=== PATIENT | male | born 1950 | race Caucasian/White ===

== ENCOUNTER 2023-07-07 12:05 | Emergency (ER) | payer MEDICARE, SELFPAY ==
[2023-07-07 12:09] VITALS: BP 158/74
[2023-07-07 13:04] LABS: % Basophils 0.8 % (0-2); % Eosinophils 8.9 % (0-6); % Immature Granulocytes 0.3 % (0-0.5); % Lymphocytes 15.1 % (20.5-51.1); % Monocytes 9.6 % (1.7-9.3); % Neutrophils 65.3 % (42.2-75.2); Absolute Basophils 0.1 10^3/uL (0-0.2); Absolute Eosinophils 0.8 10^3/uL (0-0.7); Absolute Lymphocytes 1.4 10^3/uL (1.2-3.4); Absolute Monocytes 0.9 10^3/uL (0.1-0.6); Mean Corp Hgb Conc. 34.1 g/dL (33.0-37.0); Mean Corpuscular Volume 93.6 fL (80.0-94.0); Mean Platelet Volume 9.4 fL (7.4-10.4); Nucleated Red Blood Cells % 0 % (-); Platelet Count 239 10^3/uL (130-400); Red Blood Cell Count 4.38 10^6/uL (4.70-6.10); Red Cell Dist. Width 12.1 % (11.5-14.5); White Blood Cell Count 9.2 10^3/uL (4.8-10.8)
[2023-07-07 13:28] LABS: ALT (SGPT) 35 U/L (0-50); AST (SGOT) 35 U/L (17-59); Albumin 3.8 g/dl (3.5-5.0); Alkaline Phosphatase 75 U/L (38-126); Blood Urea Nitrogen 10 mg/dl (9-20); Calcium 9.1 mg/dl (8.4-10.2); Carbon Dioxide 28 mmol/L (22-30); Chloride 100 mmol/L (98-107); Glucose 118 mg/dl (70-99); Potassium 4.1 mmol/L (3.5-5.1); Sodium 134 mmol/L (135-145); Total Bilirubin 0.6 mg/dl (0.2-1.3); Total Protein 6.8 g/dl (6.3-8.2); eGFR > 60.00
--- NOTE | 2023-07-07 14:03 | ED.GENMED ---
History of Present Illness
General
Chief Complaint: Numbness
Source: patient
Exam Limitations: none
Time Seen by Provider: 07/07/23 14:02
Nursing documentation reviewed up to this point in time: agreed with
Travel History
Have you had any contact with someone who has COVID-19?: No
Do you have any symptoms of coronavirus? Fever > 100 degrees, chills, cough, shortness of breath, sore throat, loss of taste or smell, muscle aches, or headache?: No
History of Present Illness
History of Present Illness:
73-year-old male with history of COPD, NIDDM with autonomic diabetic neuropathy, BPH, PAF, HLD, HTN, ID, prostate cancer, thrombocytosis presents stating 'my feet,' 'they're numb and cold all the time.' 'I have sores on both my feet.' Pt states he
stopped his Metformin and Glimepiride 6 months ago because 'they weren't' doing anything.'
Has a note on RX paper from lien searcher he says he saw 'in May.' Note states 'bilateral non healing necrotic LE wounds x multiple months. Diabetic. Non palpable pulses, + neuropathy Odor and drainage fr left leg wound. Rec hospital admission. Needs
arterial studies, ID consult. Pt prefers [facility]
Pt denies fever/chills.
Past History
Past History
ED Past Medical History: Cancer (Prostate) and NIDDM
ED Past Surgical History: Orthopedic
Social History
Tobacco: Smoker
Alcohol: Occasional
Personal:
Living: with family
Review of Systems
Review of Systems
Allergies reviewed?: Yes
All Other Systems: ROS reviewed and negative except as documented in HPI and ROS
Constitutional: Denies fever or chills
Respiratory: Denies trouble breathing
Cardiac: Denies chest pain
ABD/GI: Denies abdominal pain, nausea, diarrhea or anorexia
: Denies dysuria, frequency, difficulty voiding or urgency
Musculoskeletal: Denies edema
Skin: Reports other (sore on right heel, left great toe, left lower leg)
Neurological: Reports numbness (and pain both feet)
Phy Exam
Physical Exam
Physical Exam:
GENERAL: No acute distress. A&Ox3.
CONSTITUTIONAL: Afebrile.
EYES: clear,, conjunctivae normal
Neck: Supple
ENMT: moist mucus membranes, Pharynx nl
RESPIRATORY: Regular respirations, nonlabored, lungs clear.
CARDIOVASCULAR: Regular rate and rhythm, no murmurs, no rubs. Left pedal pulse palpable, unable to palpated right pedal pulse, brisk capillary refill all toes except necrotic left great toe.
Bilateral DP and PT pulses easily audible with doppler
GI: Soft, nontender, normal BS
MUSCULOSKELETAL: Moves with ease. Well perfused except necrotic left great toe
SKIN: Warm, dry, pink. Dime sized open wound right heel, surrounding thick yellow eschar, surrounding skin normal. Necrotic areas left great toe, wound outer left lower leg with scabbed over wound, abut 4 x 4 cm, surrounding skin normal. Wounds are
malodorous.
PSYCH: Normal mood and affect. Well kept, interactive and appropriate
NEUROLOGIC: Awake, alert and oriented. No focal neurological deficits
Course
Orders/Labs/Results
Orders:
Orders
07/07/23 12:39
Complete Blood Count/With Diff Urgent
Comprehensive Metabolic Panel Urgent
Glycohemoglobin (HgbA1c) Urgent
07/07/23 14:22
Add On- LAB Urgent
Tests Added?: Hgb A1C
07/07/23 14:47
Wound Culture [Wound/Abscess/Other Culture] Urgent
MAIKOL Source: Heel
Specimen Description: Left
Date Specimen was Collected: 07/07/23
Time Specimen was Collected: 14:40
07/07/23 14:52
CR Toe(s) Min 2 Vw Left Urgent
Comment:
Reason For Exam: necrosis
07/07/23 14:53
Heel, Right 2 View [CR Heel/os Calcis - Right 2 Vw] Urgent
Comment:
Reason For Exam: non healing wound
Abnormal Lab Results
07/07/23
12:39
RBC 4.38 L 10^6/uL
(4.70-6.10)
MCH 32.0 H pg
(27.0-31.0)
Absolute Monos (auto) 0.9 H 10^3/uL
(0.1-0.6)
Absolute Eos (auto) 0.8 H 10^3/uL
(0-0.7)
Lymphocytes % 15.1 L %
(20.5-51.1)
Monocytes % 9.6 H %
(1.7-9.3)
Eosinophils % 8.9 H %
(0-6)
Sodium 134 L mmol/L
(135-145)
Glucose 118 H mg/dl
(70-99)
07/07/23 12:39
07/07/23 12:39
Vital Signs
Initial and Last Documented VS:
Initial Vital Signs
Temp Pulse Resp BP Pulse Ox
100.3 F 50 18 158/74 99
07/07/23 12:09 07/07/23 12:09 07/07/23 12:09 07/07/23 12:09 07/07/23 12:09
Last Documented Vital Signs
Temp Pulse Resp BP Pulse Ox
98.1 F 61 16 148/84 96
07/07/23 14:48 07/07/23 15:30 07/07/23 14:48 07/07/23 15:00 07/07/23 15:30
MDM/Problems Addressed
Differential Diagnosis Includes:
diabetic neuropathy
venous insufficiency
arterial insufficiency
non compliance with treatment
MDM/Problems Addressed:
73-year-old male with history of NIDDM with autonomic diabetic neuropathy, BPH, PAF, HLD, HTN, ID, prostate cancer, thrombocytosis presents stating 'my feet,' 'they're numb and cold all the time.' 'I have sores on both my feet.' Pt states he stopped
his Metformin and Glimepiride 6 months ago because 'they weren't' doing anything.'
Has a note on RX paper from lien searcher he says he saw 'in May.' Note states 'bilateral non healing necrotic LE wounds x multiple months. Diabetic. Non palpable pulses, + neuropathy Odor and drainage fr left leg wound. Rec hospital admission. Needs
arterial studies, ID consult. Pt prefers [facility].'
Pt denies fever/chills.
Temp initially 100.3 Now 97.7 for this examiner
2:28 PM
CBC with no clinically significant abnormality
CMP normal
No sign of acute arterial compromise as PT and DP pulses intact, brisk cap refill toes bilaterally
Wound culture right heel pending.
Temp 98.1
Plan, Admit: non healing wounds feet, vascular evaluation
Hospitalist notified of admission.
Xray L toe and right heel pending
Pt refusing xrays and admission, I and Hospitalist both tried to convince him to stay 'I have things I have to do' States he can come back tomorrow, encouraged to do so
AMA form signed and scanned into chart
Encouraged pt to get appt with Wound Care or return here for admission when he can
*Critical Care Note
Total Time (30-74mins, 75-104mins- exclusive of procedures): Not Applicable
ED Attending Note
-
Portions of this chart may have been created with voice recognition software.� Occasional wrong word or��sound alike� substitutions may have occurred due to the inherent limitations of voice recognition software.
Discharge Plan
Departure
Patient Disposition: Against Medical Advice
Date of Disposition: 07/07/23
Time of Disposition: 14:57
Condition: Fair
Discharge Problem:
Non-healing open wound of right heel, Necrosis of toe, Diabetes mellitus, Non compliance w medication regimen, Diabetic autonomic neuropathy
Instructions: Nerve damage caused by diabetes, Foot care for people with diabetes
Prescriptions:
No Action
No Current Medications
0
Referrals:
Kam Fletcher, [Family Provider] -
Activity Restrictions/Additional Instructions:
As we discussed, call the [facility] for appointment
You are refusing admission, please return at any time if you change your mind.
Interventions
Interventions:
*Risk Screen - Suicide Last Done: 07/07/23 12:09
*General Assessment Last Done: 07/07/23 12:09
*Neglect/Abuse Screening Last Done: 07/07/23 12:09
ED- Fall Risk Assessment Last Done: 07/07/23 14:48
*ED COVID-19 Vaccine History Last Done: 07/07/23 12:09
ED- Neurological Assessment Last Done: 07/07/23 14:48
Discharge Date and Time
Print Language: KINYARWANDA
[2023-07-07 14:46] VITALS: BP 152/100
[2023-07-07 14:48] VITALS: BP 152/100; BMI 28.3
[2023-07-07 15:00] VITALS: BP 148/84
[2023-07-08 09:34] LABS: Glycohemoglobin (HgbA1c) 6.3 % (4.0-5.6)
== END 2023-07-07 16:02 | disposition left against medical advice (07) ==
LOC: EMR 12:05
PROVIDERS: Emergency Medicine; EMERGENCY PHYSICIAN Emergency Medicine; FAMILY PHYSICIAN Family Medicine
DX: E11.43 Type 2 diabetes mellitus with diabetic autonomic (poly)neuropathy (principal); S91.301A Unspecified open wound, right foot, initial encounter; Z91.148 Patient's other noncompliance with medication regimen for other reason; E11.52 Type 2 diabetes mellitus with diabetic peripheral angiopathy with gangrene; I96 Gangrene, not elsewhere classified; X58.XXXA Exposure to other specified factors, initial encounter; Z53.29 Procedure and treatment not carried out because of patient's decision for other reasons; D75.839 Thrombocytosis, unspecified; I10 Essential (primary) hypertension; E78.5 Hyperlipidemia, unspecified; N40.0 Benign prostatic hyperplasia without lower urinary tract symptoms; J44.9 Chronic obstructive pulmonary disease, unspecified; I25.2 Old myocardial infarction; I48.0 Paroxysmal atrial fibrillation; F17.200 Nicotine dependence, unspecified, uncomplicated; Z85.46 Personal history of malignant neoplasm of prostate
CPT/HCPCS: 99283; 80053; 83036; 85025; 87070; 87205

== ENCOUNTER 2023-07-21 17:31 | Inpatient (IN) | payer MEDICARE, SELFPAY ==
[2023-07-21 10:42] VITALS: BP 160/83
[2023-07-21] MEDS: ZOSYN 50 IV ×2 (15:17→20:43)
[2023-07-21 15:20] VITALS: BMI 29.6
--- NOTE | 2023-07-21 15:22 | ED.GENMED ---
History of Present Illness
General
Chief Complaint: Skin Problem
Source: patient, records and family
Time Seen by Provider: 07/21/23 14:28
Travel History
Have you had any contact with someone who has COVID-19?: No
Do you have any symptoms of coronavirus? Fever > 100 degrees, chills, cough, shortness of breath, sore throat, loss of taste or smell, muscle aches, or headache?: No
History of Present Illness
History of Present Illness:
73-year-old male with past medical history of [id number] diabetes (not taking any medications at present time due to patient noncompliance), paroxysmal atrial fibrillation, COPD, previous RI, hypertension, hyperlipidemia presenting back
to the emergency department for evaluation after he reports he was here about 2 weeks ago and was recommended to be admitted for evaluation of bilateral feet wounds that have been ongoing for at least 2 months. Patient saw his soil surveyor in May
who provided the ER with a prescription recommending patient be admitted for evaluation of the wounds, arterial studies, infectious disease consultation and possible surgical intervention. Patient states that he was not prepared to be admitted 2
weeks ago and preferred to be discharged home and come back to the hospital when ready. Patient notes that he is only taking ibuprofen at present time despite his multiple chronic medical conditions but is unclear as to why he ultimately decided to
stop all of his medications. Patient states his main symptom seems to be a continuous numbness/coldness sensation to the bilateral legs/feet. No new concerns today.
Past History
Past History
ED Past Medical History: Arrthythmia, Cancer (Prostate), COPD, HTN, Hypercholesterolemia and NIDDM
ED Past Surgical History: Orthopedic
Social History
Tobacco: Smoker
Alcohol: Occasional
Drug: None
Personal:
Living: with family
Review of Systems
Review of Systems
All Other Systems: ROS reviewed and negative except as documented in HPI and ROS
Phy Exam
Physical Exam
Physical Exam:
GENERAL: Alert , in no apparent distress
EYE: conjunctiva clear
NECK: Supple, no significant adenopathy.
ENT: o/p clr, mmm.
CARDIAC: Irregularly irregular rate and rhythm
LUNGS: Clear breath sounds bilaterally, no acute respiratory distress, no wheezes/rales/rhonchi
NEUROLOGICAL: Alert and oriented
SKIN: Somewhat dusky appearance to the bilateral feet. There are bilateral heel wounds with right being slightly greater than left. Moderate size eschar overlying both with the right heel having a black eschar, yellow eschar on the left. The left
great toe also has an eschar with small sloughing of the skin. No weeping or drainage. Skin is otherwise dry and flaking
MUSCULOSKELETAL: poorly perfused and unable to palpate DP or PT pulses. I was able to find a weak DP pulse and an easily dopplerable PT pulse on the right. Left DP and PT pulses were low but harder to find with Doppler but were present.
PSYCH: Normal and appropriate interaction.
Course
Orders/Labs/Results
Orders:
Orders
07/21/23 10:46
Electrocardiogram (*1) Urgent
Reason for Study: Bradycardia / Tachycardia
EKG- Treatment ONCE
07/21/23 14:57
Piperacillin/Tazo 3.375 Gram [Zosyn] 3.375 gram in 50 ml IV NOW
Peripheral Arterial US [US Periph Art LOWER Ext w YESSICA] Urgent
Comment:
Reason For Exam: PAD, neuropathy, wounds
US Legs, Bilateral [US Periph Venous LOWER Ext Elmo] Urgent
Comment:
Reason For Exam: wounds, edema
07/21/23 Dinner
2000 calorie (17 carb) Diabetic
At Your Request: Limited Participation
07/21/23 15:09
Vancomycin [Vancocin] 2,000 mg 0.9% Sodium Chloride 500 ml [Nss] 500 ml IV NOW
07/21/23 15:17
Basic Metabolic Panel Urgent
CRP [C-Reactive Protein] Urgent
Complete Blood Count/With Diff Urgent
ESR [Erythrocyte Sed Rate] Urgent
PTT Urgent
Prothrombin Time Urgent
07/21/23 16:52
Admit/Transfer Patient As Directed
Co-Sign Provider:
Level of Care: Inpatient admission
Assign to:: Telemetry
Physician / Group: jose
Diagnosis: non healing infected foot wounds
Reason for Telemetry: Arrhythmia
Date to Stop Telemetry: 07/24/23
Time to Stop Telemetry: 11:00
Reason for Hospitalization: non healing infected foot wounds
Expected length of stay greater than two midnights?: Yes
ELOS- Estimated Length of Stay in days: 2
I certify the patient meets the requirements for IP care: Yes
Code Status As Directed
Resuscitation Status: Full Code
07/21/23 18:10
VANCOMYCIN Pharmacy to Dose [VANCOCIN Pharmacy to Dose] 1 each Pharmacy To Prepare [Call Pharmacy To Prepare] 0 ml IV PER PROTOCOL
07/21/23 18:10
Activity As Directed
Activity Level: As Tolerated
Vital Signs As Directed
Frequency: Per unit guidelines
DX Deep Vein Thrombosis Video Routine
07/21/23 20:00
Heparin 5,000 units SC Q12
Piperacillin/Tazo 3.375 Gram [Zosyn] 3.375 gram in 50 ml IV Q6H
07/22/23 Breakfast
NPO
Allow oral meds: Yes
Allow clear liquids: No
NPO with Ice Chips: No
Complete Blood Count/With Diff IN AM
Comprehensive Metabolic Panel IN AM
07/24/23 11:00
DC Protocol for Telemetry ONCE
Abnormal Lab Results
07/21/23
15:17
RBC 4.67 L 10^6/uL
(4.70-6.10)
MCH 32.1 H pg
(27.0-31.0)
Absolute Monos (auto) 0.9 H 10^3/uL
(0.1-0.6)
Absolute Eos (auto) 0.8 H 10^3/uL
(0-0.7)
Lymphocytes % 15.5 L %
(20.5-51.1)
Monocytes % 10.0 H %
(1.7-9.3)
Eosinophils % 8.9 H %
(0-6)
ESR 23 H mm/hour
(0-20)
Carbon Dioxide 31 H mmol/L
(22-30)
Glucose 106 H mg/dl
(70-99)
C-Reactive Protein 27.20 H mg/L
(0.0-10.00)
07/21/23 15:17
07/21/23 15:17
Vital Signs
Initial and Last Documented VS:
Initial Vital Signs
Temp Pulse Resp BP Pulse Ox
99.1 F 46 18 160/83 98
07/21/23 10:42 07/21/23 10:42 07/21/23 10:42 07/21/23 10:42 07/21/23 10:42
Last Documented Vital Signs
Temp Pulse Resp BP Pulse Ox
99.1 F 46 18 160/83 98
07/21/23 10:42 07/21/23 10:42 07/21/23 10:42 07/21/23 10:42 07/21/23 10:42
MDM/Problems Addressed
Differential Diagnosis Includes:
Peripheral vascular disease, peripheral arterial disease, diabetic neuropathy/diabetic wounds, osteomyelitis
MDM/Problems Addressed:
73-year-old male with chronic wounds to bilateral feet, chronic medication noncompliance. Patient clearly has multitude of components leading to his peripheral arterial disease, peripheral vascular disease as well as diabetes all likely
contributing to his present symptoms today. Symptoms are all chronic however worsening. Patient not on any medications for any of his chronic conditions. Likely needs more urgent vascular evaluation. Patient at some point may need surgical
intervention. Will order labs as well as discussed case with vascular to help with imaging modalities. Plan will be to admit
Chronic conditions affecting care: DM and Other (Peripheral vascular/peripheral arterial disease)
Acute Exacerbation and/or Progression of Chronic Illness: DM and Other (PVD/PAD)
*Radiology
Radiology exam reviewed: radiology read reviewed
*Pulse Oximetry
Patient hypoxic: no
*EKG
Interpreted by ED Provider?: Yes
Comparison EKG: no changes
Heart Rate: 56
Rate: normal
Rhythm: a-fib
[place]: normal axis
Ischemia: no ischemia
*Critical Care Note
Total Time (30-74mins, 75-104mins- exclusive of procedures): Not Applicable
Data Reviewed
Review of Other/Old Records Reveals: Labs, Records and Radiology Studies
Source: patient and records
Patient Management
Discussion with other providers: Hospitalist and Core Machine Tender
Escalation/DeEscalation of care consider admission/obs:
2:50 PM: Spoke with vascular surgery, Dr. Ballesteros, recommends peripheral vascular studies as well as YESSICA with toe pressures bilateral lower extremities
4:05 PM: Hospitalist team is aware and accepts patient for continued evaluation and treatment. They may consult infectious disease and podiatry.
ED Attending Note
-
Portions of this chart may have been created with voice recognition software.� Occasional wrong word or��sound alike� substitutions may have occurred due to the inherent limitations of voice recognition software.
Discharge Plan
Departure
Patient Disposition: Admit
Date of Disposition: 07/21/23
Time of Disposition: 16:05
Presentation/result/management discussed w/ accepting MD/DO: Hospitalist
Discharge Problem:
diabetic foot wound, PVD (peripheral vascular disease), PAD (peripheral artery disease), Non compliance w medication regimen
Interventions
Interventions:
*Risk Screen - Suicide Last Done: 07/21/23 10:45
*General Assessment Last Done: 07/21/23 10:45
*Neglect/Abuse Screening Last Done: 07/21/23 10:45
ED- Fall Risk Assessment Last Done: 07/21/23 17:37
*Nursing Disposition Last Done: 07/21/23 18:10
ED-Skin Assessment Last Done: 07/21/23 17:37
Discharge Date and Time
Discharge Date/Time: 07/21/23 18:10
[2023-07-21 15:36] LABS: % Eosinophils 8.9 % (0-6); % Immature Granulocytes 0.2 % (0-0.5); % Lymphocytes 15.5 % (20.5-51.1); % Neutrophils 64.4 % (42.2-75.2); Absolute Basophils 0.1 10^3/uL (0-0.2); Absolute Eosinophils 0.8 10^3/uL (0-0.7); Absolute Lymphocytes 1.4 10^3/uL (1.2-3.4); Absolute Monocytes 0.9 10^3/uL (0.1-0.6); Hematocrit 42.5 % (39.0-52.0); Mean Corp Hgb Conc. 35.3 g/dL (33.0-37.0); Mean Corpuscular Hgb 32.1 pg (27.0-31.0); Mean Platelet Volume 9.2 fL (7.4-10.4); Nucleated Red Blood Cells % 0 % (-); Platelet Count 239 10^3/uL (130-400); Red Blood Cell Count 4.67 10^6/uL (4.70-6.10); White Blood Cell Count 9.3 10^3/uL (4.8-10.8)
[2023-07-21 15:46] LABS: Blood Urea Nitrogen 9 mg/dl (9-20); Calcium 9.6 mg/dl (8.4-10.2); Carbon Dioxide 31 mmol/L (22-30); Chloride 98 mmol/L (98-107); Estimated Creatinine Clearance 92 ml/min; Glucose 106 mg/dl (70-99); Potassium 4.7 mmol/L (3.5-5.1); Sodium 136 mmol/L (135-145); eGFR > 60.00
[2023-07-21 16:09] LABS: APTT 32.5 Sec (23.4-35.0); INR 1.01; PT 13.1 Sec (11.4-14.6)
--- NOTE | 2023-07-21 16:09 | CON.VAS ---
Addendum entered and electronically signed by Finn Melendez MD 07/22/23 09:03:
Seen and examined with KELLY Paz. Agree with findings as noted below. 73-year-old male with multiple medical issues including hypertension, diabetes (he stopped his diabetic medications), A-fib, CAD with chronic bilateral lower extremity
lesions/wounds. Notes about 4 months that they have been there and are not completely healing. He is unclear how they originated. Notes neuropathy in his feet. History of PA/coronary stents. Denies any lower extremity revascularization
procedures. He does note remote tobacco use.
On exam he is awake and alert. Head is normocephalic and atraumatic. Eyes are anicteric. Neck is soft no jugular venous distention. Breathing is unlabored. Abdomen is soft, nondistended, nontender. Lower extremity with 2+ femoral, popliteal
pulses palpable bilaterally. 1+/2+ left DP pulse palpable. Nonpalpable on the right. Feet are both warm. No rubor. Left first toe dry gangrenous lesion distally. (Patient notes the entirety of the toe was dry gangrenous prior, now with
thickened skin and distal residual dry gangrene see pictures below). Left ankle laterally with ulceration relatively superficial, but dry edges (see picture below). Right foot with medial proximal heel dry gangrene and thickened skin changes (see
picture below).
Noninvasive studies reviewed. Right-sided YESSICA 0.77, TBI 0.54. Left-sided YESSICA 0.98, TBI 0.59. Multiphasic waveforms common femoral through popliteal with no significant stenosis. However monophasic continuous Doppler waveforms in the bilateral DP
and PT arteries noted. Suggestive of bilateral infrapopliteal artery disease.
Plan/ Ischemic/gangrenous appearing lesions bilateral lower extremity. They do appear to be overall healing and there may be some healed skin deep to them. However, given these findings would favor angiography. Discussed with him potential
scenarios of angiography including: #1 patent vessels with no significant occlusive disease, #2 stenoses/occlusions noted with successful endovascular therapy, #3 stenoses or occlusions noted with need for staged surgical bypass, #4 no
unreconstructable small vessel disease. Given that his YESSICA on the left is normal and he has palpable pulses on that side, nonpalpable on the right with YESSICA decreased at 0.77 would favor intervention first on the right side. (Left femoral
puncture). Discussed risk of procedure including but not limited to bleeding, arterial injury/worsened or acute limb ischemia, renal failure. Discussed that could image the left lower extremity as well, but if needed to intervene, would do staged
intervention on that side (or alternatively could give that side a little bit longer to see if would heal given normal YESSICA). Patient understands all wishes to proceed. Plan RIGHT lower extremity arteriogram, possible angioplasty/stent, possible
left lower extremity arteriogram.
Original Note:
Consultation
Consultation Request
Date/Time Consultation Performed: 07/21/2023 1600
Requesting Provider: Huan Mistry PA-C
Performing Provider: Isha Paz NP-C for Finn Melendez MD
Reason for Consultation: Bilateral foot wounds
Medical History
-
Chief Complaint: Bilateral foot wounds
History of Present Illness:
This is a 73-year-old male significant past medical history for paroxysmal atrial fibrillation, CAD, prostate cancer, hypertension, and diabetes who presents to [facility] ED today reporting continued bilateral lower extremity nonhealing chronic
wounds. Of note patient reported to our ER on 07/07/2023 with same chief complaint at the encouragement of an outpatient home paraprofessional, at that time he was recommended to be admitted with vascular surgical workup, antibiotics, and further testing for
nonhealing wounds. He refused and signed out AMA as he states he was not ready to be admitted to the hospital. He returns today in agreement to have bilateral wounds further worked up and for hospital admission. He endorses that bilateral feet
wounds appeared roughly 4 months ago, he is unsure how they transpired. He denies trauma. He endorses a roughly 5-year history of bilateral lower extremity diabetic neuropathy, and does endorse decreased sensation to bilateral feet. He denies
previous vascular surgical workup or vascular surgical interventions. Reports PA with subsequent placement of cardiac stent at [facility] in 2016. He also endorses past medical history of proximal atrial fibrillation diagnosed at outside
hospital but does not believe diagnosis is true, as subsequent EKGs were in sinus rhythm. He reports noncompliance with medications including diabetes medications ,aspirin, and any previously prescribed medications for hypertension/CAD. Patient
does have a family history of peripheral arterial disease and diabetes, he endorses he had a brother with poorly managed diabetes who subsequently required leg amputations and eventually from complications of multiple medical conditions.
He personally denies symptoms of claudication or rest pain, but does note that he is limited in his ambulation due to poor balance.
Past Medical History
Past Medical History: Arrhythmias (Paroxysmal atrial fibrillation), CAD, Cancer (Prostate), HTN and NIDDM (Noncompliant)
Past Surgical History: Other (Left hip replacement (11/2015), cardiac catheterization with PCI, endoscopy)
Social History
Tobacco: Former Smoker (Reports a roughly 10-year smoking history)
Drug: None
Allergies / Home Medications
Allergy/AdvReac Type Severity Reaction Status Date / Time
No Known Allergies Allergy Verified 07/21/23 10:42
�Medication �Instructions �Recorded �Confirmed �Type
ibuprofen 200 mg tablet 200 mg PO HSPRN PRN shoulder pain 07/21/23 07/21/23 History
Review of Systems
-
History Source: Patient
Constitutional: Reports No Symptoms
EENT: Reports No Symptoms
Respiratory: Reports No Symptoms
Cardiac: Reports No Symptoms
Vascular: Reports Numbness and Tingling
Abdomen/GI: Reports No Symptoms
: Reports No Symptoms
Musculoskeletal: Reports Edema
Skin: Reports Other (Dry and foul-smelling wounds with eschar present at right heel, left hallux, and left lateral calf, see pictures in HPI)
Neurological: Reports No Symptoms
Endocrine: Reports No Symptoms
Physical Exam
Vital Signs
Temp Pulse Resp BP Pulse Ox
99.1 F 46 18 160/83 98
07/21/23 10:42 07/21/23 10:42 07/21/23 10:42 07/21/23 10:42 07/21/23 10:42
Lab Results
07/21/23 15:17
07/21/23 15:17
Physical Exam
General: No Apparent Distress and Comfortable
HEENT: Normocephalic, Anicteric and Atraumatic
Respiratory: Non Labored Respirations
Cardiac: Irregular Rhythm; Negative JVD
GI: Soft, Non Tender and Non Distended
Musculoskeletal: Edema (Right lower extremity +1 edema, left lower extremity +2 edema)
Skin: Other (Dry and foul-smelling wounds with eschar present at right heel, left hallux, and left lateral calf, see pictures in HPI)
Neuro: Awake and Alert
Pulses: Bilateral Femoral: +2, Bilateral Dorsalis Pedis: +2 and Bilateral Posterior Tibial: Doppler
Assessment / Plan
-
Assessment: 73-year-old male admitted for workup of bilateral feet wounds and suspected peripheral arterial disease
Plan:
Arterial ultrasound with YESSICA/TBI results pending
Surgical plan pending results of noninvasive tests. However, will make patient n.p.o. at midnight in case ultrasounds indicate need for angiogram, which could be done tomorrow.
Would consult podiatry for further management of wounds
Agree with initiation of antibiotics for foul-smelling wounds
I performed this shared service with the attending. I evaluated the patient [id number] and have entered clinical documentation as shown in the encounter note. I performed the following component(s): history and physical exam. Note that medical
decision making is not final until attested by vascular attending.
[2023-07-21 16:14] LABS: Erythrocyte Sed Rate 23 mm/hour (0-20)
--- NOTE | 2023-07-21 16:55 | HPS.HSE ---
Addendum entered and electronically signed by Edy Finney MD 07/21/23 17:48:
Will start with xrays of left foot and right heel instead of MRI.
Original Note:
Family Physician
-
Family Physician: aKm Fletcher
Chief Complaint
-
foot wounds
History of Present Illness
73-year-old male past medical history of prostate cancer status post radiation, diabetes, coronary artery disease, paroxysmal atrial fibrillation, hypertension, COPD, hyperlipidemia presenting to the emergency room for bilateral feet wounds ongoing
for the past few months. He saw his powdered sugar pulverizer operator in May at which time provided prescription prescription to ER recommending patient be admitted for evaluation of the wound, arterial studies and possible surgical intervention. Patient did not want
to go to the hospital at that time.
Patient came here 2 weeks ago and was recommended to be admitted for bilateral foot wounds but left AMA.
Patient has numbness/coldness sensation of the bilateral legs and feet. He denies any fevers or chills
Patient is only taking ibuprofen at this time and states that he only takes metformin and glimepiride but stopped taking them because they were not working. He denies any history of atrial fibrillation states that he was never on anticoagulation.
He drinks alcohol few times a week.
Medical History
Past Medical History
Past Medical History: Reports Other (prostate cancer status post radiation, diabetes, coronary artery disease, paroxysmal atrial fibrillation, hypertension, COPD, hyperlipidemia)
Past Surgical History: Reports None and Other (Orthopedic)
Social History
Tobacco: Non-smoker
Alcohol: Occasional
Drug: None
Family History
Family History: Not pertinent
Allergies / Home Medications
Allergies reflects when Allergies were last updated in [facility].
Home Medications with original date entered in [facility]
Allergy/Medication List:
Allergies
Allergy/AdvReac Type Severity Reaction Status Date / Time
No Known Allergies Allergy Verified 07/21/23 10:42
Home Medications
ibuprofen 200 mg tablet 200 mg PO HSPRN PRN shoulder pain 07/21/23
Review of Systems
-
History Source: Patient
A 12 point ROS was completed and negative except as noted: Yes
Constitutional: Reports No Symptoms
EENT: Reports No Symptoms
Respiratory: Reports No Symptoms
Cardiac: Reports No Symptoms
Abdomen/GI: Reports No Symptoms
: Reports No Symptoms
Musculoskeletal: Reports No Symptoms
Skin: Reports See HPI
Neurological: Reports No Symptoms
Endocrine: Reports No Symptoms
Hematologic/Lymphatic: Reports No Symptoms
Psych: Reports No Symptoms
Physical Exam
Vital Signs
Vital Signs
Temp Pulse Resp BP Pulse Ox
99.1 F 46 18 160/83 98
07/21/23 10:42 07/21/23 10:42 07/21/23 10:42 07/21/23 10:42 07/21/23 10:42
Physical Exam
General: Well Developed, Well Nourished and No Apparent Distress
HEENT: NormoCephalic, Moist mucous membranes and Atraumatic
Respiratory: Clear
Cardiac: S1/S2 and Regular Rhythm; No Murmur or Rub
GI: Soft, Non Tender, Non Distended and Normal Bowel Sounds; No Organomegaly
Rectal: Deferred by Provider
Musculoskeletal: No Clubbing, No Cyanosis and No Edema
Skin: Other ( Multiple wounds including left big toe with some dry gangrene, right heel, left calf and left heel); No Rash
Neuro: Nonfocal/grossly intact
Laboratory Results
-
07/21/23 15:17
07/21/23 15:17
Laboratory Results
PT 13.1 Sec (11.4-14.6) 07/21/23 15:17
INR 1.01 07/21/23 15:17
APTT 32.5 Sec (23.4-35.0) 07/21/23 15:17
Data Reviewed
-
Lab Data: Labs Reviewed by me
Old Records: Reviewed
Impression/Plan
-
IMPRESSION:
PLAN:
# Nonhealing infected chronic wounds of left big toe, left calf, bilteral heels with gangrene, suspected PAD, possible osteomyelitis
-Venous ultrasound
-Arterial ultrasound/YESSICA
-Vancomycin/Zosyn
-Check MRI foot
-Podiatry consulted
-ID consulted
-Vascular surgery consulted
-N.p.o. past midnight for possible angiogram tomorrow
Type 2 diabetes
-patient not taking metformin and glimepiride
-Diabetic diet
-Insulin sliding scale
Diabetic neuropathy
Coronary artery disease status post stent in 2015
Paroxysmal atrial fibrillation
-unclear if patient has history
-EKG shows ectopic atrial rhythm, PACs with heart rate in 50s
Essential hypertension
COPD
Prostate cancer status post radiation
Hyperlipidemia
Full code
DVT prophylaxis-heparin
N.p.o. past midnight
[2023-07-21] MEDS: VANCOCIN 540 MG IV (17:05)
--- NOTE | 2023-07-21 19:06 | PHA.VAN.IN ---
Assessment
- Assessment
Renal Function: Appears similar to baseline
Concomitant Antimicrobials: ZOSYN
- Previous Dosing Experience
Previous Regimen: 1GM IV Q12H
Date of Regimen: 12/26/09
Provided Trough of: 7
Provided AUC of: UNKNOWN
Patient's SCR is: Decreased compared to previous dosing experience (12/26/09 SCR = 1.1)
Patient's weight is: Decreased compared to previous dosing experience (12/26/09 WT = 103.2 KG)
AUC Dosing Plan
- Dosing Variables
Dosing Weight (kg): 83.2
Dosing CrCl (ml/min): 92
Vd coefficient (L/kg): 0.7
- Empiric Dosing
Initial / Loading Dose: 2GM
Maintenance Regimen: 1250MG IV Q12H
Estimated AUC (mcg*h/mL): 564
Estimated Peak (mcg*h/mL): 34.6
Estimated Trough (mcg/ml): 14.8
Estimated Half Life (H): 8.6
Pharmacokinetics Vancomycin I
- -
Patient Age: 73
Patient Sex: Male
Vancomycin Day #: 1
Indication: Bone And Joint (BILAT FOOT WOUNDS/GANGRENE)
Requesting Provider: BRIANNA
Height / Weight:
Height 5 ft 6 in
Actual Weight 83.2 kg
Pertinent Past Medical History: DM
- Vital Signs / Lab Results
Temp Pulse Resp BP Pulse Ox
99.1 F 46 18 160/83 98
07/21/23 10:42 07/21/23 10:42 07/21/23 10:42 07/21/23 10:42 07/21/23 10:42
Lab Results - Hematology
07/21/23
15:17
WBC 9.3
Lab Results - Chemistry
07/21/23
15:17
BUN 9
Creatinine 0.7
Estimated Creat Clear 92
[2023-07-21 19:30] VITALS: BMI 29.1
[2023-07-21 19:55] VITALS: BP 119/73
[2023-07-21] MEDS: HEPARIN 5000 UNITS SC (20:43)
[2023-07-21 23:00] VITALS: BP 129/59
[2023-07-21 23:55] LABS: Glucose - Point of Care 121 mg/dl (70-99)
[2023-07-21] MEDS: NOVOLOG FLEXPEN-LOW RESISTANCE SC (23:57)
[2023-07-22] VITALS (15 sets, daily range): BP systolic 116–181; BP diastolic 48–97
--- NOTE | 2023-07-22 00:35 | PTCARENOTE ---
Patient already on unit and in room at change of shift. AAOX3. Denies pain or discomfort at time of admission. No signs of distress. patient left floor for Xray of bilateral feet in ER via wheelchair around 21:40 and arrived back to unit via
wheelchair around 22:00. Patient has no complaints. Oriented to unit. Call newton within reach.
[2023-07-22] MEDS: ZOSYN 50 IV ×3 (02:09→14:41)
[2023-07-22 05:31] LABS: Glucose - Point of Care 119 mg/dl (70-99)
[2023-07-22] MEDS: NOVOLOG FLEXPEN-LOW RESISTANCE SC ×2 (05:35→12:05)
[2023-07-22] MEDS: VANCOCIN 275 MG IV (05:49)
[2023-07-22 07:42] LABS: % Basophils 1.1 % (0-2); % Eosinophils 9.5 % (0-6); % Immature Granulocytes 1.6 % (0-0.5); % Lymphocytes 13.7 % (20.5-51.1); % Monocytes 10.9 % (1.7-9.3); % Neutrophils 63.2 % (42.2-75.2); Absolute Basophils 0.1 10^3/uL (0-0.2); Absolute Eosinophils 0.8 10^3/uL (0-0.7); Absolute Immature Granulocytes 0.1 10^3/uL (0-0.05); Absolute Lymphocytes 1.1 10^3/uL (1.2-3.4); Absolute Monocytes 0.9 10^3/uL (0.1-0.6); Absolute Neutrophils 5.3 10^3/uL (1.4-6.5); Hematocrit 36.3 % (39.0-52.0); Hemoglobin 12.4 g/dL (13.0-18.0); Mean Corp Hgb Conc. 34.2 g/dL (33.0-37.0); Mean Corpuscular Volume 93.8 fL (80.0-94.0); Mean Platelet Volume 9.6 fL (7.4-10.4); Nucleated Red Blood Cells % 0 % (-); Platelet Count 206 10^3/uL (130-400); Red Blood Cell Count 3.87 10^6/uL (4.70-6.10); Red Cell Dist. Width 12.9 % (11.5-14.5); White Blood Cell Count 8.4 10^3/uL (4.8-10.8)
--- NOTE | 2023-07-22 07:48 | W.PN.HOSP.TC ---
Today's Communication/Plan
-
see bold
Assessment / Plan
Assessment / Plan
HPI: 73-year-old male past medical history of prostate cancer status post radiation, diabetes, coronary artery disease, paroxysmal atrial fibrillation, hypertension, COPD, hyperlipidemia presenting to the emergency room for bilateral feet wounds
ongoing for the past few months. He saw his stretching press operator in May at which time provided prescription prescription to ER recommending patient be admitted for evaluation of the wound, arterial studies and possible surgical intervention. Patient did
not want to go to the hospital at that time. Patient came here 2 weeks ago and was recommended to be admitted for bilateral foot wounds but left AMA.
Patient has numbness/coldness sensation of the bilateral legs and feet. He denies any fevers or chills. Patient is only taking ibuprofen at this time and states that he only takes metformin and glimepiride but stopped taking them because they were
not working. He denies any history of atrial fibrillation states that he was never on anticoagulation.
# Nonhealing infected chronic wounds of left big toe, left calf, bilteral heels with gangrene, possible osteomyelitis
CRP 27.2, ESR 23
MRI requested
Appreciate podiatry input, status post bedside removal of calluses
Continue vancomycin and Zosyn for now, continue wound care
#Peripheral artery disease
Appreciate vascular surgery input, right lower extremity arteriogram showed severe plaque burden bilaterally, but no severe stenosis on the right iliac system
Vascular surgery recommends medical management with aspirin, statin, diabetes control
#Cigarette nicotine dependency
Continue to encourage cessation
Type 2 diabetes
-Hemoglobin A1c 6.3
-patient not taking metformin and glimepiride
-Diabetic diet
-Insulin sliding scale
Diabetic neuropathy
Coronary artery disease status post stent in 2016
Essential hypertension
COPD
Prostate cancer status post radiation
Hyperlipidemia
DVT prophylaxis�subcu Lovenox
Full code
Total time spent to see the patient on the floor, examine the patient, review data and lab results, discuss treatment plan with patient, nursing staff around 50 minutes.
Physical Exam
General: No acute distress
HEENT: Normocephalic, Atraumatic, EOMI, MMM
Respiratory: Clear to Auscultation bilaterally
Cardiac: Normal S1/S2, Regular Rate and Rhythm
GI: Soft, Nontender, Nondistended, Normal Bowel Sounds
Extremities: No Clubbing, Cyanosis, or Edema
Left great toe ulcer
Right heel ulcer
Neuro: Nonfocal/Grossly Intact
Anticipated Discharge: > 48 hours
Subjective/Interval History
-
Date of Service: July 22, 2023
Patient complains of muscle spasms. No fever, no vomiting.
Objective Data
-
Labs:
Laboratory Results
07/22/23
06:54
WBC Pending
Hgb Pending
Hct Pending
Plt Count Pending
Sodium Pending
Potassium Pending
Chloride Pending
Carbon Dioxide Pending
BUN Pending
Creatinine Pending
Glucose Pending
Calcium Pending
Total Bilirubin Pending
AST Pending
ALT Pending
Alkaline Phosphatase Pending
Vital Signs:
Vital Signs
Temp Pulse Resp BP Pulse Ox
98.0 F 62 18 146/77 97
07/22/23 07:30 07/22/23 07:30 07/22/23 07:30 07/22/23 07:30 07/22/23 07:30
I&O
07/21/23 07/22/23 07/23/23
06:59 06:59 06:59
Intake Total 340 / 340
Output Total 300 / 300
Balance 40 / 40
[2023-07-22 08:01] LABS: ALT (SGPT) 23 U/L (0-50); AST (SGOT) 28 U/L (17-59); Alkaline Phosphatase 64 U/L (38-126); Blood Urea Nitrogen 12 mg/dl (9-20); Calcium 8.6 mg/dl (8.4-10.2); Carbon Dioxide 28 mmol/L (22-30); Chloride 103 mmol/L (98-107); Estimated Creatinine Clearance 82 ml/min; Glucose 110 mg/dl (70-99); Potassium 3.9 mmol/L (3.5-5.1); Sodium 136 mmol/L (135-145); Total Bilirubin 0.8 mg/dl (0.2-1.3); Total Protein 5.8 g/dl (6.3-8.2); eGFR > 60.00
[2023-07-22 08:25] LABS: Glucose - Point of Care 118 mg/dl (70-99)
[2023-07-22] MEDS: HEPARIN 5000 UNITS SC (08:44)
--- NOTE | 2023-07-22 08:45 | PHA.VAN.FU ---
Vancomycin Assessment / Plan
- Assessment
Renal Function: Stable
WBC's are: WNL
In the past 24 hrs, patient has been: Afebrile
Concomitant Antimicrobials: piperacillin/tazobactam
- Dosing Plan
Adjust Regimen to: Vanc 1000mg Q12H starting at 1800
New Regimen Predicts: AUC (454 - 504), Peak (28.4 - 30.4), Trough (11.7 - 13.7)
- Monitoring Plan
No level(s) ordered at this time: consider levels in next few days
- Follow Up
Pharmacy will continue to follow.
Vancomycin Follow UP
- -
Patient Age: 73
Patient Sex: Male
Vancomycin Day #: 2
Indication: Bone And Joint
Requesting Provider: Dr. Finney
Pertinent Antimicrobial Allergies:
NKDA
Height / Weight:
Height 5 ft 6 in
Actual Weight 81.703 kg
Pertinent Past Medical History: DM 2
- Vital Signs / Lab Results
Temp Pulse Resp BP Pulse Ox
98.0 F 62 18 146/77 97
07/22/23 07:30 07/22/23 07:30 07/22/23 07:30 07/22/23 07:30 07/22/23 07:30
Lab Results - Hematology
07/21/23 07/22/23
15:17 06:54
WBC 9.3 8.4
Lab Results - Chemistry
07/21/23 07/22/23
15:17 06:54
BUN 9 12
Creatinine 0.7 0.7
Estimated Creat Clear 92 82
Albumin 3.0 L
--- NOTE | 2023-07-22 09:37 | CON.MD ---
Consultation - Medical
-
Mr. Vora is a 73-year-old male with a past medical history of prostate cancer status post radiation, diabetes, coronary artery disease, paroxysmal atrial fibrillation, hypertension, COPD & hyperlipidemia presenting to the emergency room for
bilateral feet wounds. he believes that they appeared approximately 4 months ago. He was seen by a edger technician once in [place] and the right heel wound was debrided and Betadine was applied. It was recommended at that time in May that he go to
the ER for wound evaluation and possible vascular intervention. Patient did not want to go to the hospital at that time. Patient has not been bandaging his wounds. Two weeks ago he was seen here at [place] in the ER and was recommended to be
admitted for bilateral foot wounds but he subsequently left AMA. Patient relates numbness and painful sensations in the bilateral legs and feet. He relates to stopping his Diabetic medications. He denies any fevers or chills currently
Past Medical History
prostate cancer status post radiation, diabetes, coronary artery disease, paroxysmal atrial fibrillation, hypertension, COPD, hyperlipidemia
Past Surgical History: Reports None
Social History
Tobacco: Non-smoker
Alcohol: Occasional
Drug: None
Family History
Family History: Not pertinent
Allergies
Allergy/AdvReac Type Severity Reaction Status Date / Time
No Known Allergies Allergy Verified 07/21/23 10:42
Home Medications
ibuprofen 200 mg tablet 200 mg PO HSPRN PRN shoulder pain 07/21/23
Review of Systems
-
History Source: Patient
A 12 point ROS was completed and negative except as noted: Yes
Constitutional: Reports No Symptoms
EENT: Reports No Symptoms
Respiratory: Reports No Symptoms
Cardiac: Reports No Symptoms
Abdomen/GI: Reports No Symptoms
: Reports No Symptoms
Musculoskeletal: Reports No Symptoms
Skin: Reports See HPI
Neurological: Reports No Symptoms
Endocrine: Reports No Symptoms
Hematologic/Lymphatic: Reports No Symptoms
Psych: Reports No Symptoms
PE: Palpable pulses left foot, right DP/PT pulses are non palpable, loss of pedal hair, atrophic changes, loss of protective sensation. The right heel has a wound with periwound hyperkeratosis on the plantarmedial heel. It measures 1 cm x 2 cm,
it has a pink granular base and there is no undermining, probing, tunneling or sinus tract formation. The left heel has a small dry area of eschar/deep soft tissue injury - dry and stable approximately 1 cm in diameter. No fluctuance. The left
great toe has a fibronecrotic wound on the distal tip of the toe with periwound hyperkeratosis, no probing, tunneling or sinus tract formation. The left lateral leg has a dry eschar approximately 4 cm in diameter - stable, no active drainage, no
fluctuance.
Assessment:
Type 2 Diabetes Mellitus with neuropathy
PAD/ischemic changes
Right heel wound - stage 2
Left distal hallux wound - stage 2
Left heel and lateral leg stable eschars unstageable.
Plan:
He is evaluated and treated at bedside with Gloria, the wound care nurse. X-rays & labs are reviewed. Hyperkeratosis is removed form the right periwound heel area and the left hallux, wounds are carefully inspected. I recommend santyl to the left
hallux and lateral leg wounds daily. I recommend Xeroform and bordered foam to the right heel wound. Offload heels at all times in bed - recommend foam heel pads as well. He may weight bear as tolerated in left foot surgical shoe and right foot
globoped heel relief shoe. Vascular studies complete - follow vascular plan for RLE angiogram with possible endovascular intervention, possible angio left side.
--- NOTE | 2023-07-22 11:49 | WOUNDNOTE ---
LEFT GREAT TOE
--- NOTE | 2023-07-22 11:49 | WOUNDNOTE ---
LEFT LATERAL LEG
--- NOTE | 2023-07-22 11:52 | WOUNDNOTE ---
[facility] RN note: Patient admitted with multiple LE wounds
See H&P for complete history.
PMH: Diabetes, ex-smoker, prostate cancer, CAD, A-fib, COPD
Wound Location and type/assessment: Assessment competed with Dr. Reza, who removed callus of right heel and left great toe during visit. Pictures taken s/p callus removal. Left heel with eschar vs DTI. Left lateral leg with full thickness
wound, vascular appearing.
Appetite: States good
Pressure redistribution devices in place: Heels off-loaded with pillows under calves.
Plan: Santyl to left toe and left lateral leg. Xeroform to right heel and protective foam to left heel. Keep heels off-loaded with pillows under calves. Awaiting plan from vascular. Patient currently NPO. YFN Goetz given update. Will continue to
follow as needed.
[2023-07-22 11:57] LABS: Glucose - Point of Care 113 mg/dl (70-99)
[2023-07-22] MEDS: SANTYL OINTMENT 1 APPLIC TOPICAL (12:04)
--- NOTE | 2023-07-22 12:50 | W.SUR.PREOP ---
Pre-Operative Surgical Note
-
I have examined this patient prior to the performance of the scheduled procedure.
The patient's condition is unchanged from the time of the current History and
Physical and the patient is able to undergo the scheduled procedure.
--- NOTE | 2023-07-22 13:53 | W.PN.UPDATE ---
Update Note
Progress Note Update
Arteriography performed. He has SEVERE plaque burden throughout the entirety of his arterial tree from the abdominal aorta all the way down. Extensive plaque with luminal irregularities throughout the vessels. However there is no severe stenosis
throughout the aorta/right iliac system/right common femoral/profunda/superficial femoral and popliteal arteries. Below the knee he has severe knuckle like tortuosity of the below-knee popliteal/TP trunk. Anterior tibial artery occludes shortly
after its origin. Peroneal artery is his dominant runoff vessel to the foot and is a reasonable artery. There is a mild to moderate stenosis in the proximal portion but appears to be less than 50% in different imaging. There is reconstituted flow
into diseased distal ankle/foot posterior tibial/plantar's and dorsalis pedis arteries. The posterior tibial artery throughout its course is severely diseased/diminutive and then really reconstituted at the distal aspect of the ankle from peroneal
collaterals. I did not feel worth attempting to angioplasty the posterior tibial arteries with the extent of disease throughout.
Left lower extremity runoff demonstrates similar runoff though somewhat limited imaging secondary to sheath injection versus selective catheterization.
Recommend medical management for now. Patient really needs to be more aggressively controlled in terms of risk factor modification. Statin therapy, antiplatelet therapy, diabetic control. In addition when I spoke to patient's though the
patient told me otherwise, she implied that the patient may still be smoking tobacco. Needs to pursue smoking cessation. The degree of plaque burden throughout his arteries raise legitimate concern for systemic atherosclerosis.
[2023-07-22 14:19] LABS: Glucose - Point of Care 144 mg/dl (70-99)
--- NOTE | 2023-07-22 14:27 | OR.RPT ---
Operative Report
Operative Report
PROCEDURE DATE: 07/22/2023
Preoperative diagnosis: Bilateral lower extremity chronic lesions/dry gangrene.
Postoperative diagnosis: Same
Procedure:
1. Duplex assisted left common femoral artery cannulation.
2. Right lower extremity arteriogram with third order vessel catheterization of right distal superficial femoral artery via left common femoral artery puncture.
3. Left lower extremity arteriogram through the left common femoral artery sheath.
4. Supervision and interpretation.
Surgeon: Al
Plunger Shovel Operator: None
Complications: None
Anesthesia: Local, sedation
Fluoroscopy:
7.7 min
83 mGy
26.59 Gy.cm2
Indications for procedure:
Bilateral lower extremity chronic lesions appearing somewhat gangrenous (chronic dry gangrene). Demonstrating some degree of healing underneath. However given all these findings there is concern for peripheral arterial disease. Therefore brought
for angiography. Risk/benefits/alternatives also discussed. Potential scenarios/outcomes discussed. Patient understood all wish to proceed.
Description of procedure:
Patient was identified, brought to the operating room. Placed on the table in the supine position. After the adequate administration of anesthesia, the patient was prepped and draped in the standard surgical fashion. A standard preoperative
timeout was undertaken and everybody was in agreement with the plan.
The left common femoral artery was accessed with a micropuncture kit under direct duplex ultrasound guidance. A 5 [place] sheath was then advanced over a 0.035 inch wire, and a pena's hook catheter was advanced into the abdominal aorta.
Aortogram and pelvic angiogram was obtained. (Note even on plain x-ray I could see extensive aorta/iliac artery calcifications. In addition the wire from the left femoral sheath gave great difficulty advancing into the aorta and I had exchanged
out for a Glidewire and a glide catheter to cannulate the aorta as it was getting held up on iliac bifurcation plaque). Findings as follows:
Infrarenal aorta: Severe eccentric calcification, but no focal stenosis identified.
Right common iliac artery: Severe eccentric calcification but no definitive stenosis.
Right external iliac artery: Severe eccentric calcification but no definitive stenosis.
Left common iliac artery: Severe eccentric calcification but no definitive stenosis, though at the iliac bifurcation there is somewhat of a bulky plaque.
Left external iliac artery: Severe eccentric calcification but no definitive stenosis.
Though no definitive stenosis was identified in these arteries, there is some limitation to two-dimensional arteriography and assessing degree of stenosis in the setting of bulky plaque.
Using a floppy angled hydrophilic wire, the right common femoral artery was cannulated and the catheter was advanced. Right lower extremity arteriogram was obtained. Findings as follows:
Common femoral artery: Patent with no significant stenosis but severe eccentric plaque and luminal irregularities.
Profunda femoris artery: Patent with no significant stenosis but severe eccentric plaque and luminal irregularities.
Superficial femoral artery: Severely calcified vessel throughout. Diffusely ectatic. No severe stenosis identified but extensive eccentric plaque.
Popliteal artery: Similar to superficial femoral artery and that there is severe calcified plaque throughout and somewhat ectatic. Again no severe stenosis confirmed or identified. Below the knee popliteal artery had knuckle like tortuosity.
Anterior tibial artery: Patent very proximally and then occluded. Reconstituted dorsalis pedis from peroneal collaterals.
Tibial peroneal trunk: Patent with no significant stenosis. But diffusely calcified eccentrically.
Peroneal artery: Calcified vessel but generally patent with no severe stenosis. In the proximal segment there is a mild to moderate stenosis which looked worse in 1 obliquity, but in the other obliquity looked to be less severe. Flow was brisk
through this segment. Good collateralization at the ankle into the foot to reconstituted distal posterior tibial/plantar arteries and dorsalis pedis artery.
Posterior tibial artery: Diffusely diminutive in size with significant plaque disease. Generally severely stenotic throughout its course. At the ankle reconstituted via peroneal collaterals the distal portion into the plantar arteries.
At this point I felt that the peroneal artery stenosis was relatively not significant and given the tortuosity of the vessels above as well as the severe plaque burden throughout the vessels, may run more risk potentially jeopardizing his single
runoff vessel. In addition since his wounds were making progress, I felt it was reasonable to avoid increasing his overall risk. I did not feel that attempting to open the entirety of the long segment diffusely stenotic/diseased posterior tibial
artery would be of benefit due to the extensive plaque burden/severe disease.
Therefore at this point I withdrew my wires and catheters. Perform left lower extremity arteriogram through the sheath. Imaging was somewhat limited as it was imaged through the sheath rather than selective catheterization of the more distal
vessels. In general very similar findings to the contralateral side and that the left common femoral/profunda/superficial femoral artery and popliteal artery were all extensively severely calcified and the vargas with luminal irregularities, but no
severe stenosis that I could definitively identified. Below the knee also appeared to be single-vessel peroneal artery runoff. I difficulty imaging more distally as the flow is just flow through the entire system and without selective
catheterization proved to be a little bit challenging. At this point I was satisfied. The sheath was withdrawn and manual pressure was applied to the puncture site. Hemostasis was fully achieved. The patient tolerated the procedure well.
The patient tolerated procedure well.
[2023-07-22] MEDS: LOW STRENGTH ASPIRIN 81 MG PO (14:44)
--- NOTE | 2023-07-22 15:02 | CM ---
Addendum entered by Abby Matt 07/22/23 16:37:
IMM completed.
Addendum entered by Abby Matt 07/22/23 16:35:
IA completed.
Patient lives with spouse in a 2 story home.
Independent prior to admission.
patient drives.
PMD: Dr Fletcher
Pharmacy: [facility]
Plan: home no needs.
Original Note:
Patient off the floor, agram.
[2023-07-22] MEDS: NSS 1000 IV (15:32)
--- NOTE | 2023-07-22 16:08 | CON.ID ---
Consultation
-
Date/Time Consultation Requested: July 21, 2023 6964
Date/Time Consultation Performed: July 22, 2023 1130
Requesting Provider: Dr. Josephine Chowdhury
Performing Provider: Dr. Isha Lopez
Reason for Consultation: Bilateral foot wounds
Chief Complaint / Past History
Chief Complaint
Worsening foot wounds
History of Present Illness
73-year-old male with history of diabetes mellitus, neuropathy, peripheral artery disease, noncompliant with medications who has chronic bilateral foot wounds for several months. His tool design draftsperson had recommended hospitalization but pt refused. He
presented to ED on 07/06 and left AMA. His wounds were progressing, he therefore came back to the ER on July 20. Arterial studies showed decreased TBI bilaterally. Patient denies fevers or chills. Denies pain.
Past History
Additional Past Medical History:
Diabetes mellitus
Neuropathy
Paroxysmal atrial fibrillation
COPD
Hypertension
Dyslipidemia
Coronary artery disease s/p PCT
Prostate cancer status post radiation
L THR
Allergy History:
No Known Allergies Allergy (Verified 07/21/23 10:42)
Medications Reviewed: Yes
Current Antibiotics:
Vancomycin
Zosyn
Social History
Tobacco: Former Smoker
Alcohol: None
Drug: None
Personal:
Family History
Family History: Not Pertinent
Review of Systems
Review of Systems
General: Negative Fever, Chills or Change in Appetite
Cardiovascular: Negative Chest Pain or Dyspnea
Respiratory: Negative Dyspnea or Cough
Gasteroenterology: Negative Nausea or Vomiting
Genital / Urological: Negative Dysuria or Flank Pain
Endocrine: Negative Weakness
All systems: All other systems were reviewed and were negative
Vital Signs
Temp Pulse Resp BP Pulse Ox
98.2 F 69 16 177/65 97
07/22/23 15:35 07/22/23 15:35 07/22/23 15:35 07/22/23 15:35 07/22/23 15:35
Physical Exam
Physical Exam
Constitutional: No Acute Distress and Comfortable
Eyes: Sclera Anicteric
Cardiovascular: Regular Rate and S1/S2
Pulmonary: Clear
Gastrointestinal: Soft, Non Tender and Non Distended
Extremities: Negative Edema
Wound: Other (Left lux eschar coming off with underlying granulation tissue. Left lateral ankle dry ,ischemic wound; left hallux tuft (after bedside debridement by podiatry) - tuft small wound with subcutaneous fat; left heel small wound; right
heel large dry necrotic wound )
Lab / Diagnostic Study Results
07/22/23 06:54
07/22/23 06:54
Abs Immat Gran (auto) 0.1 10^3/uL (0-0.05) H 07/22/23 06:54
Absolute Neuts (auto) 5.3 10^3/uL (1.4-6.5) 07/22/23 06:54
Absolute Lymphs (auto) 1.1 10^3/uL (1.2-3.4) L 07/22/23 06:54
Absolute Monos (auto) 0.9 10^3/uL (0.1-0.6) H 07/22/23 06:54
Absolute Basos (auto) 0.1 10^3/uL (0-0.2) 07/22/23 06:54
Immature Gran % 1.6 % (0-0.5) H 07/22/23 06:54
Neutrophils % 63.2 % (42.2-75.2) 07/22/23 06:54
Lymphocytes % 13.7 % (20.5-51.1) L 07/22/23 06:54
Monocytes % 10.9 % (1.7-9.3) H 07/22/23 06:54
Eosinophils % 9.5 % (0-6) H 07/22/23 06:54
Basophils % 1.1 % (0-2) 07/22/23 06:54
ESR 23 mm/hour (0-20) H 07/21/23 15:17
PT 13.1 Sec (11.4-14.6) 07/21/23 15:17
INR 1.01 07/21/23 15:17
C-Reactive Protein 27.20 mg/L (0.0-10.00) H 07/21/23 15:17
Assessment / Plan
# Chronic ischemic, dry gangrenous wounds BLE
# PAD
# DM, neuropathy, noncompliant
- Arteriogram showed severe plaque burden of vessels. No vascular intervention.
- Wounds looked ischemic, noninfected.
- DC Vanco/Zosyn.
- Continue local wound care.
[2023-07-22 17:01] LABS: Glucose - Point of Care 280 mg/dl (70-99)
[2023-07-22] MEDS: FLEXERIL 5 MG PO ×2 (17:06→21:05)
[2023-07-22] MEDS: LIPITOR 40 MG PO (17:07)
[2023-07-22] MEDS: NOVOLOG FLEXPEN-LOW RESISTANCE 3 UNITS SC (17:35)
[2023-07-22 21:26] LABS: Glucose - Point of Care 188 mg/dl (70-99)
[2023-07-23 03:07] VITALS: BP 153/69
[2023-07-23 07:00] VITALS: BP 158/71
[2023-07-23] MEDS: FLEXERIL 5 MG PO (07:51)
[2023-07-23] MEDS: LOW STRENGTH ASPIRIN 81 MG PO (07:51)
[2023-07-23] MEDS: SANTYL OINTMENT 1 APPLIC TOPICAL (07:52)
[2023-07-23 08:16] LABS: Glucose - Point of Care 122 mg/dl (70-99)
--- NOTE | 2023-07-23 08:25 | VATNOTE ---
on VAT rounds: noticed right hand iv leaking. patient refusing restart @ this time. 'I dont't need it' Explained to the patient about tele monitor and needs of an iv placement. Patient continues to decline the restart. Primary rn made aware.
[2023-07-23 08:32] LABS: % Basophils 0.4 % (0-2); % Eosinophils 1.1 % (0-6); % Immature Granulocytes 0.4 % (0-0.5); % Lymphocytes 15.5 % (20.5-51.1); % Monocytes 8.6 % (1.7-9.3); Absolute Eosinophils 0.1 10^3/uL (0-0.7); Absolute Lymphocytes 1.4 10^3/uL (1.2-3.4); Absolute Monocytes 0.8 10^3/uL (0.1-0.6); Absolute Neutrophils 6.6 10^3/uL (1.4-6.5); Hematocrit 36.3 % (39.0-52.0); Hemoglobin 12.4 g/dL (13.0-18.0); Mean Corp Hgb Conc. 34.2 g/dL (33.0-37.0); Mean Corpuscular Volume 93.6 fL (80.0-94.0); Mean Platelet Volume 9.8 fL (7.4-10.4); Nucleated Red Blood Cells % 0 % (-); Platelet Count 208 10^3/uL (130-400); Red Blood Cell Count 3.88 10^6/uL (4.70-6.10); Red Cell Dist. Width 12.8 % (11.5-14.5); White Blood Cell Count 8.9 10^3/uL (4.8-10.8)
--- NOTE | 2023-07-23 08:45 | W.PN.HOSP.TC ---
Addendum entered and electronically signed by Iván Chowdhury MD 07/24/23 16:22:
Yes, chronic foot wounds are related to/associated with/due to diabetes mellitus and PAD
Original Note:
Today's Communication/Plan
-
Discharge today
Assessment / Plan
Assessment / Plan
HPI: 73-year-old male past medical history of prostate cancer status post radiation, diabetes, coronary artery disease, paroxysmal atrial fibrillation, hypertension, COPD, hyperlipidemia presenting to the emergency room for bilateral feet wounds
ongoing for the past few months. He saw his customs inspector in May at which time provided prescription prescription to ER recommending patient be admitted for evaluation of the wound, arterial studies and possible surgical intervention. Patient did
not want to go to the hospital at that time. Patient came here 2 weeks ago and was recommended to be admitted for bilateral foot wounds but left AMA.
Patient has numbness/coldness sensation of the bilateral legs and feet. He denies any fevers or chills. Patient is only taking ibuprofen at this time and states that he only takes metformin and glimepiride but stopped taking them because they were
not working. He denies any history of atrial fibrillation states that he was never on anticoagulation.
# Nonhealing infected chronic wounds of left big toe, left calf, bilteral heels with gangrene, possible osteomyelitis
CRP 27.2, ESR 23
Appreciate podiatry input, status post bedside removal of calluses
May weight bear as tolerated in left foot surgical shoe and right foot globoped heel relief shoe
Appreciate ID input, no active infection, vancomycin and Zosyn dc
Stable for dc, f/u w/ podiatry in office
#Peripheral artery disease
Appreciate vascular surgery input, right lower extremity arteriogram showed severe plaque burden bilaterally, but no severe stenosis on the right iliac system
Vascular surgery recommends medical management with aspirin, statin, diabetes control
F/u w/ vascular surg in office
#Cigarette nicotine dependency
Continue to encourage cessation
Type 2 diabetes
-Hemoglobin A1c 6.3
-patient not taking metformin and glimepiride
-Diabetic diet
-Insulin sliding scale
Diabetic neuropathy
Coronary artery disease status post stent in 2015
Essential hypertension
COPD
Prostate cancer status post radiation
Hyperlipidemia
DVT prophylaxis�subcu Lovenox
Full code
Physical Exam
General: No acute distress
HEENT: Normocephalic, Atraumatic, EOMI, MMM
Respiratory: Clear to Auscultation bilaterally
Cardiac: Normal S1/S2, Regular Rate and Rhythm
GI: Soft, Nontender, Nondistended, Normal Bowel Sounds
Extremities: No Clubbing, Cyanosis, or Edema
Left great toe ulcer
Right heel ulcer
Neuro: Nonfocal/Grossly Intact
Anticipated Discharge: Today
Subjective/Interval History
-
Date of Service: July 23, 2023
Denies pain. Muscle spasms resolved.
Objective Data
-
Labs:
Laboratory Results
07/23/23
07:25
WBC 8.9
Hgb 12.4 L
Hct 36.3 L
Plt Count 208
Sodium Pending
Potassium Pending
Chloride Pending
Carbon Dioxide Pending
BUN Pending
Creatinine Pending
Glucose Pending
Calcium Pending
Vital Signs:
Vital Signs
Temp Pulse Resp BP Pulse Ox
97.3 F 53 18 158/71 97
07/23/23 07:00 07/23/23 07:00 07/23/23 07:00 07/23/23 07:00 07/23/23 07:00
I&O
07/22/23 07/23/23 07/24/23
06:59 06:59 06:59
Intake Total 340 / 340 1110 / 1110
Output Total 300 / 300 1200 / 1200
Balance 40 / 40 -90 / -90
--- NOTE | 2023-07-23 08:52 | W.PN.VS ---
Addendum entered and electronically signed by Iván Chowdhury MD 07/24/23 15:10:
Yes, chronic foot wounds are related to/associated with/due to diabetes mellitus and PAD
Original Note:
Today's Communication / Plan
-
See below.
Assessment/Plan
-
Assessment: 73-year-old male POD #1 Right lower extremity arteriogram via left common femoral artery puncture. Left lower extremity arteriogram through the left common femoral artery sheath.
Plan:
Recommend continue medical management for severe plaque burden throughout the entirety of bilateral lower extremities as evidenced on arteriogram yesterday. Patient should continue statin and aspirin therapy upon discharge with the addition of
optimized antihypertensive and diabetes medications.
Vascular surgery follow-up placed in discharge instructions
Please call with questions or concerns
Subjective Data
-
Date of Service: July 23, 2023
Patient seen and examined at bedside, offers no complaints. Denies left groin puncture pain or swelling.
Objective Data
-
Vital Signs
Temp Pulse Resp BP Pulse Ox
97.3 F 53 18 158/71 97
07/23/23 07:00 07/23/23 07:00 07/23/23 07:00 07/23/23 07:00 07/23/23 07:00
Intake and Output
07/22/23 07/23/23 07/24/23
06:59 06:59 06:59
Intake Total 340 / 340 1110 / 1110
Output Total 300 / 300 1200 / 1200
Balance 40 / 40 -90 / -90
Intake:
Oral fluids 240 / 240 960 / 960
IV fluids (Total) 100 / 100
NSS 100 / 100
IV piggybacks 100 / 100 50 / 50
Output:
Urine, Voided 300 / 300 1200 / 1200
Other:
Number of approximated MODERATE 3
amounts of urine
Lab Results
07/23/23 07:25
Calcium 8.6 mg/dl (8.4-10.2) 07/22/23 06:54
Total Bilirubin 0.8 mg/dl (0.2-1.3) 07/22/23 06:54
AST 28 U/L (17-59) 07/22/23 06:54
ALT 23 U/L (0-50) 07/22/23 06:54
Alkaline Phosphatase 64 U/L (38-126) 07/22/23 06:54
Total Protein 5.8 g/dl (6.3-8.2) L 07/22/23 06:54
Albumin 3.0 g/dl (3.5-5.0) L 07/22/23 06:54
Physical Exam
-
AAOx3, no apparent distress
No tachycardia
No dyspnea on room air
ABD rotund, nondistended, nontender
Left groin puncture site CDI, no evidence of hematoma, all surrounding firm and soft, no ecchymosis
Bilateral feet warm
[2023-07-23 09:21] LABS: Blood Urea Nitrogen 16 mg/dl (9-20); Calcium 9.2 mg/dl (8.4-10.2); Carbon Dioxide 26 mmol/L (22-30); Chloride 105 mmol/L (98-107); Estimated Creatinine Clearance 82 ml/min; Glucose 111 mg/dl (70-99); HDL Cholesterol 62 mg/dl; LDL Cholesterol, Calculated 83 mg/dl; Potassium 3.8 mmol/L (3.5-5.1); Sodium 136 mmol/L (135-145); Total Cholesterol 164 mg/dl (50-199); Triglyceride 95 mg/dl (10-149); Very Low Density Lipoprotein 19 mg/dl (0-30); eGFR > 60.00
--- NOTE | 2023-07-23 10:36 | PN.CDI ---
CDI
- -
CDI:
Physician Documentation Request
Admit Date: 07/21/23 17:31
Dear Doctor Do,
Clinical Indicators:
Patient admitted with non healing infected chronic wounds.
07/21 PN, 'Type 2 diabetes-Hemoglobin A1c 6.3-patient not taking metformin and glimepiride...Diabetic neuropathy'
07/21 Vascular update note, ' He has SEVERE plaque burden throughout the entirety of his arterial tree from the abdominal aorta all the way down.'
Please clarify the likely relationship between these conditions:
Yes, chronic foot wounds are related to/associated with/due to diabetes mellitus and PAD
No, chronic foot wounds are not related to/associated with/due to diabetes mellitus but it is due to PAD only
Unable to determine
Use of terms such as suspected, likely, concern for, or probable (associated with a specific diagnosis that is being evaluated, monitored, or treated as if it exists) are acceptable and can be coded in the inpatient setting, when documented at the
time of discharge.
Thank you,
DAMARIS Arzola RN
CDI Specialist
available via tiger text
Please use your independent medical judgment in providing your response.
[2023-07-23 11:00] VITALS: BP 115/58
[2023-07-23 11:51] LABS: Glucose - Point of Care 146 mg/dl (70-99)
[2023-07-23 15:00] VITALS: BP 140/67
[2023-07-23] MEDS: LIPITOR PO (15:29)
[2023-07-23] MEDS: FLEXERIL PO (15:29)
--- NOTE | 2023-07-23 15:29 | PTCARENOTE ---
04/21- Patient refuses all meds at this time, stating 'I am supposed to be discharged. Who's in charge of my discharge?' Explained the process of Discharge with patient, including being cleared by the consulted specialists and working out follow-up
and post-discharge logistics through Case Management. Patient verbalized understanding but states he is ready to go home and will not take any more medications at this time. Explained to patient the risks of not taking his medication, in
particular keeping up with his insulin doses. He again verbalized understanding but continues to refuse medications. Notified Attending Physician.
--- NOTE | 2023-07-23 16:21 | W.DCSUMMARY ---
Discharge Summary
Discharge Data
Date of Admission: 07/21/23
Date of Discharge: 07/23/23
-
Pending Results: No
Hospital Course
Discharge diagnoses:
Nonhealing chronic left big toe wound, right heel wound, infection ruled out by infectious disease
Severe peripheral artery disease
Cigarette nicotine dependency
Type 2 diabetes
Medication noncompliance
Diabetic neuropathy
Coronary artery disease status post stent placement in 2016
Benign essential hypertension
Chronic obstructive pulmonary disease
Hyperlipidemia
Prostate cancer status post radiation
Consults: Vascular surgery, ID
Procedures:
Right lower extremity arteriogram
07/22/23
1. Duplex assisted left common femoral artery cannulation.
2. Right lower extremity arteriogram with third order vessel catheterization of right distal superficial femoral artery via left common femoral artery puncture.
3. Left lower extremity arteriogram through the left common femoral artery sheath.
4. Supervision and interpretation.
Hospital course:
73-year-old male with a past medical history of prostate cancer status post radiation, diabetes, coronary artery disease, hypertension, COPD & hyperlipidemia presented to the emergency room for bilateral feet wounds. Patient has a chronic left
great toe ulcer, and right heel ulcer. There was concern for infection.
Patient was seen in conjunction with podiatry. His wounds were debrided at bedside. Podiatry recommends Santyl to the left hallux and lateral leg wounds daily, Xeroform to the right heel wound. He needs to offload his heels at all times in bed.
He can ambulate as tolerated in left foot surgical shoe and right foot globoped heel relief shoe.
There was concern for infection of his bilateral feet wounds. ESR and CRP are normal. He was treated with vancomycin and Zosyn. Patient was seen in conjunction with ID, ID states there is no infection. His antibiotics were discontinued.
Patient was seen in conjunction with vascular surgery. He underwent right lower extremity arteriogram on 07/22/2023, which showed severe plaque burden throughout the entire bilateral lower extremity. Vascular surgery recommends medical management
with aspirin 81 mg daily, atorvastatin 40 mg at bedtime. These prescriptions has been provided.
Patient has type 2 diabetes. Hemoglobin A1c is controlled at 6.1. He used to be on metformin and glimepiride but self discontinued.
Patient also has cigarette nicotine dependency. Cigarette cessation counseling has been provided.
Patient has been seen by PT, and was independent. He is medically stable for discharge. He needs to follow-up with his primary care doctor in 1 week, and podiatry as well as vascular surgery in the office in 2-3 weeks.
Disposition: Home self-care
Discharge planning: Required 40 minutes
Discharge Plan
-
Patient Disposition: Home (Routine Discharge)
Discharge Diagnosis/Procedures: Right heel ulcer, left great toe ulcer, peripheral artery disease, type 2 diabetes
Condition: Good
Diet: Diabetic, Carb Controlled
Activity: As tolerated
Additional Activity: You may weight bear as tolerated in left foot surgical shoe and right foot globoped heel relief shoe.
Driving Restrictions: As prior to admission
Activity Restrictions/Additional Instructions:
You may weight bear as tolerated in left foot surgical shoe and right foot globoped heel relief shoe.
If you are still smoking, please stop smoking. Please take your medications as prescribed.
Please eat a low carbohydrate diet, follow-up with your primary care doctor 1 week.
Wound Care Instructions Left Great Toe and Left Lateral Leg- Clean with normal saline. Apply valente thick layer of Santyl and cover with adaptic and dry dressing. Change daily and PRN for drainage or if soiled.
Right Heel- Clean with normal saline or soap and water. Apply Xeroform and silicone border foam. Change Q 48 hours and PRN if soiled or loose.
Left heel- Apply no-sting barrier and adhesive foam. Change Q 3 days and PRN.
Follow up at wound care center call for an appointment.
Stand Alone Forms: DC Instr - Vascular OR
Referrals:
Aviva Reza DPM [Active] - in two to three weeks
Karina Subramanian PA-C [Specified Professional Personl] - 08/17/23 10:15 am
Kam Fletcher DO [Family Provider] - in one week
Prescriptions:
New
atorvastatin 40 mg Tablet
40 mg PO QPM Qty: 30 0RF
aspirin [Children's Aspirin] 81 mg Tablet,Chewable
81 mg PO DAILY Qty: 30 0RF
Santyl 250 unit/gram Ointment
1 applic topical DAILY Qty: 30 0RF
cyclobenzaprine 10 mg tablet
10 mg PO HS Qty: 30 0RF
Continued
ibuprofen 200 mg Tablet
200 mg PO HSPRN PRN (Reason: shoulder pain)
Discharge Orders:
Discharge Patient (As Directed); Ordered 07/23/23
Ordered By: Iván Chowdhury
Discharge Date and Time
Discharge Date/Time: 07/23/23 17:24
Print Language: SLOVENIAN
--- NOTE | 2023-07-23 16:32 | CM ---
Addendum entered by Brianna Forrester 07/23/23 16:33:
Signed IMM form on the chart from 07/21/2023
Original Note:
Met with patient at bedside to discuss discharge plan
Plan: discharge to home; no services needed; son will provide ride home
[2023-07-23 16:37] LABS: Glucose - Point of Care 103 mg/dl (70-99)
== END 2023-07-23 17:24 | disposition home or self-care (01) | DRG 300 ==
LOC: 4 WEST ACU 17:31
PROVIDERS: Nurse Practitioner; Physician Assistant Medical; ADMITTING PHYSICIAN Hospitalist; ATTENDING PHYSICIAN Family Medicine; CONSULT PHYSICIAN Podiatrist; EMERGENCY PHYSICIAN Emergency Medicine; FAMILY PHYSICIAN Family Medicine; OTHER PHYSICIAN Internal Medicine Infectious Disease; OTHER PHYSICIAN Surgery Vascular Surgery
PROC: 04HK03Z Insertion of Infusion Device into Right Femoral Artery, Open Approach (ICD-10-PCS; 2023-07-22)
PROC: B41G1ZZ Fluoroscopy of Left Lower Extremity Arteries using Low Osmolar Contrast (ICD-10-PCS; 2023-07-22)
PROC: B41F1ZZ Fluoroscopy of Right Lower Extremity Arteries using Low Osmolar Contrast (ICD-10-PCS; 2023-07-22)
DX: E11.52 Type 2 diabetes mellitus with diabetic peripheral angiopathy with gangrene (principal); I96 Gangrene, not elsewhere classified; L97.421 Non-pressure chronic ulcer of left heel and midfoot limited to breakdown of skin; L97.411 Non-pressure chronic ulcer of right heel and midfoot limited to breakdown of skin; I73.9 Peripheral vascular disease, unspecified; F17.200 Nicotine dependence, unspecified, uncomplicated; E11.40 Type 2 diabetes mellitus with diabetic neuropathy, unspecified; E11.621 Type 2 diabetes mellitus with foot ulcer; Z95.5 Presence of coronary angioplasty implant and graft; I25.10 Atherosclerotic heart disease of native coronary artery without angina pectoris; I10 Essential (primary) hypertension; J44.9 Chronic obstructive pulmonary disease, unspecified; C61 Malignant neoplasm of prostate; E78.00 Pure hypercholesterolemia, unspecified; Z91.148 Patient's other noncompliance with medication regimen for other reason
CPT/HCPCS: 36247; 73620; 75625; 75716; 76937; 80048; 80053; 80061; 82962; 85025; 85610; 85652; 85730; 86140; 93005; 93922; 93925; 93970; 96365; 96367; 97161; 99285; C1769; C1894; Q9967

== ENCOUNTER → 2023-08-09 12:31 | Outpatient (REF) | payer MEDICARE, SELFPAY | LOC: WOUND 12:31 | PROVIDERS: ATTENDING PHYSICIAN Surgery; FAMILY PHYSICIAN Family Medicine | DX: I70.234 Atherosclerosis of native arteries of right leg with ulceration of heel and midfoot (principal); L97.412 Non-pressure chronic ulcer of right heel and midfoot with fat layer exposed; I70.244 Atherosclerosis of native arteries of left leg with ulceration of heel and midfoot; L97.422 Non-pressure chronic ulcer of left heel and midfoot with fat layer exposed; I70.245 Atherosclerosis of native arteries of left leg with ulceration of other part of foot; L97.522 Non-pressure chronic ulcer of other part of left foot with fat layer exposed; I70.242 Atherosclerosis of native arteries of left leg with ulceration of calf; L97.222 Non-pressure chronic ulcer of left calf with fat layer exposed; E11.69 Type 2 diabetes mellitus with other specified complication; E11.43 Type 2 diabetes mellitus with diabetic autonomic (poly)neuropathy; I48.0 Paroxysmal atrial fibrillation; I10 Essential (primary) hypertension | CPT/HCPCS: 11042; 99204 ==

== ENCOUNTER → 2023-08-16 09:49 | Outpatient (REF) | payer MEDICARE, SELFPAY | LOC: WOUND 09:49 | PROVIDERS: ATTENDING PHYSICIAN Surgery; FAMILY PHYSICIAN Family Medicine | DX: I70.234 Atherosclerosis of native arteries of right leg with ulceration of heel and midfoot (principal); L97.412 Non-pressure chronic ulcer of right heel and midfoot with fat layer exposed; I70.244 Atherosclerosis of native arteries of left leg with ulceration of heel and midfoot; L97.422 Non-pressure chronic ulcer of left heel and midfoot with fat layer exposed; I70.245 Atherosclerosis of native arteries of left leg with ulceration of other part of foot; L97.522 Non-pressure chronic ulcer of other part of left foot with fat layer exposed; I70.242 Atherosclerosis of native arteries of left leg with ulceration of calf; L97.222 Non-pressure chronic ulcer of left calf with fat layer exposed; E11.69 Type 2 diabetes mellitus with other specified complication; E11.43 Type 2 diabetes mellitus with diabetic autonomic (poly)neuropathy; I48.0 Paroxysmal atrial fibrillation; I10 Essential (primary) hypertension | CPT/HCPCS: 11042 ==

== ENCOUNTER → 2023-08-23 09:13 | Outpatient (REF) | payer MEDICARE, SELFPAY | LOC: WOUND 09:13 | PROVIDERS: ATTENDING PHYSICIAN Surgery; FAMILY PHYSICIAN Family Medicine | DX: I70.234 Atherosclerosis of native arteries of right leg with ulceration of heel and midfoot (principal); L97.412 Non-pressure chronic ulcer of right heel and midfoot with fat layer exposed; I70.245 Atherosclerosis of native arteries of left leg with ulceration of other part of foot; L97.522 Non-pressure chronic ulcer of other part of left foot with fat layer exposed; L97.222 Non-pressure chronic ulcer of left calf with fat layer exposed; L97.422 Non-pressure chronic ulcer of left heel and midfoot with fat layer exposed; I70.242 Atherosclerosis of native arteries of left leg with ulceration of calf; E11.69 Type 2 diabetes mellitus with other specified complication; E11.43 Type 2 diabetes mellitus with diabetic autonomic (poly)neuropathy; I48.0 Paroxysmal atrial fibrillation; I10 Essential (primary) hypertension | CPT/HCPCS: 99213 ==

== ENCOUNTER 2023-08-25 09:55 | Day surgery (SDC) | payer MEDICARE, SELFPAY ==
[2023-08-25] VITALS (24 sets, daily range): BP systolic 134–178; BP diastolic 60–95; BMI 31.3
[2023-08-25 10:24] LABS: Hematocrit 38.6 % (39.0-52.0); Hemoglobin 13.2 g/dL (13.0-18.0); Mean Corp Hgb Conc. 34.2 g/dL (33.0-37.0); Mean Corpuscular Hgb 31.8 pg (27.0-31.0); Platelet Count 401 10^3/uL (130-400); Red Blood Cell Count 4.15 10^6/uL (4.70-6.10); Red Cell Dist. Width 13.1 % (11.5-14.5); White Blood Cell Count 10.3 10^3/uL (4.8-10.8)
[2023-08-25 10:36] LABS: APTT 32.3 Sec (23.4-35.0); INR 1.06; PT 13.8 Sec (11.4-14.6)
[2023-08-25 10:39] LABS: Blood Urea Nitrogen 8 mg/dl (9-20); Calcium 9.5 mg/dl (8.4-10.2); Carbon Dioxide 29 mmol/L (22-30); Chloride 99 mmol/L (98-107); Estimated Creatinine Clearance 88 ml/min; Glucose 137 mg/dl (70-99); Potassium 4.3 mmol/L (3.5-5.1); Sodium 137 mmol/L (135-145); eGFR > 60.00
[2023-08-25] MEDS: NSS 500 IV (10:45)
--- NOTE | 2023-08-25 13:46 | W.SUR.POST ---
Surgical Immediate Post Op
Note
Pre Op Diagnosis: PAD
Post Op Diagnosis: PAD
Procedure Performed: ultrasound guidance right femoral artery puncture, aortogram, left arteriogram, left SFA angioplasty and stent
Primary Surgeon: Finn Melendez MD
Secondary Surgeons: N/A
Anesthesia: MAC
Estimated Blood Loss: Less than 2ml
Fluids: See anesthesia flowsheet
Drains/Shunts: N/A
Specimens/Cultures: N/A
Doppler/Duplex/Angio (Y/N): Y
Complications: None
Operative Findings: +2 left popliteal artery
[2023-08-25 14:07] LABS: Glucose - Point of Care 118 mg/dl (70-99)
--- NOTE | 2023-08-25 14:34 | OR.RPT ---
Operative Report
Operative Report
PROCEDURE DATE: 08/25/2023
Preoperative diagnosis: Chronic limb threatening ischemia left lower extremity, peripheral arterial disease.
Postoperative diagnosis: Same
Procedure:
1. Duplex assisted right common femoral artery cannulation.
2. Aortogram and pelvic angiogram.
3. Left lower extremity angiogram with third order vessel catheterization of left popliteal artery via right common femoral artery puncture.
4. Balloon angioplasty/stent placement left distal superficial femoral artery with 8 mm x 6 cm and 8 mm x 4 cm overlapping Zilver PTX drug-eluting self-expanding stents.
5. Right femoral angiogram.
6. Supervision and interpretation.
Surgeon: Al
Tree Cutter: None
Complications: None
Anesthesia: Local, sedation
Fluoroscopy:
16.2 min
84 mGy
22.0 to Gy.cm2
Indications for procedure:
Patient with known severe calcific disease/atherosclerosis throughout his bilateral lower extremity arteries. Noted small vessel disease. Brought for angiography secondary to nonhealing/slow healing lower extremity wounds. Prior right lower
extremity angiogram performed at which time diagnostic left lower extremity arteriogram was obtained. He appeared to have some SFA disease and therefore brought for potential revascularization. Risk/benefits/alternatives were also discussed.
Patient understood all wish to proceed.
Description of procedure:
Patient was identified, brought to the operating room. Placed on the table in the supine position. After the adequate administration of anesthesia, the patient was prepped and draped in the standard surgical fashion. A standard preoperative
timeout was undertaken and everybody was in agreement with the plan.
The right common femoral artery was accessed with a micropuncture kit under direct duplex ultrasound guidance. A 5 [place] sheath was then advanced over a 0.035 inch wire, and a pena's hook catheter was advanced into the abdominal aorta.
Aortogram and pelvic angiogram was obtained. Findings as follows:
Severely calcified but patent infrarenal aorta and bilateral common and external iliac arteries without severe stenoses. The right iliac system in general had severe tortuosity. Therefore even getting my wires into the aorta and the pena's the
catheter into the aorta proved challenging. The right external iliac artery was most severely tortuous. With great difficulty I was able to gain wire access into the distal superficial femoral artery, but was unable to pass any catheter initially.
I did try several different techniques and catheters. Finally was able to pass a 4 [place] glide catheter to the left femoral head over a Glidewire that had been advanced all the way down the distal SFA/popliteal artery. Once I did this I
exchanged for a Storq wire and an up and over 6 [place] sheath. Left lower extremity arteriogram was again performed and confirmed severe atherosclerotic plaque throughout the entirety of the left lower extremity arteries. It is truly difficult to
determine degrees of stenoses and some of these areas of heavy calcific plaque with some popcorn like plaques as well. They create some filling defects but it is hard to tell the degree of stenosis. The arteries were just diffusely irregular and
calcified. However, it became clear that there was a high-grade to distal SFA stenosis and beyond here there was some poststenotic dilatation. About 4 to 6 cm proximal to here there was also an irregularity in the SFA likely a somewhat ulcerated
plaque that resulted in a moderate stenosis in the intervening segment between those 2 areas was moderately stenotic as well. I felt it was therefore worthwhile to treat that potentially. As far as the runoff there was a tortuous below the knee
popliteal artery which led to a peroneal artery which had severe proximal tortuosity (initially I thought this was a focal occlusion with a collateralization, but it actually appeared to be the main peroneal artery just tortuous). The other 2
tibial arteries were occluded proximally. The peroneal artery was the main dominant runoff vessel to the ankle. It gave relatively weak or poor collateralization around the ankle but there was reconstitution of the dorsalis pedis on the foot which
appeared to be the main artery on the foot. At this point I felt that it may be worthwhile as noted to treat the distal SFA stenosis. Therefore, I gave the patient 5000 units of intravenous heparin. Under roadmap assisted guidance using a
flopping on hydrophilic wire and a CXI catheter I traverse the area of stenosis. I then advanced my wire and catheter into the popliteal artery. I exchanged for a [employer] wire. I then primarily elected to stent that segment using 2 overlapping 8 mm
stents. I used an 8 mm x 6 cm followed by an 8 mm x 4 cm stent. These were Zilver PTX drug-eluting self-expanding stents. These were post angioplastied with a 7 mm angioplasty balloon. Completion angiogram demonstrated an excellent result.
Significant improvement. Stable flow through the runoff. At this point is very satisfied. Due to the extensive plaque disease throughout the rest of the artery system it was hard to say whether anything else was hemodynamically significant, but
it did not appear so. In addition I did not feel that the tibials were revascularizable, but if required, we could try an attempt at a bypass to the dorsalis pedis artery on the foot. At this point my wires and catheters were withdrawn. The
sheath was withdrawn to the right external iliac artery. Right femoral angiogram demonstrated good puncture in the right common femoral artery. Therefore we exchanged for a 6 [place] sheath to be removed in the recovery room area. The patient was
given 30 mg of protamine to reverse the heparin. He tolerated the procedure well. Upon completion he had 2+ palpable left popliteal pulse. (The foot was not assessed secondary to bandages).
[2023-08-25] MEDS: PLAVIX 300 MG PO (14:36)
[2023-08-25] MEDS: ASPIRIN 325 MG PO (14:36)
[2023-08-25] MEDS: NSS 1000 IV (15:45)
[2023-08-25] MEDS: LIPITOR 10 MG PO (17:30)
== END 2023-08-25 20:00 | disposition home or self-care (01) ==
LOC: CATH 09:55
PROVIDERS: ATTENDING PHYSICIAN Surgery Vascular Surgery; FAMILY PHYSICIAN Family Medicine
DX: I70.244 Atherosclerosis of native arteries of left leg with ulceration of heel and midfoot (principal); L97.429 Non-pressure chronic ulcer of left heel and midfoot with unspecified severity; I70.245 Atherosclerosis of native arteries of left leg with ulceration of other part of foot; L97.529 Non-pressure chronic ulcer of other part of left foot with unspecified severity; I10 Essential (primary) hypertension; I48.91 Unspecified atrial fibrillation; E11.9 Type 2 diabetes mellitus without complications; Z79.82 Long term (current) use of aspirin
CPT/HCPCS: 37226; 75625; 75716; 80048; 82962; 85027; 85610; 85730; 86850; 86900; 86901; 93005; C1725; C1769; C1874; C1887; C1894; Q9967

== ENCOUNTER → 2023-08-30 09:42 | Outpatient (REF) | payer MEDICARE, SELFPAY | LOC: WOUND 09:42 | PROVIDERS: ATTENDING PHYSICIAN Surgery; FAMILY PHYSICIAN Family Medicine | DX: I70.234 Atherosclerosis of native arteries of right leg with ulceration of heel and midfoot (principal); L97.412 Non-pressure chronic ulcer of right heel and midfoot with fat layer exposed; I70.244 Atherosclerosis of native arteries of left leg with ulceration of heel and midfoot; L97.422 Non-pressure chronic ulcer of left heel and midfoot with fat layer exposed; I70.245 Atherosclerosis of native arteries of left leg with ulceration of other part of foot; L97.522 Non-pressure chronic ulcer of other part of left foot with fat layer exposed; I70.242 Atherosclerosis of native arteries of left leg with ulceration of calf; L97.222 Non-pressure chronic ulcer of left calf with fat layer exposed; E11.69 Type 2 diabetes mellitus with other specified complication; E11.43 Type 2 diabetes mellitus with diabetic autonomic (poly)neuropathy; I48.0 Paroxysmal atrial fibrillation; I10 Essential (primary) hypertension | CPT/HCPCS: 11042 ==

== ENCOUNTER → 2023-09-07 09:36 | Outpatient (REF) | payer MEDICARE, SELFPAY | LOC: WOUND 09:36 | PROVIDERS: ATTENDING PHYSICIAN Surgery; FAMILY PHYSICIAN Family Medicine | DX: I70.234 Atherosclerosis of native arteries of right leg with ulceration of heel and midfoot (principal); L97.412 Non-pressure chronic ulcer of right heel and midfoot with fat layer exposed; I70.244 Atherosclerosis of native arteries of left leg with ulceration of heel and midfoot; L97.422 Non-pressure chronic ulcer of left heel and midfoot with fat layer exposed; I70.245 Atherosclerosis of native arteries of left leg with ulceration of other part of foot; L97.522 Non-pressure chronic ulcer of other part of left foot with fat layer exposed; I70.242 Atherosclerosis of native arteries of left leg with ulceration of calf; L97.222 Non-pressure chronic ulcer of left calf with fat layer exposed; E11.69 Type 2 diabetes mellitus with other specified complication; E11.43 Type 2 diabetes mellitus with diabetic autonomic (poly)neuropathy; I48.0 Paroxysmal atrial fibrillation; I10 Essential (primary) hypertension | CPT/HCPCS: 11042 ==

== ENCOUNTER → 2023-09-14 08:48 | Outpatient (REF) | payer MEDICARE, SELFPAY | LOC: WOUND 08:48 | PROVIDERS: ATTENDING PHYSICIAN Surgery; FAMILY PHYSICIAN Family Medicine | DX: I70.234 Atherosclerosis of native arteries of right leg with ulceration of heel and midfoot (principal); L97.412 Non-pressure chronic ulcer of right heel and midfoot with fat layer exposed; I96 Gangrene, not elsewhere classified; I70.244 Atherosclerosis of native arteries of left leg with ulceration of heel and midfoot; L97.422 Non-pressure chronic ulcer of left heel and midfoot with fat layer exposed; I70.245 Atherosclerosis of native arteries of left leg with ulceration of other part of foot; L97.522 Non-pressure chronic ulcer of other part of left foot with fat layer exposed; I70.242 Atherosclerosis of native arteries of left leg with ulceration of calf; L97.222 Non-pressure chronic ulcer of left calf with fat layer exposed; E11.43 Type 2 diabetes mellitus with diabetic autonomic (poly)neuropathy; I48.0 Paroxysmal atrial fibrillation; I10 Essential (primary) hypertension; E11.69 Type 2 diabetes mellitus with other specified complication | CPT/HCPCS: 99212 ==

== ENCOUNTER 2023-09-14 13:00 | Inpatient (IN) | payer MEDICARE, SELFPAY ==
[2023-09-14] VITALS (8 sets, daily range): BP systolic 105–186; BP diastolic 61–97; BMI 29.7; BMI 28.9
--- NOTE | 2023-09-14 10:10 | ED.GENMED ---
History of Present Illness
General
Chief Complaint: Musculo-Skeletal Complaint
Source: patient
Exam Limitations: none
Time Seen by Provider: 09/14/23 09:23
History of Present Illness
History of Present Illness:
73-year-old male presents complaining of worsening discoloration and black color to the left fourth toe. He was seen by Dr. Miller at the wound care center and sent here for admission for toe amputation. He is a patient with history of
peripheral vascular disease. He has been dealing with an ongoing wound to the left heel. He is known to the vascular team as well
Past History
Past History
ED Past Medical History: Arrthythmia, Cancer (Prostate), COPD, HTN, Hypercholesterolemia and NIDDM
ED Past Surgical History: Orthopedic
Social History
Tobacco: Smoker
Alcohol: Occasional
Drug: None
Personal:
Living: with family
Phy Exam
Physical Exam
Physical Exam:
General: Well-appearing male no acute respiratory distress
HEENT: Normocephalic atraumatic heart: Regular rate and rhythm no murmurs
Lungs: Clear no wheeze or rales
Abdomen soft nontender nondistended
Extremities: Left fourth toe gangrenous with surrounding cellulitis. He has not chronic wound to the left heel
Vascular: Dopplerable pulses to the bilateral dorsalis pedis and posterior tibialis areas.
Course
Orders/Labs/Results
Orders:
Orders
09/14/23 09:52
Basic Metabolic Panel Urgent
Complete Blood Count/With Diff Urgent
09/14/23 12:39
Admit/Transfer Patient As Directed
Co-Sign Provider:
Level of Care: Inpatient admission
Assign to:: Medical/Surgical
Physician / Group: patricia montgomery
Diagnosis: gangrene L4th toe,wound L great toe w/gangrene, L leg/heel wound, dm2 pad
Reason for Hospitalization: gangrene L4th toe,wound L great toe w/gangrene, L leg/heel wound, dm2 pad
Expected length of stay greater than two midnights?: Yes
ELOS- Estimated Length of Stay in days: 4
I certify the patient meets the requirements for IP care: Yes
Code Status As Directed
Resuscitation Status: Full Code
09/14/23 12:41
PRN Pain Medication Management As Directed
May give lesser potent ordered pain med per pt: Yes
preference::
Protocol:: Medication orders for pain may be administered in a
manner that supports deferring to patient preference
when the pt is:
- Requesting an ordered lesser potent pain medication.
Least to most potent pain medications are defined
as: acetaminophen < NSAID < tramadol < opioids
(morphine, oxycodone, hydromorphone).
- Requesting a lesser dose of the same medication IF
ORDERED.
- Requesting a less intrusive route of administration
if both routes are prescribed by the provider (PO <
IV).
09/14/23 12:56
Consult Vascular Surgery [Vascular Surgery Consult] Routine
Consulting Provider: Gutierrez Holman III
Was physician already notified: Yes
Reason for consult: necrosis left 4th toe, heel ulcer/ left lateral leg ulcer
09/14/23 12:57
WOUND/OSTOMY CONSULT Routine
Reason for Consult: left 4th toe gangrene , heel and left leg ulcer
09/14/23 Dinner
1800 calorie (15 carb) Diabetic
At Your Request: Limited Participation
09/14/23 15:22
Acetaminophen [Tylenol] 650 mg PO Q4HPRN PRN
Docusate W/Senna [Senokot-S] 1 tablet PO BIDPRN PRN
09/14/23 15:22
Activity As Directed
Activity Level: As Tolerated
Vital Signs As Directed
Frequency: Per unit guidelines
Ot Eval And Treat Routine
Pt Eval And Treat Routine
Activity Level: As Tolerated
DX Deep Vein Thrombosis Video Routine
09/14/23 18:00
Atorvastatin [Lipitor] 10 mg PO QPM
09/15/23 07:32
Complete Blood Count/With Diff IN AM
Comprehensive Metabolic Panel IN AM
09/15/23 08:00
Aspirin Chewable [Low Strength Aspirin] 81 mg PO DAILY
Clopidogrel Bisulfate [Plavix] 75 mg PO DAILY
09/15/23 18:00
Enoxaparin Sodium [Lovenox] 40 mg SC QPM
09/16/23 06:00
Complete Blood Count/With Diff IN AM
Comprehensive Metabolic Panel IN AM
09/17/23 06:00
Complete Blood Count/With Diff IN AM
Comprehensive Metabolic Panel IN AM
Abnormal Lab Results
09/14/23
09:52
RBC 4.29 L 10^6/uL
(4.70-6.10)
Hct 38.7 L %
(39.0-52.0)
MCH 31.5 H pg
(27.0-31.0)
Absolute Neuts (auto) 7.4 H 10^3/uL
(1.4-6.5)
Absolute Monos (auto) 0.9 H 10^3/uL
(0.1-0.6)
Absolute Eos (auto) 0.8 H 10^3/uL
(0-0.7)
Lymphocytes % 12.3 L %
(20.5-51.1)
Eosinophils % 7.6 H %
(0-6)
Sodium 134 L mmol/L
(135-145)
Glucose 152 H mg/dl
(70-99)
09/14/23 09:52
09/14/23 09:52
Vital Signs
Initial and Last Documented VS:
Initial Vital Signs
Temp Pulse Resp BP Pulse Ox
98.9 F 71 18 105/69 100
09/14/23 09:18 09/14/23 09:18 09/14/23 09:18 09/14/23 09:18 09/14/23 09:18
Last Documented Vital Signs
Temp Pulse Resp BP Pulse Ox
98.1 F 65 18 140/61 96
09/14/23 23:45 09/14/23 23:45 09/14/23 23:45 09/14/23 23:45 09/15/23 00:48
MDM/Problems Addressed
Differential Diagnosis Includes:
Left fourth toe gangrene with surrounding cellulitis. Basic labs pending. Patient currently stable. Will require admission for evaluation from podiatry and vascular surgery.
*Critical Care Note
Total Time (30-74mins, 75-104mins- exclusive of procedures): Not Applicable
Update Note
Update Note:
Labs reviewed. White count is 10.6. Patient with stable vital signs. No fever. Will admit to hospitalist service
ED Attending Note
-
Portions of this chart may have been created with voice recognition software.� Occasional wrong word or��sound alike� substitutions may have occurred due to the inherent limitations of voice recognition software.
Discharge Plan
Departure
Patient Disposition: Admit
Date of Disposition: 09/14/23
Time of Disposition: 11:59
Admit to: Med/Surg
Presentation/result/management discussed w/ accepting MD/DO: Hospitalist
Discharge Problem:
Gangrenous toe
Interventions
Interventions:
*Risk Screen - Suicide Last Done: 09/14/23 09:33
*General Assessment Last Done: 09/14/23 09:33
*Neglect/Abuse Screening Last Done: 09/14/23 09:33
ED- Fall Risk Assessment Last Done: 09/14/23 09:33
*ED COVID-19 Vaccine History Last Done: 09/14/23 09:33
*Nursing Disposition Last Done: 09/14/23 15:17
ED-Musculoskeletal Assessment Last Done: 09/14/23 09:33
Discharge Date and Time
Discharge Date/Time: 09/14/23 15:17
[2023-09-14 10:27] LABS: % Basophils 0.8 % (0-2); % Eosinophils 7.6 % (0-6); % Immature Granulocytes 0.4 % (0-0.5); % Lymphocytes 12.3 % (20.5-51.1); % Monocytes 8.8 % (1.7-9.3); % Neutrophils 70.1 % (42.2-75.2); Absolute Basophils 0.1 10^3/uL (0-0.2); Absolute Eosinophils 0.8 10^3/uL (0-0.7); Absolute Lymphocytes 1.3 10^3/uL (1.2-3.4); Absolute Monocytes 0.9 10^3/uL (0.1-0.6); Absolute Neutrophils 7.4 10^3/uL (1.4-6.5); Hematocrit 38.7 % (39.0-52.0); Hemoglobin 13.5 g/dL (13.0-18.0); Mean Corp Hgb Conc. 34.9 g/dL (33.0-37.0); Mean Corpuscular Hgb 31.5 pg (27.0-31.0); Mean Corpuscular Volume 90.2 fL (80.0-94.0); Nucleated Red Blood Cells % 0 % (-); Platelet Count 328 10^3/uL (130-400); Red Blood Cell Count 4.29 10^6/uL (4.70-6.10); Red Cell Dist. Width 13.2 % (11.5-14.5); White Blood Cell Count 10.6 10^3/uL (4.8-10.8)
[2023-09-14 10:35] LABS: Blood Urea Nitrogen 11 mg/dl (9-20); Calcium 9.4 mg/dl (8.4-10.2); Carbon Dioxide 27 mmol/L (22-30); Chloride 101 mmol/L (98-107); Estimated Creatinine Clearance 92 ml/min; Glucose 152 mg/dl (70-99); Sodium 134 mmol/L (135-145); eGFR > 60.00
--- NOTE | 2023-09-14 12:17 | HPS.HSE ---
Family Physician
-
Family Physician: Kam Fletcher
Chief Complaint
-
Worsening left fourth toe discoloration black in color
History of Present Illness
73-year-old male from home stating he has worsening discoloration to his left fourth toe that is black in color he is unaware of his surrounding erythema to the distal foot. He also has a chronic left great toe open ulceration with areas of black
necrosis. He is status post left distal superficial femoral artery drug-eluting stent placement on 08/25/[address] Melendez. He has been going to Dr. Miller from wound care treating his left lateral leg stage II ulceration and unclear stage double
left heel ulceration that is black in color for approximately the past 2 months. Patient denies headache, fever, sore throat, chills, chest pain, palpitations, shortness of breath, cough, abdominal pain, nausea, vomiting, diarrhea, urinary
symptoms. The patient is past medical history of DM2, PAD, PVD, ex-smoker, CAD postcardiac stent [facility], diverticulosis, colonic polyps, alcohol use.
Medical History
Past Medical History
Past Medical History: Reports Other
Additional Past Medical History:
DM 2
PAD
PVD
CAD postcardiac stent [facility] unclear year
Ex-smoker 40-year half pack a day stopped 20 years ago
Prostate cancer status post prostate radiation
Chronic left lower extremity wound left heel wound
Past Surgical History: Reports Other
Additional Past Surgical History:
Left hip replacement
Balloon angioplasty/stent left distal superficial femoral artery drug-eluting stent 08/25/2023
Social History
Tobacco: Former Smoker (40-year 1/2 pack/day quit 20 years ago)
Alcohol: Occasional (Drinks 3-4 beers 3 to 4 days a week)
Personal:
Living: With Family ( and daughter)
Employment: Retired
Family History
Family History: Not pertinent
Allergies / Home Medications
Allergies reflects when Allergies were last updated in [facility].
Home Medications with original date entered in [facility]
Allergy/Medication List:
Allergies
Allergy/AdvReac Type Severity Reaction Status Date / Time
No Known Allergies Allergy Verified 09/14/23 09:18
Home Medications
aspirin 81 mg chewable tablet 81 mg PO DAILY #90 tabs 08/25/23
atorvastatin 10 mg tablet 10 mg PO QPM #90 tabs 08/25/23
clopidogrel 75 mg tablet 75 mg PO DAILY #90 tabs 08/25/23
ibuprofen 200 mg tablet (Advil) 200 mg PO Q6HPRN PRN mild pain 09/14/23
Review of Systems
-
History Source: Patient
A 12 point ROS was completed and negative except as noted: Yes
Constitutional: Denies Fever or Chills
EENT: Denies Sore Throat or Runny Nose
Respiratory: Denies Cough or Trouble Breathing
Cardiac: Denies Chest Pain, Diaphoresis, Palpitations or Syncope
Abdomen/GI: Denies Abdominal Pain, Nausea, Vomiting, Diarrhea, Constipated, Bloody Stools or Black Stools
: Denies Dysuria, Frequency, Flank Pain, Incontinence, Difficulty Voiding or Urgency
Musculoskeletal: Reports Other (Black gangrenous left fourth toe with surrounding erythema, left great toe open area with yellow sloughing and area of black necrosis, chronic left lateral stage II ulceration, unstageable left heel ulceration with
gangrenous appearing area); Denies Joint Pain or Edema
Skin: Denies Itching or Rash
Neurological: Denies Dizzy, Headache or Weakness
Endocrine: Reports No Symptoms
Hematologic/Lymphatic: Reports No Symptoms
Psych: Reports Calm
Physical Exam
Vital Signs
Vital Signs
Temp Pulse Resp BP Pulse Ox
98.9 F 61 23 125/74 100
09/14/23 09:18 09/14/23 12:00 09/14/23 12:00 09/14/23 12:00 09/14/23 09:18
Physical Exam
General: Pain; No Fever or Chills
HEENT: NormoCephalic, Anicteric, Moist mucous membranes, PERRLA, Imperial Conjunctivae and No Ptosis
Respiratory: Clear; No Wheezes, Rales or Rhonchi
Cardiac: S1/S2, Regular Rhythm and Murmur (Systolic 2/6); No Rub, Gallop or Peripheral Edema
Breast: Deferred by me
GI: Soft, Non Tender, Non Distended, Normal Bowel Sounds and No Hepatosplenomegaly
Rectal: Deferred by Provider
Genito-urinary: Deferred by me
Musculoskeletal: No Clubbing, No Cyanosis, No Edema and Other (Black gangrenous left fourth toe with surrounding erythema, left great toe open area with yellow sloughing and area of black necrosis, chronic left lateral stage II ulceration,
unstageable left heel ulceration with gangrenous appearing area)
Skin: Warm and Dry
Neuro: AO x 3, No Motor Deficits, Nonfocal/grossly intact, Cranial Nerves Intact and Other (THREE AFFILIATED); No Slurred Speech or Facial Droop
Psych: Calm
Laboratory Results
-
09/14/23 09:52
09/14/23 09:52
Laboratory Results
Total Bilirubin Cancelled 09/14/23 09:52
AST Cancelled 09/14/23 09:52
ALT Cancelled 09/14/23 09:52
Alkaline Phosphatase Cancelled 09/14/23 09:52
Impression/Plan
-
Impression/plan:
Admit to [facility]
#Gangrene left fourth toe/open area left foot great toe with area of necrosis and diabetic male
#S/P stent left distal superficial femoral artery drug-eluting on 08/25/[address] Melendez
-PAD/PVD
-Patient follows with Dr. Miller
-Consult podiatry-patient followed with [facility] but not customer liaison
- consult Dr lyman- made aware will check xray foot for now
-Continue aspirin, statin, Plavix
artergiogram 08/25/23
1. Duplex assisted right common femoral artery cannulation.
2. Aortogram and pelvic angiogram.
3. Left lower extremity angiogram with third order vessel catheterization of left popliteal artery via right common femoral artery puncture.
4. Balloon angioplasty/stent placement left distal superficial femoral artery with 8 mm x 6 cm and 8 mm x 4 cm overlapping Zilver PTX drug-eluting self-expanding stents.
5. Right femoral angiogram.
#Chronic ongoing left lateral leg stage II decub/unstageable black necrotic left heel ulceration
-Patient has been following with Dr. Miller for approximately 2 months
#DM 2/diabetic neuropathy
Accu-Cheks with SSI, HgbA1c 6.5% July
BS 152
#Alcohol use
Patient drinks approximately 3-4 beers 3 to 4 days a week
MSAs screen with protocol
IV thiamine, IV folate
#CAD/cardiac stent [facility] 2015
-Continue aspirin, Plavix, statin
#Prostate cancer status post prostate radiation June 05, 2016
#Ex-smoker
1/2 pack/day times approximately 40 years quit 20 years ago
Other PMH:
Diverticulosis, colonic polyps
DVT prophylaxis
sq lovenox
Full code
--- NOTE | 2023-09-14 13:45 | CON.VAS ---
Consultation
Consultation Request
Performing Provider: WENDI Garcia
Reason for Consultation: Nonhealing wounds/gangrene
Medical History
-
Chief Complaint: Nonhealing wounds
History of Present Illness:
73-year-old male significant past medical history for paroxysmal atrial fibrillation, CAD, prostate cancer, hypertension, and diabetes who presents to [place] ED today reporting continued left lower extremity nonhealing chronic wounds. Pt known
to the vascular service for his wounds/PAD. Pt was most recently seen by us on 08/25/23 for left SFA overlapping stents. He endorses that bilateral feet wounds appeared roughly 5 months ago, he is unsure how they transpired. He denies trauma. He
endorses a roughly 5-year history of bilateral lower extremity diabetic neuropathy, and does endorse decreased sensation to bilateral feet. Reports [facility] with [facility] cardiac stent at [facility] in 2015. Pt has a history of
noncompliance with medications including diabetes medications ,aspirin, and any previously prescribed medications for hypertension/CAD. Patient does have a family history of peripheral arterial disease and diabetes, he endorses he had a brother
with poorly managed diabetes who subsequently required leg amputations and eventually from complications of multiple medical conditions. He personally denies symptoms of claudication or rest pain, but does note that he is limited in his
ambulation due to poor balance. [facility] shift lead Dr Boss sent him in to the ER today for toe amputation. Vascular consult for evaluation. Pt seen at bedside in the ER this afternoon.
Images below (left foot).
Vascular procedures:
08/25/23: Balloon angioplasty/stent placement left distal superficial femoral artery with 8 mm x 6 cm and 8 mm x 4 cm overlapping Zilver PTX drug-eluting self-expanding stents.
Past Medical History
Past Medical History: Arrhythmias (afib), CAD, Cancer, COPD, HTN, NIDDM and [facility]
Past Surgical History: Other (Left hip replacement (11/2015), cardiac catheterization with PCI, endoscopy)
Social History
Tobacco: Former Smoker
Drug: None
Family History
Family History: Other (amputations/pad?)
Allergies / Home Medications
Allergy/AdvReac Type Severity Reaction Status Date / Time
No Known Allergies Allergy Verified 09/14/23 09:18
�Medication �Instructions �Recorded �Confirmed �Type
aspirin 81 mg chewable tablet 81 mg PO DAILY #90 tabs 08/25/23 09/14/23 Rx
atorvastatin 10 mg tablet 10 mg PO QPM #90 tabs 08/25/23 09/14/23 Rx
clopidogrel 75 mg tablet 75 mg PO DAILY #90 tabs 08/25/23 09/14/23 Rx
ibuprofen 200 mg tablet (Advil) 200 mg PO Q6HPRN PRN mild pain 09/14/23 09/14/23 History
Review of Systems
-
History Source: Patient
All other systems: Negative unless noted
Constitutional: Reports No Symptoms
EENT: Reports No Symptoms
Respiratory: Reports No Symptoms
Cardiac: Reports No Symptoms
Vascular: Reports Numbness
Abdomen/GI: Reports No Symptoms
: Reports No Symptoms
Musculoskeletal: Reports Edema
Skin: Reports Other (black left 4th toe, black area on great toe, black area on heel)
Neurological: Reports No Symptoms
Endocrine: Reports No Symptoms
Physical Exam
Vital Signs
Temp Pulse Resp BP Pulse Ox
98.9 F 61 23 125/74 100
09/14/23 09:18 09/14/23 12:00 09/14/23 12:00 09/14/23 12:00 09/14/23 09:18
Lab Results
09/14/23 09:52
09/14/23 09:52
Physical Exam
General: No Apparent Distress
HEENT: Normocephalic and Atraumatic
Respiratory: Non Labored Respirations
Cardiac: Negative JVD
GI: Soft and Non Tender
Musculoskeletal: No Clubbing, No Cyanosis and Edema (moderate left foot)
Skin: Warm and Other (see images above, malodorous, scant drainage from heel )
Neuro: Awake, Alert and Oriented
Psych: Calm
Pulses: Bilateral Femoral: +2, Bilateral Popliteal: +2, Bilateral Dorsalis Pedis: Doppler and Bilateral Posterior Tibial: Doppler
Assessment / Plan
-
73 yo male with chronic nonhealing wounds to his left lower extremity, now with dry gangrene
Sent in by veterinary hospital shift lead for toe amputation
s/p left SFA stents on 08/25/23
Plan:
-LE arterial US/YESSICA/TBI, will follow up after US
-Local wound care
-Podiatry
--- NOTE | 2023-09-14 14:05 | W.PN.UPDATE ---
Update Note
Progress Note Update
I saw and examined the patient.
The STEM DRYER MAINTAINER or PA's note was reviewed and I agree with the note.
Comment: This note is in addition to STEM DRYER MAINTAINER's H and P
73-year-old male with past medical history of diabetes mellitus, PAD, PVD, CAD, smoking, prostate cancer, chronic left lower extremity heel wound, recent angioplasty with stent placement of left distal SFA came to the hospital from wound care center
with worsening left fourth toe, big toe and heel necrotic wound. Consult podiatry and vascular surgery. Hold off on antibiotics per podiatry. Check x-ray. History of non compliance
General: Pain; No Fever or Chills
HEENT: NormoCephalic, Anicteric, Moist mucous membranes
Respiratory: Clear; No Wheezes
Cardiac: S1/S2, Regular Rhythm and Murmur (Systolic 2/6); No Rub, Gallop or Peripheral Edema
GI: Soft, Non Tender, Non Distended, Normal Bowel Sounds
Musculoskeletal: No Clubbing, No Cyanosis, No Edema and Other (Black gangrenous left fourth toe with surrounding erythema, left great toe open area with yellow sloughing and area of black necrosis, chronic left lateral stage II ulceration,
unstageable left heel ulceration with gangrenous appearing area)
Neuro: AO x 3, No Motor Deficits, Nonfocal/grossly intact
Psych: Calm
I spent a total of 77 minutes with the patient or on the floor. More than 50% of this time involved counseling and coordination of care.
[2023-09-14 17:07] LABS: Glucose - Point of Care 138 mg/dl (70-99)
[2023-09-14] MEDS: LIPITOR 10 MG PO (17:46)
[2023-09-14 17:48] LABS: GGTP 67 U/L (15-73); Magnesium 1.9 mg/dl (1.6-2.3); Phosphorus 3.5 mg/dl (2.5-4.5)
[2023-09-14 17:49] LABS: APTT 32.1 Sec (23.4-35.0); Alcohol None Detected; INR 1.06; PT 13.7 Sec (11.4-14.6)
[2023-09-14 17:54] LABS: B-Hydroxybutyrate 0.43 mmol/L (0.02-0.27)
[2023-09-14] MEDS: THIAMINE INJECTION 200 MG IV (20:47)
[2023-09-14] MEDS: TYLENOL 650 MG PO (20:59)
[2023-09-14 21:41] LABS: Glucose - Point of Care 143 mg/dl (70-99)
--- NOTE | 2023-09-14 21:59 | W.CS.POD ---
Consult Summary - Podiatry
-
73-year-old male, with history of Type 2 Diabetes Mellitus, PVD, CAD admitted to for care of advancing gangrenous changes to the left fourth toe. He was seen and sent by Dr. Miller at the wound care center to consider amputation of the toe
after noticing increased redness and swelling in the foot. The patient was also being treated at the [facility] for a necrotic wound of the left great toe, lateral left lower leg wound as well as a heel decubitus lesion. The patient is well known to the
vascular team, having a left distal SFA stent placed by Dr. Melendez on 08/25/23 during a separate admission. The patient denies fevers, chills or sweats at this time.
Assessment/Plan:
Dry gangrene of the left fourth toe, with early necrosis involving the adjacent third toe medially.
Chronic necrotic wound of the left great toe.
Dry necrotic decubitus heel ulceration, left.
Left lateral lower leg ulceration.
Diabetes Mellitus
PVD
CAD
Ex-Smoker
Vascular note appreciated. LE arterial US/YESSICA/TBI ordered.
Await full vascular assessment to aid in determining level of amputation.
Continue local wound care.
Consider IV antibiotics.
[2023-09-15 05:31] LABS: Urine Albumin Trace (Neg - Trace); Urine Bilirubin Negative (Negative); Urine Character Slightly Cloudy (Clear); Urine Color Yellow; Urine Glucose Negative (Negative); Urine Ketone Trace (Negative); Urine Leukocyte 2+ (Negative); Urine Nitrite Negative (Negative); Urine Occult Blood 1+ (Negative); Urine Specific Gravity 1.015 (<1.030); Urine Urobilinogen 1+ (Neg - 1+); Urine pH 6.5 (5.0-9.0)
[2023-09-15 05:40] LABS: Urine Red Blood Cell 0-2 /HPF (0-2); Urine Squamous Cell 0-2 /LPF (Few)
[2023-09-15 05:41] LABS: Urine Bacteria Few (Negative); Urine White Cell 60-70 /HPF (0-5)
[2023-09-15 05:50] LABS: Amphetamines Negative (Negative); Barbiturates Negative (Negative); Benzodiazepines Negative (Negative); Buprenorphine Negative (Negative); Cocaine Negative (Negative); Marijuana Negative (Negative); Methadone Negative (Negative); Methamphetamines Negative (Negative); Opiates Negative (Negative); Phencyclidine Negative (Negative); Tricyclic Antidepressants Negative (Negative)
[2023-09-15 07:00] VITALS: BP 138/66
[2023-09-15 07:52] LABS: % Basophils 0.9 % (0-2); % Eosinophils 10.9 % (0-6); % Immature Granulocytes 0.3 % (0-0.5); % Lymphocytes 12.5 % (20.5-51.1); % Monocytes 9.6 % (1.7-9.3); % Neutrophils 65.8 % (42.2-75.2); Absolute Basophils 0.1 10^3/uL (0-0.2); Absolute Eosinophils 1.1 10^3/uL (0-0.7); Absolute Lymphocytes 1.3 10^3/uL (1.2-3.4); Absolute Neutrophils 6.8 10^3/uL (1.4-6.5); Hematocrit 34.6 % (39.0-52.0); Hemoglobin 12.1 g/dL (13.0-18.0); Mean Corpuscular Hgb 31.9 pg (27.0-31.0); Mean Corpuscular Volume 91.3 fL (80.0-94.0); Mean Platelet Volume 8.9 fL (7.4-10.4); Nucleated Red Blood Cells % 0 % (-); Platelet Count 308 10^3/uL (130-400); Red Blood Cell Count 3.79 10^6/uL (4.70-6.10); Red Cell Dist. Width 13.2 % (11.5-14.5); White Blood Cell Count 10.3 10^3/uL (4.8-10.8)
[2023-09-15 08:22] LABS: ALT (SGPT) 14 U/L (0-50); AST (SGOT) 21 U/L (17-59); Albumin 3.3 g/dl (3.5-5.0); Alkaline Phosphatase 67 U/L (38-126); Blood Urea Nitrogen 13 mg/dl (9-20); Calcium 9.1 mg/dl (8.4-10.2); Carbon Dioxide 28 mmol/L (22-30); Chloride 103 mmol/L (98-107); Estimated Creatinine Clearance 82 ml/min; Glucose 125 mg/dl (70-99); Potassium 4.2 mmol/L (3.5-5.1); Sodium 134 mmol/L (135-145); Total Bilirubin 0.7 mg/dl (0.2-1.3); Total Protein 6.1 g/dl (6.3-8.2); eGFR > 60.00
[2023-09-15 08:23] VITALS: BP 138/66
[2023-09-15 08:31] LABS: Glucose - Point of Care 136 mg/dl (70-99)
--- NOTE | 2023-09-15 08:43 | WOUNDNOTE ---
L GREAT TOE (SIDE PLANTAR)
--- NOTE | 2023-09-15 08:43 | WOUNDNOTE ---
L PLANTAR FOOT/TOES
--- NOTE | 2023-09-15 08:45 | WOUNDNOTE ---
L TOES/FOOT (DORSAL)
--- NOTE | 2023-09-15 08:46 | WOUNDNOTE ---
[facility] RN note: Patient admitted with L 4th toe, L Hallux gangrene. Patient is followed by [facility], Dr. Melendez and Dr. Reza. Engineering Tech Dr. Marie and vascular consulted.
See H&P for complete history.
PMH: DM, PAD, CAD, wounds L toes, heel, L calf, L distal SFA stent by Dr. Melendez 08/25/23, ex smoker, cardiac stent.
Wound Location and type/assessment: Patient admitted with: diabetic/PAD related dry gangrene L 4th toe, L Hallux. Dermal pink ulcer r/t diabetes/PAD L dorsal 3rd toe. Small dry black diabetic/pad ulcer. R heel dry callus with small brown scab d/t
diabetes/pad. L lateral calf venous ulcer deep dermal along with PAD, pink with dry brown scab.
Appetite: good.
Pressure redistribution devices in place: [employer] Accumax. Air chair cushions. Patient can turn self in bed. He is ambulatory. He likes with walker in his room.
Plan: Protective dressing applied L great and affected toes. Silicone border foam changed on LLE. Instructed patient pressure injury prevention measures including heel elevation. Heels off bed with pillow and air chair cushion. Vascular and
podiatry following.
Will confirm orders with hospitalist or technical marketing engineer.
Care plan to be updated and will follow as needed.
Note to case management requested for discharge: suggested VN to patient.
Patient to follow up at wound care center upon discharge.
[2023-09-15] MEDS: NOVOLOG FLEXPEN-LOW RESISTANCE SC ×2 (09:20→17:02)
[2023-09-15] MEDS: LOW STRENGTH ASPIRIN 81 MG PO (09:26)
[2023-09-15] MEDS: PLAVIX 75 MG PO (09:26)
[2023-09-15] MEDS: FOLVITE 1 MG PO (09:26)
[2023-09-15] MEDS: THIAMINE INJECTION 200 MG IV ×2 (09:36→21:21)
[2023-09-15 10:59] VITALS: BP 122/67; PULSE 82; O2SAT 96
[2023-09-15 11:04] VITALS: BP 122/67; PULSE 83; O2SAT 97
[2023-09-15 11:44] LABS: Glucose - Point of Care 205 mg/dl (70-99)
--- NOTE | 2023-09-15 12:47 | CM ---
IA Completed at bedside.
CM consult completed for substance abuse. Patient declined resources [facility].
DX: gangrene L 4th toe, wound L great toe with gangrene.
PMH: DM, PAD, CAD, smoker, , chronic LLE heel wound, angioplasty, stent
Patient lives in a 2 story home with his & daughter.
0 steps into the home and 12 steps to bed/bath.
PLOF: Independent; driving
DME: walker but states he does not use
PT/OT evals completed. Recommendations TBD
PCP: Kam Fletcher
[facility]
PLAN: Discharge when stable. Monitor for services needed.
--- NOTE | 2023-09-15 12:49 | W.PN.UPDATE ---
Update Note
Progress Note Update
Seen and evaluated with KELLY Garcia. See her full consultation note. I agree with the findings. Well-known to me status post staged bilateral lower extremity arteriograms with most recent left lower extremity arteriogram and SFA
angioplasty/stenting. He has extensive bulky diffuse atherosclerosis throughout all his lower extremity vessels. Limits overall intervention that can be performed. Severe, severe calcific burden. Wounds/wound pictures reviewed. On exam he
actually has a palpable popliteal pulse and I am able to palpate a DP pulse on the foot (left foot, likely reconstituted from a peroneal based on his angiogram). Based on this and his YESSICA assessment which I reviewed, would proceed with toe
amputations of the necrotic toes as well as heel debridement from a podiatric standpoint. If continued nonhealing could attempt potentially a below the knee popliteal to DP bypass. However this would be right with difficulty given the severe
calcific nature of these vessels and is no guarantee that this would be feasible. Discussed this all with the patient. He understands.
--- NOTE | 2023-09-15 12:58 | W.PN.HOSP.TC ---
Today's Communication/Plan
-
Monitor vital signs
See plan
Podiatry and vascular following
amputation per podiatry
Assessment / Plan
Assessment / Plan
General: Pain; No Fever or Chills
HEENT: NormoCephalic, Anicteric, Moist mucous membranes
Respiratory: Clear; No Wheezes
Cardiac: S1/S2, Regular Rhythm and Murmur (Systolic 2/6); No Rub, Gallop or Peripheral Edema
GI: Soft, Non Tender, Non Distended, Normal Bowel Sounds
Musculoskeletal: No Clubbing, No Cyanosis, No Edema and Other (Black gangrenous left fourth toe with surrounding erythema, left great toe open area with yellow sloughing and area of black necrosis, chronic left lateral stage II ulceration,
unstageable left heel ulceration with gangrenous appearing area)
Neuro: AO x 3, No Motor Deficits, Nonfocal/grossly intact
Psych: Calm
Gangrene left fourth toe/open area left foot great toe with area of necrosis and diabetic male
#S/P stent left distal superficial femoral artery drug-eluting on 08/25/[address] Melendez
-PAD/PVD
-Patient follows with Dr. Miller
Podiatry following
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
Arterial Doppler noted, vascular surgery okay with patient getting amputation of necrotic toes and heel debridement
-Continue aspirin, statin, Plavix
artergiogram 08/25/23
1. Duplex assisted right common femoral artery cannulation.
2. Aortogram and pelvic angiogram.
3. Left lower extremity angiogram with third order vessel catheterization of left popliteal artery via right common femoral artery puncture.
4. Balloon angioplasty/stent placement left distal superficial femoral artery with 8 mm x 6 cm and 8 mm x 4 cm overlapping Zilver PTX drug-eluting self-expanding stents.
5. Right femoral angiogram.
#Chronic ongoing left lateral leg stage II decub/unstageable black necrotic left heel ulceration
-Patient has been following with Dr. Miller for approximately 2 months
#DM 2/diabetic neuropathy
Accu-Cheks with SSI, HgbA1c 6.5% July
Pyuria
Denies any urinary symptoms
Monitor
#Alcohol use
Patient drinks approximately 3-4 beers 3 to 4 days a week
MSAs screen with protocol
IV thiamine, IV folate
#CAD/cardiac stent [facility] 2015
-Continue aspirin, Plavix, statin
#Prostate cancer status post prostate radiation June 05, 2016
#Ex-smoker
1/2 pack/day times approximately 40 years quit 20 years ago
Other PMH:
Diverticulosis, colonic polyps
DVT prophylaxis
sq lovenox
Full code
Anticipated Discharge: > 48 hours
Subjective/Interval History
-
Date of Service: September 15, 2023
denies pain
Objective Data
-
Labs:
Laboratory Results
09/15/23
07:32
WBC 10.3
Hgb 12.1 L
Hct 34.6 L
Plt Count 308
Sodium 134 L
Potassium 4.2
Chloride 103
Carbon Dioxide 28
BUN 13
Creatinine 0.7
Glucose 125 H
Calcium 9.1
Total Bilirubin 0.7
AST 21
ALT 14
Alkaline Phosphatase 67
Vital Signs:
Vital Signs
Temp Pulse Resp BP Pulse Ox
98.4 F 65 18 138/66 96
09/15/23 07:00 09/15/23 07:00 09/15/23 07:00 09/15/23 07:00 09/15/23 07:00
I&O
09/14/23 09/15/23 09/16/23
06:59 06:59 06:59
Intake Total 60 / 60
Output Total 300 / 300
Balance -240 / -240
[2023-09-15] MEDS: NOVOLOG FLEXPEN-LOW RESISTANCE 2 UNITS SC (13:33)
[2023-09-15 13:42] VITALS: BMI 28.9
[2023-09-15 15:55] VITALS: BP 151/71
[2023-09-15 16:38] LABS: Glucose - Point of Care 112 mg/dl (70-99)
--- NOTE | 2023-09-15 17:54 | W.PN.POD ---
Today's Communication
Today's Communication
Anticipate patient to OR tomorrow evening after office hours.
Assessment / Plan
-
Dry gangrene of the left fourth toe, with early gangrene involving the adjacent third toe laterally.
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
Dry necrotic decubitus heel ulceration, left.
Left lateral lower leg ulceration.
Plan:
Vascular note appreciated.
Will plan for debridement of non-viable skin, soft tissue and bone of the left foot, including amputation of the necrotic first and fourth toes, and possibly the third toe as well. The heel decubitus will also be debrided.
The patient understands the benefits, risks and possible complications associated with the surgery, including the need for additional surgery/amputation. All patient questions regarding the procedures were answered to his full satisfaction.
Anticipate patient to OR tomorrow evening after office hours.
Subjective
Chief Complaint
Gangrene of the left fourth toe and great toe.
Subjective
Patient resting comfortably in bed. No discomfort at this time. Denies fever, chills or sweats.
Objective
Temp Pulse Resp BP Pulse Ox
98.1 F 74 20 151/71 96
09/15/23 15:55 09/15/23 15:55 09/15/23 15:55 09/15/23 15:55 09/15/23 15:55
09/15/23 07:32
09/15/23 07:32
Vital Signs and Lab results were reviewed.
AFebrile, VSS.
No leukocytosis.
Right foot: Non-palpable pedal pulses. CFT delayed. Decreased skin temp, turgor, absent digital hair growth.
No open lesions or soft tissue distress. Posteroplantar heel keratosis, stable.
No overt deformity noted.
LEFT foot:
Palpable DP pulse. Non-palpable PT pulse.
CFT to the toes significantly delayed. No digital hair growth.
The left fourth toe-dried gangrene extending fully proximally. Small area of proximal lateral third toe with dry gangrenous changes.
Malodor extending from these toes.
The left hallux with dry, chronic, necrotic wound dorsomedially and non-viable keratotic/trophic changes involving 75% of the toe.
Postero-plantar left heel with 2.5cm round decubitus eschar, dry, non-viable.
Hyperemia/rubor about the base of the second through fourth toes dorsally, left foot.
No overt cellulitis, active discharge nor abscess appreciated.
XRAYS, left foot 09/14/23:
There is great toe soft tissue defect consistent with wound which as increased in size as compared with the prior examination. All somewhat limited by the flexed configuration, distal phalanx of the great toe shows findings suggesting acro
osteolysis. Within the limitations, no other abnormal osteolytic process is clearly identified radiographically.
08/25/23: Balloon angioplasty/stent placement left distal superficial femoral artery.
09/14/23 Arterial U/S:
Left lower extremity: YESSICA 0.92 consistent with mild arterial insufficiency/low normal limits. Slightly decreased from prior study 0.98. TBI severely reduced 0.29. Heavily calcified vessels. Continuous Doppler waveforms of the dorsalis pedis and
posterior tibial arteries are monophasic, suggestive of possible additional infrapopliteal artery disease.
[2023-09-15] MEDS: LOVENOX 40 MG SC (18:03)
[2023-09-15] MEDS: LIPITOR 10 MG PO (18:03)
[2023-09-15] MEDS: TYLENOL 650 MG PO (21:25)
[2023-09-15 21:48] LABS: Glucose - Point of Care 210 mg/dl (70-99)
[2023-09-15 23:45] VITALS: BP 135/76
[2023-09-16] VITALS (12 sets, daily range): BP systolic 127–176; BP diastolic 63–80
[2023-09-16 06:32] LABS: Glucose - Point of Care 136 mg/dl (70-99)
[2023-09-16 07:41] LABS: % Basophils 0.8 % (0-2); % Eosinophils 11.6 % (0-6); % Immature Granulocytes 0.2 % (0-0.5); % Lymphocytes 11.5 % (20.5-51.1); % Monocytes 10.3 % (1.7-9.3); % Neutrophils 65.6 % (42.2-75.2); Absolute Basophils 0.1 10^3/uL (0-0.2); Absolute Monocytes 0.9 10^3/uL (0.1-0.6); Absolute Neutrophils 5.7 10^3/uL (1.4-6.5); Hematocrit 34.3 % (39.0-52.0); Hemoglobin 12.1 g/dL (13.0-18.0); Mean Corp Hgb Conc. 35.3 g/dL (33.0-37.0); Mean Corpuscular Hgb 32.4 pg (27.0-31.0); Mean Platelet Volume 8.9 fL (7.4-10.4); Nucleated Red Blood Cells % 0 % (-); Platelet Count 274 10^3/uL (130-400); Red Blood Cell Count 3.73 10^6/uL (4.70-6.10); Red Cell Dist. Width 12.9 % (11.5-14.5); White Blood Cell Count 8.7 10^3/uL (4.8-10.8)
[2023-09-16 08:16] LABS: ALT (SGPT) 12 U/L (0-50); AST (SGOT) 19 U/L (17-59); Albumin 3.2 g/dl (3.5-5.0); Alkaline Phosphatase 63 U/L (38-126); Blood Urea Nitrogen 14 mg/dl (9-20); Calcium 9.2 mg/dl (8.4-10.2); Carbon Dioxide 26 mmol/L (22-30); Chloride 102 mmol/L (98-107); Estimated Creatinine Clearance 82 ml/min; Glucose 128 mg/dl (70-99); Potassium 3.6 mmol/L (3.5-5.1); Sodium 134 mmol/L (135-145); Total Bilirubin 0.6 mg/dl (0.2-1.3); eGFR > 60.00
[2023-09-16] MEDS: NOVOLOG FLEXPEN-LOW RESISTANCE SC ×2 (09:03→21:49)
[2023-09-16] MEDS: PLAVIX 75 MG PO (09:03)
[2023-09-16] MEDS: FOLVITE 1 MG PO (09:03)
[2023-09-16] MEDS: LOW STRENGTH ASPIRIN 81 MG PO (09:03)
[2023-09-16] MEDS: THIAMINE INJECTION 200 MG IV ×2 (09:09→20:55)
--- NOTE | 2023-09-16 12:01 | W.PN.HOSP.TC ---
Today's Communication/Plan
-
Monitor vital signs see plan
Plan for OR today by podiatry
PT/OT post OR per podaiatry
Assessment / Plan
Assessment / Plan
General: Pain; No Fever or Chills
HEENT: NormoCephalic, Anicteric, Moist mucous membranes
Respiratory: Clear; No Wheezes
Cardiac: S1/S2, Regular Rhythm and Murmur (Systolic 2/6); No Rub, Gallop or Peripheral Edema
GI: Soft, Non Tender, Non Distended, Normal Bowel Sounds
Musculoskeletal: No Clubbing, No Cyanosis, No Edema and Other (Black gangrenous left fourth toe with surrounding erythema, left great toe open area with yellow sloughing and area of black necrosis, chronic left lateral stage II ulceration,
unstageable left heel ulceration with gangrenous appearing area)
Neuro: AO x 3, No Motor Deficits, Nonfocal/grossly intact
Psych: Calm
Gangrene left fourth toe/open area left foot great toe with area of necrosis and diabetic male
#S/P stent left distal superficial femoral artery drug-eluting on 08/25/[address] Melendez
-PAD/PVD
-Patient follows with Dr. Miller
Podiatry following
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
Arterial Doppler noted, vascular surgery okay with patient getting amputation of necrotic toes and heel debridement. plan for OR today by podiatry
-Continue aspirin, statin, Plavix
artergiogram 08/25/23
1. Duplex assisted right common femoral artery cannulation.
2. Aortogram and pelvic angiogram.
3. Left lower extremity angiogram with third order vessel catheterization of left popliteal artery via right common femoral artery puncture.
4. Balloon angioplasty/stent placement left distal superficial femoral artery with 8 mm x 6 cm and 8 mm x 4 cm overlapping Zilver PTX drug-eluting self-expanding stents.
5. Right femoral angiogram.
Hyponatremia
monitor
#Chronic ongoing left lateral leg stage II decub/unstageable black necrotic left heel ulceration
-Patient has been following with Dr. Miller for approximately 2 months
#DM 2/diabetic neuropathy
Accu-Cheks with SSI, HgbA1c 6.5% July
Pyuria
Denies any urinary symptoms
Monitor
#Alcohol use
Patient drinks approximately 3-4 beers 3 to 4 days a week
MSAs screen with protocol
IV thiamine, IV folate
#CAD/cardiac stent [facility] 2015
-Continue aspirin, Plavix, statin
#Prostate cancer status post prostate radiation June 05, 2016
#Ex-smoker
1/2 pack/day times approximately 40 years quit 20 years ago
Other PMH:
Diverticulosis, colonic polyps
DVT prophylaxis
sq lovenox
Full code
Anticipated Discharge: 24 - 48 hours
Subjective/Interval History
-
Date of Service: September 16, 2023
denies pain
Objective Data
-
Labs:
Laboratory Results
09/16/23
07:31
WBC 8.7
Hgb 12.1 L
Hct 34.3 L
Plt Count 274
Sodium 134 L
Potassium 3.6
Chloride 102
Carbon Dioxide 26
BUN 14
Creatinine 0.7
Glucose 128 H
Calcium 9.2
Total Bilirubin 0.6
AST 19
ALT 12
Alkaline Phosphatase 63
Vital Signs:
Vital Signs
Temp Pulse Resp BP Pulse Ox
98.1 F 67 16 160/80 98
09/16/23 07:00 09/16/23 07:00 09/16/23 07:00 09/16/23 07:00 09/16/23 09:07
I&O
09/15/23 09/16/23 09/17/23
06:59 06:59 06:59
Intake Total 60 / 60 360 / 360
Output Total 300 / 300 1050 / 1050
Balance -240 / -240 -690 / -690
[2023-09-16 12:20] LABS: Glucose - Point of Care 184 mg/dl (70-99)
[2023-09-16] MEDS: NOVOLOG FLEXPEN-LOW RESISTANCE 1 UNITS SC (12:40)
--- NOTE | 2023-09-16 13:43 | CM ---
Patient to go to OR this evening after podiatry office hours.
Await PT/OT recommendations post-op.
Will need authorization if SNF.
PLAN: Discharge when stable. OR today.
[2023-09-16 19:07] LABS: Glucose - Point of Care 113 mg/dl (70-99)
[2023-09-16] MEDS: DILAUDID 0.25 MG IV ×2 (19:29→19:51)
--- NOTE | 2023-09-16 20:26 | W.PN.UPDATE ---
Update Note
Progress Note Update
We explained to the patient the planned surgical procedures of amputation of the left fourth toe, partial amputation of the left great toe, as well as debridement of the left third toe necrotic wound and heel decubitus ulcer. Informed surgical
consent from the patient for the excision/removal of necrotic/non-viable tissue of the left foot and heel was obtained at bedside. The patient understands the benefits, risks, and possible complications of the proposed procedures, as well as the
potential need for additional surgery.
Procedures (under LMA):
Amputation of the left fourth toe
Partial amputation of the left great toe.
Debridement of left third toe wound.
Debridement of left heel decubitus ulcer.
Light blood oozing from surgical sites throughout surgery. Prognosis good.
Return to floor.
Resume diet
XRAYs left foot.
NWB on left foot.
[2023-09-16] MEDS: TYLENOL 650 MG PO (21:04)
[2023-09-16] MEDS: LIPITOR 10 MG PO (21:04)
[2023-09-16 21:42] LABS: Glucose - Point of Care 128 mg/dl (70-99)
[2023-09-16] MEDS: LOVENOX SC (21:49)
[2023-09-16] MEDS: DILAUDID 0.5 MG IV (23:34)
[2023-09-17] VITALS (7 sets, daily range): BP systolic 114–146; BP diastolic 57–76; PULSE 73; O2SAT 96
[2023-09-17] MEDS: DILAUDID 0.5 MG IV ×2 (03:05→18:13)
[2023-09-17 08:07] LABS: Glucose - Point of Care 118 mg/dl (70-99)
[2023-09-17] MEDS: NOVOLOG FLEXPEN-LOW RESISTANCE SC ×2 (08:08→12:20)
[2023-09-17] MEDS: THIAMINE INJECTION 200 MG IV (08:09)
[2023-09-17] MEDS: PLAVIX 75 MG PO (08:09)
[2023-09-17] MEDS: FOLVITE 1 MG PO (08:09)
[2023-09-17] MEDS: LOW STRENGTH ASPIRIN 81 MG PO (08:09)
[2023-09-17 08:10] LABS: % Basophils 0.7 % (0-2); % Eosinophils 12.4 % (0-6); % Immature Granulocytes 0.4 % (0-0.5); % Lymphocytes 8.7 % (20.5-51.1); % Monocytes 10.1 % (1.7-9.3); % Neutrophils 67.7 % (42.2-75.2); Absolute Basophils 0.1 10^3/uL (0-0.2); Absolute Eosinophils 1.3 10^3/uL (0-0.7); Absolute Lymphocytes 0.9 10^3/uL (1.2-3.4); Absolute Monocytes 1.1 10^3/uL (0.1-0.6); Hematocrit 35.4 % (39.0-52.0); Hemoglobin 12.1 g/dL (13.0-18.0); Mean Corp Hgb Conc. 34.2 g/dL (33.0-37.0); Mean Corpuscular Hgb 31.5 pg (27.0-31.0); Mean Corpuscular Volume 92.2 fL (80.0-94.0); Mean Platelet Volume 8.9 fL (7.4-10.4); Nucleated Red Blood Cells % 0 % (-); Platelet Count 287 10^3/uL (130-400); Red Blood Cell Count 3.84 10^6/uL (4.70-6.10); White Blood Cell Count 10.4 10^3/uL (4.8-10.8)
[2023-09-17 08:55] LABS: ALT (SGPT) 11 U/L (0-50); AST (SGOT) 20 U/L (17-59); Albumin 3.3 g/dl (3.5-5.0); Alkaline Phosphatase 64 U/L (38-126); Blood Urea Nitrogen 14 mg/dl (9-20); Calcium 9.1 mg/dl (8.4-10.2); Carbon Dioxide 29 mmol/L (22-30); Chloride 102 mmol/L (98-107); Estimated Creatinine Clearance 72 ml/min; Glucose 118 mg/dl (70-99); Potassium 4.4 mmol/L (3.5-5.1); Sodium 136 mmol/L (135-145); Total Bilirubin 0.6 mg/dl (0.2-1.3); Total Protein 6.1 g/dl (6.3-8.2); eGFR > 60.00
[2023-09-17 11:50] LABS: Glucose - Point of Care 143 mg/dl (70-99)
[2023-09-17] MEDS: DILAUDID 0.25 MG IV (11:56)
--- NOTE | 2023-09-17 12:53 | W.PN.HOSP.TC ---
Today's Communication/Plan
-
Monitor vital signs see plan
PT/OT
DC planning
Podiatry following
Assessment / Plan
Assessment / Plan
General: Pain; No Fever or Chills
HEENT: NormoCephalic, Anicteric, Moist mucous membranes
Respiratory: Clear; No Wheezes
Cardiac: S1/S2, Regular Rhythm and Murmur (Systolic 2/6); No Rub, Gallop or Peripheral Edema
GI: Soft, Non Tender, Non Distended, Normal Bowel Sounds
Musculoskeletal: No Clubbing, No Cyanosis, No Edema and Other (Black gangrenous left fourth toe with surrounding erythema, left great toe open area with yellow sloughing and area of black necrosis, chronic left lateral stage II ulceration,
unstageable left heel ulceration with gangrenous appearing area)
Neuro: AO x 3, No Motor Deficits, Nonfocal/grossly intact
Psych: Calm
Gangrene left fourth toe/open area left foot great toe with area of necrosis and diabetic male
#S/P stent left distal superficial femoral artery drug-eluting on 08/25/[address] Melendez
-PAD/PVD
-Patient follows with Dr. Miller
Podiatry following
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
Arterial Doppler noted, vascular surgery okay with patient getting amputation of necrotic toes and heel debridement. Status post Amputation of the left fourth toe, Partial amputation of the left great toe., Debridement of left third toe wound,
Debridement of left heel decubitus ulcer.
-Continue aspirin, statin, Plavix
Per podiatry patient is nonweightbearing on left lower extremity, no manipulation
artergiogram 08/25/23
1. Duplex assisted right common femoral artery cannulation.
2. Aortogram and pelvic angiogram.
3. Left lower extremity angiogram with third order vessel catheterization of left popliteal artery via right common femoral artery puncture.
4. Balloon angioplasty/stent placement left distal superficial femoral artery with 8 mm x 6 cm and 8 mm x 4 cm overlapping Zilver PTX drug-eluting self-expanding stents.
5. Right femoral angiogram.
Hyponatremia
monitor
#Chronic ongoing left lateral leg stage II decub/unstageable black necrotic left heel ulceration
-Patient has been following with Dr. Miller for approximately 2 months
#DM 2/diabetic neuropathy
Accu-Cheks with SSI, HgbA1c 6.5% July
Pyuria
Denies any urinary symptoms
Monitor
#Alcohol use
Patient drinks approximately 3-4 beers 3 to 4 days a week
MSAs screen with protocol
IV thiamine, IV folate
#CAD/cardiac stent [facility] 2015
-Continue aspirin, Plavix, statin
#Prostate cancer status post prostate radiation June 05, 2016
#Ex-smoker
1/2 pack/day times approximately 40 years quit 20 years ago
Other PMH:
Diverticulosis, colonic polyps
DVT prophylaxis
sq lovenox
Full code
Anticipated Discharge: Within 24 hours
Subjective/Interval History
-
Date of Service: September 17, 2023
denies nausea
Objective Data
-
Labs:
Laboratory Results
09/17/23
07:46
WBC 10.4
Hgb 12.1 L
Hct 35.4 L
Plt Count 287
Sodium 136
Potassium 4.4
Chloride 102
Carbon Dioxide 29
BUN 14
Creatinine 0.8
Glucose 118 H
Calcium 9.1
Total Bilirubin 0.6
AST 20
ALT 11
Alkaline Phosphatase 64
Vital Signs:
Vital Signs
Temp Pulse Resp BP Pulse Ox
98.2 F 66 16 128/69 97
09/17/23 11:15 09/17/23 11:15 09/17/23 11:15 09/17/23 11:15 09/17/23 11:15
I&O
09/16/23 09/17/23 09/18/23
06:59 06:59 06:59
Intake Total 360 / 360 270 / 270
Output Total 1050 / 1050 1400 / 1400
Balance -690 / -690 -1130 / -1130
--- NOTE | 2023-09-17 14:52 | CM ---
Patient seen at bedside.
Post-op amputation L 4th toe, partial L great toe, Debridement L 3rd toe & heel.
PT recommended [facility] when discharged.
Patient declined to go to skilled rehab.
I discussed home health with him & he said he was agreeable to this.
TT to dr. Julio Jolley.
Plan: Discharge when stable. Declined [facility].
Was agreeable to home health.
[2023-09-17 16:32] LABS: Glucose - Point of Care 158 mg/dl (70-99)
[2023-09-17] MEDS: LOVENOX 40 MG SC (18:13)
[2023-09-17] MEDS: NOVOLOG FLEXPEN-LOW RESISTANCE 1 UNITS SC (18:13)
[2023-09-17] MEDS: LIPITOR 10 MG PO (18:13)
--- NOTE | 2023-09-17 18:24 | W.PN.POD ---
Today's Communication
Today's Communication
All surgical sites of the left foot are viable and stable.
Assessment / Plan
-
S/P one day:
Amputation of the left fourth toe
Partial amputation of the left great toe.
Debridement of left third toe wound.
Debridement of left heel decubitus ulcer.
Dry gangrene of the left fourth toe, with early gangrene involving the adjacent third toe laterally.
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
Dry necrotic decubitus heel ulceration, left.
Left lateral lower leg ulceration.
Plan:
All surgical sites are quite viable and stable.
Redressing of the left foot at bedside.
Ordered and received a waffle boot to keep the heel off of the bed surface.
Patient to remain NWB, left foot.
Updated Vascular on patient's condition.
Will follow.
Subjective
Chief Complaint
S/P one day surgical management of first and fourth toe gangrene, necrotic wounds of the third toe and posteroplantar heel, left foot.
Subjective
Patient is seen resting comfortably in bed, describing only intermittent and fleeting pain in the posterior heel, left.
Denies fever, chills or sweats.
Objective
Temp Pulse Resp BP Pulse Ox
99 F 54 18 123/67 93
09/17/23 15:00 09/17/23 15:00 09/17/23 15:00 09/17/23 15:00 09/17/23 15:00
09/17/23 07:46
09/17/23 07:46
Vital Signs and Lab results were reviewed.
Dressings to left foot are intact, with some breakthrough bleeding distal medially.
The amputation sites of the great toe and fourth toe are viable, with dried blood along the incision lines, sutures intact and wound edges well apposed. The medial left third toe wound is granular based, as is the posteroplantar heel wound.
Capillary refill to digits slightly delayed however foot is tepid to touch.
No malodor, cyanosis, cellulitis, active discharge or local signs of infection noted.
[2023-09-17] MEDS: VITAMIN B1 100 MG PO (20:01)
[2023-09-17 21:31] LABS: Glucose - Point of Care 136 mg/dl (70-99)
[2023-09-17] MEDS: TYLENOL 650 MG PO (22:53)
[2023-09-18 07:00] VITALS: BP 133/55
[2023-09-18 08:04] LABS: Glucose - Point of Care 132 mg/dl (70-99)
[2023-09-18] MEDS: NOVOLOG FLEXPEN-LOW RESISTANCE SC ×2 (08:13→17:23)
[2023-09-18] MEDS: PLAVIX 75 MG PO (08:15)
[2023-09-18] MEDS: FOLVITE 1 MG PO (08:15)
[2023-09-18] MEDS: VITAMIN B1 100 MG PO ×2 (08:16→19:12)
[2023-09-18] MEDS: LOW STRENGTH ASPIRIN 81 MG PO (08:16)
--- NOTE | 2023-09-18 10:29 | W.PN.HOSP.TC ---
Addendum entered and electronically signed by Julio Jolley MD 09/18/23 11:56:
Discussed with podiatry. will need more dressing changes. also need heel off boot prior to dc.
Original Note:
Today's Communication/Plan
-
Monitor vitals
See plan
Patient does not want SNF, DC home today if okay with podiatry
Patient will follow-up with wound care outpatient
Assessment / Plan
Assessment / Plan
General: Pain; No Fever or Chills
HEENT: NormoCephalic, Anicteric, Moist mucous membranes
Respiratory: Clear; No Wheezes
Cardiac: S1/S2, Regular Rhythm and Murmur (Systolic 2/6); No Rub, Gallop or Peripheral Edema
GI: Soft, Non Tender, Non Distended, Normal Bowel Sounds
Musculoskeletal: No Clubbing, No Cyanosis, No Edema and left foot wrap
Neuro: AO x 3, No Motor Deficits, Nonfocal/grossly intact
Psych: Calm
Gangrene left fourth toe/open area left foot great toe with area of necrosis and diabetic male
#S/P stent left distal superficial femoral artery drug-eluting on 08/25/[address] Melendez
-PAD/PVD
-Patient follows with Dr. Miller
Podiatry following
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
Arterial Doppler noted, vascular surgery okay with patient getting amputation of necrotic toes and heel debridement. Status post Amputation of the left fourth toe, Partial amputation of the left great toe., Debridement of left third toe wound,
Debridement of left heel decubitus ulcer.
-Continue aspirin, statin, Plavix
Per podiatry patient is nonweightbearing on left lower extremity, no manipulation
PT/OT rec SNF; however patient wants to go home
artergiogram 08/25/23
1. Duplex assisted right common femoral artery cannulation.
2. Aortogram and pelvic angiogram.
3. Left lower extremity angiogram with third order vessel catheterization of left popliteal artery via right common femoral artery puncture.
4. Balloon angioplasty/stent placement left distal superficial femoral artery with 8 mm x 6 cm and 8 mm x 4 cm overlapping Zilver PTX drug-eluting self-expanding stents.
5. Right femoral angiogram.
Hyponatremia
monitor
#Chronic ongoing left lateral leg stage II decub/unstageable black necrotic left heel ulceration
-Patient has been following with Dr. Miller for approximately 2 months
#DM 2/diabetic neuropathy
Accu-Cheks with SSI, HgbA1c 6.5% July
Pyuria
Denies any urinary symptoms
Monitor
#Alcohol use
Patient drinks approximately 3-4 beers 3 to 4 days a week
MSAs screen with protocol
IV thiamine, IV folate
#CAD/cardiac stent [facility] 2015
-Continue aspirin, Plavix, statin
#Prostate cancer status post prostate radiation June 05, 2016
#Ex-smoker
1/2 pack/day times approximately 40 years quit 20 years ago
Other PMH:
Diverticulosis, colonic polyps
DVT prophylaxis
sq lovenox
Full code
Anticipated Discharge: Today
Subjective/Interval History
-
Date of Service: September 18, 2023
denies nausea
Objective Data
-
Vital Signs:
Vital Signs
Temp Pulse Resp BP Pulse Ox
98.2 F 53 18 133/55 98
09/18/23 07:00 09/18/23 07:00 09/18/23 07:00 09/18/23 07:00 09/18/23 07:00
I&O
09/17/23 09/18/23 09/19/23
06:59 06:59 06:59
Intake Total 270 / 270 480 / 480
Output Total 1400 / 1400 1725 / 1725
Balance -1130 / -1130 -1245 / -7135
[2023-09-18 11:22] LABS: Glucose - Point of Care 214 mg/dl (70-99)
[2023-09-18] MEDS: NOVOLOG FLEXPEN-LOW RESISTANCE 2 UNITS SC (11:33)
[2023-09-18 13:53] VITALS: BP 154/78; PULSE 50; O2SAT 95
[2023-09-18 13:55] VITALS: BP 154/78; PULSE 52; O2SAT 95
[2023-09-18 15:00] VITALS: BP 140/72
[2023-09-18 16:23] LABS: Glucose - Point of Care 149 mg/dl (70-99)
[2023-09-18] MEDS: LOVENOX 40 MG SC (17:48)
[2023-09-18] MEDS: LIPITOR 10 MG PO (17:48)
[2023-09-18] MEDS: TYLENOL 650 MG PO (19:12)
--- NOTE | 2023-09-18 19:35 | W.PN.POD ---
Today's Communication
Today's Communication
Anticipate discharge planning
NWB with the use of a wheelchair.
Assessment / Plan
-
S/P two days:
Amputation of the left fourth toe
Partial amputation of the left great toe.
Debridement of left third toe wound.
Debridement of left heel decubitus ulcer.
Dry gangrene of the left fourth toe, with early gangrene involving the adjacent third toe laterally.
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
Dry necrotic decubitus heel ulceration, left.
Left lateral lower leg ulceration.
Plan:
All surgical sites remian viable and stable.
Redressing of the left foot at bedside.
Patient using a waffle boot to keep the heel off of the bed surface.
PATIENT TO REMAIN NWB, left foot.
Anticipate discharge planning. Dressing to be changed in my office.
I was informed by PT that the patient refused their suggestion of transferring to a rehab facility, and also refused a wheel chair or walker.
I spoke at length with the patient at bedside, and he is now agreeable to the use of wheelchair moving forward.
Subjective
Chief Complaint
S/P two days surgical management of first and fourth toe gangrene, necrotic wounds of the third toe and posteroplantar heel, left foot.
Objective
Temp Pulse Resp BP Pulse Ox
98.0 F 70 18 140/72 95
09/18/23 15:00 09/18/23 15:00 09/18/23 15:00 09/18/23 15:00 09/18/23 15:00
09/17/23 07:46
09/17/23 07:46
Vital Signs and Lab results were reviewed.
No leukocytosis.
Dressings to left foot are intact, with some breakthrough bleeding distal medially.
The amputation sites of the great toe and fourth toe remain viable, with evidence of blood oozing along the incision lines, sutures intact and wound edges well apposed. Ecchymosis at the base of the toes noted. The proximal medial left third toe
wound is granular and dry, and the posteroplantar heel wound seems to be epithelializing.
Capillary refill to digits slightly delayed however foot is tepid to touch.
No malodor, cyanosis, cellulitis, active discharge or local signs of infection noted.
[2023-09-18 21:13] LABS: Glucose - Point of Care 146 mg/dl (70-99)
[2023-09-18 23:10] VITALS: BP 117/62
[2023-09-19 07:37] LABS: Glucose - Point of Care 137 mg/dl (70-99)
[2023-09-19 07:53] VITALS: BP 147/53
[2023-09-19] MEDS: LOW STRENGTH ASPIRIN 81 MG PO (08:39)
[2023-09-19] MEDS: PLAVIX 75 MG PO (08:39)
[2023-09-19] MEDS: VITAMIN B1 100 MG PO ×2 (08:39→20:07)
[2023-09-19] MEDS: FOLVITE 1 MG PO (08:39)
[2023-09-19] MEDS: NOVOLOG FLEXPEN-LOW RESISTANCE SC (08:39)
[2023-09-19 09:18] LABS: Blood Urea Nitrogen 13 mg/dl (9-20); Calcium 9.1 mg/dl (8.4-10.2); Carbon Dioxide 24 mmol/L (22-30); Chloride 105 mmol/L (98-107); Estimated Creatinine Clearance 96 ml/min; Glucose 122 mg/dl (70-99); Potassium 3.7 mmol/L (3.5-5.1); Sodium 136 mmol/L (135-145); eGFR > 60.00
[2023-09-19 11:09] LABS: % Basophils 0.9 % (0-2); % Eosinophils 17.4 % (0-6); % Immature Granulocytes 0.3 % (0-0.5); % Lymphocytes 12.4 % (20.5-51.1); % Monocytes 9.8 % (1.7-9.3); % Neutrophils 59.2 % (42.2-75.2); Absolute Basophils 0.1 10^3/uL (0-0.2); Absolute Eosinophils 1.4 10^3/uL (0-0.7); Absolute Monocytes 0.8 10^3/uL (0.1-0.6); Absolute Neutrophils 4.8 10^3/uL (1.4-6.5); Hematocrit 33.9 % (39.0-52.0); Hemoglobin 11.9 g/dL (13.0-18.0); Mean Corp Hgb Conc. 35.1 g/dL (33.0-37.0); Mean Corpuscular Hgb 32.3 pg (27.0-31.0); Mean Corpuscular Volume 92.1 fL (80.0-94.0); Mean Platelet Volume 9.4 fL (7.4-10.4); Nucleated Red Blood Cells % 0 % (-); Platelet Count 294 10^3/uL (130-400); Red Blood Cell Count 3.68 10^6/uL (4.70-6.10); Red Cell Dist. Width 12.6 % (11.5-14.5)
[2023-09-19 11:33] LABS: Glucose - Point of Care 181 mg/dl (70-99)
--- NOTE | 2023-09-19 11:57 | W.PN.HOSP.TC ---
Addendum entered and electronically signed by Julio Jolley MD 09/19/23 15:09:
Patient is Status post Amputation of the left fourth toe, Partial amputation of the left great toe., Debridement of left third toe wound, Debridement of left heel decubitus ulcer. His NWB status requires a lightweight w/c. His mobility issues
impairs ADLs that cannot be resolved with use of wheeled walker. There is adequate access in the home and patient is willing and able to self propel w/c.
Original Note:
Today's Communication/Plan
-
Monitor vital signs and see plan
Will go home on wheelchair
Possible discharge today, spouse updated over the phone
Pain control
Will follow with podiatry outpatient
Assessment / Plan
Assessment / Plan
General: Pain; No Fever or Chills
HEENT: NormoCephalic, Anicteric, Moist mucous membranes
Respiratory: Clear; No Wheezes
Cardiac: S1/S2, Regular Rhythm and Murmur (Systolic 2/6); No Rub, Gallop or Peripheral Edema
GI: Soft, Non Tender, Non Distended, Normal Bowel Sounds
Musculoskeletal: No Clubbing, No Cyanosis, No Edema and left foot wrap
Neuro: AO x 3, No Motor Deficits, Nonfocal/grossly intact
Psych: Calm
Gangrene left fourth toe/open area left foot great toe with area of necrosis and diabetic male
#S/P stent left distal superficial femoral artery drug-eluting on 08/25/[address] Melendez
-PAD/PVD
-Patient follows with Dr. Miller
Podiatry following
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
Arterial Doppler noted, vascular surgery okay with patient getting amputation of necrotic toes and heel debridement. Status post Amputation of the left fourth toe, Partial amputation of the left great toe., Debridement of left third toe wound,
Debridement of left heel decubitus ulcer.
-Continue aspirin, statin, Plavix
Per podiatry patient is nonweightbearing on left lower extremity, no manipulation
PT/OT rec SNF; however patient wants to go home. Patient is now agreeable on using wheelchair. salt manager aware about discharge planning. Hopeful discharge today. Discussed with spouse over the phone
artergiogram 08/25/23
1. Duplex assisted right common femoral artery cannulation.
2. Aortogram and pelvic angiogram.
3. Left lower extremity angiogram with third order vessel catheterization of left popliteal artery via right common femoral artery puncture.
4. Balloon angioplasty/stent placement left distal superficial femoral artery with 8 mm x 6 cm and 8 mm x 4 cm overlapping Zilver PTX drug-eluting self-expanding stents.
5. Right femoral angiogram.
Hyponatremia
monitor
#Chronic ongoing left lateral leg stage II decub/unstageable black necrotic left heel ulceration
-Patient has been following with Dr. Miller for approximately 2 months
#DM 2/diabetic neuropathy
Accu-Cheks with SSI, HgbA1c 6.5% July
Pyuria
Denies any urinary symptoms
Monitor
#Alcohol use
Patient drinks approximately 3-4 beers 3 to 4 days a week
MSAs screen with protocol
IV thiamine, IV folate
#CAD/cardiac stent [facility] 2015
-Continue aspirin, Plavix, statin
#Prostate cancer status post prostate radiation June 05, 2016
#Ex-smoker
1/2 pack/day times approximately 40 years quit 20 years ago
Other PMH:
Diverticulosis, colonic polyps
DVT prophylaxis
sq lovenox
Full code
Anticipated Discharge: Today
Subjective/Interval History
-
Date of Service: September 19, 2023
denies nausea
Objective Data
-
Labs:
Laboratory Results
09/19/23
07:42
WBC 8.0
Hgb 11.9 L
Hct 33.9 L
Plt Count 294
Sodium 136
Potassium 3.7
Chloride 105
Carbon Dioxide 24
BUN 13
Creatinine 0.6 L
Glucose 122 H
Calcium 9.1
Vital Signs:
Vital Signs
Temp Pulse Resp BP Pulse Ox
98.1 F 69 18 147/53 98
09/19/23 07:53 09/19/23 07:53 09/19/23 07:53 09/19/23 07:53 09/19/23 07:53
I&O
09/18/23 09/19/23 09/20/23
06:59 06:59 06:59
Intake Total 480 / 480 240 / 240
Output Total 1725 / 1725 900 / 900
Balance -1245 / -1245 -660 / -660
[2023-09-19] MEDS: NOVOLOG FLEXPEN-LOW RESISTANCE 1 UNITS SC ×2 (12:12→17:19)
[2023-09-19] MEDS: SENOKOT-S 1 TABLET PO (12:41)
[2023-09-19 15:21] VITALS: BP 114/74
--- NOTE | 2023-09-19 15:30 | CM ---
Patient with Hx DM who is s/p Amputation of the left fourth toe, Partial amputation of the left great toe, Debridement of left third toe wound, Debridement of left heel decubitus ulcer. NWB left foot. Chaz gonzalez.
Spoke with Malissa @ [facility], Ortega @ [facility] & Lv @ [facility] [employer]; none of these 3 companies have ability to deliver w/c on Wednesday. Lv at [facility] says that is due to need for insurance check during the weekday.
Met with patient who agrees to d/c home tomorrow with lightweight w/c and VN - he chooses [facility]. He would like w/c delivered to hospital room and hopes that will occur in am for d/c tomorrow. His or daughter will provide transport home
tomorrow.
Spoke with [facility]; request for lightweight w/c faxed, with communication patient hoping for delivery to hospital room tomorrow morning prior to d/c.
Message to PEPE Ruano; referral placed for d/c tomorrow.
Plan follow up with [facility] tomorrow re; w/c delivery.
Plan home tomorrow with lightweight w/c, with [facility], with family by car.
[2023-09-19 16:15] LABS: Glucose - Point of Care 182 mg/dl (70-99)
[2023-09-19] MEDS: MIRALAX 17 GRAMS PO (16:34)
--- NOTE | 2023-09-19 16:37 | PTCARENOTE ---
Pt with c/o of no BM in 1 week and given p.o. senekot without result. Dr. Jolley notified, Miralax ordered and given. Pt does not feel'constipated or uncomfortable' but feels he is 'overdue to have BM. Abd is round with active bowel tones x 4.
tolerating meals and passing flatus. No nausea or vomiting.
[2023-09-19] MEDS: LIPITOR 10 MG PO (17:16)
[2023-09-19] MEDS: LOVENOX 40 MG SC (17:18)
--- NOTE | 2023-09-19 18:32 | PTCARENOTE ---
No BM this evening, Pt drank Miralax but refuses Dulcolax Suppository at this time. Pt has been compliant and wearing the Air boot today. Quan wrap remains CDI, CMS +
[2023-09-19 21:15] LABS: Glucose - Point of Care 206 mg/dl (70-99)
[2023-09-19 23:23] VITALS: BP 130/63
[2023-09-20 07:35] VITALS: BP 149/68
[2023-09-20 07:39] LABS: Glucose - Point of Care 141 mg/dl (70-99)
[2023-09-20] MEDS: NOVOLOG FLEXPEN-LOW RESISTANCE SC ×2 (08:01→11:57)
[2023-09-20] MEDS: VITAMIN B1 100 MG PO (08:02)
[2023-09-20] MEDS: PLAVIX 75 MG PO (08:02)
[2023-09-20] MEDS: LOW STRENGTH ASPIRIN 81 MG PO (08:02)
[2023-09-20] MEDS: MIRALAX 17 GRAMS PO (08:03)
[2023-09-20] MEDS: FOLVITE 1 MG PO (08:03)
--- NOTE | 2023-09-20 10:02 | W.PN.UPDATE ---
Update Note
Progress Note Update
S/P 4 days:
Amputation of the left fourth toe
Partial amputation of the left great toe.
Debridement of left third toe wound.
Debridement of left heel decubitus ulcer.
Clinically, surgical sites remain stable and viable. No local signs of infection present..
Anticipate discharge today.
Dressing changed at bedside. Next change in my office Wed of this week.
NWB, left with use of wheelchair.
Will follow in office.
--- NOTE | 2023-09-20 10:20 | VNURNOTE ---
Home Health Liaison met with patient at bedside to discuss [facility] nurse/therapy, visits, schedule and homebound status. Patient is agreeable and understands that visits at home will be 1-3 x per week to assess and teach medical management, assess and
provide wound care. Patient lives with spouse and daughter and stated daughter would be open to learning wound care. [facility] brochure provided with contact information. Patient is aware that [facility] will contact them for start of care within a few days
after discharge from . [facility] referral accepted in [facility]. Informed patient that wheelchair to be delivered bedside later this afternoon (per [facility]).
[2023-09-20 11:31] LABS: Glucose - Point of Care 139 mg/dl (70-99)
--- NOTE | 2023-09-20 11:57 | W.PN.HOSP.TC ---
Today's Communication/Plan
-
OK for DC today after wheelchair delivered
Assessment / Plan
Assessment / Plan
General: Pain; No Fever or Chills
HEENT: NormoCephalic, Anicteric, Moist mucous membranes
Respiratory: Clear; No Wheezes
Cardiac: S1/S2, Regular Rhythm and Murmur (Systolic 2/6); No Rub, Gallop or Peripheral Edema
GI: Soft, Non Tender, Non Distended, Normal Bowel Sounds
Musculoskeletal: No Clubbing, No Cyanosis, No Edema and left foot wrap
Neuro: AO x 3, No Motor Deficits, Nonfocal/grossly intact
Psych: Calm
Dry Gangrene left fourth toe
chronic nonhealing wounds to his left lower extremity, now with dry gangrene
PAD s/p stent left distal superficial femoral artery drug-eluting on 08/25/[address] Melendez
-Patient follows with Dr. Miller
-appreciate podiatry; 09/15 OR with
Amputation of the left fourth toe
Partial amputation of the left great toe.
Debridement of left third toe wound.
Debridement of left heel decubitus ulcer.
-Continue aspirin, statin, Plavix
Per podiatry patient is nonweightbearing on left lower extremity, no manipulation
PT/OT rec SNF; however patient wants to go home. Patient is now agreeable on using wheelchair. assistant program manager aware about discharge planning. Hopeful discharge today. Discussed with spouse over the phone
Hyponatremia
monitor
#Chronic ongoing left lateral leg stage II decub/unstageable black necrotic left heel ulceration
-Patient has been following with Dr. Miller for approximately 2 months
#DM 2/diabetic neuropathy
Accu-Cheks with SSI, HgbA1c 6.5% July
Pyuria
Denies any urinary symptoms
Monitor
#Alcohol use
Patient drinks approximately 3-4 beers 3 to 4 days a week
MSAs screen with protocol
IV thiamine, IV folate
#CAD/cardiac stent [facility] 2015
-Continue aspirin, Plavix, statin
#Prostate cancer status post prostate radiation June 05, 2016
#Ex-smoker
1/2 pack/day times approximately 40 years quit 20 years ago
Other PMH:
Diverticulosis, colonic polyps
DVT prophylaxis
sq lovenox
Full code
Anticipated Discharge: Today
Subjective/Interval History
-
Date of Service: September 20, 2023
pain controlled
wants to leave the hospital today
no chest pain or shortness of breath
Objective Data
-
Vital Signs:
Vital Signs
Temp Pulse Resp BP Pulse Ox
97.6 F 61 17 149/68 97
09/20/23 07:35 09/20/23 07:35 09/20/23 07:35 09/20/23 07:35 09/20/23 08:00
I&O
09/19/23 09/20/23 09/21/23
06:59 06:59 06:59
Intake Total 240 / 240 360 / 360
Output Total 900 / 900 1375 / 1375
Balance -660 / -660 -1015 / -1015
Review of Systems
-
History Source: Patient
All other systems: Reviewed and negative
Data Reviewed
-
Diagnostic Radiology: Report Reviewed by me
Labs: Labs Reviewed by me
--- NOTE | 2023-09-20 12:04 | W.DS.TRANS ---
DC Summary - Maintenance Director
-
Discharge Instructions:
Discharge Diagnosis/Procedures Gangrene left fourth toe/open area left foot
great toe with area of necrosis
Status post Amputation of the left fourth toe,
Partial amputation of the left great toe.,
Debridement of left third toe wound
Ambulatory dysfunction
Diet Diabetic, Carb Controlled
Activity Other activity
Additional Activity Nonweightbearing on left foot with the use of a
wheelchair
Driving Restrictions Not until seen by your Dr
Bathing Restrictions None
Other Services VN,PT,OT
Instructions:
Stand-Alone Forms:
Changes to Home Medications: Yes
Discharge Medications:
DC Medications w/original date entered in [facility]
aspirin 81 mg chewable tablet 81 mg PO DAILY Blood Clot Prevention/Tx 09/14/23
atorvastatin 10 mg tablet 10 mg PO QPM High Cholesterol 09/14/23
clopidogrel 75 mg tablet 75 mg PO DAILY Blood Clot Prevention/Tx 09/14/23
acetaminophen 325 mg tablet 650 mg (2 x 325 mg) PO Q4HPRN PRN mild pain/MONTEZ/temp> 100.4F #0 tabs 09/18/23
folic acid 1 mg tablet 1 mg PO DAILY #30 tabs 09/18/23
sennosides 8.6 mg-docusate sodium 50 mg tablet (Stool Softener-Laxative) 1 tab PO BIDPRN PRN constipation #30 tabs 09/18/23
thiamine HCl (vitamin B1) 100 mg tablet 100 mg PO BID #60 tabs 09/18/23
Home Medication Changes
addition of thiamine, folate, colace/senna, tylenol PRN
Pending Results: No
[2023-09-20 12:16] VITALS: BP 139/63
--- NOTE | 2023-09-20 13:42 | W.DCSUMMARY ---
Discharge Summary
Discharge Data
Date of Admission: 09/14/23
Date of Discharge: 09/20/23
-
Pending Results: No
Hospital Course
Discharging Physician : Dr. Mera Guerra
Disposition : Home with HH
Primary care physician : Dr. Kam Fletcher
Principal Discharge diagnosis : Gangrene left fourth toe/open area left foot great toe with area of necrosis; Status post Amputation of the left fourth toe, Partial amputation of the left great toe, Debridement of left third toe wound; Ambulatory
dysfunction
Hospital Course :
Mr. Justin Vora is a 73 yo man with hx DM2, chronic LLE wounds, PAD status post left distal superficial femoral artery drug-eluting stent placement on 08/25/23, CAD s/p PCI, ex-smoker presents to the ER with worsening discoloration of left fourth toe.
He was admitted to medicine with Vascular surgery and Podiatry consulting for dry gangrene of non-healing wounds. YESSICA's obtained and decision made to proceed with amputation. Patient is status post Amputation of the left fourth toe, Partial
amputation of the left great toe, Debridement of left third toe wound, and Debridement of left heel decubitus ulcer by Dr. Baer on 09/16/23. His SOLAR INSTALLATION MANAGER asa, statin and plavix were continued. Recommended for NWB with use of wheelchair. He refused SNF
and he was discharged once able to arrange outpatient wheelchair. He has close follow up with Podiatry this week.
Time spent on discharge was 32 minutes.
Important imaging findings :
YESSICA 09/14/23
IMPRESSION:
1. Right lower extremity YESSICA 0.92 consistent with mild arterial insufficiency/low normal limits, improved from prior study 0.77. TBI moderately reduced 0.46. Heavily calcified vessels. Multiphasic waveforms in common femoral through popliteal artery
with no velocity elevation to suggest any significant stenosis. There is severe calcification in the distal right superficial femoral artery with shadowing, can't rule out stenosis. Continuous Doppler waveforms in the dorsalis pedis and posterior
tibial arteries are monophasic. This may be suggestive of additional infrapopliteal artery disease.
2. Left lower extremity: YESSICA 0.92 consistent with mild arterial insufficiency/low normal limits. Slightly decreased from prior study 0.98. TBI severely reduced 0.29. Heavily calcified vessels. Multiphasic waveforms in the common femoral and profunda
femoris. Transition to monophasic waveforms throughout the superficial femoral and popliteal arteries. No velocity elevation is identified to suggest any discrete hemodynamically significant stenosis. Patent left distal superficial femoral artery
stent with no velocity elevation to suggest any significant stenosis. Continuous Doppler waveforms of the dorsalis pedis and posterior tibial arteries are monophasic, suggestive of possible additional infrapopliteal artery disease.
Procedure findings :
Discharge Plan
-
Patient Disposition: Home with Home Care
Discharge Diagnosis/Procedures: Gangrene left fourth toe/open area left foot great toe with area of necrosis
Status post Amputation of the left fourth toe, Partial amputation of the left great toe., Debridement of left third toe wound
Ambulatory dysfunction
Condition: Fair
Diet: Diabetic, Carb Controlled
Activity: Other activity
Additional Activity: Nonweightbearing on left foot with the use of a wheelchair
Driving Restrictions: Not until seen by your Dr
Bathing Restrictions: None
Other Services: VN, PT and OT
Activity Restrictions/Additional Instructions:
Wound Care Instructions
L great toe, L 4th toe and L heel gangrene-as per php mysql developer's instructions.
L lateral calf wound-clean with saline, silicone border foam, change daily and prn drainage (add adaptic/alginate prn large amount of drainage).
Elevate heels off bed with pillow and/or air chair cushion/s
Pressure redistributing chair cushion (i.e. Air chair cushion).
NWB with the use of a wheelchair.
Follow up with php mysql developer.
Follow up with vascular surgeon.
Follow up at wound care center call for an appointment.
Follow-up with podiatry on Wednesday in office; F/U in office on Wednesday [phone] for appt.
Next dressing change is in Podiatry office.
Referrals:
Jamar Baer DPM [Specified Professional Personl] - in less than 1 week ( F/U w me in office on Wednesday for appt.)
Kam Fletcher, DO [Family Provider] - in less than 1 week
Macie Zavala CRNP [Specified Professional Personl] - 10/01/23 8:45 am (Vascular surgery follow-up)
Prescriptions:
New
sennosides-docusate sodium [Stool Softener-Laxative] 8.6-50 mg Tablet
1 tab PO BIDPRN PRN (Reason: constipation) Qty: 30 0RF
folic acid 1 mg Tablet
1 mg PO DAILY Qty: 30 0RF
acetaminophen 325 mg Tablet
650 mg PO Q4HPRN PRN (Reason: mild pain/MONTEZ/temp> 100.4F) Qty: 0 0RF
thiamine HCl (vitamin B1) 100 mg Tablet
100 mg PO BID Qty: 60 0RF
Continued
atorvastatin 10 mg tablet
10 mg PO QPM
clopidogrel 75 mg tablet
75 mg PO DAILY
aspirin 81 mg tablet,chewable
81 mg PO DAILY
Discontinued
ibuprofen [Advil] 200 mg Tablet
200 mg PO Q6HPRN PRN (Reason: mild pain)
Discharge Orders:
Discharge Patient (As Directed); Ordered 09/20/23
Ordered By: Mera Guerra
Discharge Date and Time
Print Language: MALAWIAN
--- NOTE | 2023-09-20 15:35 | CM ---
Patient discharged today to home with [facility].
Wheelchair delivered to patient's room.
Patient son to transport back to home.
PLAN: Discharged to home with [facility].
Son transported home.
== END 2023-09-20 14:27 | disposition home health service (06) | DRG 256 ==
LOC: 4 WEST ACU 13:00
PROVIDERS: Clinical Nurse Specialist Family Health; ADMITTING PHYSICIAN Internal Medicine; ATTENDING PHYSICIAN Student in an Organized Health Care Education/Training Program; CONSULT PHYSICIAN Podiatrist Foot & Ankle Surgery; EMERGENCY PHYSICIAN Emergency Medicine; FAMILY PHYSICIAN Family Medicine; OTHER PHYSICIAN Nurse Practitioner Acute Care
PROC: 0JBR0ZZ Excision of Left Foot Subcutaneous Tissue and Fascia, Open Approach (ICD-10-PCS; 2023-09-16)
PROC: 0Y6W0Z1 Detachment at Left 4th Toe, High, Open Approach (ICD-10-PCS; 2023-09-16)
PROC: 0Y6Q0Z3 Detachment at Left 1st Toe, Low, Open Approach (ICD-10-PCS; 2023-09-16)
DX: E11.52 Type 2 diabetes mellitus with diabetic peripheral angiopathy with gangrene (principal); E87.1 Hypo-osmolality and hyponatremia; I96 Gangrene, not elsewhere classified; E11.40 Type 2 diabetes mellitus with diabetic neuropathy, unspecified; I25.10 Atherosclerotic heart disease of native coronary artery without angina pectoris; F10.90 Alcohol use, unspecified, uncomplicated; J44.9 Chronic obstructive pulmonary disease, unspecified; I10 Essential (primary) hypertension; L89.892 Pressure ulcer of other site, stage 2; L89.620 Pressure ulcer of left heel, unstageable; E78.00 Pure hypercholesterolemia, unspecified; Z79.02 Long term (current) use of antithrombotics/antiplatelets; Z79.82 Long term (current) use of aspirin; Z79.899 Other long term (current) drug therapy; Z85.46 Personal history of malignant neoplasm of prostate; Z87.891 Personal history of nicotine dependence; Z91.198 Patient's noncompliance with other medical treatment and regimen for other reason; Z95.5 Presence of coronary angioplasty implant and graft; Z95.820 Peripheral vascular angioplasty status with implants and grafts; I48.0 Paroxysmal atrial fibrillation; Z91.148 Patient's other noncompliance with medication regimen for other reason; Z79.84 Long term (current) use of oral hypoglycemic drugs; Z83.3 Family history of diabetes mellitus
CPT/HCPCS: 73620; 73630; 80048; 80053; 80306; 81003; 81015; 82010; 82077; 82962; 82977; 83735; 84100; 85025; 85610; 85730; 93005; 93922; 93925; 97163; 97166; 97530; 99285

== ENCOUNTER 2023-09-27 21:09 | Inpatient (IN) | payer MEDICARE, SELFPAY ==
[2023-09-27 16:31] VITALS: BP 147/70
--- NOTE | 2023-09-27 16:34 | ED.PDOC.TRB ---
ED Provider Triage
-
Patient seen by provider in Triage?: Seen in Triage
73 year old male with PVD, DM. Sent in by podiatry for worsening left foot infection. Had toes 1 and 4 amputated recently. Podiatry wants patient admitted. Temp 100.5 at triage. Blood culture, labs, xray ordered. Tylenol ordered for fever.
[2023-09-27] MEDS: TYLENOL 650 MG PO (16:42)
[2023-09-27 16:53] LABS: % Basophils 0.5 % (0-2); % Immature Granulocytes 0.8 % (0-0.5); % Monocytes 7.2 % (1.7-9.3); % Neutrophils 83.5 % (42.2-75.2); Absolute Basophils 0.1 10^3/uL (0-0.2); Absolute Eosinophils 0.4 10^3/uL (0-0.7); Absolute Immature Granulocytes 0.2 10^3/uL (0-0.05); Absolute Lymphocytes 1.2 10^3/uL (1.2-3.4); Absolute Monocytes 1.4 10^3/uL (0.1-0.6); Hemoglobin 11.7 g/dL (13.0-18.0); Mean Corp Hgb Conc. 35.5 g/dL (33.0-37.0); Mean Corpuscular Hgb 31.3 pg (27.0-31.0); Mean Corpuscular Volume 88.2 fL (80.0-94.0); Mean Platelet Volume 9.1 fL (7.4-10.4); Nucleated Red Blood Cells % 0 % (-); Platelet Count 444 10^3/uL (130-400); Red Blood Cell Count 3.74 10^6/uL (4.70-6.10); Red Cell Dist. Width 12.5 % (11.5-14.5); White Blood Cell Count 19.2 10^3/uL (4.8-10.8)
[2023-09-27 17:11] LABS: ALT (SGPT) 28 U/L (0-50); AST (SGOT) 34 U/L (17-59); Albumin 2.3 g/dl (3.5-5.0); Alkaline Phosphatase 97 U/L (38-126); Blood Urea Nitrogen 12 mg/dl (9-20); Carbon Dioxide 29 mmol/L (22-30); Chloride 97 mmol/L (98-107); Glucose 164 mg/dl (70-99); Potassium 3.6 mmol/L (3.5-5.1); Sodium 132 mmol/L (135-145); Total Bilirubin 0.6 mg/dl (0.2-1.3); Total Protein 6.6 g/dl (6.3-8.2); eGFR > 60.00
--- NOTE | 2023-09-27 18:14 | ED.GENMED ---
History of Present Illness
General
Chief Complaint: Skin Problem
Source: patient
Exam Limitations: none
Time Seen by Provider: 09/27/23 18:09
Nursing documentation reviewed up to this point in time: agreed with
History of Present Illness
History of Present Illness:
Patient is a 73-year-old male with past medical history of diabetes chronic left lower extremity wounds peripheral arterial disease status post left distal superficial femoral artery drug-eluting stent August/2023, CAD,/PCI former smoker status post
amputation of left great and fourth toe sent back from box turner, DR Jamar Baer for infected wound. Pt had left great toe and 4th toe amputated here by Dr Baer on 09/15. HE had follow-up visit with him on Wednesday 3 days ago and again today but
today was instructed to come to the ER for admission for infected wounds. Patient was not aware of this infection because he reports he is not able to really see his toes. This wound was last dressed Wednesday by the box turner and again today. He
did have a fever here on arrival and did complain of chills he has not. He has no other complaints.
Past History
Past History
ED Past Medical History: Arrthythmia, Cancer (Prostate), COPD, HTN, Hypercholesterolemia and NIDDM
ED Past Surgical History: Orthopedic
Social History
Tobacco: Smoker
Alcohol: Occasional
Drug: None
Personal:
Living: with family
Review of Systems
Review of Systems
Allergies reviewed?: Yes
Other source history: family
All Other Systems: ROS reviewed and negative except as documented in HPI and ROS
Constitutional: Reports fever and chills
EENT: Reports no symptoms
Musculoskeletal: Reports other (Drainage, infected wound to left foot surgical amputated site)
Skin: Reports other (see above )
Neurological: Reports no symptoms
Psychiatric: Reports no symptoms
Phy Exam
General Physical Exam
General Presentation: no apparent distress
General age: appears stated age
General Skin: warm and dry
General Habitus: normal
General Mental: alert
General Hydration: appears well hydrated
Cardiovascular Exam
Cardiovascular Exam: regular rate/rhythm, no murmur and normal peripheral pulses
Pulmonary Exam
Pulmonary Exam: no respiratory distress
Neurological Exam
Neurological Exam: alert
Musculoskeletal Exam
Musculoskeletal Exam: other (Left lower extremity with open draining purulent wound at site of left great toe amputation sutures intact inflammation redness to site of fourth toe amputation patient also has a heel wound with redness foot/lower leg
is swollen , + pulses by doppler )
Skin Exam
Skin Exam: normal color and warm/dry
Psychiatric Exam
Psychiatric Exam: normal mood/affect
Course
Orders/Labs/Results
Orders:
Orders
09/27/23 16:33
IV Insert/Care/Rem.- Treatment PRN
Acetaminophen [Tylenol] 650 mg PO NOW STA
CR Foot - Left Min 3 Views Urgent
Comment:
Reason For Exam: foot infection
09/27/23 16:41
Acetaminophen [Tylenol] 650 mg .ROUTE .STK-MED ONE
09/27/23 16:44
Complete Blood Count/With Diff Urgent
Comprehensive Metabolic Panel Urgent
Blood Culture Urgent
MAIKOL Source: Blood/Venous
Specimen Description:
09/27/23 18:41
Piperacillin/Tazo 4.5 Gram [Zosyn] 4.5 gram in 100 ml IV NOW
09/27/23 18:55
Lactic Acid Urgent
Wound Culture [Wound/Abscess/Other Culture] Urgent
MAIKOL Source: Foot
Specimen Description: Left
Date Specimen was Collected: 09/27/23
Time Specimen was Collected: 18:34
09/27/23 19:14
Vancomycin [Vancocin] 2,000 mg 0.9% Sodium Chloride 500 ml [Nss] 500 ml IV NOW
09/27/23 20:00
VANCOMYCIN Pharmacy to Dose [VANCOCIN Pharmacy to Dose] 1 each Pharmacy To Prepare [Call Pharmacy To Prepare] 0 ml IV PER PROTOCOL
Abnormal Lab Results
09/27/23 09/27/23
16:44 18:55
WBC 19.2 H 10^3/uL
(4.8-10.8)
RBC 3.74 L 10^6/uL
(4.70-6.10)
Hgb 11.7 L g/dL
(13.0-18.0)
Hct 33.0 L %
(39.0-52.0)
MCH 31.3 H pg
(27.0-31.0)
Plt Count 444 H 10^3/uL
(130-400)
Abs Immat Gran (auto) 0.2 H 10^3/uL
(0-0.05)
Absolute Neuts (auto) 16.0 H 10^3/uL
(1.4-6.5)
Absolute Monos (auto) 1.4 H 10^3/uL
(0.1-0.6)
Immature Gran % 0.8 H %
(0-0.5)
Neutrophils % 83.5 H %
(42.2-75.2)
Lymphocytes % 6.0 L %
(20.5-51.1)
Sodium 132 L mmol/L
(135-145)
Chloride 97 L mmol/L
(98-107)
Glucose 164 H mg/dl
(70-99)
Lactic Acid 2.2 H mmol/L
(0.7-2.0)
Albumin 2.3 L g/dl
(3.5-5.0)
09/27/23 16:44
09/27/23 16:44
Vital Signs
Initial and Last Documented VS:
Initial Vital Signs
Temp Pulse Resp BP Pulse Ox
100.5 F H 80 18 147/70 100
09/27/23 16:31 09/27/23 16:31 09/27/23 16:31 09/27/23 16:31 09/27/23 16:31
Last Documented Vital Signs
Temp Pulse Resp BP Pulse Ox
98.7 F 74 18 128/59 96
09/27/23 18:58 09/27/23 18:58 09/27/23 16:31 09/27/23 18:58 09/27/23 18:58
MDM/Problems Addressed
Differential Diagnosis Includes:
Not limited wound infection osteomyelitis
MDM/Problems Addressed:
Patient is a 73-year-old male with significant medical history including arterial disease and peripheral vascular disease status post amputation of left great toe and fourth toe done here September 15 by podiatry sent for evaluation infected wound. He
presents a low-grade temperature elevated white count. He does have strong pulses there is purulent open wound to his amputated sites. His lactic acid is 2.2 he is stable. His vital signs are stable. Wound culture done.
IV antibx ordered.
Pt adm to hospitalist service
Chronic conditions affecting care:
Recent amputation of toes as documented with history of peripheral vascular prefracture disease hypertension A-fib WI
*Radiology
Radiology exam reviewed: preliminary read by ED provider (no evidence of osteomyelitis )
*Pulse Oximetry
Patient hypoxic: no
*Critical Care Note
Total Time (30-74mins, 75-104mins- exclusive of procedures): Not Applicable
ED Attending Note
-
Portions of this chart may have been created with voice recognition software.� Occasional wrong word or��sound alike� substitutions may have occurred due to the inherent limitations of voice recognition software.
Discharge Plan
Departure
Patient Disposition: Admit
Date of Disposition: 09/27/23
Time of Disposition: 19:41
Admit to: Med/Surg
Admit to doctor: zayra
Presentation/result/management discussed w/ accepting MD/DO: Hospitalist
Patient with high blood pressure during this ER visit?: Yes
Condition: Fair
Covid-19: Not Applicable
Discharge Problem:
Infected wound, Fever
Prescriptions:
No Action
atorvastatin 10 mg tablet
10 mg PO QPM
clopidogrel 75 mg tablet
75 mg PO DAILY
aspirin 81 mg tablet,chewable
81 mg PO DAILY
amoxicillin-pot clavulanate 875-125 mg tablet
1 tab PO BID
Referrals:
UNKNOWN - PT DOES,NOT KNOW [Family Provider] -
Interventions
Interventions:
*Risk Screen - Suicide Last Done: 09/27/23 16:31
*General Assessment Last Done: 09/27/23 16:31
*Neglect/Abuse Screening Last Done: 09/27/23 16:31
Discharge Date and Time
Print Language: GRENADIAN
[2023-09-27 18:58] VITALS: BP 128/59
[2023-09-27 19:00] VITALS: BMI 28.6
[2023-09-27 19:18] LABS: Lactic Acid 2.2 mmol/L (0.7-2.0)
[2023-09-27] MEDS: ZOSYN 100 IV (19:25)
[2023-09-27] MEDS: VANCOCIN 540 MG IV (19:59)
--- NOTE | 2023-09-27 20:31 | HPS.HSE ---
Family Physician
-
Family Physician: Kam Fletcher
Chief Complaint
-
foot infection
History of Present Illness
73-year-old male past medical history of dry gangrene of left fourth toe, nonhealing wounds of left lower extremity, PAD status post stent of left distal superficial femoral artery with drug-eluting stent on 08/24, chronic left lateral leg stage II
decubitus/unstageable black necrotic left heel ulceration, type 2 diabetes, diabetic neuropathy, alcohol use, coronary artery disease status post LAD in 2016, prostate cancer status post prostate radiation in 2017, ex-smoker, diverticulosis,
presenting with upon request by his stand grinder Dr. Baer for infected wound.
He had left great toe and fourth toe amputated on 09/15 and follow-up visit with him 3 days ago at which time redness of the surgical site was noted. He was started on Augmentin and followed up with Dr. Baer today who noted no improvement and was
told to come to the emergency room for infected wounds. He did have a fever but denies chills. He denies any chest pain or shortness of breath.
He drinks alcohol occasionally. Denies smoking.
Medical History
Past Medical History
Past Medical History: Reports Other (dry gangrene of left fourth toe, nonhealing wounds of left lower extremity, PAD status post stent of left distal superficial femoral artery with drug-eluting stent on 08/24, chronic left lateral leg stage II
decubitus/unstageable black necrotic left heel ulceration, type 2 diabetes, diabetic neuropat)
Past Surgical History: Reports Orthopedic
Social History
Tobacco: Non-smoker
Alcohol: Occasional
Drug: None
Family History
Family History: Not pertinent
Allergies / Home Medications
Allergies reflects when Allergies were last updated in [facility].
Home Medications with original date entered in [facility]
Allergy/Medication List:
Allergies
Allergy/AdvReac Type Severity Reaction Status Date / Time
No Known Allergies Allergy Verified 09/27/23 16:31
Home Medications
aspirin 81 mg chewable tablet 81 mg PO DAILY Blood Clot Prevention/Tx 09/14/23
atorvastatin 10 mg tablet 10 mg PO QPM High Cholesterol 09/14/23
clopidogrel 75 mg tablet 75 mg PO DAILY Blood Clot Prevention/Tx 09/14/23
amoxicillin 875 mg-potassium clavulanate 125 mg tablet 1 tab PO BID 09/27/23
Review of Systems
-
History Source: Patient
A 12 point ROS was completed and negative except as noted: Yes
Constitutional: Reports No Symptoms
EENT: Reports No Symptoms
Respiratory: Reports No Symptoms
Cardiac: Reports No Symptoms
Abdomen/GI: Reports No Symptoms
: Reports No Symptoms
Musculoskeletal: Reports No Symptoms
Skin: Reports See HPI
Neurological: Reports No Symptoms
Endocrine: Reports No Symptoms
Hematologic/Lymphatic: Reports No Symptoms
Psych: Reports No Symptoms
Physical Exam
Vital Signs
Vital Signs
Temp Pulse Resp BP Pulse Ox
98.7 F 74 18 128/59 96
09/27/23 18:58 09/27/23 18:58 09/27/23 16:31 09/27/23 18:58 09/27/23 18:58
Physical Exam
General: Well Developed, Well Nourished and No Apparent Distress
HEENT: NormoCephalic, Moist mucous membranes and Atraumatic
Respiratory: Clear
Cardiac: S1/S2 and Regular Rhythm; No Murmur or Rub
GI: Soft, Non Tender, Non Distended and Normal Bowel Sounds; No Organomegaly
Rectal: Deferred by Provider
Musculoskeletal: No Clubbing, No Cyanosis and No Edema
Skin: Other (left amputation site erythema ); No Rash
Neuro: Nonfocal/grossly intact
Laboratory Results
-
09/27/23 16:44
09/27/23 16:44
Laboratory Results
Lactic Acid 2.2 mmol/L (0.7-2.0) H 09/27/23 18:55
Total Bilirubin 0.6 mg/dl (0.2-1.3) 09/27/23 16:44
AST 34 U/L (17-59) 09/27/23 16:44
ALT 28 U/L (0-50) 09/27/23 16:44
Alkaline Phosphatase 97 U/L (38-126) 09/27/23 16:44
Data Reviewed
-
Lab Data: Labs Reviewed by me
Old Records: Reviewed
Impression/Plan
-
IMPRESSION:
PLAN:
# Diabetic foot infection
# Dry gangrene status post partial amputation of left great toe, amputation left fourth toe,
-X-ray of foot pending
-IV fluids
-Vancomycin/Zosyn
-Podiatry consulted
PAD status post end of left distal superficial femoral artery with drug-eluting stent on 08/24
-Continue aspirin, Plavix, statin
-Vascular surgery consult
Chronic left lateral leg stage II decubitus ulcer unstageable black necrotic left heel ulceration
Coronary artery disease status post LAD stent in 2015
-Continue aspirin
Type 2 diabetes
-Insulin sliding scale
Diabetic neuropathy
Prostate cancer status post prostate radiation in 2017
Ex-smoker
Diverticulosis
Full code
DVT prophylaxis�SCDs
Regular diet
--- NOTE | 2023-09-27 21:12 | PTCARENOTE ---
Pt arrived onto floor @2111. Pt AAOx3 and a char puller to the bed. Pt with no complaints of pain or SOB at this time. Pt oriented to room and call newton; will continue to monitor.
[2023-09-27 21:31] VITALS: BMI 27.8
[2023-09-27 21:42] VITALS: BMI 27.8
--- NOTE | 2023-09-27 21:44 | PHA.VAN.IN ---
Assessment
- Assessment
Renal Function: Appears similar to baseline
Concomitant Antimicrobials: ZOSYN
- Previous Dosing Experience
Previous Regimen: 1250MG IV Q12H
Date of Regimen: 07/22/23
Provided Trough of: 14.8 PREDICTED
Provided AUC of: 564 PREDICTED
Patient's SCR is: Similar to previous dosing experience (07/22/23 SCR = 0.7)
Patient's weight is: Decreased compared to previous dosing experience (07/22/23 WT = 83.2 KG)
AUC Dosing Plan
- Dosing Variables
Dosing Weight (kg): 78.1
Dosing CrCl (ml/min): 72
Vd coefficient (L/kg): 0.7
- Empiric Dosing
Initial / Loading Dose: 2GM
Maintenance Regimen: 1GM IV Q12H
Estimated AUC (mcg*h/mL): 588
Estimated Peak (mcg*h/mL): 34.1
Estimated Trough (mcg/ml): 16.8
Estimated Half Life (H): 10.8
Pharmacokinetics Vancomycin I
- -
Patient Age: 73
Patient Sex: Male
Vancomycin Day #: 1
Indication: Diabetic Foot
Requesting Provider: BRIANNA
Height / Weight:
Height 5 ft 6 in
Actual Weight 78.103 kg
Pertinent Past Medical History: S/P [L] GREAT TOE & 4TH TOE AMPUTATION; DRY GANGRENE
- Vital Signs / Lab Results
Temp Pulse Resp BP Pulse Ox
98.7 F 74 18 128/59 96
09/27/23 18:58 09/27/23 18:58 09/27/23 16:31 09/27/23 18:58 09/27/23 18:58
Lab Results - Hematology
09/27/23
16:44
WBC 19.2 H
Lab Results - Chemistry
09/27/23
16:44
BUN 12
Creatinine 0.8
Albumin 2.3 L
09/27/23
18:55
Lactic Acid 2.2 H
Microbiology Results
09/27/23 18:55 Gram Stain - Preliminary
Foot - Left
[2023-09-27 22:00] VITALS: BP 131/67
[2023-09-27 22:04] LABS: Glucose - Point of Care 186 mg/dl (70-99)
[2023-09-28] MEDS: NSS 1000 IV ×2 (00:50→12:42)
[2023-09-28] MEDS: ZOSYN 50 IV ×4 (00:59→20:52)
[2023-09-28] MEDS: TYLENOL 650 MG PO (03:30)
[2023-09-28] MEDS: VANCOCIN 200 IV ×2 (05:00→17:15)
[2023-09-28 07:02] LABS: ALT (SGPT) 20 U/L (0-50); AST (SGOT) 24 U/L (17-59); Albumin 2.6 g/dl (3.5-5.0); Alkaline Phosphatase 78 U/L (38-126); Blood Urea Nitrogen 11 mg/dl (9-20); Calcium 8.2 mg/dl (8.4-10.2); Carbon Dioxide 26 mmol/L (22-30); Chloride 100 mmol/L (98-107); Estimated Creatinine Clearance 82 ml/min; Glucose 170 mg/dl (70-99); Potassium 3.1 mmol/L (3.5-5.1); Sodium 130 mmol/L (135-145); Total Bilirubin 0.4 mg/dl (0.2-1.3); Total Protein 5.3 g/dl (6.3-8.2); eGFR > 60.00
[2023-09-28] MEDS: PLAVIX 75 MG PO (07:33)
[2023-09-28] MEDS: LOW STRENGTH ASPIRIN 81 MG PO (07:33)
[2023-09-28 07:42] VITALS: BP 115/67
--- NOTE | 2023-09-28 08:28 | PHA.VAN.FU ---
Vancomycin Assessment / Plan
- Assessment
Renal Function: Stable
Concomitant Antimicrobials: piperacillin/tazobactam
- Dosing Plan
Continue: Vanc 1000mg Q12H
- Monitoring Plan
No level(s) ordered at this time: consider levels in next few days
- Follow Up
Pharmacy will continue to follow.
Vancomycin Follow UP
- -
Patient Age: 73
Patient Sex: Male
Vancomycin Day #: 2
Indication: Diabetic Foot
Requesting Provider: Dr. Finney
Pertinent Antimicrobial Allergies:
NKDA
Height / Weight:
Height 5 ft 6 in
Actual Weight 78.103 kg
Pertinent Past Medical History: DM, PAD
- Vital Signs / Lab Results
Temp Pulse Resp BP Pulse Ox
98 F 63 20 115/67 94
09/28/23 07:42 09/28/23 07:42 09/28/23 07:42 09/28/23 07:42 09/28/23 07:42
Lab Results - Hematology
09/27/23
16:44
WBC 19.2 H
Lab Results - Chemistry
09/27/23 09/28/23
16:44 05:54
BUN 12 11
Creatinine 0.8 0.7
Estimated Creat Clear 82
Albumin 2.3 L 2.6 L
09/27/23
18:55
Lactic Acid 2.2 H
Microbiology Results
09/27/23 18:55 Gram Stain - Preliminary
Foot - Left
--- NOTE | 2023-09-28 08:32 | VNURNOTE ---
chart reviewed. Patient is current with [facility] nrs. Will continue to follow hospital course and discharge plans.
[2023-09-28 08:37] LABS: Glucose - Point of Care 153 mg/dl (70-99)
--- NOTE | 2023-09-28 08:52 | CON.VAS ---
Addendum entered and electronically signed by Finn Melendez MD 09/29/23 07:37:
Discussed findings/plan/risks/benefits/alternatives with patient's over the phone as well. She understands all and agrees to proceed.
Addendum entered and electronically signed by Finn Melendez MD 09/28/23 10:19:
Seen and examined with KELLY Paz. Agree with findings as noted below. Well-known to me status post recent staged bilateral lower extremity arteriograms. Extensive diffuse atherosclerotic plaque. Limited revascularization options. Continued
nonhealing left first toe amputation site. Dry gangrene noted. Slight foul odor. The foot is pink and warm. See my note from recent prior admission suggesting adequacy of perfusion. However, despite this he is not healing. Discussed with
patient, the only option would be potentially to attempt below the knee popliteal artery to DP bypass. I do not know that this will be completely feasible given his severe atherosclerosis (vessels may not be clamp will). Will obtain CTA with
runoff today to evaluate popliteal below the knee to see if it is a reasonable inflow target. In addition we will obtain ultrasound vein mapping. If these are reasonable, then can try to proceed with bypass over the next couple days. However, I
discussed with him that even in that setting there is a possibility of exploring the arteries and not being suitable for bypass. He understands.
Original Note:
Consultation
Consultation Request
Date/Time Consultation Performed: 09/28/2023 0830
Requesting Provider: Hospitalist
Performing Provider: Isha Paz, KELLY-C for Finn Melendez MD
Reason for Consultation: Nonhealing left foot wound
Medical History
-
Chief Complaint: Nonhealing left foot wound
History of Present Illness:
This is a 73-year-old male with a significant past medical history for paroxysmal atrial fibrillation, CAD, prostate cancer, hypertension, and diabetes who presents to [place] ED yesterday (09/27/23) for continued progression of left foot chronic
wound/surgical bed from prior amputations. Patient is known to the vascular service for his wounds/PAD. Pt was most recently seen by us on 08/25/23 for left SFA overlapping stents. His bilateral feet wounds appeared roughly 6 months ago, he is unsure
how they transpired. He denies trauma. He endorses a roughly 5-year history of bilateral lower extremity diabetic neuropathy, and does endorse decreased sensation to bilateral feet. Reports [facility] with subsequent placement of cardiac stent at [facility] in 2016. Pt has a history of noncompliance with medications including diabetes medications ,aspirin, and any previously prescribed medications for hypertension/CAD. Patient does have a family history of peripheral arterial disease and
diabetes, he endorses he had a brother with poorly managed diabetes who subsequently required leg amputations and eventually from complications of multiple medical conditions. Patient underwent left hallux and fourth digit amputation on
09/16/[address] Baer, at follow-up appointment erythema was noted at the surgical bed and he was started on p.o. Augmentin. Dr. Baer then reevaluated him yesterday in the outpatient setting and noted no improvement despite initiation of
antibiotics prompting him to recommend ED evaluation. Patient endorses having a fever in the outpatient setting.
Vascular procedures:
07/22/23: Right lower extremity arteriogram with third order vessel catheterization of right distal superficial femoral artery via left common femoral artery puncture. Left lower extremity arteriogram through the left common femoral artery sheath.
08/25/23: Balloon angioplasty/stent placement left distal superficial femoral artery with 8 mm x 6 cm and 8 mm x 4 cm overlapping Zilver PTX drug-eluting self-expanding stents.
Past Medical History
Past Medical History: Arrhythmias (Paroxysmal atrial fibrillation), CAD, Cancer (Prostate), HTN and NIDDM
Past Surgical History: Other (Left hip replacement (11/2015), cardiac catheterization with PCI, endoscopy)
Social History
Tobacco: Former Smoker (Reports a roughly 10-year smoking history)
Alcohol: Occasional
Drug: None
Allergies / Home Medications
Allergy/AdvReac Type Severity Reaction Status Date / Time
No Known Allergies Allergy Verified 09/27/23 16:31
�Medication �Instructions �Recorded �Confirmed �Type
aspirin 81 mg chewable tablet 81 mg PO DAILY Blood Clot 09/14/23 09/27/23 History
Prevention/Tx
atorvastatin 10 mg tablet 10 mg PO QPM High Cholesterol 09/14/23 09/27/23 History
clopidogrel 75 mg tablet 75 mg PO DAILY Blood Clot 09/14/23 09/27/23 History
Prevention/Tx
amoxicillin 875 mg-potassium 1 tab PO BID Infection 09/27/23 09/27/23 History
clavulanate 125 mg tablet
Review of Systems
-
History Source: Patient
Constitutional: Reports No Symptoms
EENT: Reports No Symptoms
Respiratory: Reports No Symptoms
Cardiac: Reports No Symptoms
Abdomen/GI: Reports No Symptoms
: Reports No Symptoms
Musculoskeletal: Reports Edema
Skin: Reports Other (Nonhealing left foot hallux and fourth digit surgical wound bed with eschar and erythema)
Neurological: Reports No Symptoms
Endocrine: Reports No Symptoms
Physical Exam
Vital Signs
Temp Pulse Resp BP Pulse Ox
98 F 63 20 115/67 94
09/28/23 07:42 09/28/23 07:42 09/28/23 07:42 09/28/23 07:42 09/28/23 07:42
Lab Results
09/28/23 05:54
Physical Exam
General: No Apparent Distress and Comfortable
HEENT: Normocephalic, Anicteric and Atraumatic
Respiratory: Non Labored Respirations
Cardiac: Negative JVD
GI: Soft and Non Distended
Musculoskeletal: Edema (Trace edema bilateral lower extremity)
Skin: Warm
Neuro: Awake, Alert and Oriented
Pulses: Bilateral Femoral: +2
Assessment / Plan
-
Assessment: 73-year-old male with peripheral arterial disease and nonhealing bilateral foot wounds, particularly most concerning at this time left foot hallux and fourth digit amputation sites
Plan:
Will obtain CTA of aorta with bilateral lower extremity runoff to determine if targets for bypass are feasible
Bilateral lower extremity vein mapping
Can consider left lower extremity arterial bypass for limb salvage, vascular surgical plan pending above listed testing results
Cardiology consult placed for preoperative clearance as patient has a history of noncompliance and CAD
I performed this shared service with the attending. I evaluated the patient [id number] and have entered clinical documentation as shown in the encounter note. I performed the following component(s): history and physical exam. Note that medical
decision making is not final until attested by vascular attending.
[2023-09-28] MEDS: NOVOLOG FLEXPEN-LOW RESISTANCE 1 UNITS SC (09:12)
[2023-09-28] MEDS: KCL 40 MEQ PO (09:12)
[2023-09-28 09:30] LABS: Glycohemoglobin (HgbA1c) 6.6 % (4.0-5.6)
--- NOTE | 2023-09-28 09:59 | CON.CAR ---
Addendum entered and electronically signed by Carlton Montana MD 09/28/23 12:01:
I saw and examined the patient.
The MANAGER LEGAL's note was reviewed and I agree with the note.
Comment: 73-year-old male (known to Dr. Ivy), with coronary artery disease, paroxysmal atrial fibrillation (episode during critical illness in 2009), prostate cancer, type 2 diabetes mellitus, PAD/PVD, hypertension, dyslipidemia, and former
smoker who presented to the emergency department with nonhealing foot wound. He is at an elevated risk given his history and limited mobility. However, he has no new signs or symptoms of ischemia, heart failure, or arrhythmia. Given his need for
surgery may proceed at elevated risk with no further testing or medication.
-Elevated risk for surgery but may proceed; no new symptoms of ischemia, heart failure, or arrhythmia
Original Note:
Consultation
Consultation Request
Date/Time Consultation Requested: 09/28/2023 08:30
Date/Time Consultation Performed: 09/28/2023 09:30
Requesting Provider: WENDI Collins
Performing Provider: WENDI Rogers for Dr. Montana
Reason for Consultation: Preop risk assessment
Medical History
-
Chief Complaint: Nonhealing foot wound
History of Present Illness:
Justin Vora is a 73-year-old male (known to Dr. Ivy), with coronary artery disease, paroxysmal atrial fibrillation (episode during critical illness in 2009), prostate cancer, type 2 diabetes mellitus, PAD/PVD, hypertension, dyslipidemia, and
former smoker who presented to the emergency department with nonhealing foot wound. It is dry gangrene and foul smelling on exam. He is being evaluated for arterial bypass by vascular surgery. Cardiology has been consulted for risk assessment.
Mr. Vora has no anginal complaints.
Past Medical History
Past Medical History: Arrhythmias (Paroxysmal atrial fibrillation), CAD, Cancer (Prostate), HTN, Hypercholesterolemia, NIDDM and Other (PAD/PVD)
Past Surgical History: Orthopedic
Social History
Tobacco: Smoker
Alcohol: Daily (2 beers per day)
Drug: None
Personal:
Living: With Family ( and daughter)
Employment: Retired
Family History
Family History: Reviewed & Not Pertinent
Allergies / Home Medications
Allergy/AdvReac Type Severity Reaction Status Date / Time
No Known Allergies Allergy Verified 09/27/23 16:31
�Medication �Instructions �Recorded �Confirmed �Type
aspirin 81 mg chewable tablet 81 mg PO DAILY Blood Clot 09/14/23 09/27/23 History
Prevention/Tx
atorvastatin 10 mg tablet 10 mg PO QPM High Cholesterol 09/14/23 09/27/23 History
clopidogrel 75 mg tablet 75 mg PO DAILY Blood Clot 09/14/23 09/27/23 History
Prevention/Tx
amoxicillin 875 mg-potassium 1 tab PO BID Infection 09/27/23 09/27/23 History
clavulanate 125 mg tablet
Review of Systems
-
History Source: Patient
All other systems: Negative unless noted
Constitutional: Fatigue
EENT: No Symptoms
Respiratory: No Symptoms
Cardiac: No Symptoms
Abdomen/GI: No Symptoms
: No Symptoms
Musculoskeletal: No Symptoms
Skin: Other (Nonhealing wound)
Neurological: No Symptoms
Endocrine: No Symptoms
Hematologic/Lymphatic: No Symptoms
Physical Exam
Vital Signs
Temp Pulse Resp BP Pulse Ox
98 F 63 20 115/67 94
09/28/23 07:42 09/28/23 07:42 09/28/23 07:42 09/28/23 07:42 09/28/23 07:42
Lab Results
09/28/23 05:54
Impression / Plan
-
Preoperative risk assessment - left lower extremity arterial bypass
-Denies angina
-EKG stable, echocardiogram from February
-No further preoperative testing required for risk assessment
Coronary artery disease
-Stable without chest pain
-PANFILO to RCA in 2017 at [facility] with residual disease (30% PRCA, 30% pPDA)
-On DAPT
Paroxysmal atrial fibrillation
-This was seen in 2009 when he had a long admission with legionnaires disease
-No documented atrial fibrillation since then
Diabetic foot infection, dry gangrene status post partial amputation of left great toe, amputation of left fourth toe, on vancomycin/Zosyn
Mild aortic stenosis, peak/mean gradients , ANGEL 1.6 cm to (02/2023)
Hypertension, not on medical therapy at home, follow BP
Dyslipidemia, LDL above goal on atorvastatin 10
Type 2 diabetes mellitus, HgbA1c 6.6%, in the past it was up to 13%
PAD, PVD - PANFILO 08/25/2023
Chronic ambulatory dysfunction
Former smoker, continue cessation recommended
Data Reviewed
-
EKG: Report Reviewed by me (Sinus rhythm, first-degree AV block, PACs, rate 72)
Medical Tests (Nuc Med, Echo etc): Report Reviewed by me (Prior echocardiogram and cardiac catheterization as above)
Labs: Labs Reviewed by me
Old Records: Reviewed
[2023-09-28 10:26] LABS: % Basophils 0.7 % (0-2); % Eosinophils 5.2 % (0-6); % Immature Granulocytes 0.8 % (0-0.5); % Monocytes 7.2 % (1.7-9.3); % Neutrophils 79.1 % (42.2-75.2); Absolute Basophils 0.1 10^3/uL (0-0.2); Absolute Eosinophils 0.8 10^3/uL (0-0.7); Absolute Immature Granulocytes 0.1 10^3/uL (0-0.05); Absolute Monocytes 1.1 10^3/uL (0.1-0.6); Absolute Neutrophils 11.7 10^3/uL (1.4-6.5); Hematocrit 30.1 % (39.0-52.0); Hemoglobin 10.5 g/dL (13.0-18.0); Mean Corp Hgb Conc. 34.9 g/dL (33.0-37.0); Mean Corpuscular Hgb 31.7 pg (27.0-31.0); Mean Corpuscular Volume 90.9 fL (80.0-94.0); Mean Platelet Volume 9.6 fL (7.4-10.4); Nucleated Red Blood Cells % 0 % (-); Platelet Count 392 10^3/uL (130-400); Red Blood Cell Count 3.31 10^6/uL (4.70-6.10); Red Cell Dist. Width 12.6 % (11.5-14.5); White Blood Cell Count 14.8 10^3/uL (4.8-10.8)
--- NOTE | 2023-09-28 11:00 | WOUNDNOTE ---
L FOOT AMP SITES
--- NOTE | 2023-09-28 11:01 | WOUNDNOTE ---
L 4TH AMP SITE
--- NOTE | 2023-09-28 11:03 | WOUNDNOTE ---
L PLATAR VIEW OF GREAT TOE AMP SITE
--- NOTE | 2023-09-28 11:07 | WOUNDNOTE ---
JOLENE RN note: Patient admitted with L 4th toe, L Hallux AMP site foot infection.
See H&P for complete history.
PMH: DM, PAD, CAD, wounds L toes, heel, L calf, L distal SFA stent by Dr. Melendez 08/25/23, ex smoker, cardiac stent.
Wound Location and type/assessment: Patient admitted with: diabetic/PAD related gangrene L 4th toe, L Hallux s/p amputation by Dr. Baer on 09/16/23, foul odor. L heel with diabetic/Pad/ stage 3 PI. L lateral leg with healed venous ulcer, silicone
foam in use. R heel and sacrum intact. Knees with scabs from abrasions. Vascular note reviewed.
Appetite: good.
Pressure redistribution devices in place: VersaProfig Accumax. Air chair cushion on pillow under L leg to offload heel.
Plan: Protective dressing applied R heel, Dry gauze dressing applied to top of L foot. L heel adaptic, silicone foam and leo. Signal Supervisor Dr. Baer and vascular consulted. CTA of Aorta planned to determine if candidate for bypass.
Will confirm orders with hospitalist and follow along peripherally, assist as needed.
Care plan to be updated, nurse Jose Luis aware of the above.
Note to case management requested for discharge: TBD
Patient to follow up with vascular and podiatry.
[2023-09-28 11:25] LABS: Lactic Acid 1.8 mmol/L (0.7-2.0)
[2023-09-28 11:48] VITALS: BP 119/54
--- NOTE | 2023-09-28 11:49 | W.PN.HOSP.TC ---
Today's Communication/Plan
-
cont abx
await decision by vascular/podiatry
Assessment / Plan
Assessment / Plan
pt is a 73 year old male
Diabetic foot infection complicated by PAD--Dry gangrene status post partial amputation of left great toe, amputation left fourth toe--no osteo on foot x-ray--cont vanco/zosyn--await podiatry
PAD status post end of left distal superficial femoral artery with drug-eluting stent on 08/24--apprec vascular--CT angio as per vascular--cont asa/plavix/statin
Chronic left lateral leg stage II decubitus ulcer unstageable black necrotic left heel ulceration--apprec wound care input
Coronary artery disease status post LAD stent in 2015-Continue aspirin
Type 2 diabetes with neuropathy--Insulin sliding scale
Prostate cancer status post prostate radiation in 2016
Ex-smoker
Diverticulosis
Full code
DVT prophylaxis�SCDs
Anticipated Discharge: > 48 hours
Subjective/Interval History
-
Date of Service: September 28, 2023
pt said his foot is infected and came because Dr. Carrera sent him
Objective Data
-
Labs:
Laboratory Results
09/28/23
05:54
WBC 14.8 H
Hgb 10.5 L
Hct 30.1 L
Plt Count 392
Sodium 130 L
Potassium 3.1 L
Chloride 100
Carbon Dioxide 26
BUN 11
Creatinine 0.7
Glucose 170 H
Calcium 8.2 L
Total Bilirubin 0.4
AST 24
ALT 20
Alkaline Phosphatase 78
Vital Signs:
max temp for 24 hours
09/27/23
16:31
Temp 100.5 F H
Vital Signs
Temp Pulse Resp BP Pulse Ox
98 F 63 20 119/54 94
09/28/23 07:42 09/28/23 07:42 09/28/23 07:42 09/28/23 11:48 09/28/23 07:42
Review of Systems
-
All other systems: Reviewed and negative
Physical Exam
-
General: Well Developed, Well Nourished and No Apparent Distress
HEENT: Normocephalic and Atraumatic
Respiratory: Clear to Auscultation; Negative Wheezes or Rhonchi
Cardiac: Regular Rhythm and S1/S2; Negative Murmur
GI: Soft, Nontender, Nondistended and Normal Bowel Sounds
Musculoskeletal: No Clubbing, No Cyanosis, No Edema and Other (left foot wrapped)
Neuro: Awake
Psych: Confused
[2023-09-28 11:52] VITALS: BP 119/54; BP 128/71; BP 133/69; PULSE 57; PULSE 62; PULSE 63
--- NOTE | 2023-09-28 11:58 | CM ---
Patient seen at bedside with physician. Patient son also present. Patient stated initially that he lives alone but then stated that he lives with his daughter in a 2 story home. Patient has a walker, cane and wheelchair but due to heel/foot pain
states that he primarily uses the wheelchair in the home on the first floor. Patient stated that his PCP is Dr. Akbar Sharma is the PCP and [facility] is current with patient. Patient states that he has had no problems with bills. Patient uses the [facility] in
[place]. CM will call to patient daughter to review previous living arrangements. CM will continue to follow for discharge planning needs.
Plan; home with VN vs SNF pending functional assessments/medical treatment plan
[2023-09-28 12:01] LABS: Glucose - Point of Care 220 mg/dl (70-99)
[2023-09-28] MEDS: NOVOLOG FLEXPEN-LOW RESISTANCE 2 UNITS SC ×2 (12:43→17:15)
[2023-09-28 15:00] VITALS: BP 112/62
[2023-09-28 16:40] LABS: Glucose - Point of Care 222 mg/dl (70-99)
[2023-09-28] MEDS: LIPITOR 20 MG PO (17:15)
--- NOTE | 2023-09-28 18:44 | W.CS.POD ---
Consult Summary - Podiatry
-
This patient is a 73-year-old male, Type 2 Diabetic with neuropathy, PVD, CAD and ex-smoker, known to me following the patient's last admission for the treatment of dry gangrene via partial amputation of the LEFT first and fourth on 09/16/23. The
patient's foot appeared relatively viable and stable upon discharge on 09/20/23, however, on his first POV in the office on 09/24/23 the patient's foot had deteriorated, with dehiscence and cellulitis to the midfoot level, foul odor and necrosis of the
hallux amputation site. RX for PO Augmentin and Cipro given, and at his follow up in 3 days the cellulitis slightly improved but the necrosis had advanced, and the patient was sent to the ER for admission. It is questionable the patient was
compliant with taking his antibiotics or instructions to remain NWB on the LEFT foot while at home.
Today, the patient denies fever, chills or sweats.
Afebrile, VSS.
Leukocytosis (14.8), Mild right shift.
Wound culture-prelim: Many gram negative rods.
Blood cultures: Negative 24 hours.
09/27/23 XRAY, LEFT foot:
Patient is status post amputation of the left great toe at the level of the distal aspect of the proximal phalanx, as well as the left fourth toe at the level of the proximal phalanx with no evidence for interval bony destruction.
No radiographic findings to suggest osteomyelitis.
08/25/23: Balloon angioplasty/ stent placement of the left distal superficial femoral artery.
Assessment:
Gangrene, non-healing amputation site of the left great toe, and non-healing of the fourth toe amputation site with infection/cellulitis of LLE.
S/P 12 days aforementioned amputations, as well as excisional debridement of left third toe and decubitus heel wounds.
-Type 2 Diabetes Mellitus
-PVD/PAD
-CAD
-Ex-Smoker
Plan:
Left foot is somewhat pink and management coordinator the setting of severely calcified arteries and small vessel disease. LLE Perfusion inadequate for healing.
Vascular note/care plan appreciated. CTA ordered. Possible bypass to optimize perfusion of the LLE in the next few days.
Continue IV antibiotics.
Wound care consult on board.
If further distal amputation is warranted, please reconsult podiatry as necessary..
[2023-09-28 22:06] LABS: Glucose - Point of Care 167 mg/dl (70-99)
[2023-09-28] MEDS: MELATONIN 3 MG PO (23:30)
[2023-09-28 23:40] VITALS: BP 116/51
--- NOTE | 2023-09-28 23:41 | PTCARENOTE ---
Pt reports difficulty sleeping. [employer]ING [employer] Mario Gardner notified, order placed for 1x melatonin 3mg.
[2023-09-29] VITALS (23 sets, daily range): BP systolic 98–126; BP diastolic 53–90; BMI 27.8
[2023-09-29] MEDS: ZOSYN 50 IV ×3 (02:23→19:19)
[2023-09-29 05:48] LABS: Glucose - Point of Care 156 mg/dl (70-99)
[2023-09-29] MEDS: NOVOLOG FLEXPEN-LOW RESISTANCE 1 UNITS SC ×3 (05:52→17:37)
[2023-09-29] MEDS: VANCOCIN 200 IV ×2 (05:52→17:36)
[2023-09-29] MEDS: LOW STRENGTH ASPIRIN 81 MG PO (08:07)
[2023-09-29] MEDS: PLAVIX 75 MG PO (08:07)
[2023-09-29] MEDS: NSS 1000 IV ×2 (08:10→16:59)
[2023-09-29 09:53] LABS: Hematocrit 29.5 % (39.0-52.0); Hemoglobin 10.3 g/dL (13.0-18.0); Mean Corp Hgb Conc. 34.9 g/dL (33.0-37.0); Mean Corpuscular Hgb 31.5 pg (27.0-31.0); Mean Corpuscular Volume 90.2 fL (80.0-94.0); Mean Platelet Volume 9.5 fL (7.4-10.4); Platelet Count 413 10^3/uL (130-400); Red Blood Cell Count 3.27 10^6/uL (4.70-6.10); Red Cell Dist. Width 12.5 % (11.5-14.5); White Blood Cell Count 14.9 10^3/uL (4.8-10.8)
[2023-09-29 09:57] LABS: INR 1.18
[2023-09-29 09:58] LABS: APTT 38.2 Sec (23.4-35.0)
[2023-09-29] MEDS: PERIDEX 0.12% ORAL RINSE 15 ML PO (09:59)
[2023-09-29] MEDS: BACTROBAN 2% OINTMENT 1 APPLIC NASAL (10:00)
--- NOTE | 2023-09-29 10:20 | CM ---
Patient for procedure today, seen by Physician and CM at bedside. CM will continue to follow for discharge planning needs, pending functional assessments and medical treatment plan.
Plan; home with VN vs SNF
--- NOTE | 2023-09-29 10:26 | W.PN.HOSP.TC ---
Today's Communication/Plan
-
LLE bypass today
started flomax
Assessment / Plan
Assessment / Plan
pt is a 73 year old male
Diabetic foot infection complicated by PAD--Dry gangrene status post partial amputation of left great toe, amputation left fourth toe--no osteo on foot x-ray--cont vanco/zosyn--apprec podiatry, no surgical intervention at this time
PAD status post end of left distal superficial femoral artery with drug-eluting stent on 08/24--apprec vascular--CT angio as per vascular, getting LLE arterial bypass today 09/28, likely to ICU post op--cont asa/plavix/statin
Chronic left lateral leg stage II decubitus ulcer unstageable black necrotic left heel ulceration--apprec wound care input
Coronary artery disease status post LAD stent in 2015-Continue aspirin
Type 2 diabetes with neuropathy--Insulin sliding scale
Prostate cancer status post prostate radiation in 2016
urinary retention--start flomax, bladder scan protocol
Ex-smoker
Diverticulosis
Full code
DVT prophylaxis�SCDs
Anticipated Discharge: > 48 hours
Subjective/Interval History
-
Date of Service: September 29, 2023
pt waiting for surgery and having urinary retention, asking for flomax
Objective Data
-
Labs:
Laboratory Results
09/29/23
08:45
WBC 14.9 H
Hgb 10.3 L
Hct 29.5 L
Plt Count 413 H
PT 15.0 H
INR 1.18
APTT 38.2 H
Sodium Pending
Potassium Pending
Chloride Pending
Carbon Dioxide Pending
BUN Pending
Creatinine Pending
Glucose Pending
Calcium Pending
Vital Signs:
max temp for 24 hours
09/29/23
07:51
Temp 98.4 F
Vital Signs
Temp Pulse Resp BP Pulse Ox
98.4 F 59 18 126/60 96
09/29/23 07:51 09/29/23 07:51 09/29/23 07:51 09/29/23 07:51 09/29/23 08:20
I&O
09/28/23 09/29/23 09/30/23
06:59 06:59 06:59
Intake Total 480 / 480 1530 / 1530
Output Total 1350 / 1350 600 / 600
Balance -870 / -870 930 / 930
Review of Systems
-
All other systems: Reviewed and negative
Genitourinary: Reports Difficulty Voiding
Physical Exam
-
General: Well Developed, Well Nourished and No Apparent Distress
HEENT: Normocephalic and Atraumatic
Respiratory: Clear to Auscultation; Negative Wheezes or Rhonchi
Cardiac: Regular Rhythm and S1/S2; Negative Murmur
GI: Soft, Nontender, Nondistended and Normal Bowel Sounds
Musculoskeletal: No Clubbing, No Cyanosis, No Edema and Other (left foot wrapped)
Psych: Calm
[2023-09-29 10:50] LABS: Glucose - Point of Care 156 mg/dl (70-99)
[2023-09-29 10:55] LABS: Blood Urea Nitrogen 10 mg/dl (9-20); Calcium 8.2 mg/dl (8.4-10.2); Carbon Dioxide 23 mmol/L (22-30); Chloride 103 mmol/L (98-107); Estimated Creatinine Clearance 82 ml/min; Glucose 152 mg/dl (70-99); Magnesium 1.9 mg/dl (1.6-2.3); Potassium 3.4 mmol/L (3.5-5.1); Sodium 133 mmol/L (135-145); eGFR > 60.00
[2023-09-29] MEDS: FLOMAX PO (11:41)
--- NOTE | 2023-09-29 13:09 | PHA.VAN.FU ---
Vancomycin Assessment / Plan
- Assessment
Renal Function: Stable
WBC's are: Stable
Concomitant Antimicrobials: piperacillin/tazobactam
- Dosing Plan
Continue: Vanc 1000mg Q12H
- Monitoring Plan
No level(s) ordered at this time: for vascular OR today - will hold off today but consider tomorrow
- Follow Up
Pharmacy will continue to follow.
Vancomycin Follow UP
- -
Patient Age: 73
Patient Sex: Male
Vancomycin Day #: 3
Indication: Diabetic Foot
Requesting Provider: Dr. Finney
Pertinent Antimicrobial Allergies:
NKDA
Height / Weight:
Height 5 ft 6 in
Actual Weight 78.103 kg
Pertinent Past Medical History: DM, PAD
- Vital Signs / Lab Results
Temp Pulse Resp BP Pulse Ox
98.4 F 59 18 126/60 96
09/29/23 07:51 09/29/23 07:51 09/29/23 07:51 09/29/23 07:51 09/29/23 08:20
Lab Results - Hematology
09/27/23 09/28/23 09/29/23
16:44 05:54 08:45
WBC 19.2 H 14.8 H 14.9 H
Lab Results - Chemistry
09/27/23 09/28/23 09/29/23
16:44 05:54 08:45
BUN 12 11 10
Creatinine 0.8 0.7 0.7
Estimated Creat Clear 82 82
Albumin 2.3 L 2.6 L
09/27/23 09/28/23
18:55 11:00
Lactic Acid 2.2 H 1.8
Microbiology Results
09/27/23 18:55 Wound Culture - Preliminary
Foot - Left Gram negative bacilli
Staphylococcus species
Gram Stain - Preliminary
09/27/23 16:44 Blood Culture - Preliminary
Blood/Venous No Growth in 24 hours- Final report to follow
[2023-09-29] MEDS: ZOSYN IV (14:00)
--- NOTE | 2023-09-29 14:18 | PN.CDI ---
CDI
- -
CDI:
Physician Documentation Request
Admit Date: 09/27/23 21:09
Dear Doctor Gladys,
09/27 WOCN note states ' L heel with diabetic /pad/stage 3 PI. L lateral leg with healed venous ulcer'
hospitalist progress notes states 'chronic left lateral leg stage II decubitus ulcer unstageable black necrotic left heel ulceration--apprec wound care input'
Please clarify based on the above clinical findings and your assessment, please provide the following in your progress note:
1. Location of the ulcer/wound, including laterality.
2. Type (etiology) of ulcer/wound:
- Diabetic ulcer
- Arterial (ischemic) ulcer
- Traumatic wound
- Venous stasis ulcer
- Pressure (decubitus) ulcer
- Non-healing surgical wound
- Other
Use of terms such as suspected, likely, concern for, or probable (associated with a specific diagnosis that is being evaluated, monitored, or treated as if it exists) are acceptable and can be coded in the inpatient setting, when documented at the
time of discharge.
Thank you,
Haleigh Emanuel RN, BSN
CDI Specialist
tiger text
Please use your independent medical judgment in providing your response.
*Source: National Pressure Ulcer Advisory Panel (NPUAP)
--- NOTE | 2023-09-29 14:23 | PN.CDI ---
CDI
- -
CDI:
Physician Documentation Request
Admit Date: 09/27/23 21:09
Dear Doctor Gladys,
Patient is admitted with Diabetic foot infection complicated by PAD--Dry gangrene status post partial amputation of left great toe...
Patient received 40 meq PO potassium on 09/27
Potassium resulted as follows:
Laboratory Tests
09/27/23 09/28/23 09/29/23
16:44 05:54 08:45
Potassium 3.6 3.1 L 3.4 L
Could you please provide a diagnosis that supports the above lab abnormalities and additional evaluation, monitoring and/or treatment rendered:
Hypokalemia
Abnormal lab value clinically insignificant
Other
Use of terms such as suspected, likely, concern for, or probable (associated with a specific diagnosis that is being evaluated, monitored, or treated as if it exists) are acceptable and can be coded in the inpatient setting, when documented at the
time of discharge.
Thank you,
Haleigh Emanuel RN, BSN
CDI Specialist
tiger text
Please use your independent medical judgment in providing your response.
--- NOTE | 2023-09-29 14:27 | PN.CDI ---
CDI
- -
CDI:
Physician Documentation Request
Admit Date: 09/27/23 21:09
Dear Doctor Gladys,
Patient is admitted with Diabetic foot infection complicated by PAD--Dry gangrene status post partial amputation of left great toe...
Sodium resulted as follows:
Laboratory Tests
09/27/23 09/28/23 09/29/23
16:44 05:54 08:45
Sodium 132 L 130 L 133 L
Could you please provide a diagnosis that supports the above lab abnormalities and additional evaluation monitoring:
Hyponatremia
Abnormal lab value clinically insignificant
Other
Use of terms such as suspected, likely, concern for, or probable (associated with a specific diagnosis that is being evaluated, monitored, or treated as if it exists) are acceptable and can be coded in the inpatient setting, when documented at the
time of discharge.
Thank you,
Haleigh Emanuel RN, BSN
CDI Specialist
tiger text
Please use your independent medical judgment in providing your response.
[2023-09-29 15:57] LABS: Glucose - Point of Care 150 mg/dl (70-99)
[2023-09-29 16:10] LABS: Glucose - Point of Care 176 mg/dl (70-99)
--- NOTE | 2023-09-29 16:12 | OR.RPT ---
Operative Report
Operative Report
PROCEDURE DATE: 09/29/2023
Preoperative diagnosis:
1. Chronic limb threatening ischemia left lower extremity.
2. Severe diffuse atherosclerosis bilateral lower extremity peripheral arteries.
Postoperative diagnosis: Same
Procedure: Left below the knee popliteal artery to dorsalis pedis artery bypass with ipsilateral nonreversed greater saphenous vein conduit.
Surgeon: Al
Maxillofacial Prosthodontist: KELLY Paz, required for all aspects of procedure including assistance with traction/countertraction, following a suture line, assistance with closure.
Complications: None
Anesthesia: General
Indications for procedure:
Severe atherosclerosis throughout left lower extremity peripheral arteries. I had placed SFA stent and area of severe stenosis. Distally he had diffuse disease with a single-vessel peroneal runoff. Noninvasive studies suggested reasonable
perfusion. However he was not healing his toe amputation site. Therefore discussed the only other option would be to try to get inline flow onto his foot directly by bypassing to the patent dorsalis pedis (based on his prior angiographic imaging
that I performed). I did obtain CT angiogram to assess his popliteal artery for circumferential plaque to see if it was a reasonable inflow vessel. It did appear to be reasonable. Risk/benefits/alternatives of left lower extremity bypass were
discussed with the patient as well as his . They understood all wish to proceed.
Description of procedure:
Patient was identified brought to the operating room placed on the table in supine position. After the adequate administration of anesthesia he was prepped and draped in the standard surgical fashion. A standard preoperative timeout was undertaken
and everybody was in agreement the plan. A longitudinal incision was made in the medial proximal left calf about 1 fingerbreadth inferior to the tibia that was carried through the skin subcutaneous tissue. I then carried this down through the
crural fascia. The gastrocnemius muscle was reflected posteriorly. And the loose areolar tissue deeper and anterior, the popliteal vein and artery were identified. Of note the popliteal artery coursed very laterally. It was also very tortuous.
This aspect had been seen on CT scan. It therefore proved somewhat challenging to dissect, but I was able to dissect enough of a segment proximally distally and passed Vesseloops around it proximally and distally. Once I completed this, I turned
my attention to the foot. A longitudinal incision was made in the dorsal aspect of the proximal to mid foot in the region between the first and second metatarsals, but proximal to that level. This was carried through skin subcutaneous tissue. I
dissected between the extensor hallux is brevis and longus tendons and identified the dorsalis pedis artery. There were no crossing peroneal nerve branches in this vicinity. I carefully circumferentially dissected approximately distally. I passed
a vessel loop around it with no tension. I confirmed good Doppler signal. The vessel was soft. Therefore I felt that I now had a reasonable inflow and outflow target.
At this point I made an incision in the proximal medial thigh and expose the greater saphenous vein. I continued this incision proximally and distally in order to expose a suitable segment of vein. There is branching of the vein in the mid thigh
more distally, and I followed the larger of the branches. I had ultrasound map to this myself in the operating room prior as well. In the mid to distal thigh the vein (the larger branch) did get a little bit smaller. It was not a perfect vein but
it was reasonable. Any branches were then ligated between silk ties and clips and divided, and as such I was able to mobilize a suitable length of vein out of its bed. Once I had mobilized sufficient length of vein, I ligated the vein proximally
with a silk suture ligature and a heavy clip. I then transected it (of note I had not expose all the way to the saphenofemoral junction and therefore I did not have to do a closure directly on the junction). I now ligated the vein distally with a
silk tie and a clip. I then transected it distally. I now distended the vein under heparinized saline. It distended very well.
I made a small counterincision in the medial distal calf near the ankle and used an aortic clamp to create a subcutaneous tunnel between the dorsalis pedis artery exposure site and this counter incision and passed an umbilical tape through this. I
also then passed a Elvin tunneler from the counterincision to the proximal artery exposure site in the proximal calf. This was a subcutaneous tunnel that I created. Now I gave the patient 5000 units of intravenous heparin. Once this had
circulated, I clamped the popliteal artery proximally and tightened my double looped vessel loop distally on the artery. I made an arteriotomy with 11 blade and extended using a Betts scissor. I then spatulated the vein maintaining a nonreversed
fashion and sewed an end-to-side anastomosis using a running 6-0 Prolene suture (between the popliteal artery and the greater saphenous vein). I completed and tied down my suture line and then released flow in the [place] arteries. There was
excellent pulsatile flow into the vein graft. I now used a VOZ valvulotome to completely valvulotomize the vein. Now there is excellent pulsatile flow throughout the entire vein graft. I marked the anterior surface under distention to avoid any
kinking or twisting and then passed it through my precreated subcutaneous tunnel through the Elvin tunneler, and then from that counterincision to the distal incision through the additional subcutaneous tunnel I made. I confirm no kinking or
twisting.
Now I reexposed the dorsalis pedis by placing a self-retaining retractor. I now double looped and tightened my Vesseloops proximally and distally on the dorsalis pedis artery. I made an arteriotomy with a [place] blade and extended using a micro
Betts scissor. I then trimmed and spatulated the distal aspect of the vein and sewed an end-to-side anastomosis using a running 7-0 Prolene suture. Prior to completing and tying down my suture line I backbled the [place] artery and flushed out the
vein graft. I irrigated/instilled heparinized saline. I then completed and tied down my suture line. Next I released flow in the [place] system and release my bulldog clamp on the graft. There is excellent pulsatile flow into the dorsalis pedis
artery. I there was also confirmed excellent Doppler signal that was significantly graft augmented in the dorsalis pedis artery distal to the anastomosis. In order to relieve any vasospasm from the Vesseloops, I instilled topical papaverine to the
field.
I now meticulously achieved hemostasis throughout surgical field. All sites were irrigated. The distal anastomotic/dorsalis pedis exposure site and the counterincision site were both closed now with vertical mattress 3-0 nylon interrupted suture.
The proximal artery exposure (popliteal artery)/proximal anastomosis exposure site was now closed in layers using 2-0 Vicryl followed by 3-0 Vicryl and then skin clips. The saphenectomy site was closed with running 3-0 Vicryl followed by skin
clips. Dressings were applied. The patient tolerated the procedure well. As noted he had a palpable dorsalis pedis pulse distal to the anastomosis on the distal foot upon completion.
[2023-09-29 16:27] LABS: Hematocrit 29.6 % (39.0-52.0); Hemoglobin 10.3 g/dL (13.0-18.0); Mean Corp Hgb Conc. 34.8 g/dL (33.0-37.0); Mean Corpuscular Hgb 30.7 pg (27.0-31.0); Mean Corpuscular Volume 88.4 fL (80.0-94.0); Platelet Count 396 10^3/uL (130-400); Red Blood Cell Count 3.35 10^6/uL (4.70-6.10); Red Cell Dist. Width 12.7 % (11.5-14.5); White Blood Cell Count 22.7 10^3/uL (4.8-10.8)
[2023-09-29 16:38] LABS: INR 1.26; PT 15.8 Sec (11.4-14.6)
[2023-09-29 16:39] LABS: APTT 33.5 Sec (23.4-35.0)
--- NOTE | 2023-09-29 16:47 | W.PN.CD ---
Today's Communication / Plan
-
Pt seen earlier today, close to 0830 hrs
OK to proceed to vascular surgery
Impression / Plan
-
Diabetic foot infection complicated
PAD
Preoperative risk assessment, elevated but not prohibitive risk
Coronary artery disease
-Stable without chest pain
-PANFILO to RCA in 2017 at [facility] with residual disease (30% PRCA, 30% pPDA)
-On DAPT
Paroxysmal atrial fibrillation,seen in 2009 when he had a long admission with legionnaires disease, no documented atrial fibrillation since then
Mild aortic stenosis
Diabetic foot infection, dry gangrene status post partial amputation of left great toe, amputation of left fourth toe, on vancomycin/Zosyn
Hypertension, not on medical therapy at home, follow BP
Dyslipidemia, LDL above goal on atorvastatin 10
Type 2 diabetes mellitus, HgbA1c 6.6%, in the past it was up to 13%
PAD, PVD - PANFILO 08/25/2023
Chronic ambulatory dysfunction
Former smoker, continue cessation recommended
Subjective:
No CP or dyspnea.
-
-
Echo 02/24/2023: Nml LV/RV syst fxn, LVEF >75%, mild (mean 15, ANGEL 1.6), mild AR
Physical Exam
Vital Signs/Labs
Vital Signs
Temp Pulse Resp BP Pulse Ox
98.7 F 68 19 107/63 100
09/29/23 16:09 09/29/23 16:30 09/29/23 16:30 09/29/23 16:30 09/29/23 16:30
09/28/23 09/29/23 09/30/23
06:59 06:59 06:59
Actual Weight 78.103 kg
09/29/23 16:19
PT 15.8 Sec (11.4-14.6) H 09/29/23 16:19
INR 1.26 09/29/23 16:19
APTT 33.5 Sec (23.4-35.0) 09/29/23 16:19
Magnesium 1.9 mg/dl (1.6-2.3) 09/29/23 08:45
Physical Exam
Constitutional: No acute distress
EENT: Anicteric
Cardiovascular: Rhythm & rate is regular and Pedal edema is absent
Respiratory: Respiratory effort normal and Lungs clear to auscul.
GI: Soft and Distention absent
Neuro/Psych: Alert
Data Reviewed
-
Date of Service: September 29, 2023
[2023-09-29] MEDS: NSS IV ×2 (16:58→17:33)
[2023-09-29 17:22] LABS: Blood Urea Nitrogen 10 mg/dl (9-20); Calcium 8.3 mg/dl (8.4-10.2); Carbon Dioxide 22 mmol/L (22-30); Chloride 105 mmol/L (98-107); Estimated Creatinine Clearance 82 ml/min; Glucose 171 mg/dl (70-99); Potassium 4.1 mmol/L (3.5-5.1); Sodium 134 mmol/L (135-145); eGFR > 60.00
[2023-09-29] MEDS: LIPITOR PO (17:38)
--- NOTE | 2023-09-29 18:22 | PTCARENOTE ---
Received patient from PACU. IVF, simple mask, arterial line. Continue follow up neurovascular checks. Doppler flow confirmed; dp, pt and radials by palp. IVF at 80ml/hr. Vancomycin as ordered and running. Weaned off simple mask to nasal canula will
wean and start incentive spirometer. Patient drowsy but waking up asking some simple questions and yes no appt at this time. Holman draining clear yellow urine. Patient wrapped in warm blankets will follow present temperature 96.1 stacey fletcher called
for if needed. Will follow up post op labs and leather grader consult.
--- NOTE | 2023-09-29 20:00 | PTCARENOTE ---
Resumed care of pt this evening. Received pt drowsy but arousable to verbal and tactile cues. Pt is A&Ox3, can move all 4 extremities, and can make needs known. Pt is SB on tele monitor, has +2 pitting edema B/L lower extremities, and pulses are
present w/ doppler. A-line in place, zeroed, and is transducing. Pt on 6L of O satting at 100% pulse ox. On auscultation pt lungs sound diminished and has an inspiratory wheeze TO. Pt's abdomen is round, obese, and has hypoactive BS. Pt has juarez in
place draining shawn colored urine. Pt's surgical site has some mild serosang oozing.
[2023-09-29] MEDS: NOVOLOG FLEXPEN-LOW RESISTANCE 3 UNITS SC (23:40)
[2023-09-29 23:50] LABS: Glucose - Point of Care 275 mg/dl (70-99)
[2023-09-30] VITALS (24 sets, daily range): BP systolic 98–129; BP diastolic 48–99; BMI 28.9
--- NOTE | 2023-09-30 00:10 | PTCARENOTE ---
Pt continues to have some serosang oozing at left lower leg surgical site. Dressing reinforced by this RN. Pt denies pain at this time.
[2023-09-30] MEDS: ZOSYN 50 IV ×4 (02:38→19:40)
[2023-09-30] MEDS: VANCOCIN 200 IV (05:11)
[2023-09-30] MEDS: NSS 1000 IV (05:11)
--- NOTE | 2023-09-30 05:30 | PTCARENOTE ---
Pt continues to have some drainage from left lower leg incision as well as left upper leg incision site. Both surgical dressings further reinforced by this RN.
[2023-09-30 05:39] LABS: Hematocrit 24.3 % (39.0-52.0); Hemoglobin 8.4 g/dL (13.0-18.0); Mean Corp Hgb Conc. 34.6 g/dL (33.0-37.0); Mean Corpuscular Hgb 31.6 pg (27.0-31.0); Mean Corpuscular Volume 91.4 fL (80.0-94.0); Mean Platelet Volume 9.2 fL (7.4-10.4); Platelet Count 354 10^3/uL (130-400); Red Blood Cell Count 2.66 10^6/uL (4.70-6.10); Red Cell Dist. Width 12.7 % (11.5-14.5); White Blood Cell Count 14.3 10^3/uL (4.8-10.8)
[2023-09-30 05:50] LABS: INR 1.29; PT 16.1 Sec (11.4-14.6)
[2023-09-30 05:51] LABS: APTT 33.1 Sec (23.4-35.0)
[2023-09-30 06:10] LABS: Blood Urea Nitrogen 12 mg/dl (9-20); Calcium 7.7 mg/dl (8.4-10.2); Carbon Dioxide 24 mmol/L (22-30); Chloride 108 mmol/L (98-107); Estimated Creatinine Clearance 82 ml/min; Glucose 219 mg/dl (70-99); Magnesium 1.9 mg/dl (1.6-2.3); Potassium 3.7 mmol/L (3.5-5.1); Sodium 134 mmol/L (135-145); eGFR > 60.00
[2023-09-30] MEDS: NOVOLOG FLEXPEN-LOW RESISTANCE 2 UNITS SC ×2 (06:33→17:57)
--- NOTE | 2023-09-30 07:22 | CON.INTV ---
Consultation
Consultation Request
Date/Time Consultation Requested: 09/30/23
Date/Time Consultation Performed: 09/30/23
Performing Provider: Ariana
Reason for Consultation: ICU
Medical History
-
History of Present Illness:
Patient is a 73-year-old male with past medical history of dry gangrene of left fourth toe, nonhealing wounds of left lower extremity, PAD status post stent of left distal superficial femoral artery with drug-eluting stent on 08/24, chronic left
lateral leg stage II decubitus/unstageable black necrotic left heel ulceration, type 2 diabetes, diabetic neuropathy, alcohol use, coronary artery disease status post LAD in 2016, prostate cancer s/p radiation in 2017, sent to ER by his
engineering specialist (Dr. Baer) for infected wound. He had left great toe and fourth toe amputated on 09/15 and follow-up visit with him 3 days ago at which time redness of the surgical site was noted. He was started on Augmentin without improvement.
Evaluated by vascular with concern for critical limb ischemia underwent bypass of left lower extremity 09/29/23. Postoperatively transferred to ICU for further management.
.
Past Medical History
Past Medical History: Other (see list below)
Social History
Tobacco: Non-smoker
Alcohol: None
Drug: None
Family History
Family History: Reviewed & Not Pertinent
Allergies / Home Medications
Allergies
Allergy/AdvReac Type Severity Reaction Status Date / Time
No Known Allergies Allergy Verified 09/27/23 16:31
Home Medications
�Medication �Instructions �Recorded �Confirmed �Last Taken �Type
aspirin 81 mg chewable tablet 81 mg PO DAILY Blood Clot 09/14/23 09/27/23 09/27/23 History
Prevention/Tx
atorvastatin 10 mg tablet 10 mg PO QPM High Cholesterol 09/14/23 09/27/23 09/26/23 History
clopidogrel 75 mg tablet 75 mg PO DAILY Blood Clot 09/14/23 09/27/23 09/25/23 History
Prevention/Tx
amoxicillin 875 mg-potassium 1 tab PO BID Infection 09/27/23 09/27/23 09/25/23 History
clavulanate 125 mg tablet
Review of Systems
-
History Source: Patient
All other systems: Negative unless noted
Vitals / Labs / Diagnostic Testing
Vital Signs
Temp Pulse Resp BP Pulse Ox
97.9 F 55 16 129/61 98
09/30/23 07:01 09/30/23 06:30 09/30/23 06:30 09/30/23 06:00 09/30/23 06:30
Lab Data
09/30/23 05:27
09/30/23 05:27
Laboratory Results
09/29/23 09/29/23 09/30/23
08:45 16:19 05:27
PT 15.0 H 15.8 H 16.1 H
INR 1.18 1.26 1.29
APTT 38.2 H 33.5 33.1
Microbiology
09/27/23 18:55 Foot - Left Wound Culture - Preliminary
Gram negative bacilli
Staphylococcus species
09/27/23 18:55 Foot - Left Gram Stain - Preliminary
09/27/23 16:44 Blood/Venous Blood Culture - Preliminary
No Growth in 48 hours- Final report to follow
Diagnostic Testing:
Physical Exam
-
HEENT: Normocephalic, Anicteric and Moist Mucous Membranes
Cardiovascular: S1/S2 and Regular Rhythm
Respiratory: Clear and Non-Labored Respirations
GI: Soft, Non Distended and Non Tender
Neurology: Awake, Alert, Oriented, AO x 3 and No Motor Deficits
Skin: Warm, Dry and Other (LLE bandage with bleeding )
General: Comfortable and Other (NAD)
Assessment
-
Patient is a 73-year-old male with past medical history of dry gangrene of left fourth toe, nonhealing wounds of left lower extremity, PAD status post stent of left distal superficial femoral artery with drug-eluting stent on 08/24, chronic left
lateral leg stage II decubitus/unstageable black necrotic left heel ulceration, type 2 diabetes, sent to ER by his engineering specialist (Dr. Baer) for infected wound. Evaluated by vascular with concern for critical limb ischemia underwent bypass of left
lower extremity 09/29/23. Postoperatively transferred to ICU for further management.
Chronic limb threatening ischemia left lower extremity s/p Left below the knee popliteal artery to dorsalis pedis artery bypass with ipsilateral nonreversed greater saphenous vein conduit 09/29/23
Post op anemia, mild
Hyponatremia, mild
Hypokalemia
Hyperglycemia
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
Coronary artery disease
PANFILO to RCA in 2017 at [facility] with residual disease (30% PRCA, 30% pPDA)
On DAPT
Paroxysmal atrial fibrillation
History of legionnaires disease
Mild aortic stenosis
Diabetic foot infection, dry gangrene status post partial amputation of left great toe, amputation of left fourth toe
Hypertension
Dyslipidemia
Type 2 diabetes mellitus, HgbA1c 6.6%
PAD, PVD s/p PANFILO 08/25/2023
Chronic ambulatory dysfunction
Former smoker
History of prostate cancer
Plan
No current signs of metabolic encephalopathy or MS changes/following commands
Pain control, postop
Pain/sedation: PRN
RASS goals: 0
Hemodynamically stable, not requiring pressors.
Cardiac history reviewed--HTN, CAD, PAD
Prior ECHO reviewed indicating hyperdynamic function, mild
Resume home meds as able
Monitor on telemetry
Oxygen needs: stable on RA
Prior history of lung disease: former smoker, no PFTs for review
Denies complaints, can add nebs if needed
Supplemental O2 as indicated to maintain sats > 89%
CXR/CT reviewed in past indicating no acute findings
Diet advancement per team
Aspiration precautions, HOB > 30 degrees
Speech therapy eval can be considered if at elevated risk
GI prophylaxis if indicated for mechanical ventilation >48 hours, prior history of GERD, stress ulcer formation in the critically ill
Creat at baseline, no history of renal disease
Void trials
Follow urine output, critical I/Os
Replete electrolytes as needed
Gangrene of LLE, failed OP abx treatment
Started on empiric antibiotics
Cultures sent/pending
Wound culture showing polymicrobial infection
Blood culture neg
Follow fever trend, WBC count
Lactate elevated on admission, trended <2 now
CBC stable, no signs of bleeding or coagulopathy.
DVT prophylaxis as assessed based on risk, including mechanical SCDs
Can transfuse if indicated for Hb <7, plt < 10
INR WNL
H/o diabetes, not on treatment at home
SS for coverage
HbA1c 6.6, 13 in past
Follow compliant diet
Diagnostic Data
Chest X-Ray: 11/27/20- IMPRESSION: No displaced rib fracture or pneumothorax. Very small left pleural effusion and adjacent atelectasis.
CXR 12/31/09- 1. Minimal interval change in a right lower lobe pneumonia.
2. Small right pleural effusion.
3. Interval removal of an endotracheal tube.
CT Scan: AP 09/28/23- Diffuse atherosclerotic disease of the aortobiiliac system with multifocal stenoses throughout, some of which measure greater than 75% as detailed in report. Right lower extremity arterial system: Diffuse atherosclerotic disease
of the right lower extremity arterial vasculature with multifocal stenoses and suspected short segment dissection involving the proximal SFA resulting in approximately 50% luminal narrowing at this level. There is at least a 1 vessel runoff of the
right lower extremity via the peroneal artery, with the tibial artery is occluded at its mid segment with distal reconstitution at the level of the ankle via collaterals. There is intermittent occlusion of the posterior tibial artery with
questionable patency to the foot.
Left lower extremity arterial system: Diffuse atherosclerotic disease with multifocal stenosis. Left SFA stent is patent without demonstrable in-stent stenosis. The stent excludes a 1.4 cm aneurysm which appears thrombosed. There is a one vessel
runoff to the foot via the peroneal artery, with the posterior tibial artery occluded in the mid anterior tibial artery occluded with reconstitution involving the mid to distal segment via collaterals.
LUNGS BASES: Atherosclerotic disease of the coronary arteries and visualized thoracic aorta. Dependent atelectasis with likely some element of mild bibasilar scarring. No effusion.
Echo 02/24/2023: Nml LV/RV syst fxn, LVEF >75%, mild (mean 15, ANGEL 1.6), mild AR
PFT's:
Reports and relevant images were personally reviewed.
-----
Critical Care time 51 mins -- The patient is admitted for acute critical illness for the treatment of vital organ failure and/or prevention of further life-threatening conditions. Total care includes time spent in review of history, physical exam,
medications, hemodynamic/ventilator parameters, laboratory data, imaging and discussion with house staff, pharmacy, respiratory therapy, melt house drag operator, and nursing.
[2023-09-30 07:39] LABS: Glucose - Point of Care 268 mg/dl (70-99)
--- NOTE | 2023-09-30 07:41 | W.PN.VS ---
Addendum entered and electronically signed by Finn Melendez MD 09/30/23 10:10:
Seen and examined earlier this a.m. with KELLY Paz. Agree with findings as noted below. Left lower extremity incisions all clean. Mild drainage/blood staining on counterincision (graft tunnel) site. No evidence of significant active bleeding.
Excellent graft function on exam with palpable distal pulse and palpable graft pulse. Dressings all changed by us. Thigh and calf soft. No evidence of hematomas. Plan/as discussed and noted below. Of note subsequent to seeing the patient, I
spoke to pipe caulker Dr. Montana who noted new onset of atrial fibrillation. He would favor initiation of anticoagulation for this reason. We discussed timing. I discussed that I would favor holding off given slight oozing still from dressings
and concern for bleeding and wound complications as a result. He agrees risk should be acceptable to hold off until tomorrow. Will consider either starting low-dose heparin tonight or tomorrow morning and then transition to oral anticoagulation
the following day.
Original Note:
Today's Communication / Plan
-
Patient seen and evaluated at bedside with Dr. Finn Melendez, below plan reviewed with attending.
Assessment/Plan
-
Assessment: 73 year old male POD#1 Left below the knee popliteal artery to dorsalis pedis artery bypass with ipsilateral nonreversed greater saphenous vein conduit.
Plan:
Discontinue arterial line
Discontinue IV fluids
Discontinue Holman catheter
Can get out of bed to chair today but cannot bear weight on left foot
Continue intensive care management today
Continue neurovascular checks
Will repeat H&H this afternoon
Subjective Data
-
Date of Service: September 30, 2023
Patient seen and examined at bedside, offers no complaints. Denies nausea, vomiting, fever, and chills. Reports adequate post operative pain management. Reports eagerness for progressing to 'next steps' of ambulation.
Objective Data
-
Vital Signs
Temp Pulse Resp BP Pulse Ox
97.9 F 55 16 129/61 98
09/30/23 07:01 09/30/23 06:30 09/30/23 06:30 09/30/23 06:00 09/30/23 06:30
Intake and Output
09/29/23 09/30/23 10/01/23
06:59 06:59 06:59
Intake Total 480 / 480 3220 / 3220
Output Total 1350 / 1350 2100 / 2100
Balance -870 / -870 1120 / 1120
Intake:
Oral fluids 480 / 480 480 / 480
IV fluids (Total) 204 / 2039
NSS 1240 / 1240
IV piggybacks 700 / 700
Output:
Urine, Holman 955 / 955
Urine, Voided 1350 / 1350 545 / 545
Straight cath output 600 / 600
Lab Results
09/30/23 05:27
09/30/23 05:27
Calcium 7.7 mg/dl (8.4-10.2) L 09/30/23 05:27
Magnesium 1.9 mg/dl (1.6-2.3) 09/30/23 05:27
Total Bilirubin 0.4 mg/dl (0.2-1.3) 09/28/23 05:54
AST 24 U/L (17-59) 09/28/23 05:54
ALT 20 U/L (0-50) 09/28/23 05:54
Alkaline Phosphatase 78 U/L (38-126) 09/28/23 05:54
Total Protein 5.3 g/dl (6.3-8.2) L 09/28/23 05:54
Albumin 2.6 g/dl (3.5-5.0) L 09/28/23 05:54
Physical Exam
-
AAOx3, no apparent distress
No tachycardia
No dyspnea on room air
ABD rotund, nondistended, nontender
Left surgical dressing all changed, negrito and sutures well approximated, foot warm, DP and bypass graft pulse palpable, dressings re applied
Bilateral feet warm
[2023-09-30] MEDS: FLOMAX 0.4 MG PO (07:51)
[2023-09-30] MEDS: LOW STRENGTH ASPIRIN 81 MG PO (07:51)
[2023-09-30] MEDS: PLAVIX 75 MG PO (07:51)
[2023-09-30] MEDS: TYLENOL 650 MG PO ×3 (07:57→22:31)
--- NOTE | 2023-09-30 08:37 | W.PN.HOSP.TC ---
Today's Communication/Plan
-
activity per vascular
serial H&H
follow labs
Assessment / Plan
Assessment / Plan
pt is a 73 year old male
Diabetic foot infection complicated by PAD--Dry gangrene status post partial amputation of left great toe, amputation left fourth toe--no osteo on foot x-ray--cont vanco/zosyn--apprec podiatry, no surgical intervention at this time
PAD status post end of left distal superficial femoral artery with drug-eluting stent on 08/24--apprec vascular--CT angio as per vascular, s/p LLE arterial bypass 09/28--cont asa/plavix/statin
wound (POA)--L heel with diabetic /pad/stage 3 pressure injury--L lateral leg with healed venous ulcer--apprec wound care--no plans for surgery per podiatry
hypokalemia--replete as needed
hyponatremia--noted--some chronicity to it
Coronary artery disease status post LAD stent in 2015-Continue aspirin
Type 2 diabetes with neuropathy--Insulin sliding scale
Prostate cancer status post prostate radiation in 2016
urinary retention--start flomax, bladder scan protocol
Ex-smoker
Diverticulosis
Full code
DVT prophylaxis�SCDs
Anticipated Discharge: > 48 hours
Subjective/Interval History
-
Date of Service: September 30, 2023
s/p vascular surgery, now in ICU post op--no c/o
Objective Data
-
Labs:
Laboratory Results
09/30/23 09/30/23
05:27 14:53
WBC 14.3 H
Hgb 8.4 L Pending
Hct 24.3 L Pending
Plt Count 354
PT 16.1 H
INR 1.29
APTT 33.1
Sodium 134 L
Potassium 3.7
Chloride 108 H
Carbon Dioxide 24
BUN 12
Creatinine 0.7
Glucose 219 H
Calcium 7.7 L
Vital Signs:
max temp for 24 hours
09/30/23
07:01
Temp 97.9 F
Vital Signs
Temp Pulse Resp BP Pulse Ox
97.9 F 57 17 109/50 94
09/30/23 07:01 09/30/23 08:00 09/30/23 08:00 09/30/23 07:00 09/30/23 07:45
I&O
09/29/23 09/30/23 10/01/23
06:59 06:59 06:59
Intake Total 480 / 480 3220 / 3270 50 / 50
Output Total 1350 / 1350 2100 / 2130 60 / 60
Balance -870 / -870 1120 / 1140 -10 / -10
Review of Systems
-
All other systems: Reviewed and negative
Physical Exam
-
General: Well Developed, Well Nourished and No Apparent Distress
HEENT: Normocephalic and Atraumatic
Respiratory: Clear to Auscultation; Negative Wheezes or Rhonchi
Cardiac: Regular Rhythm and S1/S2; Negative Murmur
GI: Soft, Nontender, Nondistended and Normal Bowel Sounds
Musculoskeletal: No Clubbing, No Cyanosis and Other (left leg with bandages)
Neuro: Awake
--- NOTE | 2023-09-30 08:46 | W.PN.CD ---
Today's Communication / Plan
-
Monitor tele
Aspirin Eliquis tomorrow
Slow ventricular response monitor --> avoid AV jonathan agent
Impression / Plan
-
Paroxysmal atrial fibrillation now recurrent
- ECG AF with slow ventricular response
- discussed with vascular surgery Eliquis aspirin to start tomorrow
Diabetic foot infection complicated
PAD
Preoperative risk assessment, elevated but not prohibitive risk
Coronary artery disease
-Stable without chest pain
-PANFILO to RCA in 2017 at [facility] with residual disease (30% PRCA, 30% pPDA)
-On DAPT, however will switch to Eliquis aspirin tomorrow
Mild aortic stenosis
Diabetic foot infection, dry gangrene status post partial amputation of left great toe, amputation of left fourth toe, on vancomycin/Zosyn
Hypertension, not on medical therapy at home, follow BP
Dyslipidemia, LDL above goal on atorvastatin 10
Type 2 diabetes mellitus, HgbA1c 6.6%, in the past it was up to 13%
PAD, PVD - PANFILO 08/25/2023
Chronic ambulatory dysfunction
Former smoker, continue cessation recommended
Subjective:
Feeling OK no new CV symptoms
-
-
Echo 02/24/2023: Nml LV/RV syst fxn, LVEF >75%, mild (mean 15, ANGEL 1.6), mild AR
Physical Exam
Vital Signs/Labs
Vital Signs
Temp Pulse Resp BP Pulse Ox
97.9 F 57 17 109/50 94
09/30/23 07:01 09/30/23 08:00 09/30/23 08:00 09/30/23 07:00 09/30/23 07:45
09/29/23 09/30/23 10/01/23
06:59 06:59 06:59
Actual Weight 179 lb 3.773 oz
09/30/23 05:27
PT 16.1 Sec (11.4-14.6) H 09/30/23 05:27
INR 1.29 09/30/23 05:27
APTT 33.1 Sec (23.4-35.0) 09/30/23 05:27
Magnesium 1.9 mg/dl (1.6-2.3) 09/30/23 05:27
Physical Exam
Constitutional: No acute distress and Comfortable
Cardiovascular: Rhythm/rate is irregular
Respiratory: Respiratory effort normal and Lungs clear to auscul.
GI: Soft
Neuro/Psych: AO x 3
Data Reviewed
-
Date of Service: September 30, 2023
EKG: Tracing Personally Visualized and interpreted (af)
Echo: Report Reviewed by me
Labs: Labs Reviewed by me
--- NOTE | 2023-09-30 09:05 | PTCARENOTE ---
Assumed care of patient at 0700. Patient alert and oriented. Vitals stable. Dr. Melendez at bedside to assess bleeding from LLE. Dressings replaced. +Doppler pulse. IVFs capped. Holman out. Mcihelle to be removed. Diet advanced. 100% breakfast consumed. Pain
controlled with PO Tylenol. Full assessment and care as charted on worklist.
--- NOTE | 2023-09-30 09:34 | CM ---
Patient seen at bedside with physician. Patient insists that he will return home when medically appropriate and declined discussion of SNF options. Patient plan is to go home with VN, using his wheelchair or walker depending upon ability to put
weight on lower extremity. CM will continue to follow for discharge planning needs.
Plan; home with VN vs SNF pending functional needs.
--- NOTE | 2023-09-30 10:31 | PTCARENOTE ---
Arterial line removed.
--- NOTE | 2023-09-30 11:57 | PTCARENOTE ---
Patient assisted out of bed into chair. Non-weightbearing to LLE. Vitals stable. No complaints. No other changes in assessment.
[2023-09-30] MEDS: NOVOLOG FLEXPEN-LOW RESISTANCE 3 UNITS SC (12:40)
[2023-09-30 12:52] LABS: Glucose - Point of Care 258 mg/dl (70-99)
--- NOTE | 2023-09-30 13:56 | PTCARENOTE ---
Patient has not voided since removal of juarez catheter. States he has a slight urge to go. Urinal provided and encouraged to try to void. If unable, will bladder scan.
[2023-09-30 15:07] LABS: Hematocrit 26.2 % (39.0-52.0); Hemoglobin 9.2 g/dL (13.0-18.0)
--- NOTE | 2023-09-30 16:40 | PTCARENOTE ---
Patient assisted back to bed. LLE dressing changed by Isha Paz. Vitals stable. Tylenol administered for minor pain after dressing change. No other changes in assessment.
[2023-09-30] MEDS: LIPITOR 20 MG PO (17:57)
[2023-09-30 18:09] LABS: Glucose - Point of Care 220 mg/dl (70-99)
--- NOTE | 2023-09-30 20:00 | PTCARENOTE ---
Received pt resting in bed, AAOx3. Flat affect, forgetful at times. CARVER but gen. weak. Afib with PVCs on tele, HR 60s. + murmur. Afebrile. B/L DP and PT pulses by doppler- handoff with jessie RN. L pedal edema + 2, R LE trace edema. LLE dressings
c/d/i, ANASTASIIA wrap to L thigh, no evidence of oozing at this time. On RA. Lungs CTA but diminished. Round abd. + bowel sounds. 2000cal diab diet. Voiding in urinal. L FA PIV patent and capped. Call newton in reach
[2023-09-30] MEDS: MELATONIN 5 MG PO (22:21)
[2023-09-30 22:34] LABS: Glucose - Point of Care 223 mg/dl (70-99)
[2023-09-30] MEDS: NOVOLOG FLEXPEN 3 UNITS SC (22:37)
--- NOTE | 2023-09-30 23:59 | PTCARENOTE ---
HS blood glucose = 223. PRODUCTION SUPERINTENDENT [employer] notified. 3 units insulin ordered and administered. Recheck about 2 hrs later - 191- PRODUCTION SUPERINTENDENT [employer] notified, no new orders. Neurovascular assessment unchanged. Pain controlled with Tylenol. Bathed with CHG, assisted w mouth care.
Pt. resting, refused to be turned onto side at this time.
[2023-10-01] VITALS (16 sets, daily range): BP systolic 98–136; BP diastolic 49–99; PULSE 60; O2SAT 95; BMI 29.3
[2023-10-01 00:06] LABS: Glucose - Point of Care 191 mg/dl (70-99)
[2023-10-01] MEDS: ZOSYN 50 IV ×4 (02:45→20:37)
[2023-10-01] MEDS: ROXICODONE 5 MG PO ×3 (03:12→22:28)
[2023-10-01 03:28] LABS: Hematocrit 24.2 % (39.0-52.0); Hemoglobin 8.4 g/dL (13.0-18.0); Mean Corp Hgb Conc. 34.7 g/dL (33.0-37.0); Mean Corpuscular Hgb 31.6 pg (27.0-31.0); Mean Platelet Volume 9.4 fL (7.4-10.4); Platelet Count 378 10^3/uL (130-400); Red Blood Cell Count 2.66 10^6/uL (4.70-6.10); Red Cell Dist. Width 12.6 % (11.5-14.5); White Blood Cell Count 12.1 10^3/uL (4.8-10.8)
--- NOTE | 2023-10-01 03:29 | PTCARENOTE ---
L FA #20 leaking- removed. New #20 L AC placed. AM labs obtained. L upper leg oozing serosang out the bottom of the dressing- reinforced with ABD pad. Pt with increased pain after manipulating leg to reinforce dressing- oxycodone given. Pt. resting.
[2023-10-01 03:52] LABS: Blood Urea Nitrogen 12 mg/dl (9-20); Carbon Dioxide 28 mmol/L (22-30); Chloride 105 mmol/L (98-107); Estimated Creatinine Clearance 72 ml/min; Glucose 123 mg/dl (70-99); Potassium 3.5 mmol/L (3.5-5.1); Sodium 136 mmol/L (135-145); eGFR > 60.00
[2023-10-01] MEDS: KCL 270 MEQ IV (04:13)
--- NOTE | 2023-10-01 07:23 | W.PN.INTV ---
Addendum entered and electronically signed by Stacie Lane DO 10/01/23 13:47:
Acute on chronic anemia, postop losses
Chronic anemia likely from chronic disease/DAVID
Original Note:
Today's Communication / Plan
Recommendations
Doing well postop, no issues
Can likely de-escalate abx pending cultures
Further postop care per team
PT/OT, OOB
Tolerating diet
Transfer to floors, we will sign off upon transfer
Assessment
-
Patient is a 73-year-old male with past medical history of dry gangrene of left fourth toe, nonhealing wounds of left lower extremity, PAD status post stent of left distal superficial femoral artery with drug-eluting stent on 08/24, chronic left
lateral leg stage II decubitus/unstageable black necrotic left heel ulceration, type 2 diabetes, sent to ER by his premix concrete batcher (Dr. Baer) for infected wound. Evaluated by vascular with concern for critical limb ischemia underwent bypass of left
lower extremity 09/29/23. Postoperatively transferred to ICU for further management.
Chronic limb threatening ischemia left lower extremity s/p Left below the knee popliteal artery to dorsalis pedis artery bypass with ipsilateral nonreversed greater saphenous vein conduit 09/29/23
Post op anemia, mild
Hyponatremia, mild
Hypokalemia
Hyperglycemia
Conditions present MANAGER VISUAL
Coronary artery disease
PANFILO to RCA in 2016 at [facility] with residual disease (30% PRCA, 30% pPDA)
On DAPT
Paroxysmal atrial fibrillation
History of legionnaires disease
Mild aortic stenosis
Diabetic foot infection, dry gangrene status post partial amputation of left great toe, amputation of left fourth toe
Hypertension
Dyslipidemia
Type 2 diabetes mellitus, HgbA1c 6.6%
PAD, PVD s/p PANFILO 08/25/2023
Chronic ambulatory dysfunction
Former smoker
History of prostate cancer
Plan
No current signs of metabolic encephalopathy or MS changes/following commands
Pain control, postop
Pain/sedation: PRN
RASS goals: 0
Hemodynamically stable, not requiring pressors.
Cardiac history reviewed--HTN, CAD, PAD
Prior ECHO reviewed indicating hyperdynamic function, mild
Resume home meds as able
Monitor on telemetry
Oxygen needs: stable on RA
Prior history of lung disease: former smoker, no PFTs for review
Denies complaints, can add nebs if needed
Supplemental O2 as indicated to maintain sats > 89%
CXR/CT reviewed in past indicating no acute findings
Diet advancement per team
Aspiration precautions, HOB > 30 degrees
Speech therapy eval can be considered if at elevated risk
GI prophylaxis if indicated for mechanical ventilation >48 hours, prior history of GERD, stress ulcer formation in the critically ill
Creat at baseline, no history of renal disease
Void trials
Follow urine output, critical I/Os
Replete electrolytes as needed
Gangrene of LLE, failed OP abx treatment
Started on empiric antibiotics
Cultures sent/pending
Wound culture showing polymicrobial infection
Blood culture neg
Can likely stop or de-escalate pending results/course
Follow fever trend, WBC count
Lactate elevated on admission, trended <2 now
Vasc following for further surgical management
CBC stable, no signs of bleeding or coagulopathy.
DVT prophylaxis as assessed based on risk, including mechanical SCDs
Can transfuse if indicated for Hb <7, plt < 10
INR WNL
H/o diabetes, not on treatment at home
SS for coverage
HbA1c 6.6, 13 in past
Follow compliant diet
Diagnostic Data
Chest X-Ray: 11/27/20- IMPRESSION: No displaced rib fracture or pneumothorax. Very small left pleural effusion and adjacent atelectasis.
CXR 12/31/09- 1. Minimal interval change in a right lower lobe pneumonia.
2. Small right pleural effusion.
3. Interval removal of an endotracheal tube.
CT Scan: AP 09/28/23- Diffuse atherosclerotic disease of the aortobiiliac system with multifocal stenoses throughout, some of which measure greater than 75% as detailed in report. Right lower extremity arterial system: Diffuse atherosclerotic disease
of the right lower extremity arterial vasculature with multifocal stenoses and suspected short segment dissection involving the proximal SFA resulting in approximately 50% luminal narrowing at this level. There is at least a 1 vessel runoff of the
right lower extremity via the peroneal artery, with the tibial artery is occluded at its mid segment with distal reconstitution at the level of the ankle via collaterals. There is intermittent occlusion of the posterior tibial artery with
questionable patency to the foot.
Left lower extremity arterial system: Diffuse atherosclerotic disease with multifocal stenosis. Left SFA stent is patent without demonstrable in-stent stenosis. The stent excludes a 1.4 cm aneurysm which appears thrombosed. There is a one vessel
runoff to the foot via the peroneal artery, with the posterior tibial artery occluded in the mid anterior tibial artery occluded with reconstitution involving the mid to distal segment via collaterals.
LUNGS BASES: Atherosclerotic disease of the coronary arteries and visualized thoracic aorta. Dependent atelectasis with likely some element of mild bibasilar scarring. No effusion.
Echo 02/24/2023: Nml LV/RV syst fxn, LVEF >75%, mild (mean 15, ANGEL 1.6), mild AR
PFT's:
Reports and relevant images were personally reviewed.
-----
Critical Care time 31 mins -- The patient is admitted for acute critical illness for the treatment of vital organ failure and/or prevention of further life-threatening conditions. Total care includes time spent in review of history, physical exam,
medications, hemodynamic/ventilator parameters, laboratory data, imaging and discussion with house staff, pharmacy, respiratory therapy, distributor sales manager, and nursing.
Subjective Dataa
Subjective Data
Date of Service:
Date of Service: October 01, 2023
Chief Complaint: Transportation Sales Consultant Follow Up
Subjective:
no acute events ON
no new complaints
Objective Data
Data Reviewed
Vital Signs / I&O / Oxygen:
Vital Signs
Temp Pulse Resp BP Pulse Ox
97.4 F 73 19 109/72 93
10/01/23 03:18 10/01/23 06:00 10/01/23 06:00 10/01/23 06:00 10/01/23 06:00
Intake and Output
09/30/23 10/01/23 10/02/23
06:59 06:59 06:59
Intake Total 3220 / 3270 1060 / 1060
Output Total 2100 / 2130 535 / 535
Balance 1120 / 1140 525 / 525
SaO2 93
Nasal Cannula flow liters per 6
minute
Physical Exam
General: Comfortable and Other (NAD)
HEENT: Normocephalic, Anicteric and Moist Mucous Membranes
Cardiovascular: S1-S2 and Regular Rhythm
Respiratory: Clear and Non-Labored Respirations
GI: Soft, Non Distended and Non Tender
Neurology: Awake, Alert, Oriented, AO x 3 and No Motor Deficits
Skin: Warm, Dry and Good Color
Labs/Micro/Reports
Lab Data
10/01/23 02:50
10/01/23 02:50
Microbiology
09/27/23 16:44 Blood/Venous Blood Culture - Preliminary
No Growth in 72 hours- Final report to follow
09/27/23 18:55 Foot - Left Wound Culture - Final
Klebsiella oxytoca
Providencia rettgeri
S aureus-Methicillin Sensitive
09/27/23 18:55 Foot - Left Gram Stain - Final
--- NOTE | 2023-10-01 07:49 | W.PN.VS ---
Addendum entered and electronically signed by WENDI Ron 10/01/23 09:28:
Spoke to sheeter machine operator Dr. Jamar Baer who advised that patient can bear weight on left lower extremity but only in surgical shoe. [facility] surgical shoe order placed.
Addendum entered and electronically signed by Finn Melendez MD 10/01/23 08:07:
Seen and examined this morning with KELLY Paz. Agree with findings as noted below. Patient without specific complaints. Left lower extremity dressings removed, and incisions all clean dry and intact currently. Excellent graft function with 2+
palpable graft pulse and palpable distal DP pulse. Foot is warm. Plan/as discussed and noted below. As noted below okay for transfer to telemetry from vascular perspective. Okay to initiate anticoagulation at this point, but would start with
heparin drip rather than transitioning directly to oral anticoagulation given slightly lower hemoglobin today and need for continued monitoring for any bleeding postoperatively. If stable after 24 hours of heparin drip (avoid boluses), then okay
for oral anticoagulation tomorrow. Will defer to podiatry in regards to need for additional foot debridement at this point, and in regards to weightbearing status on foot (likely heel weightbearing okay).
Original Note:
Today's Communication / Plan
-
Patient seen and evaluated at bedside with Dr. Finn Melendez, below plan reviewed with attending
Assessment/Plan
-
Assessment: 73 year old male POD#2 Left below the knee popliteal artery to dorsalis pedis artery bypass with ipsilateral nonreversed greater saphenous vein conduit.
Plan:
PT/OT eval and treat
From a vascular surgery perspective can be downgraded to telemetry/medical surgical floor
Continue neurovascular checks
Can initiate heparin infusion without bolus per cardiology recommendations for noted paroxysmal atrial fibrillation, if no evidence of increased bleeding following heparin infusion for 24 hours can then transition to oral anticoagulation
Subjective Data
-
Date of Service: October 01, 2023
Patient seen and examined at bedside, reports adequate postoperative pain management. Denies nausea, vomiting, fever, chills. Reports tolerating p.o. diet. Reports tolerating getting OOB to chair yesterday.
Objective Data
-
Vital Signs
Temp Pulse Resp BP Pulse Ox
97.4 F 73 19 109/72 93
10/01/23 03:18 10/01/23 06:00 10/01/23 06:00 10/01/23 06:00 10/01/23 06:00
Intake and Output
09/30/23 10/01/23 10/02/23
06:59 06:59 06:59
Intake Total 3220 / 3270 1060 / 1060
Output Total 2100 / 2130 535 / 535
Balance 1120 / 1140 525 / 525
Intake:
Oral fluids 480 / 480 960 / 960
IV fluids (Total) 2040 / 2040
NSS 1240 / 1240
IV piggybacks 700 / 750 100 / 100
Output:
Urine, Holman 955 / 955
Urine, Voided 545 / 575 535 / 535
Straight cath output 600 / 600
Other:
How many times incontinent 1
MODERATE amount urine
Lab Results
10/01/23 02:50
10/01/23 02:50
Calcium 8.0 mg/dl (8.4-10.2) L 10/01/23 02:50
Magnesium 2.0 mg/dl (1.6-2.3) 10/01/23 02:50
Total Bilirubin 0.4 mg/dl (0.2-1.3) 09/28/23 05:54
AST 24 U/L (17-59) 09/28/23 05:54
ALT 20 U/L (0-50) 09/28/23 05:54
Alkaline Phosphatase 78 U/L (38-126) 09/28/23 05:54
Total Protein 5.3 g/dl (6.3-8.2) L 09/28/23 05:54
Albumin 2.6 g/dl (3.5-5.0) L 09/28/23 05:54
Physical Exam
-
AAOx3, no apparent distress
No tachycardia
No dyspnea on room air
ABD rotund, nondistended, nontender
Left surgical thigh and upper calf dressing removed, negrito well-approximated. Foot and ankle dressing CDI. Can leave negrito open to air.left foot warm, DP and bypass graft pulse palpable
Bilateral feet warm
--- NOTE | 2023-10-01 08:54 | CM ---
Addendum entered by Farida Bruno 10/01/23 09:28:
Following discussion with PA for Vascular patient [facility] CM will send referrals via all scripts.
Original Note:
Patient seen at bedside with physician in ICU. Patient complained of pain in leg and indicated that he did not feel that he was able to walk on it at this time. Patient continues to want to go home with VN. CM will continue to follow for discharge
planning needs.
Plan; home with VN vs SNF pending functional needs. watch for SNF needs would need auth.
[2023-10-01] MEDS: PLAVIX 75 MG PO (08:57)
[2023-10-01] MEDS: LOW STRENGTH ASPIRIN 81 MG PO (08:57)
[2023-10-01] MEDS: FLOMAX 0.4 MG PO (08:57)
[2023-10-01 09:22] LABS: Glucose - Point of Care 155 mg/dl (70-99)
--- NOTE | 2023-10-01 09:23 | W.PN.HOSP.TC ---
Today's Communication/Plan
-
transfer to tele
PT/OT--ambulate with surgical shoe
bowel regimen
Assessment / Plan
Assessment / Plan
pt is a 73 year old male
Diabetic foot infection complicated by PAD--Dry gangrene status post partial amputation of left great toe, amputation left fourth toe--no osteo on foot x-ray--cont zosyn--apprec podiatry, no surgical intervention at this time
PAD status post end of left distal superficial femoral artery with drug-eluting stent on 08/24--apprec vascular--CT angio as per vascular, s/p LLE arterial bypass 09/28--cont asa/plavix/statin
wound (POA)--L heel with diabetic /pad/stage 3 pressure injury--L lateral leg with healed venous ulcer--apprec wound care--no plans for surgery per podiatry
hypokalemia--replete as needed
hyponatremia--noted--some chronicity to it
Coronary artery disease status post LAD stent in 2015-Continue aspirin
Type 2 diabetes with neuropathy--Insulin sliding scale
Prostate cancer status post prostate radiation in 2016
urinary retention--start flomax, bladder scan protocol
constipation--add bowel regimen
disposition--SNF likely
Full code
DVT prophylaxis�SCDs
Anticipated Discharge: > 48 hours
Subjective/Interval History
-
Date of Service: October 01, 2023
pt c/o leg pain and bleeding from negrito/surgical site
Objective Data
-
Labs:
Laboratory Results
10/01/23
02:50
WBC 12.1 H
Hgb 8.4 L
Hct 24.2 L
Plt Count 378
Sodium 136
Potassium 3.5
Chloride 105
Carbon Dioxide 28
BUN 12
Creatinine 0.8
Glucose 123 H
Calcium 8.0 L
Vital Signs:
max temp for 24 hours
09/30/23
23:59
Temp 97.7 F
Vital Signs
Temp Pulse Resp BP Pulse Ox
97.6 F 73 19 109/72 93
10/01/23 08:55 10/01/23 06:00 10/01/23 06:00 10/01/23 06:00 10/01/23 06:00
I&O
09/30/23 10/01/23 10/02/23
06:59 06:59 06:59
Intake Total 3220 / 3270 1060 / 1060
Output Total 2100 / 2130 535 / 535
Balance 1120 / 1140 525 / 525
Review of Systems
-
All other systems: Reviewed and negative
Musculoskeletal: Reports Other (leg pain)
Physical Exam
-
General: Well Developed, Well Nourished and No Apparent Distress
HEENT: Normocephalic and Atraumatic
Respiratory: Clear to Auscultation; Negative Wheezes or Rhonchi
Cardiac: Regular Rhythm and S1/S2; Negative Murmur
GI: Soft, Nontender, Nondistended and Normal Bowel Sounds
Musculoskeletal: No Clubbing, No Cyanosis and Other (left leg oozing in between negrito--bandages off--left foot wrapped)
Neuro: Awake and Alert
Psych: Calm
[2023-10-01] MEDS: NOVOLOG FLEXPEN-MODERATE RESISTANCE 1 UNITS SC ×2 (09:29→17:29)
--- NOTE | 2023-10-01 10:18 | PTCARENOTE ---
Received pt in bed. Left leg w/ dressing removed from Dr Melendez. L knee observed to be oozing. CLAUDIO Paz notified and here to redress would, see documentation, ANASTASIIA wrap applied and leg elevated. + doppler pulses. VSS. Full assessment as
documented. Plans to transfer to Tele.
--- NOTE | 2023-10-01 11:17 | PN.CDI ---
CDI
- -
CDI:
Physician Documentation Request
Admit Date: 09/27/23 21:09
Dear Doctor Gladys,
Patient admitted with diabetic foot infection complicated by PAD.
On admission Lactic acid 2.2 WBC 19.2, temp 100.5 , heart rate 60s-80s, respiratory rate 16-20,
Please clarify which of the following most accurately describes the status of the patient's infection:
Sepsis
- Systemic manifestations of infection, with 2 or more SIRS criteria which include:
- Fever >100.4 degrees F or hypothermia < 96.8 degrees F
- Leukocytosis - WBC > 12,000 or leukopenia - WBC < 4,000 or > 10% bands
- Tachycardia > 90 beats per minute
- Tachypnea - RR > 20 breaths per minute or PaCO2 , 32mmHg
Source: Merck Manual 2013
Severe Sepsis
Localized Infection Only, Without Systemic Illness
Other
Use of terms such as suspected, likely, concern for, or probable (associated with a specific diagnosis that is being evaluated, monitored, or treated as if it exists) are acceptable and can be coded in the inpatient setting, when documented at the
time of discharge.
Thank you,
Haleigh Emanuel RN, BSN
CDI Specialist
tiger text
Please use your independent medical judgment in providing your response.
--- NOTE | 2023-10-01 11:23 | W.PN.CD ---
Today's Communication / Plan
-
-
Cardiology will sign off
Please ask patient to see us in the office in 2-3 months
Impression / Plan
-
Abnormal EKG/tele
- The concern for AFib is noted. BUT THERE IS and has been NO AFIB (YET). Low amplitude P waves with PACs gave that impression
- No treatment is needed for AFib (yet)
Mild bradycardia
- Almost certainly from blocked PACs
Diabetic foot infection complicated
PAD
- No cardiac complications detected from surgery performed on 09/29/2023 => ' Left below the knee popliteal artery to dorsalis pedis artery bypass with ipsilateral nonreversed greater saphenous vein conduit.'
Coronary artery disease
-Stable without chest pain
-PANFILO to RCA in 2017 at [facility] with residual disease (30% PRCA, 30% pPDA)
-On DAPT, however will switch to Eliquis aspirin tomorrow
Mild aortic stenosis
Diabetic foot infection, dry gangrene status post partial amputation of left great toe, amputation of left fourth toe, on vancomycin/Zosyn
Hypertension, not on medical therapy at home, follow BP
Dyslipidemia, LDL above goal on atorvastatin 10
Type 2 diabetes mellitus, HgbA1c 6.6%, in the past it was up to 13%
PAD, PVD - PANFILO 08/25/2023
Chronic ambulatory dysfunction
Former smoker, continue cessation recommended
Subjective:
Feeling OK no new CV symptoms
-
-
Echo 02/24/2023: Nml LV/RV syst fxn, LVEF >75%, mild (mean 15, ANGEL 1.6), mild AR
Physical Exam
Vital Signs/Labs
Vital Signs
Temp Pulse Resp BP Pulse Ox
97.6 F 73 19 109/72 96
10/01/23 08:55 10/01/23 06:00 10/01/23 06:00 10/01/23 06:00 10/01/23 09:56
09/30/23 10/01/23 10/02/23
06:59 06:59 06:59
Actual Weight 81.3 kg 82.2 kg
10/01/23 02:50
10/01/23 02:50
PT 16.1 Sec (11.4-14.6) H 09/30/23 05:27
INR 1.29 09/30/23 05:27
APTT 33.1 Sec (23.4-35.0) 09/30/23 05:27
Magnesium 2.0 mg/dl (1.6-2.3) 10/01/23 02:50
Physical Exam
Constitutional: No acute distress
EENT: Anicteric
Cardiovascular: Rhythm & rate is regular
Respiratory: Respiratory effort normal and Lungs clear to auscul.
GI: Soft and Distention absent
Neuro/Psych: Alert
Data Reviewed
-
Date of Service: October 01, 2023
--- NOTE | 2023-10-01 12:13 | PN.CDI ---
CDI
- -
CDI:
Physician Documentation Request
Admit Date: 09/27/23 21:09
Dear Doctor Ariana
09/29 progress note states 'post op anemia...'
Could you please clarify which of the following is the most likely type of anemia you are evaluating/monitoring ?
Acute blood loss anemia
Acute blood loss anemia with baseline chronic anemia (Specify type)
Other
Use of terms such as suspected, likely, concern for, or probable (associated with a specific diagnosis that is being evaluated, monitored, or treated as if it exists) are acceptable and can be coded in the inpatient setting, when documented at the
time of discharge.
Thank you,
Haleigh Emanuel RN, BSN
CDI Specialist
tiger text
Please use your independent medical judgment in providing your response.
[2023-10-01 12:42] LABS: Glucose - Point of Care 269 mg/dl (70-99)
--- NOTE | 2023-10-01 13:17 | PTCARENOTE ---
Patient transferred to [address] [place] [address] from ICU.Patient is s/p vascular surgery on 09/29/2023.He rates his pain at a 3-4 out of 10.All dressings intact and wound care reviewed with the ICU nurse.The patient is in his bed with the call newton in reach.
[2023-10-01] MEDS: NOVOLOG FLEXPEN-MODERATE RESISTANCE 5 UNITS SC (13:32)
--- NOTE | 2023-10-01 13:39 | WOUNDNOTE ---
L GREAT TOE AMP SITE
--- NOTE | 2023-10-01 13:41 | WOUNDNOTE ---
L 4TH TOE AMP SITE
--- NOTE | 2023-10-01 13:41 | WOUNDNOTE ---
L LATERAL LOWER LEG
--- NOTE | 2023-10-01 13:43 | WOUNDNOTE ---
JOLENE RN NOTE: Followed up today regarding patient's surgical wounds and heel wound on L foot. Patient is s/p popliteal artery to dorsalis pedis artery bypass on L leg done . Reviewed vascular note, has surgical shoe at bedside. Increased
drainage from Great toe amp site along top with odor, heel appears shrimp cleaner, dry dressing re applied. Recommend clean/soak with 1/4 strength Dakin's then paint eschar with Betadine and dry dressing daily and prn odor or drainage. TT pictures to
Buffy and made aware of the above, awaiting response. Will also notify CLOTH HAULER Isha Paz who saw patient today to confirm. Patient able to turn to side, peeled back sacral silicone foam, sacrum is intact, R heel intact. Air cushion on pillow under
calves to offload heel. Is on an air overlay that needs to be inflated. Nurse Amanda made aware to inflate after patient done with lunch. Will update wound care orders if appropriate and follow as needed.
[2023-10-01] MEDS: FLUSH (NSS) 2 FLUSH IV (14:40)
--- NOTE | 2023-10-01 14:52 | WOUNDNOTE ---
JOLENE RN NOTE: Updated ASSISTANT PROFESSOR OF NURSING Isha jacobson on change in wound care, asked to confirm with Podiatry. Dr. Baer approved of change in wound care, will update orders, nurse Amanda made aware.
[2023-10-01 17:12] LABS: Glucose - Point of Care 184 mg/dl (70-99)
[2023-10-01] MEDS: LIPITOR 20 MG PO (17:29)
[2023-10-01] MEDS: HEPARIN 5000 UNITS SC (20:39)
[2023-10-01 21:28] LABS: Glucose - Point of Care 162 mg/dl (70-99)
[2023-10-01] MEDS: MELATONIN 5 MG PO (21:30)
[2023-10-02] MEDS: ZOSYN 50 IV ×4 (01:03→20:08)
[2023-10-02 06:00] VITALS: BMI 29.5
[2023-10-02 07:10] VITALS: BP 131/60
[2023-10-02 07:16] LABS: Glucose - Point of Care 153 mg/dl (70-99)
[2023-10-02 08:55] LABS: Hematocrit 24.5 % (39.0-52.0); Hemoglobin 8.7 g/dL (13.0-18.0); Mean Corp Hgb Conc. 35.5 g/dL (33.0-37.0); Mean Corpuscular Hgb 31.3 pg (27.0-31.0); Mean Corpuscular Volume 88.1 fL (80.0-94.0); Mean Platelet Volume 9.6 fL (7.4-10.4); Platelet Count 377 10^3/uL (130-400); Red Blood Cell Count 2.78 10^6/uL (4.70-6.10); Red Cell Dist. Width 12.5 % (11.5-14.5); White Blood Cell Count 12.6 10^3/uL (4.8-10.8)
[2023-10-02 09:37] LABS: Blood Urea Nitrogen 10 mg/dl (9-20); Calcium 8.2 mg/dl (8.4-10.2); Carbon Dioxide 25 mmol/L (22-30); Chloride 102 mmol/L (98-107); Estimated Creatinine Clearance 72 ml/min; Glucose 139 mg/dl (70-99); Magnesium 1.8 mg/dl (1.6-2.3); Potassium 3.9 mmol/L (3.5-5.1); Sodium 133 mmol/L (135-145); eGFR > 60.00
[2023-10-02] MEDS: NOVOLOG FLEXPEN-MODERATE RESISTANCE 2 UNITS SC (09:37)
[2023-10-02] MEDS: LOW STRENGTH ASPIRIN 81 MG PO (09:39)
[2023-10-02] MEDS: PLAVIX 75 MG PO (09:39)
[2023-10-02] MEDS: DAKIN'S SOLUTION 0.125% 1/4 STRENGTH 1 ML TOPICAL (09:40)
[2023-10-02] MEDS: HEPARIN 5000 UNITS SC ×2 (09:40→20:08)
[2023-10-02] MEDS: FLOMAX 0.4 MG PO (09:40)
[2023-10-02 11:45] VITALS: BP 121/65
--- NOTE | 2023-10-02 12:07 | W.PN.HOSP.TC ---
Addendum entered and electronically signed by Ai Graham MD 10/02/23 12:13:
sepsis likely POA due to DFI
Original Note:
Today's Communication/Plan
-
PT/OT
D/c planning
Assessment / Plan
Assessment / Plan
pt is a 73 year old male
Diabetic foot infection complicated by PAD--Dry gangrene status post partial amputation of left great toe, amputation left fourth toe--no osteo on foot x-ray--cont zosyn--apprec podiatry, no surgical intervention at this time
PAD status post end of left distal superficial femoral artery with drug-eluting stent on 08/24--apprec vascular--CT angio as per vascular, s/p LLE arterial bypass 09/28, still oozing, await vascular input--cont asa/plavix/statin
wound (POA)--L heel with diabetic /pad/stage 3 pressure injury--L lateral leg with healed venous ulcer--apprec wound care--no plans for surgery per podiatry
hypokalemia--replete as needed
hyponatremia--noted--some chronicity to it
Coronary artery disease status post LAD stent in 2015-Continue aspirin
Type 2 diabetes with neuropathy--Insulin sliding scale
Prostate cancer status post prostate radiation in 2016
urinary retention--start flomax, bladder scan protocol
constipation--add bowel regimen
disposition--SNF likely if pt agrees
Full code
DVT prophylaxis�SCDs
Anticipated Discharge: > 48 hours
Subjective/Interval History
-
Date of Service: October 02, 2023
pt now rethinking SNF
nursing reports incision site (bottom part) still oozing/bleeding
Objective Data
-
Labs:
Laboratory Results
10/02/23
08:29
WBC 12.6 H
Hgb 8.7 L
Hct 24.5 L
Plt Count 377
Sodium 133 L
Potassium 3.9
Chloride 102
Carbon Dioxide 25
BUN 10
Creatinine 0.8
Glucose 139 H
Calcium 8.2 L
Vital Signs:
max temp for 24 hours
10/01/23
15:00
Temp 98.6 F
Vital Signs
Temp Pulse Resp BP Pulse Ox
98.3 F 50 18 131/60 95
10/02/23 07:10 10/02/23 07:10 10/02/23 07:10 10/02/23 07:10 10/02/23 07:10
I&O
10/01/23 10/02/23 10/03/23
06:59 06:59 06:59
Intake Total 1060 / 1060 440 / 440
Output Total 535 / 535 825 / 825
Balance 525 / 525 -385 / -385
Review of Systems
-
All other systems: Reviewed and negative
Physical Exam
-
General: Well Developed, Well Nourished and No Apparent Distress
HEENT: Normocephalic and Atraumatic
Respiratory: Clear to Auscultation; Negative Wheezes or Rhonchi
Cardiac: Regular Rhythm and S1/S2; Negative Murmur
GI: Soft, Nontender, Nondistended and Normal Bowel Sounds
Musculoskeletal: No Clubbing, No Cyanosis and Other (left leg edematous with negrito in place, bandage in place)
Neuro: Awake and Alert
[2023-10-02 12:24] LABS: Glucose - Point of Care 166 mg/dl (70-99)
[2023-10-02] MEDS: NOVOLOG FLEXPEN-MODERATE RESISTANCE 1 UNITS SC (12:48)
--- NOTE | 2023-10-02 12:49 | CON.ID ---
Consultation
-
Date/Time Consultation Requested: 10/02/23 7:44
Date/Time Consultation Performed: 10/02/23 12;50
Requesting Provider: Dr Graham
Performing Provider: Dr Phillip
Reason for Consultation: diabetic foot infection
Chief Complaint / Past History
Chief Complaint
diabetic foot infection
History of Present Illness
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 Baer for infected wound on 09/26 5 days ago. Of note He had left great toe and fourth toe amputated on 09/15 and follow-up visit 09/23, at that time redness of the surgical site,
dehiscence and cellulitis to midfoot, odor and necrosis of the amputation site was noted, he started Augmentin and ciprofloxacin, on follow up 09/28 there was no improvement and he was referred to the ER. + fever but denies chills. There were
concerns that patient may have been noncomplaint with post op instructions.
Since arrival here he was initially febrile t o100.5, now euthermic, bp has been stable, wbc on arrivla 19.2 now 12.6, hgb initially 11.7 now 8.7, plt 377, when last checked 09/27 there was L shift, cr 0.8, a1c 07/07/23 6.3 and 09/27 6.6 previously as
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
Fount to have chronic limb threatneing ischemia and taken for Left below the knee popliteal artery to dorsalis pedis artery bypass with saphenous vein conduit. He was seen by podiatry on 09/27 who commented to reconsult if further amputation was
needed. 09/26 wound culture from the ER moderate k oxytoca, moderate providencia, few mssa, many diptheroids. Patient was initially on vancomycin and zosyn, now zosyn monotherapy. A single blood culture was sent on arrival and remains no growth at
4 days. ID is consulted for antibiotic management.
Past History
Additional Past Medical History:
dry gangrene of left fourth toe, nonhealing wounds of left lower extremity, PAD status post stent of left distal superficial femoral artery with drug-eluting stent on 08/24, chronic left lateral leg stage II decubitus/unstageable black necrotic left
heel ulceration, type 2 diabetes, diabetic neuropathy
Additional Past Surgical History:
as per hpi
Allergy History:
No Known Allergies Allergy (Verified 09/27/23 16:31)
Medications Reviewed: Yes
Social History
Tobacco: Non-Smoker
Alcohol: Occasional
Drug: None
Family History
Family History: Not Pertinent
Review of Systems
Review of Systems
General: Fever
All systems: All other systems were reviewed and were negative
Vital Signs
Temp Pulse Resp BP Pulse Ox
97.7 F 65 16 121/65 97
10/02/23 11:45 10/02/23 11:45 10/02/23 11:45 10/02/23 11:45 10/02/23 11:45
Physical Exam
Physical Exam
Constitutional: No Acute Distress
Cardiovascular: Regular Rate and S1/S2; Negative Murmur or Rub
Pulmonary: Clear and Symmetric; Negative Wheezes, Rales or Rhonchi
Gastrointestinal: Soft, Non Tender, Non Distended and Normal Bowel Sounds
Skin: Warm and Dry; Negative Rash or Jaundice
Wound: Other (eschars of the great toe site with purulent/opaque drainage, midfoot with erythema and swelling, 4th digit amputation site clean; heel amputation site with granulation tissue no erythema/warmth or swelling)
Lab / Diagnostic Study Results
10/02/23 08:29
10/02/23 08:29
Abs Immat Gran (auto) 0.1 10^3/uL (0-0.05) H 09/28/23 05:54
Absolute Neuts (auto) 11.7 10^3/uL (1.4-6.5) H 09/28/23 05:54
Absolute Lymphs (auto) 1.0 10^3/uL (1.2-3.4) L 09/28/23 05:54
Absolute Monos (auto) 1.1 10^3/uL (0.1-0.6) H 09/28/23 05:54
Absolute Basos (auto) 0.1 10^3/uL (0-0.2) 09/28/23 05:54
Immature Gran % 0.8 % (0-0.5) H 09/28/23 05:54
Neutrophils % 79.1 % (42.2-75.2) H 09/28/23 05:54
Lymphocytes % 7.0 % (20.5-51.1) L 09/28/23 05:54
Monocytes % 7.2 % (1.7-9.3) 09/28/23 05:54
Eosinophils % 5.2 % (0-6) 09/28/23 05:54
Basophils % 0.7 % (0-2) 09/28/23 05:54
PT 16.1 Sec (11.4-14.6) H 09/30/23 05:27
INR 1.29 09/30/23 05:27
Lactic Acid 1.8 mmol/L (0.7-2.0) 09/28/23 11:00
Microbiology Results
Micro:
09/27/23 16:44 Blood Culture - Preliminary
Blood/Venous No Growth in 4 days- Final report to follow
09/27/23 18:55 Wound Culture - Final
Foot - Left Klebsiella oxytoca
Providencia rettgeri
S aureus-Methicillin Sensitive
Gram Stain - Final
Wound/abscess/other Cult Final 09/30/23
Moderate Klebsiella oxytoca
Moderate Providencia rettgeri
Few S aureus-Methicillin Sensitive
Many Diptheroids
Organism 1 Klebsiella oxytoca
Organism 2 Providencia rettgeri
Organism 3 S aureus-Methicillin Sensitive
K.OXYTOCA P.RETTGERI MSSA
M.I.C. RX M.I.C. RX M.I.C. RX
--------- --- --------- --- --------- ---
Amoxicillin/Potas. Clavulanate <=8/4 S >16/8 R <=4/2 S
Ampicillin >16 R >16 R <=2 R
Ampicillin/Sulbactam 16/8 I <=4/2 S
Aztreonam <=4 S >16 R
Cefazolin >16 R >16 R
Cefepime <=2 S <=2 S
Ceftazidime <=1 S
Ceftriaxone <=1 S <=1 S
Clindamycin <=0.5 S
Ertapenem <=0.5 S <=0.5 S
Ciprofloxacin 0.5 I <=0.25 S
Gentamicin <=2 S <=2 S <=4 S
Erythromycin <=0.5 S
Levofloxacin <=1 S
Oxacillin <=0.25 S
Meropenem <=1 S <=1 S
Piperacillin/Tazobactam <=8 S <=8 S
Tetracycline <=4 S >8 R <=4 S
Tobramycin <=2 S <=2 S
Trimethoprim/Sulfamethoxazole <=2/38 S <=2/38 S <=0.5/9.5 S
Vancomycin 1 S
Assessment / Plan
Diabetic Foot Infection
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
Limb threatening ischemia s/p Left below the knee popliteal artery to dorsalis pedis artery bypass
DM2 - controlled
- single blood culture set sent on arrival, no growth to date, would not advise further blood cultures at this time
- wound culture: K oxytoca, P rettgeri, MSSA
- Xray 09/26 no evidence of osteomyelitis at that time
- asked for Dr Baer to reevaluate the foot given finding of purulent drainage from the medial eschar of the great toe amputation site
- currently on zosyn and would continue this based on culture results
- follow clinically
Care Review
Plan reviewed with: Physician (Dr Graham and Dr Baer - purulent drainage)
[2023-10-02 15:05] VITALS: BP 121/63
[2023-10-02 16:54] LABS: Glucose - Point of Care 208 mg/dl (70-99)
[2023-10-02] MEDS: LIPITOR 20 MG PO (17:32)
[2023-10-02] MEDS: NOVOLOG FLEXPEN-MODERATE RESISTANCE 3 UNITS SC (17:32)
[2023-10-02 19:19] VITALS: BP 142/63
[2023-10-02] MEDS: ROXICODONE 5 MG PO (20:23)
[2023-10-02 21:42] LABS: Glucose - Point of Care 150 mg/dl (70-99)
[2023-10-02] MEDS: MELATONIN 5 MG PO (22:02)
[2023-10-02] MEDS: SENOKOT 8.6 MG PO (22:02)
[2023-10-02 23:14] VITALS: BP 124/59
[2023-10-03] MEDS: ZOSYN 50 IV ×4 (02:30→20:39)
[2023-10-03 03:03] VITALS: BP 114/59
[2023-10-03 06:00] VITALS: BMI 29.1
[2023-10-03 07:01] LABS: Glucose - Point of Care 140 mg/dl (70-99)
[2023-10-03 07:05] VITALS: BP 127/58
[2023-10-03] MEDS: NOVOLOG FLEXPEN-MODERATE RESISTANCE SC ×2 (09:24→17:13)
[2023-10-03] MEDS: FLOMAX 0.4 MG PO (09:25)
[2023-10-03] MEDS: PLAVIX 75 MG PO (09:25)
[2023-10-03] MEDS: SENOKOT 8.6 MG PO (09:25)
[2023-10-03] MEDS: LOW STRENGTH ASPIRIN 81 MG PO (09:26)
[2023-10-03] MEDS: DAKIN'S SOLUTION 0.125% 1/4 STRENGTH 1 ML TOPICAL (09:27)
[2023-10-03] MEDS: HEPARIN 5000 UNITS SC ×2 (09:27→20:39)
[2023-10-03 09:35] LABS: Hematocrit 22.6 % (39.0-52.0); Hemoglobin 7.8 g/dL (13.0-18.0); Mean Corp Hgb Conc. 34.5 g/dL (33.0-37.0); Mean Corpuscular Hgb 31.3 pg (27.0-31.0); Mean Corpuscular Volume 90.8 fL (80.0-94.0); Mean Platelet Volume 9.6 fL (7.4-10.4); Platelet Count 392 10^3/uL (130-400); Red Blood Cell Count 2.49 10^6/uL (4.70-6.10); Red Cell Dist. Width 12.7 % (11.5-14.5); White Blood Cell Count 13.8 10^3/uL (4.8-10.8)
[2023-10-03 10:08] LABS: Blood Urea Nitrogen 9 mg/dl (9-20); Carbon Dioxide 25 mmol/L (22-30); Chloride 103 mmol/L (98-107); Estimated Creatinine Clearance 72 ml/min; Glucose 117 mg/dl (70-99); Potassium 3.7 mmol/L (3.5-5.1); Sodium 133 mmol/L (135-145); eGFR > 60.00
--- NOTE | 2023-10-03 10:16 | CM ---
social services manager reviewed with patient discharge planning options and discussed skilled placement, patient states he would prefer to return to home with home care services, patient is agreeable to [facility], physicial therapy are recommending skilled
placement. social services manager reviewed skilled options including [facility], [facility] and [facility], and patient again states he prefers home.
Plan; To follow up with patient for discharge planning needs.
--- NOTE | 2023-10-03 11:26 | W.PN.HOSP.TC ---
Addendum entered and electronically signed by Ai Graham MD 10/03/23 11:32:
acute blood loss anemia (likely from oozing surgical site) plus chronic disease--HGB 7.8--follow for transfusion needs
Original Note:
Today's Communication/Plan
-
await decision for more debridement
Assessment / Plan
Assessment / Plan
pt is a 73 year old male
Diabetic foot infection complicated by PAD--Dry gangrene status post partial amputation of left great toe, amputation left fourth toe, as per ID, still with purulence under eschar--no osteo on foot x-ray--cont zosyn--apprec podiatry, no surgical
intervention at this time per Dr. Carrera (signed off)
PAD status post end of left distal superficial femoral artery with drug-eluting stent on 08/24--apprec vascular--CT angio as per vascular, s/p LLE arterial bypass 09/28, still oozing, apprec vascular input--cont asa/plavix/statin
wound (POA)--L heel with diabetic /pad/stage 3 pressure injury--L lateral leg with healed venous ulcer--apprec wound care--no plans for surgery per podiatry
hypokalemia--replete as needed
hyponatremia--noted--some chronicity to it
Coronary artery disease status post LAD stent in 2015-Continue aspirin
Type 2 diabetes with neuropathy--Insulin sliding scale
Prostate cancer status post prostate radiation in 2016
urinary retention--start flomax, bladder scan protocol
constipation--add bowel regimen
disposition--SNF likely if pt agrees, now not
Full code
DVT prophylaxis�SCDs
Anticipated Discharge: > 48 hours
Subjective/Interval History
-
Date of Service: October 03, 2023
pt has refused to go to SNF now
Objective Data
-
Labs:
Laboratory Results
10/03/23
07:51
WBC 13.8 H
Hgb 7.8 L
Hct 22.6 L
Plt Count 392
Sodium 133 L
Potassium 3.7
Chloride 103
Carbon Dioxide 25
BUN 9
Creatinine 0.8
Glucose 117 H
Calcium 8.0 L
Vital Signs:
max temp for 24 hours
10/03/23
03:03
Temp 99.4 F
Vital Signs
Temp Pulse Resp BP Pulse Ox
98.2 F 55 14 127/58 96
10/03/23 07:05 10/03/23 07:05 10/03/23 07:05 10/03/23 07:05 10/03/23 07:05
I&O
10/02/23 10/03/23 10/04/23
06:59 06:59 06:59
Intake Total 440 / 440 850 / 850
Output Total 825 / 825 1625 / 1625
Balance -385 / -385 -775 / -775
Review of Systems
-
All other systems: Reviewed and negative
Physical Exam
-
General: Well Developed, Well Nourished and No Apparent Distress
HEENT: Normocephalic and Atraumatic
Respiratory: Clear to Auscultation; Negative Wheezes or Rhonchi
Cardiac: Regular Rhythm and S1/S2; Negative Murmur
GI: Soft, Nontender, Nondistended and Normal Bowel Sounds
Musculoskeletal: Other (left leg post op with bandages in place--left foot wrapped)
[2023-10-03 11:35] VITALS: BP 113/52
[2023-10-03 11:36] LABS: Glucose - Point of Care 226 mg/dl (70-99)
--- NOTE | 2023-10-03 13:36 | W.PN.ID1 ---
Date of Service
Date of Service: October 03, 2023
Today's Communication
- finding of purulent drainage from the medial eschar of the great toe amputation site, patient will have surgical reassessment with Dr Melendez tomorrow
- currently on zosyn and would continue this based on culture results
Assessment / Plan
Diabetic Foot Infection
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
Limb threatening ischemia s/p Left below the knee popliteal artery to dorsalis pedis artery bypass
DM2 - controlled
- single blood culture set sent on arrival, no growth to date, would not advise further blood cultures at this time
- wound culture: K oxytoca, P rettgeri, MSSA
- Xray 09/26 no evidence of osteomyelitis at that time
- finding of purulent drainage from the medial eschar of the great toe amputation site, patient will have surgical reassessment with Dr Melendez tomorrow
- currently on zosyn and would continue this based on culture results
- follow clinically
Chief Complaint
-: Other (diabetic foot infection)
Subjective / Review of Systems
afebrile
no events overnight
discussed with Dr Baer and Dr Melendez - Dr Melendez requests patient be NPO at midnight for possible further debridement
Vital Signs / Physical Exam
Vital Signs
Vital Signs
Temp Pulse Resp BP Pulse Ox
98.3 F 59 16 113/52 93
10/03/23 11:35 10/03/23 11:35 10/03/23 11:35 10/03/23 11:35 10/03/23 11:35
Physical Exam
Constitutional: No Acute Distress
Cardiovascular: Regular Rate and S1/S2; Negative Murmur or Rub
Pulmonary: Clear and Symmetric; Negative Wheezes or Rales
Gastrointestinal: Soft, Non Tender, Non Distended and Normal Bowel Sounds
Skin: Warm and Dry; Negative Rash or Jaundice
Wound: Other (dressing takedown deferred today)
Neurological: Awake
Objective Data
Lab Data
Lab Results
10/03/23 07:51
10/03/23 07:51
PT 16.1 Sec (11.4-14.6) H 09/30/23 05:27
INR 1.29 09/30/23 05:27
APTT 33.1 Sec (23.4-35.0) 09/30/23 05:27
Estimated Creat Clear 72 ml/min 10/03/23 07:51
Lactic Acid 1.8 mmol/L (0.7-2.0) 09/28/23 11:00
Total Bilirubin 0.4 mg/dl (0.2-1.3) 09/28/23 05:54
AST 24 U/L (17-59) 09/28/23 05:54
ALT 20 U/L (0-50) 09/28/23 05:54
Alkaline Phosphatase 78 U/L (38-126) 09/28/23 05:54
Most recent labs reviewed.
Micro Results:
09/27/23 16:44 Blood Culture - Final
Blood/Venous No Growth - Final Report
09/27/23 18:55 Wound Culture - Final
Foot - Left Klebsiella oxytoca
Providencia rettgeri
S aureus-Methicillin Sensitive
Gram Stain - Final
Care Review
Plan reviewed with: Physician (Dr Baer and Dr Melendez - further debridement)
[2023-10-03] MEDS: NOVOLOG FLEXPEN-MODERATE RESISTANCE 3 UNITS SC (14:08)
--- NOTE | 2023-10-03 15:12 | PTCARENOTE ---
pt having drainage from middle left incision, drains from distal portion. Dressing,renée wrap, sheet etc all soiled with blood this. TT with Dr. Graham and was seen in person. Hg 7.8 (8.4).
[2023-10-03 15:35] VITALS: BP 103/65
[2023-10-03 17:05] LABS: Glucose - Point of Care 102 mg/dl (70-99)
[2023-10-03] MEDS: LIPITOR 20 MG PO (17:14)
[2023-10-03 19:25] VITALS: BP 110/56
[2023-10-03] MEDS: SENOKOT PO (20:39)
[2023-10-03] MEDS: ROXICODONE 5 MG PO (20:48)
[2023-10-03 21:48] LABS: Glucose - Point of Care 187 mg/dl (70-99)
[2023-10-03] MEDS: MELATONIN 5 MG PO (21:52)
[2023-10-03 23:28] VITALS: BP 122/53
[2023-10-04] VITALS (19 sets, daily range): BP systolic 88–147; BP diastolic 50–100; BMI 28.6
[2023-10-04] MEDS: ZOSYN 50 IV ×4 (02:48→21:16)
[2023-10-04 07:12] LABS: Glucose - Point of Care 146 mg/dl (70-99)
--- NOTE | 2023-10-04 07:24 | W.PN.VS ---
Today's Communication / Plan
-
See plan below for today 10/04/2023.
Assessment/Plan
-
Assessment: 73 year old male POD#5 Left below the knee popliteal artery to dorsalis pedis artery bypass with ipsilateral nonreversed greater saphenous vein conduit.
Plan:
Needs left foot debridement with likely more proximal debridement of metatarsals. Discussed with patient. Per ID doctor yesterday phone conversation, podiatry not available. Therefore we will plan debridement today in OR. Discussed with patient
and he agrees to proceed.
-
Total Time Spent with Patient (in minutes): 15
Subjective Data
-
Date of Service: October 04, 2023
Seen and evaluated. No events noted. Patient without specific complaints. I was asked to reevaluate regarding left foot yesterday by infectious disease Dr. Phillip (noting podiatry was unavailable).
Objective Data
-
Vital Signs
Temp Pulse Resp BP Pulse Ox
99.7 F 65 16 132/57 95
10/04/23 03:11 10/04/23 03:11 10/04/23 03:11 10/04/23 03:11 10/04/23 03:11
Intake and Output
10/03/23 10/04/23 10/05/23
06:59 06:59 06:59
Intake Total 850 / 850 1750 / 1750
Output Total 1625 / 1625 1050 / 1050
Balance -775 / -775 700 / 700
Intake:
Oral fluids 600 / 600 1500 / 1500
IV fluids (Total) 50 / 50 50 / 50
IV piggybacks 200 / 200 200 / 200
Output:
Urine, Voided 1625 / 1625 1050 / 1050
Other:
How many times incontinent 1
MODERATE amount urine
How many times incontinent 1 1
SATURATED amount urine
Calcium 8.0 mg/dl (8.4-10.2) L 10/03/23 07:51
Magnesium 1.8 mg/dl (1.6-2.3) 10/02/23 08:29
Total Bilirubin 0.4 mg/dl (0.2-1.3) 09/28/23 05:54
AST 24 U/L (17-59) 09/28/23 05:54
ALT 20 U/L (0-50) 09/28/23 05:54
Alkaline Phosphatase 78 U/L (38-126) 09/28/23 05:54
Total Protein 5.3 g/dl (6.3-8.2) L 09/28/23 05:54
Albumin 2.6 g/dl (3.5-5.0) L 09/28/23 05:54
Physical Exam
-
Afebrile (Tmax, T current 99.7).
Awake and alert.
Left lower extremity incisions are clean and intact. Left distal thigh saphenectomy site with bloody drainage on dressing. Dressing change. When I expressed or pushed down there is no active drainage I note. No fluctuance. No fullness.
Left foot warm with excellent graft pulse 2+.
Left foot distally prior first to toe amputation site with necrotic tissue and some exposed bone.
[2023-10-04] MEDS: HEPARIN 5000 UNITS SC ×2 (08:09→21:16)
[2023-10-04] MEDS: LOW STRENGTH ASPIRIN 81 MG PO (08:09)
[2023-10-04] MEDS: SENOKOT 8.6 MG PO ×2 (08:09→21:16)
[2023-10-04] MEDS: PLAVIX 75 MG PO (08:09)
[2023-10-04] MEDS: FLOMAX 0.4 MG PO (08:09)
[2023-10-04] MEDS: DAKIN'S SOLUTION 0.125% 1/4 STRENGTH 473 ML TOPICAL (09:33)
[2023-10-04 10:55] LABS: Hematocrit 19.6 % (39.0-52.0); Hemoglobin 6.9 g/dL (13.0-18.0); Mean Corp Hgb Conc. 35.2 g/dL (33.0-37.0); Mean Corpuscular Hgb 31.2 pg (27.0-31.0); Mean Corpuscular Volume 88.7 fL (80.0-94.0); Mean Platelet Volume 9.4 fL (7.4-10.4); Platelet Count 447 10^3/uL (130-400); Red Blood Cell Count 2.21 10^6/uL (4.70-6.10); Red Cell Dist. Width 12.8 % (11.5-14.5); White Blood Cell Count 14.8 10^3/uL (4.8-10.8)
[2023-10-04 11:03] LABS: Blood Urea Nitrogen 9 mg/dl (9-20); Calcium 8.3 mg/dl (8.4-10.2); Carbon Dioxide 26 mmol/L (22-30); Chloride 100 mmol/L (98-107); Estimated Creatinine Clearance 72 ml/min; Glucose 120 mg/dl (70-99); Magnesium 1.9 mg/dl (1.6-2.3); Potassium 3.8 mmol/L (3.5-5.1); Sodium 133 mmol/L (135-145); eGFR > 60.00
--- NOTE | 2023-10-04 11:10 | W.PN.POD ---
Today's Communication
Today's Communication
Further debridement necessary of infected, necrotic great toe amputation site, left foot.
Assessment / Plan
-
Assessment:
S/P 18 days partial hallux amp, fourth toe amp, debridement of third toe and decubitus heel wounds, left foot.
S/P 5 days below knee popliteal to dorsalis pedis bypass, LLE as per Dr. Melendez.
-Type 2 Diabetes Mellitus
-PVD/PAD
-CAD
-Ex-Smoker
Plan:
Further debridement necessary of infected, necrotic great toe amputation site, left foot - possible first ray amputation if soft tissue coverage allows.
Vascular note appreciated. Plan to OR today.
Will discuss with vascular directly.
(Excisional debridement of the left fourth toe amputation site, partial skin thickness, with removal of dry, devitalized tissue to healthy, bleeding base.)
Will follow.
Subjective
Chief Complaint
S/P 18 days partial hallux amp, fourth toe amp, debridement of third toe and decubitus heel wounds, left foot.
S/P 5 days below knee popliteal to dorsalis pedis bypass, LLE as per Dr. Melendez.
Subjective
Patient resting comfortable in bed.
Denies fever, chills or sweats.
Objective
Temp Pulse Resp BP Pulse Ox
97.7 F 66 15 106/61 97
10/04/23 07:13 10/04/23 07:13 10/04/23 07:13 10/04/23 07:13 10/04/23 08:00
10/04/23 09:23
10/04/23 09:23
Vital Signs and Lab results were reviewed.
Afebrile, VSS.
Leukocytosis
Wound culture: Klebsiella onytoca, Providencia rettgeri, MSSA
Blood cultures: Negative-final.
09/27/23 XRAY, LEFT foot:
Patient is status post amputation of the left great toe at the level of the distal aspect of the proximal phalanx, as well as the left fourth toe at the level of the proximal phalanx with no evidence for interval bony destruction.
No radiographic findings to suggest osteomyelitis.
08/25/23: Balloon angioplasty/ stent placement of the left distal superficial femoral artery.
09/29/23: S/P 5 days below knee popliteal to dorsalis pedis bypass, LLE as per Dr. Melendez.
Exam:
Left foot is warm, DP pulse is palpable.
The left fourth toe amputation site is healing. Minor superficial wound at base, lightly bleeding upon light debridement and no local signs of infection.
The postero-plantar heel wound is viable and clean, granular base, now approximately 2.5cm diameter.round. No necrosis present.
The left great toe amp site without interval change since last seen. Moderate edema/erythema of the medial forefoot, contracture of the stump, dehiscence with necrosis medially and distally, malodorous, purulent discharge expressed, and exposure of
the proximal phalanx noted.
--- NOTE | 2023-10-04 11:24 | CM ---
Patient for OR today, seen at bedside with physician. Patient with sheet over head for privacy. Patient for further transfusions per physician. Patient with no questions at this time. CM will continue to follow for discharge planning needs.
Plan; SNF vs home with VN
--- NOTE | 2023-10-04 11:27 | W.PN.HOSP.TC ---
Today's Communication/Plan
-
transfuse 2 units pRBC
OR today
Assessment / Plan
Assessment / Plan
pt is a 73 year old male
Diabetic foot infection complicated by PAD--Dry gangrene status post partial amputation of left great toe, amputation left fourth toe, as per ID, still with purulence under eschar, for debridement with vascular--no osteo on foot x-ray--cont
zosyn--apprec podiatry, no surgical intervention at this time per Dr. Carrera (signed off)
PAD status post end of left distal superficial femoral artery with drug-eluting stent on 08/24--apprec vascular--CT angio as per vascular, s/p LLE arterial bypass 09/28, still oozing, apprec vascular input--cont asa/plavix/statin
acute blood loss anemia (likely from oozing surgical site) plus chronic disease--HGB 6.9-will transfuse 2 units pRBC
wound (POA)--L heel with diabetic /pad/stage 3 pressure injury--L lateral leg with healed venous ulcer--apprec wound care--no plans for surgery per podiatry
hypokalemia--replete as needed
hyponatremia--noted--some chronicity to it
Coronary artery disease status post LAD stent in 2015-Continue aspirin
Type 2 diabetes with neuropathy--Insulin sliding scale
Prostate cancer status post prostate radiation in 2016
urinary retention--start flomax, bladder scan protocol
constipation--add bowel regimen
disposition--SNF likely if pt agrees, now not
Full code
DVT prophylaxis�SCDs
Anticipated Discharge: > 48 hours
Subjective/Interval History
-
Date of Service: October 04, 2023
pt waiting for surgery
Objective Data
-
Labs:
Laboratory Results
10/04/23
09:23
WBC 14.8 H
Hgb 6.9 L*
Hct 19.6 L*
Plt Count 447 H
Sodium 133 L
Potassium 3.8
Chloride 100
Carbon Dioxide 26
BUN 9
Creatinine 0.8
Glucose 120 H
Calcium 8.3 L
Vital Signs:
max temp for 24 hours
10/04/23
03:11
Temp 99.7 F
Vital Signs
Temp Pulse Resp BP Pulse Ox
97.7 F 66 15 106/61 97
10/04/23 07:13 10/04/23 07:13 10/04/23 07:13 10/04/23 07:13 10/04/23 08:00
I&O
10/03/23 10/04/23 10/05/23
06:59 06:59 06:59
Intake Total 850 / 850 1750 / 1750
Output Total 1625 / 1625 1050 / 1050
Balance -775 / -775 700 / 700
Review of Systems
-
All other systems: Reviewed and negative
Physical Exam
-
General: Well Developed, Well Nourished and No Apparent Distress
HEENT: Normocephalic and Atraumatic
Respiratory: Clear to Auscultation; Negative Wheezes
Cardiac: Regular Rhythm, S1/S2 and Murmur
GI: Soft, Nontender, Nondistended and Normal Bowel Sounds
Musculoskeletal: Other (left leg swollen--negrito in place--left foot wrapped)
Neuro: Awake
Psych: Calm
--- NOTE | 2023-10-04 11:44 | W.PN.ID1 ---
Date of Service
Date of Service: October 04, 2023
Today's Communication
- appreciate podiatry and vascular surgery assistance
- currently on zosyn and would continue this based on culture results, will follow up OR note
Assessment / Plan
Surgical Site Infection, Diabetic Foot Infection
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
Limb threatening ischemia s/p Left below the knee popliteal artery to dorsalis pedis artery bypass
DM2 - controlled
- single blood culture set sent on arrival, no growth to date, would not advise further blood cultures at this time
- wound culture: K oxytoca, P rettgeri, MSSA
- Xray 09/26 no evidence of osteomyelitis at that time
- appreciate podiatry and vascular surgery assistance
- currently on zosyn and would continue this based on culture results, will follow up OR note
- follow clinically
Chief Complaint
-: Other (diabetic foot infection)
Subjective / Review of Systems
afebrile
RN has also noted drainage from the distal incision sites
getting 2 units PRBCs and for the OR
Vital Signs / Physical Exam
Vital Signs
Vital Signs
Temp Pulse Resp BP Pulse Ox
97.7 F 66 15 106/61 97
10/04/23 07:13 10/04/23 07:13 10/04/23 07:13 10/04/23 07:13 10/04/23 08:00
Physical Exam
Constitutional: No Acute Distress
Cardiovascular: Regular Rate and S1/S2; Negative Murmur or Rub
Pulmonary: Clear and Symmetric; Negative Wheezes or Rales
Gastrointestinal: Soft, Non Tender, Non Distended and Normal Bowel Sounds
Extremities: Other (dressing take down deferred)
Skin: Warm and Dry; Negative Rash or Jaundice
Objective Data
Lab Data
Lab Results
10/04/23 09:23
10/04/23 09:23
PT 16.1 Sec (11.4-14.6) H 09/30/23 05:27
INR 1.29 09/30/23 05:27
APTT 33.1 Sec (23.4-35.0) 09/30/23 05:27
Estimated Creat Clear 72 ml/min 10/04/23 09:23
Lactic Acid 1.8 mmol/L (0.7-2.0) 09/28/23 11:00
Total Bilirubin 0.4 mg/dl (0.2-1.3) 09/28/23 05:54
AST 24 U/L (17-59) 09/28/23 05:54
ALT 20 U/L (0-50) 09/28/23 05:54
Alkaline Phosphatase 78 U/L (38-126) 09/28/23 05:54
Most recent labs reviewed.
Micro Results:
09/27/23 16:44 Blood Culture - Final
Blood/Venous No Growth - Final Report
09/27/23 18:55 Wound Culture - Final
Foot - Left Klebsiella oxytoca
Providencia rettgeri
S aureus-Methicillin Sensitive
Gram Stain - Final
--- NOTE | 2023-10-04 12:04 | W.PN.UPDATE ---
Update Note
Progress Note Update
Discussed via phone with galley cook Dr. Baer. He saw the patient this morning. He agrees with need for debridement. He will take care of this in the operating room either today or tomorrow pending availability. Discussed with hospitalist to
confirm plan. In the meanwhile agree with transfusion.
[2023-10-04 12:16] LABS: Glucose - Point of Care 136 mg/dl (70-99)
[2023-10-04] MEDS: LIPITOR 20 MG PO (17:47)
--- NOTE | 2023-10-04 18:33 | W.PN.UPDATE ---
Update Note
Progress Note Update
Discussed this patient via phone with Vascular surgery (Dr. Melendez) and we are in agreement regarding surgical plan- Debridement of infected and nonviable skin, soft tissue and bone, left foot. Probable partial first ray amputation, left. The surgical
plan was discussed with the patient via phone as well and all questions were answered to his full satisfaction.
[2023-10-04 19:57] LABS: Glucose - Point of Care 117 mg/dl (70-99)
--- NOTE | 2023-10-04 20:01 | W.PN.UPDATE ---
Update Note
Progress Note Update
Patient consent for the surgical procedures to address necrotic/infected wounds of the left foot obtained at bedside. The patient understands the benefits, risks, and possible complications associated with the proposed left foot procedure including
the potential need for additional surgery.
Procedure: Partial first ray amputation, left foot under LMA
EBL: 30cc
Post-op condition: Stable, Vascular status intact to the LLE.
Orders:
XRAYS left foot.
Weightbearing status: NWB Left foot.
Resume diet.
--- NOTE | 2023-10-04 20:35 | SUR.PHASEI ---
received patient at 195 in pacu with saturated bulky dressing of right foot - dripping continuous flow of blood from dressing toe area. Dr Baer in pacu - advised, came to bedside and dressing taken down partially and 4 abd's with 2 rolls of
kerlex and renée wrap redressed, tightly over foot area and loose over ankle. elevated on 2 pillows, patient's initial bp 147/100, then 88/65. monitor shows sinus rhythm with first degree block and frequent pac's pvc's. Dr Dickens called and
advised of vitals and bleeding, and rhythm. no new orders. Dr Baer rechecked dressing x2. vitals remain with lower stable bp, dressing bulky and dry. denies pain. xrays completed.
[2023-10-04] MEDS: ROXICODONE 5 MG PO (21:16)
[2023-10-04 21:21] LABS: Glucose - Point of Care 133 mg/dl (70-99)
--- NOTE | 2023-10-04 21:40 | PTCARENOTE ---
Received patient from PACU. Stable vitals. Dressing on LLE CDI. 08/24 pain. Ordered Oxycodone administered as per order. POC reviewed with the patient. will continue to monitor.
[2023-10-04] MEDS: MELATONIN 5 MG PO (21:58)
[2023-10-05] VITALS (8 sets, daily range): BP systolic 98–123; BP diastolic 45–61; BMI 28.5
[2023-10-05] MEDS: ZOSYN 50 IV ×2 (02:52→08:25)
[2023-10-05] MEDS: ROXICODONE 5 MG PO ×2 (02:54→17:26)
[2023-10-05 07:10] LABS: Glucose - Point of Care 197 mg/dl (70-99)
[2023-10-05] MEDS: NOVOLOG FLEXPEN-MODERATE RESISTANCE 1 UNITS SC ×2 (08:23→17:31)
[2023-10-05] MEDS: DAKIN'S SOLUTION 0.125% 1/4 STRENGTH 473 ML TOPICAL (08:23)
[2023-10-05] MEDS: LOW STRENGTH ASPIRIN 81 MG PO (08:24)
[2023-10-05] MEDS: HEPARIN 5000 UNITS SC ×2 (08:24→20:56)
[2023-10-05] MEDS: SENOKOT 8.6 MG PO ×2 (08:24→20:56)
[2023-10-05] MEDS: FLOMAX 0.4 MG PO (08:24)
[2023-10-05] MEDS: PLAVIX 75 MG PO (08:24)
[2023-10-05] MEDS: DILAUDID 0.5 MG IV (08:27)
[2023-10-05] MEDS: FLUSH (NSS) 3 FLUSH IV (08:28)
--- NOTE | 2023-10-05 10:03 | W.PN.ID1 ---
Date of Service
Date of Service: October 05, 2023
Today's Communication
- s/p first ray debridement 10/03 with podiatry
- switch to cefdinir + metronidazole x7 more days
- follow up with podiatry
Assessment / Plan
Surgical Site Infection, Diabetic Foot Infection
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
Limb threatening ischemia s/p Left below the knee popliteal artery to dorsalis pedis artery bypass
DM2 - controlled
- single blood culture set sent on arrival, no growth to date
- wound culture: K oxytoca, P rettgeri, MSSA
- Xray 09/26 no evidence of osteomyelitis at that time
- s/p first ray debridement 10/03 with podiatry
- switch to cefdinir + metronidazole x7 more days
- follow up with podiatry
Chief Complaint
-: Other (diabetic foot infection)
Subjective / Review of Systems
afebrile
s/p partial L first ray amputation
Vital Signs / Physical Exam
Vital Signs
Vital Signs
Temp Pulse Resp BP Pulse Ox
98.5 F 63 15 99/49 96
10/05/23 07:09 10/05/23 07:09 10/05/23 07:09 10/05/23 07:09 10/05/23 07:09
Physical Exam
Constitutional: No Acute Distress
Cardiovascular: Regular Rate and S1/S2; Negative Murmur or Rub
Pulmonary: Clear and Symmetric; Negative Wheezes or Rales
Gastrointestinal: Soft, Non Tender, Non Distended and Normal Bowel Sounds
Skin: Warm and Dry; Negative Rash or Jaundice
Wound: Other (dressing take down per podiatry)
Objective Data
Lab Data
PT 16.1 Sec (11.4-14.6) H 09/30/23 05:27
INR 1.29 09/30/23 05:27
APTT 33.1 Sec (23.4-35.0) 09/30/23 05:27
Estimated Creat Clear 72 ml/min 10/04/23 09:23
Lactic Acid 1.8 mmol/L (0.7-2.0) 09/28/23 11:00
Total Bilirubin 0.4 mg/dl (0.2-1.3) 09/28/23 05:54
AST 24 U/L (17-59) 09/28/23 05:54
ALT 20 U/L (0-50) 09/28/23 05:54
Alkaline Phosphatase 78 U/L (38-126) 09/28/23 05:54
Most recent labs reviewed.
Micro Results:
09/27/23 16:44 Blood Culture - Final
Blood/Venous No Growth - Final Report
09/27/23 18:55 Wound Culture - Final
Foot - Left Klebsiella oxytoca
Providencia rettgeri
S aureus-Methicillin Sensitive
Gram Stain - Final
Care Review
Plan reviewed with: Other (clinical pharmacy)
--- NOTE | 2023-10-05 10:04 | W.PN.HOSP.TC ---
Today's Communication/Plan
-
f/u hbg level
await pod evaluate today
abx per ID
Assessment / Plan
Assessment / Plan
pt is a 73 year old male
Diabetic foot infection complicated by PAD
-Dry gangrene status post partial amputation of left great toe, amputation left fourth toe,
-no osteo on foot x-ray
-cont zosyn
-Patient underwent left foot first toe partial ray amputation on 10/03
-Some bleeding at the site reported by RN, currently on antiplatelet therapy. Podiatry planning to see patient later in today.
-Patient required due to blood transfusion, may require further blood transfusion if hemoglobin close to 7 or less
PAD status post end of left distal superficial femoral artery with drug-eluting stent on 08/24
--apprec vascular
-CT angio as per vascular,
-s/p LLE arterial bypass 09/28, still oozing, apprec vascular input
-cont asa/plavix/statin
acute blood loss anemia (likely from oozing surgical site) plus chronic disease
-Transfuse as necessary to maintain hemoglobin above 7
wound (POA)--L heel with diabetic /pad/stage 3 pressure injury
-L lateral leg with healed venous ulcer--apprec wound care--no plans for surgery per podiatry
hypokalemia--replete as needed
hyponatremia--noted--some chronicity to it
Coronary artery disease status post LAD stent in 2015-Continue aspirin
Type 2 diabetes with neuropathy--Insulin sliding scale
Prostate cancer status post prostate radiation in 2017
urinary retention--start flomax, bladder scan protocol
constipation--add bowel regimen
Full code
DVT prophylaxis�SCDs
Anticipated Discharge: 24 - 48 hours
Subjective/Interval History
-
Date of Service: October 05, 2023
Some left foot pain
No bleeding issues overnight
Objective Data
-
Labs:
Laboratory Results
10/05/23
06:00
WBC Pending
Hgb Pending
Hct Pending
Plt Count Pending
Sodium Pending
Potassium Pending
Chloride Pending
Carbon Dioxide Pending
BUN Pending
Creatinine Pending
Glucose Pending
Calcium Pending
Vital Signs:
Vital Signs
Temp Pulse Resp BP Pulse Ox
98.5 F 63 15 99/49 96
10/05/23 07:09 10/05/23 07:09 10/05/23 07:09 10/05/23 07:09 10/05/23 07:09
I&O
10/04/23 10/05/23 10/06/23
06:59 06:59 06:59
Intake Total 1750 / 1750 1625 / 1625
Output Total 1050 / 1050 325 / 325
Balance 700 / 700 1300 / 1300
Review of Systems
-
Respiratory: Reports No Symptoms
Cardiac: Reports No Symptoms
Abdomen/GI: Reports No Symptoms
Physical Exam
-
General: No Apparent Distress
Respiratory: Clear to Auscultation; Negative Wheezes
Cardiac: Regular Rhythm, S1/S2 and Murmur
GI: Soft, Nontender and Nondistended
Musculoskeletal: Other (left leg dressing in place )
Neuro: Awake, Alert and Oriented
Psych: Calm
[2023-10-05] MEDS: OMNICEF 300 MG PO ×2 (11:26→20:55)
[2023-10-05] MEDS: FLAGYL 500 MG PO ×2 (11:26→20:56)
[2023-10-05 11:30] LABS: Hematocrit 21.5 % (39.0-52.0); Hemoglobin 7.6 g/dL (13.0-18.0); Mean Corp Hgb Conc. 35.3 g/dL (33.0-37.0); Mean Corpuscular Hgb 30.6 pg (27.0-31.0); Mean Corpuscular Volume 86.7 fL (80.0-94.0); Mean Platelet Volume 9.6 fL (7.4-10.4); Platelet Count 342 10^3/uL (130-400); Red Blood Cell Count 2.48 10^6/uL (4.70-6.10); Red Cell Dist. Width 13.7 % (11.5-14.5); White Blood Cell Count 19.4 10^3/uL (4.8-10.8)
[2023-10-05 11:49] LABS: Blood Urea Nitrogen 14 mg/dl (9-20); Calcium 7.8 mg/dl (8.4-10.2); Carbon Dioxide 29 mmol/L (22-30); Chloride 101 mmol/L (98-107); Estimated Creatinine Clearance 72 ml/min; Glucose 176 mg/dl (70-99); Potassium 3.5 mmol/L (3.5-5.1); Sodium 131 mmol/L (135-145); eGFR > 60.00
[2023-10-05 12:21] LABS: Glucose - Point of Care 212 mg/dl (70-99)
[2023-10-05] MEDS: NOVOLOG FLEXPEN-MODERATE RESISTANCE 3 UNITS SC (12:50)
--- NOTE | 2023-10-05 13:03 | PTCARENOTE ---
Patient out of bed to chair with therapy.Non weight bearing status to left lower leg maintained.Left foot began to bleed again once the patient was out of bned.The dressing was reinforced and the foot elevated and the bleeding subsided.Will continue
to monitor.Dr. lyman podiatry will be here after office hours.Dr. Woods also notified.
[2023-10-05] MEDS: LIPITOR 20 MG PO (17:23)
[2023-10-05 17:30] LABS: Glucose - Point of Care 176 mg/dl (70-99)
--- NOTE | 2023-10-05 17:33 | CM ---
Further podiatry debridement 10/03. Therapy continues to recommend SNF. Referrals previously forwarded.
--- NOTE | 2023-10-05 18:45 | W.PN.UPDATE ---
Update Note
Progress Note Update
POD 1 Partial first ray amputation, left foot.
Afebrile, VSS
Hgb: 7.6
Dressing was changed in recovery room last night and reinforced by nurse earlier today due to bleeding.
Moderate to severe serosanguineous drainage into dressing noted today.
The left foot surgical site/medial forefoot-midfoot incision line is viable. Proximal 85% with wound edges well apposed, sutures intact. Distal 15% left open, with full soft tissue defect, granulating base.
No active discharge or bleeding at this time. No malodor, purulence, cellulitis or local signs of infection. The left foot bypass incision dorsally left undisturbed.
10/04/23 post operative Xrays Left foot demonstrate proximal partial first ray amputation. No radiographic evidence of osteomyelitis.
ID not appreciated. Switch to cefdinir + metronidazole x7 more days.
Packing pulled from the wound. Redressing at bedside with care to avoid compression of the bypass site over the foot dorsally and ankle medially. Will evaluate tomorrow.
-Against medical advisement, the patient walked full weightbearing on his surgical foot following his last hospital discharge, likely contributing to the deterioration of his condition requiring readmission. This was corroborated by his today
and his son in the office.
Discussed with the patient, with his present, that he will need to be transferred to a rehab facility for recovery. He is clearly displeased with this but agreeable.
[2023-10-05] MEDS: TYLENOL 650 MG PO (20:55)
[2023-10-05] MEDS: MELATONIN 5 MG PO (20:57)
[2023-10-05 21:20] LABS: Glucose - Point of Care 208 mg/dl (70-99)
[2023-10-06] VITALS (8 sets, daily range): BP systolic 91–122; BP diastolic 42–82; BMI 28.2
--- NOTE | 2023-10-06 03:00 | DOWNTIME ---
There was a [employer] Client Folding Machine [employer]eder Downtime on 10/06/2023 from 0100 to 10/06/2023 at 0252. Downtime documentation of patient's care, including medication administrations, has been reconciled in the electronic record per guidelines. Refer to the
patient's paper chart under the miscellaneous tab to see printed paper medication records and downtime forms.
[2023-10-06] MEDS: ROXICODONE 5 MG PO ×2 (05:09→19:36)
[2023-10-06 07:28] LABS: Glucose - Point of Care 152 mg/dl (70-99)
[2023-10-06] MEDS: HEPARIN 5000 UNITS SC ×2 (08:24→19:36)
[2023-10-06] MEDS: LOW STRENGTH ASPIRIN 81 MG PO (08:25)
[2023-10-06] MEDS: FLOMAX 0.4 MG PO (08:25)
[2023-10-06] MEDS: OMNICEF 300 MG PO ×2 (08:25→19:36)
[2023-10-06] MEDS: FLAGYL 500 MG PO ×2 (08:25→19:35)
[2023-10-06] MEDS: SENOKOT 8.6 MG PO ×2 (08:25→19:36)
[2023-10-06] MEDS: PLAVIX 75 MG PO (08:25)
[2023-10-06] MEDS: NOVOLOG FLEXPEN-MODERATE RESISTANCE 1 UNITS SC (08:29)
[2023-10-06 08:52] LABS: Blood Urea Nitrogen 13 mg/dl (9-20); Calcium 7.9 mg/dl (8.4-10.2); Carbon Dioxide 27 mmol/L (22-30); Chloride 102 mmol/L (98-107); Estimated Creatinine Clearance 64 ml/min; Glucose 123 mg/dl (70-99); Potassium 3.5 mmol/L (3.5-5.1); Sodium 132 mmol/L (135-145); eGFR > 60.00
[2023-10-06 08:57] LABS: Hematocrit 17.5 % (39.0-52.0); Hemoglobin 6.2 g/dL (13.0-18.0); Mean Corp Hgb Conc. 35.4 g/dL (33.0-37.0); Mean Corpuscular Hgb 31.6 pg (27.0-31.0); Mean Corpuscular Volume 89.3 fL (80.0-94.0); Mean Platelet Volume 9.5 fL (7.4-10.4); Platelet Count 331 10^3/uL (130-400); Red Blood Cell Count 1.96 10^6/uL (4.70-6.10); Red Cell Dist. Width 13.3 % (11.5-14.5); White Blood Cell Count 13.8 10^3/uL (4.8-10.8)
--- NOTE | 2023-10-06 09:10 | W.PN.HOSP.TC ---
Today's Communication/Plan
-
1 u prbc
discharge planning - rehab vs home - see note
Assessment / Plan
Assessment / Plan
pt is a 73 year old male
Diabetic foot infection complicated by PAD
-Dry gangrene status post partial amputation of left great toe, amputation left fourth toe,
-no osteo on foot x-ray
-Patient underwent left foot first toe partial ray amputation on 10/03
-Some bleeding at the site reported by RN, currently on antiplatelet therapy. Podiatry did reinforcement of dressing yesterday with improvement in bleeding
-Cleared by podiatry/vasc/ID for discharge.
-Zosyn to be switched to omnicef/flagyl for 7 days
PAD status post end of left distal superficial femoral artery with drug-eluting stent on 08/24
--apprec vascular
-CT angio as per vascular,
-s/p LLE arterial bypass 09/28, still oozing, apprec vascular input
-cont asa/plavix/statin
acute blood loss anemia (likely from oozing surgical site) plus chronic disease
-Transfuse as necessary to maintain hemoglobin above 7
-Hbg 6.2 today, ordering 1 U prbc, f/u CBC after transfusion
wound (POA)--L heel with diabetic /pad/stage 3 pressure injury
-L lateral leg with healed venous ulcer--appreciated wound care--no plans for surgery per podiatry
hypokalemia--replete as needed
hyponatremia--noted--some chronicity to it
Coronary artery disease status post LAD stent in 2016-Continue aspirin
Type 2 diabetes with neuropathy--Insulin sliding scale
Prostate cancer status post prostate radiation in 2017
urinary retention--start flomax, bladder scan protocol
constipation--add bowel regimen
Full code
DVT prophylaxis�SCDs
10/04 Discussed with patient for need of rehab placement as patient walking on the left foot and hindering healing. Patient adamant about leaving to home.
I have discussed with patient spouse as well and encourage her to talk to patient regarding this
Anticipated Discharge: Within 24 hours
Subjective/Interval History
-
Date of Service: October 06, 2023
patient had some bleeding from left foot yesterday
denies of having any excessive pain
no other issues reported
Objective Data
-
Labs:
Laboratory Results
10/06/23
08:20
WBC 13.8 H
Hgb 6.2 L*
Hct 17.5 L*
Plt Count 331
Sodium 132 L
Potassium 3.5
Chloride 102
Carbon Dioxide 27
BUN 13
Creatinine 0.9
Glucose 123 H
Calcium 7.9 L
Vital Signs:
Vital Signs
Temp Pulse Resp BP Pulse Ox
98.1 F 55 12 102/48 95
10/06/23 07:00 10/06/23 07:00 10/06/23 07:00 10/06/23 07:00 10/06/23 07:00
I&O
10/05/23 10/06/23 10/07/23
06:59 06:59 06:59
Intake Total 1625 / 1625 1790 / 1790
Output Total 325 / 325 625 / 625
Balance 1300 / 1300 1165 / 1165
Review of Systems
-
Respiratory: Reports No Symptoms
Cardiac: Reports No Symptoms
Abdomen/GI: Reports No Symptoms
Physical Exam
-
General: No Apparent Distress
Respiratory: Clear to Auscultation; Negative Wheezes
Cardiac: Regular Rhythm, S1/S2 and Murmur
GI: Soft, Nontender and Nondistended
Musculoskeletal: Other (left leg dressing in place )
Neuro: Awake, Alert and Oriented
Psych: Calm
--- NOTE | 2023-10-06 10:21 | W.PN.VS ---
Addendum entered and electronically signed by Finn Melendez MD 10/06/23 11:11:
Seen and examined with KELLY Paz. Agree with findings as noted below. No events. Appreciate podiatry follow-up/debridement. On exam incisions clean dry and intact. Good graft function with palpable graft pulse. Plan/okay for discharge when
otherwise stable. Note, PLEASE AVOID COMPRESSION ON MEDIAL LEFT CALF AND DORSAL LEFT ANKLE/FOOT as the bypass graft traverses tunneled subcutaneously through the space.
Original Note:
Today's Communication / Plan
-
Patient seen and examined at bedside with Dr. Finn Melendez, below plan reviewed with attending
Assessment/Plan
-
Assessment: 73 year old male POD#7 Left below the knee popliteal artery to dorsalis pedis artery bypass with ipsilateral nonreversed greater saphenous vein conduit.
Plan:
Case management following for home disposition
Amputation site care per podiatry
Continue DAPT of aspirin 81 mg p.o. daily and Plavix 75 mg p.o. daily
Follow-up placed in discharge instructions
We will sign off please call with questions or concerns
Subjective Data
-
Date of Service: October 06, 2023
Patient seen and examined at bedside, offers no complaints. Does endorse his displacement for recommendation of rehab/SNF dispo planning, reeducated in the importance of wound care/daily nursing observation, prompt dressing changes, and need for PT
that rehab/SNF with provide versus none of the services available to his home.
Objective Data
-
Vital Signs
Temp Pulse Resp BP Pulse Ox
98.2 F 68 18 105/44 98
10/06/23 10:14 10/06/23 10:14 10/06/23 10:14 10/06/23 10:14 10/06/23 10:14
Intake and Output
10/05/23 10/06/23 10/07/23
06:59 06:59 06:59
Intake Total 1625 / 1625 1790 / 1790 0 / 0
Output Total 325 / 325 625 / 625
Balance 1300 / 1300 1165 / 1165 0 / 0
Intake:
Oral fluids 1175 / 1175 1740 / 1740
IV fluids (Total) 100 / 100
normosol 100 / 100
IV piggybacks 100 / 100 50 / 50
Blood Product Amount Infused ( 250 / 250 0 / 0
mL)
Packed Rbc Leukoreduced Unit 250 / 250
[id number]
Packed Rbc Leukoreduced Unit 0 / 0
[id number]
Packed Rbc Leukoreduced Unit 0 / 0
[id number]
Output:
Urine, Voided 325 / 325 625 / 625
Lab Results
10/06/23 08:20
Calcium 7.9 mg/dl (8.4-10.2) L 10/06/23 08:20
Magnesium 2.0 mg/dl (1.6-2.3) 10/05/23 11:01
Total Bilirubin 0.4 mg/dl (0.2-1.3) 09/28/23 05:54
AST 24 U/L (17-59) 09/28/23 05:54
ALT 20 U/L (0-50) 09/28/23 05:54
Alkaline Phosphatase 78 U/L (38-126) 09/28/23 05:54
Total Protein 5.3 g/dl (6.3-8.2) L 09/28/23 05:54
Albumin 2.6 g/dl (3.5-5.0) L 09/28/23 05:54
Physical Exam
-
AAOx3, no apparent distress
No tachycardia
No dyspnea on room air
ABD rotund, nondistended, nontender
Left surgical thigh and upper calf dressing CDI, negrito well-approximated. Foot and ankle dressing CDI. Can leave negrito open to air, left foot warm, bypass graft pulse palpable
Bilateral feet warm
[2023-10-06 11:03] LABS: Glucose - Point of Care 147 mg/dl (70-99)
[2023-10-06] MEDS: NOVOLOG FLEXPEN-MODERATE RESISTANCE SC ×2 (12:26→18:10)
--- NOTE | 2023-10-06 12:44 | W.PN.POD ---
Today's Communication
Today's Communication
Anticipate discharge to Rehab/SNF when medically stable.
Assessment / Plan
-
Assessment:
S/P 2 days partial first ray amputation, left foot.
S/P 20 days partial hallux amp, fourth toe amp, debridement of third toe and decubitus heel wounds, left foot.
S/P 7 days below knee popliteal to dorsalis pedis bypass, LLE as per Dr. Melendez.
-Type 2 Diabetes Mellitus with neuropathy
-PVD/PAD
-CAD status post LAD stent in 2016
-Prostate CA status post prostate radiation in 2017
-Ex-Smoker
Plan:
Redressing of amputation site and heel wound, left at bedside.
Anticipate discharge when hemodynamically stable.
Patient amenable to Rehab/SNF. Understands the benefits of the nursing oversight, wound care and PT on site.
-Dressing instructions for Rehab/SNF:
Adaptic, dry gauze, kerlix to the LEFT first ray amputation site and posterior heel wound, once, every other day. Care taken to avoid compression to the dorsal foot and medial ankle bypass graft locations.
-Patient is to remain NWB left foot, with use of a wheelchair for ambulation.
-Patient should follow up in my office ONE WEEK after discharge.
-[place]-heel off boot/shoe can be delivered directly to the rehab/SNF
Subjective
Chief Complaint
POD2 Partial first ray amputation, left foot.
Subjective
Patient seen at bedside resting comfortably.
No pain in the foot or leg, left. No fevers, chills or sweats. No SOB, chest pain.
Objective
Temp Pulse Resp BP Pulse Ox
98.3 F 69 18 105/52 96
10/06/23 10:31 10/06/23 10:31 10/06/23 10:31 10/06/23 10:31 10/06/23 10:48
10/06/23 08:20
Vital Signs and Lab results were reviewed.
Afebrile VSS
10/06/23 Hgb 6.2-receiving one unit of blood currently.
Minimal serosanguinous discharge into dressing noted today.
The left foot surgical site/medial forefoot-midfoot incision line is quite viable, pink and warm. Proximal 85% with wound edges well apposed, sutures intact. Distal 15% left open, iraida, with full soft tissue depth granulating in.
No active discharge or bleeding at this time. No malodor, purulence, cellulitis or local signs of infection. The left foot bypass incision dorsally left undisturbed.
10/04/23 post operative Xrays Left foot demonstrate proximal partial first ray amputation. No radiographic evidence of osteomyelitis.
ID note appreciated. Omnicef, Metronidazole x7 more days.
[2023-10-06] MEDS: DAKIN'S SOLUTION 0.125% 1/4 STRENGTH 473 ML TOPICAL (13:11)
--- NOTE | 2023-10-06 14:04 | PTCARENOTE ---
Hgb resulted 6.2. Dr. Woods notified. New order for 1 unit of PRBC's acknowledged and infused. No transfusion reaction observed. Follow up CBC ordered for 17:00.
[2023-10-06 17:02] LABS: Hematocrit 21.5 % (39.0-52.0); Hemoglobin 7.5 g/dL (13.0-18.0); Mean Corp Hgb Conc. 34.9 g/dL (33.0-37.0); Mean Corpuscular Hgb 30.7 pg (27.0-31.0); Mean Corpuscular Volume 88.1 fL (80.0-94.0); Mean Platelet Volume 9.2 fL (7.4-10.4); Platelet Count 320 10^3/uL (130-400); Red Blood Cell Count 2.44 10^6/uL (4.70-6.10); Red Cell Dist. Width 13.7 % (11.5-14.5); White Blood Cell Count 13.9 10^3/uL (4.8-10.8)
[2023-10-06 17:24] LABS: Glucose - Point of Care 138 mg/dl (70-99)
[2023-10-06] MEDS: LIPITOR 20 MG PO (18:10)
[2023-10-06 22:07] LABS: Glucose - Point of Care 194 mg/dl (70-99)
[2023-10-06] MEDS: MELATONIN 5 MG PO (22:16)
[2023-10-07] VITALS (10 sets, daily range): BP systolic 103–129; BP diastolic 47–66; PULSE 54–77; O2SAT 96–97
[2023-10-07 07:28] LABS: Glucose - Point of Care 144 mg/dl (70-99)
[2023-10-07] MEDS: DAKIN'S SOLUTION 0.125% 1/4 STRENGTH TOPICAL (08:21)
[2023-10-07] MEDS: NOVOLOG FLEXPEN-MODERATE RESISTANCE SC (08:21)
[2023-10-07] MEDS: OMNICEF 300 MG PO ×2 (08:22→21:13)
[2023-10-07] MEDS: FLAGYL 500 MG PO ×2 (08:22→21:13)
[2023-10-07] MEDS: PLAVIX 75 MG PO (08:22)
[2023-10-07] MEDS: HEPARIN 5000 UNITS SC ×2 (08:22→21:14)
[2023-10-07] MEDS: FLOMAX 0.4 MG PO (08:22)
[2023-10-07] MEDS: LOW STRENGTH ASPIRIN 81 MG PO (08:22)
[2023-10-07] MEDS: SENOKOT 8.6 MG PO ×2 (08:22→21:14)
[2023-10-07 08:28] LABS: Hematocrit 19.9 % (39.0-52.0); Hemoglobin 6.9 g/dL (13.0-18.0); Mean Corp Hgb Conc. 34.7 g/dL (33.0-37.0); Mean Corpuscular Hgb 30.4 pg (27.0-31.0); Mean Corpuscular Volume 87.7 fL (80.0-94.0); Mean Platelet Volume 9.4 fL (7.4-10.4); Platelet Count 380 10^3/uL (130-400); Red Blood Cell Count 2.27 10^6/uL (4.70-6.10); Red Cell Dist. Width 14.1 % (11.5-14.5); White Blood Cell Count 15.2 10^3/uL (4.8-10.8)
[2023-10-07 08:54] LABS: Blood Urea Nitrogen 10 mg/dl (9-20); Carbon Dioxide 26 mmol/L (22-30); Chloride 102 mmol/L (98-107); Estimated Creatinine Clearance 82 ml/min; Glucose 118 mg/dl (70-99); Potassium 3.8 mmol/L (3.5-5.1); Sodium 135 mmol/L (135-145); eGFR > 60.00
--- NOTE | 2023-10-07 11:05 | W.PN.HOSP.TC ---
Today's Communication/Plan
-
1 u prbc
d/c planning for rehab
Assessment / Plan
Assessment / Plan
pt is a 73 year old male
Diabetic foot infection complicated by PAD
-Dry gangrene status post partial amputation of left great toe, amputation left fourth toe,
-no osteo on foot x-ray
-Patient underwent left foot first toe partial ray amputation on 10/03
-Some bleeding at the site reported by RN, currently on antiplatelet therapy. Podiatry redressed and bleeding has stopped at this point
-Cleared by podiatry/vasc/ID for discharge.
-Zosyn switched to omnicef/flagyl for 7 days
PAD status post end of left distal superficial femoral artery with drug-eluting stent on 08/24
--apprec vascular
-CT angio as per vascular,
-s/p LLE arterial bypass 09/28, still oozing, apprec vascular input
-cont asa/plavix/statin
acute blood loss anemia (likely from oozing surgical site) plus chronic disease
-Transfuse as necessary to maintain hemoglobin above 7
-Patient got second unit of blood transfusion yesterday hemoglobin 6.9 again today. Hemoglobin likely settling and no signs of any bleed. Will provide 1 more unit today.
wound (POA)--L heel with diabetic /pad/stage 3 pressure injury
-L lateral leg with healed venous ulcer--appreciated wound care--no plans for surgery per podiatry
hypokalemia--replete as needed
hyponatremia--noted--some chronicity to it
Coronary artery disease status post LAD stent in 2015-Continue aspirin
Type 2 diabetes with neuropathy
-Insulin sliding scale
Prostate cancer status post prostate radiation in 2016
urinary retention
-start flomax, bladder scan protocol
constipation
-add bowel regimen
Full code
DVT prophylaxis�SCDs
10/04 Discussed with patient for need of rehab placement as patient walking on the left foot and hindering healing. Patient adamant about leaving to home.
I have discussed with patient spouse as well and encourage her to talk to patient regarding this
Anticipated Discharge: Today
Subjective/Interval History
-
Date of Service: October 07, 2023
No reported problems overnight
Sleeping in chair comfortably
Objective Data
-
Labs:
Laboratory Results
10/07/23
07:27
WBC 15.2 H
Hgb 6.9 L*
Hct 19.9 L*
Plt Count 380
Sodium 135
Potassium 3.8
Chloride 102
Carbon Dioxide 26
BUN 10
Creatinine 0.7
Glucose 118 H
Calcium 8.0 L
Vital Signs:
Vital Signs
Temp Pulse Resp BP Pulse Ox
100 F 63 16 125/62 96
10/07/23 07:14 10/07/23 07:14 10/07/23 07:14 10/07/23 07:14 10/07/23 07:14
I&O
10/06/23 10/07/23 10/08/23
06:59 06:59 06:59
Intake Total 1790 / 1790 1220 / 1220
Output Total 625 / 625 850 / 850
Balance 1165 / 1165 370 / 370
Physical Exam
-
General: No Apparent Distress
Respiratory: Clear to Auscultation; Negative Wheezes
Cardiac: Regular Rhythm, S1/S2 and Murmur
GI: Soft, Nontender and Nondistended
Musculoskeletal: Other (left leg dressing in place )
Neuro: Awake, Alert and Oriented
Psych: Calm
[2023-10-07 12:16] LABS: Glucose - Point of Care 180 mg/dl (70-99)
[2023-10-07] MEDS: NOVOLOG FLEXPEN-MODERATE RESISTANCE 1 UNITS SC (13:10)
--- NOTE | 2023-10-07 13:54 | W.PN.ID1 ---
Date of Service
Date of Service: October 07, 2023
Today's Communication
- continue cefdinir + metronidazole 10/04-10/10
- follow up with podiatry
Assessment / Plan
Surgical Site Infection, Diabetic Foot Infection
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
Limb threatening ischemia s/p Left below the knee popliteal artery to dorsalis pedis artery bypass
DM2 - controlled
- s/p first ray debridement 10/03 with podiatry
- continue cefdinir + metronidazole 10/04-10/10
- follow up with podiatry
Chief Complaint
-: Other (diabetic foot infection)
Subjective / Review of Systems
afebrile
bp stable
got a unit of blood
dc planning
Vital Signs / Physical Exam
Vital Signs
Vital Signs
Temp Pulse Resp BP Pulse Ox
97.6 F 74 15 127/64 99
10/07/23 11:58 10/07/23 11:58 10/07/23 11:58 10/07/23 11:58 10/07/23 11:58
Physical Exam
Constitutional: No Acute Distress
Cardiovascular: Regular Rate and S1/S2; Negative Murmur or Rub
Pulmonary: Clear and Symmetric; Negative Wheezes or Rales
Gastrointestinal: Soft, Non Tender, Non Distended and Normal Bowel Sounds
Extremities: Other (swelling of the L lower extremity prominent, dressing on L foot with strike through bleeding; R foot clean, dry, intact)
Skin: Warm and Dry; Negative Rash or Jaundice
Neurological: Awake
Objective Data
Lab Data
Lab Results
10/07/23 07:27
10/07/23 07:27
PT 16.1 Sec (11.4-14.6) H 09/30/23 05:27
INR 1.29 09/30/23 05:27
APTT 33.1 Sec (23.4-35.0) 09/30/23 05:27
Estimated Creat Clear 82 ml/min 10/07/23 07:27
Lactic Acid 1.8 mmol/L (0.7-2.0) 09/28/23 11:00
Total Bilirubin 0.4 mg/dl (0.2-1.3) 09/28/23 05:54
AST 24 U/L (17-59) 09/28/23 05:54
ALT 20 U/L (0-50) 09/28/23 05:54
Alkaline Phosphatase 78 U/L (38-126) 09/28/23 05:54
Most recent labs reviewed as above in addition
leukocytosis overall improved
Micro Results:
09/27/23 16:44 Blood Culture - Final
Blood/Venous No Growth - Final Report
09/27/23 18:55 Wound Culture - Final
Foot - Left Klebsiella oxytoca
Providencia rettgeri
S aureus-Methicillin Sensitive
Gram Stain - Final
[2023-10-07] MEDS: ROXICODONE 5 MG PO ×2 (14:20→21:17)
--- NOTE | 2023-10-07 15:06 | PN.CDI ---
CDI
- -
CDI:
Physician Documentation Request
Admit Date: 09/27/23 21:09
Dear Doctor Buffy,
Patient is s/p 2 days partial first ray amputation of left foot and s/p 20 days partial hallux amp, fourth toe amp, debridement of third toe and decubitus heel wounds, left foot.
10/04 podiatry update note states 'Against medical advisement, the patient walked full weightbearing on his surgical foot following his last hospital discharge, likely contributing to the deterioration of his condition requiring readmission'
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
Could you please clarify:
Yes, this is a surgical site infection
No it is not a surgical site infection
Unable to determine
Use of terms such as suspected, likely, concern for, or probable (associated with a specific diagnosis that is being evaluated, monitored, or treated as if it exists) are acceptable and can be coded in the inpatient setting, when documented at the
time of discharge.
Thank you,
Haleigh Emanuel RN, BSN
CDI Specialist
tiger text
Please use your independent medical judgment in providing your response.
--- NOTE | 2023-10-07 16:07 | CM ---
Patient was supplied with [employer] list. Additional referrals forwarded.
[2023-10-07 17:03] LABS: Glucose - Point of Care 225 mg/dl (70-99)
[2023-10-07] MEDS: NOVOLOG FLEXPEN-MODERATE RESISTANCE 3 UNITS SC (17:03)
[2023-10-07] MEDS: LIPITOR 20 MG PO (17:03)
[2023-10-07] MEDS: MELATONIN 5 MG PO (21:13)
[2023-10-07 21:37] LABS: Glucose - Point of Care 191 mg/dl (70-99)
[2023-10-08] VITALS (8 sets, daily range): BP systolic 111–137; BP diastolic 54–69; BMI 27.6
[2023-10-08 07:18] LABS: Glucose - Point of Care 144 mg/dl (70-99)
[2023-10-08] MEDS: NOVOLOG FLEXPEN-MODERATE RESISTANCE SC (07:26)
[2023-10-08 08:02] LABS: Blood Urea Nitrogen 8 mg/dl (9-20); Calcium 8.1 mg/dl (8.4-10.2); Carbon Dioxide 27 mmol/L (22-30); Chloride 102 mmol/L (98-107); Estimated Creatinine Clearance 96 ml/min; Glucose 119 mg/dl (70-99); Potassium 3.7 mmol/L (3.5-5.1); Sodium 136 mmol/L (135-145); eGFR > 60.00
[2023-10-08 08:06] LABS: Hematocrit 24.9 % (39.0-52.0); Hemoglobin 8.8 g/dL (13.0-18.0); Mean Corp Hgb Conc. 35.3 g/dL (33.0-37.0); Mean Corpuscular Hgb 31.2 pg (27.0-31.0); Mean Corpuscular Volume 88.3 fL (80.0-94.0); Mean Platelet Volume 9.4 fL (7.4-10.4); Platelet Count 378 10^3/uL (130-400); Red Blood Cell Count 2.82 10^6/uL (4.70-6.10); Red Cell Dist. Width 14.4 % (11.5-14.5); White Blood Cell Count 13.3 10^3/uL (4.8-10.8)
[2023-10-08] MEDS: DAKIN'S SOLUTION 0.125% 1/4 STRENGTH 1 ML TOPICAL (09:51)
[2023-10-08] MEDS: FLOMAX 0.4 MG PO (09:53)
[2023-10-08] MEDS: LOW STRENGTH ASPIRIN 81 MG PO (09:54)
[2023-10-08] MEDS: PLAVIX 75 MG PO (09:54)
[2023-10-08] MEDS: SENOKOT PO (09:54)
[2023-10-08] MEDS: OMNICEF 300 MG PO ×2 (09:55→21:39)
[2023-10-08] MEDS: HEPARIN 5000 UNITS SC ×2 (09:55→21:39)
[2023-10-08] MEDS: FLAGYL 500 MG PO ×2 (09:55→21:39)
--- NOTE | 2023-10-08 11:48 | W.PN.HOSP.TC ---
Today's Communication/Plan
-
d/c planning rehab
Assessment / Plan
Assessment / Plan
pt is a 73 year old male
Diabetic foot infection complicated by PAD
-Dry gangrene status post partial amputation of left great toe, amputation left fourth toe,
-no osteo on foot x-ray
-Patient underwent left foot first toe partial ray amputation on 10/03
-Some bleeding at the site reported by RN, currently on antiplatelet therapy. Podiatry redressed and bleeding has stopped at this point
-Cleared by podiatry/vasc/ID for discharge.
-Zosyn switched to omnicef/flagyl for 7 days
PAD status post end of left distal superficial femoral artery with drug-eluting stent on 08/24
--appreciated vascular
-CT angio as per vascular,
-s/p LLE arterial bypass 09/28, still oozing, appreciated vascular input
-cont asa/Plavix/statin
acute blood loss anemia (likely from oozing surgical site) plus chronic disease
-Transfuse as necessary to maintain hemoglobin above 7
-got 3 u PRBC this admit
-hbg 8.8 today, continue monitor
wound (POA)--L heel with diabetic/PAD/stage 3 pressure injury
-L lateral leg with healed venous ulcer--appreciated wound care--no plans for surgery per podiatry
hypokalemia--replete as needed
hyponatremia--noted--some chronicity to it
Coronary artery disease status post LAD stent in 2016-Continue aspirin
Type 2 diabetes with neuropathy
-Insulin sliding scale
Prostate cancer status post prostate radiation in 2017
urinary retention
-start flomax, bladder scan protocol
constipation
-add bowel regimen
Full code
DVT prophylaxis�SCDs
10/04 Discussed with patient for need of rehab placement as patient walking on the left foot and hindering healing. Patient adamant about leaving to home.
I have discussed with patient spouse as well and encourage her to talk to patient regarding this
Anticipated Discharge: Today
Subjective/Interval History
-
Date of Service: October 08, 2023
no issues overnight
not compliant with keeping pressure off of foot at times
Objective Data
-
Labs:
Laboratory Results
10/08/23
07:05
WBC 13.3 H
Hgb 8.8 L D
Hct 24.9 L
Plt Count 378
Sodium 136
Potassium 3.7
Chloride 102
Carbon Dioxide 27
BUN 8 L
Creatinine 0.6 L
Glucose 119 H
Calcium 8.1 L
Vital Signs:
Vital Signs
Temp Pulse Resp BP Pulse Ox
98.4 F 61 15 130/65 97
10/08/23 11:13 10/08/23 11:13 10/08/23 11:13 10/08/23 11:13 10/08/23 11:13
I&O
10/07/23 10/08/23 10/09/23
06:59 06:59 06:59
Intake Total 1220 / 1220 2110 / 2110
Output Total 850 / 850 1830 / 1830
Balance 370 / 370 280 / 280
Physical Exam
-
General: No Apparent Distress
Musculoskeletal: Other (left leg dressing in place )
Neuro: Negative Awake (sleeping )
Psych: Calm
[2023-10-08 12:16] LABS: Glucose - Point of Care 190 mg/dl (70-99)
[2023-10-08] MEDS: NOVOLOG FLEXPEN-MODERATE RESISTANCE 1 UNITS SC (13:40)
--- NOTE | 2023-10-08 17:21 | CM ---
patient sp partial amputation of left great toe and left 4th toe,on po abx,afib on metoprolol-cards following.
spoke with milton and told her of accepting facilities and she chose [facility] to find out if they have available beds but not able to contact them.patient is ready for dc to snf.Plan [facility] if bed available pending auth.
[2023-10-08] MEDS: LIPITOR 20 MG PO (17:22)
[2023-10-08 17:25] LABS: Glucose - Point of Care 202 mg/dl (70-99)
[2023-10-08] MEDS: NOVOLOG FLEXPEN-MODERATE RESISTANCE 3 UNITS SC (17:25)
[2023-10-08] MEDS: SENOKOT 8.6 MG PO (21:39)
[2023-10-08] MEDS: MELATONIN 5 MG PO (21:39)
[2023-10-08 22:03] LABS: Glucose - Point of Care 113 mg/dl (70-99)
[2023-10-09 03:35] VITALS: BP 108/48
[2023-10-09 07:00] LABS: Hematocrit 26.1 % (39.0-52.0); Mean Corp Hgb Conc. 34.5 g/dL (33.0-37.0); Mean Corpuscular Hgb 30.4 pg (27.0-31.0); Mean Corpuscular Volume 88.2 fL (80.0-94.0); Mean Platelet Volume 9.2 fL (7.4-10.4); Platelet Count 420 10^3/uL (130-400); Red Blood Cell Count 2.96 10^6/uL (4.70-6.10); Red Cell Dist. Width 14.6 % (11.5-14.5); White Blood Cell Count 11.9 10^3/uL (4.8-10.8)
[2023-10-09 07:26] LABS: Blood Urea Nitrogen 8 mg/dl (9-20); Calcium 8.3 mg/dl (8.4-10.2); Carbon Dioxide 27 mmol/L (22-30); Chloride 105 mmol/L (98-107); Estimated Creatinine Clearance 82 ml/min; Glucose 105 mg/dl (70-99); Potassium 3.9 mmol/L (3.5-5.1); Sodium 139 mmol/L (135-145); eGFR > 60.00
[2023-10-09 07:32] VITALS: BP 89/59
[2023-10-09 08:02] LABS: Glucose - Point of Care 133 mg/dl (70-99)
[2023-10-09] MEDS: NOVOLOG FLEXPEN-MODERATE RESISTANCE SC (08:10)
[2023-10-09] MEDS: FLAGYL 500 MG PO ×2 (10:35→20:08)
[2023-10-09] MEDS: OMNICEF 300 MG PO ×2 (10:35→20:08)
[2023-10-09] MEDS: LOW STRENGTH ASPIRIN 81 MG PO (10:35)
[2023-10-09] MEDS: FLOMAX 0.4 MG PO (10:36)
[2023-10-09] MEDS: DAKIN'S SOLUTION 0.125% 1/4 STRENGTH 1 ML TOPICAL (10:37)
[2023-10-09] MEDS: PLAVIX 75 MG PO (10:37)
[2023-10-09] MEDS: HEPARIN 5000 UNITS SC ×2 (10:37→20:08)
[2023-10-09] MEDS: SENOKOT PO (11:31)
[2023-10-09 11:56] VITALS: BP 133/72
[2023-10-09 12:07] LABS: Glucose - Point of Care 193 mg/dl (70-99)
--- NOTE | 2023-10-09 12:45 | CM ---
Addendum entered by Kendal Avilez RN 10/09/23 13:55:
Surgeries this admit: S/P 2 days partial first ray amputation, left foot.
S/P 20 days partial hallux amp, fourth toe amp, debridement of third toe and decubitus heel wounds, left foot.
S/P 7 days below knee popliteal to dorsalis pedis bypass, LLE
Original Note:
Patient with Dx Diabetic foot infection complicated by PAD who is s/p left below knee popliteal artery to dorsalis pedis artery bypass. NWB LLE. PT & OT recommend skilled rehab. Wound care left foot and heel.
Spoke with Dr Woods; patient is medically ready for d/c to SNF.
Spoke with Sandra; she would like the patient to go to [facility] and understands he is accepted once insurance approves. She says the patient is restless and wants to leave, and she will talk to him about the process with insurance as
it may take 1-2 days to obtain the auth.
Spoke with Jeanne Garrido, Bed Laster, [facility] (ph [phone]); they are able to accept the patient once insurance approves. Jeanne is covering for Adms tomorrow and Radha will be back on 10/10.
Spoke with Amira Keene for [facility]; request for [facility], reference # [id number]. Clinicals need to be faxed to [phone]---> sent via [employer] Fax.
Plan [facility] once insurance approves.
[2023-10-09] MEDS: NOVOLOG FLEXPEN-MODERATE RESISTANCE 1 UNITS SC ×2 (13:40→17:36)
--- NOTE | 2023-10-09 13:58 | W.PN.HOSP.TC ---
Today's Communication/Plan
-
pending snf/rehab placement
Assessment / Plan
Assessment / Plan
pt is a 73 year old male
Diabetic foot infection complicated by PAD
-Dry gangrene status post partial amputation of left great toe, amputation left fourth toe,
-no osteo on foot x-ray
-Patient underwent left foot first toe partial ray amputation on 10/03
-Some bleeding at the site reported by RN, currently on antiplatelet therapy. Podiatry redressed and bleeding has stopped at this point
-Cleared by podiatry/vasc/ID for discharge.
-Zosyn switched to omnicef/flagyl for 7 days
PAD status post end of left distal superficial femoral artery with drug-eluting stent on 08/24
--appreciated vascular
-CT angio as per vascular,
-s/p LLE arterial bypass 09/28, still oozing, appreciated vascular input
-cont asa/Plavix/statin
acute blood loss anemia (likely from oozing surgical site) plus chronic disease
-Transfuse as necessary to maintain hemoglobin above 7
-got 3 u PRBC this admit
-hbg stable at 9, monitor
wound (POA)--L heel with diabetic/PAD/stage 3 pressure injury
-L lateral leg with healed venous ulcer--appreciated wound care--no plans for surgery per podiatry
hypokalemia--replete as needed
hyponatremia--noted--some chronicity to it
Coronary artery disease status post LAD stent in 2016-Continue aspirin
Type 2 diabetes with neuropathy
-Insulin sliding scale
Prostate cancer status post prostate radiation in 2016
urinary retention
-start flomax, bladder scan protocol
constipation
-add bowel regimen
Full code
DVT prophylaxis�SCDs
10/04 Discussed with patient for need of rehab placement as patient walking on the left foot and hindering healing. Patient adamant about leaving to home.
I have discussed with patient spouse as well and encourage her to talk to patient regarding this
Anticipated Discharge: 24 - 48 hours
Subjective/Interval History
-
Date of Service: October 09, 2023
No issues overnight
Objective Data
-
Labs:
Laboratory Results
10/09/23
05:33
WBC 11.9 H
Hgb 9.0 L
Hct 26.1 L
Plt Count 420 H
Sodium 139
Potassium 3.9
Chloride 105
Carbon Dioxide 27
BUN 8 L
Creatinine 0.7
Glucose 105 H
Calcium 8.3 L
Vital Signs:
Vital Signs
Temp Pulse Resp BP Pulse Ox
99.6 F 72 14 133/72 98
10/09/23 11:56 10/09/23 11:56 10/09/23 11:56 10/09/23 11:56 10/09/23 11:56
I&O
10/08/23 10/09/23 10/10/23
06:59 06:59 06:59
Intake Total 2110 / 2110 1100 / 1100
Output Total 1830 / 1830 1275 / 1275 650 / 650
Balance 280 / 280 -175 / -175 -650 / -650
Review of Systems
-
Respiratory: Reports No Symptoms
Cardiac: Reports No Symptoms
Abdomen/GI: Reports No Symptoms
Physical Exam
-
General: No Apparent Distress
Musculoskeletal: Other (left leg dressing in place )
Neuro: Negative Awake (sleeping )
Psych: Calm
[2023-10-09 15:54] VITALS: BP 120/66
[2023-10-09 17:34] LABS: Glucose - Point of Care 152 mg/dl (70-99)
[2023-10-09] MEDS: LIPITOR 20 MG PO (17:37)
[2023-10-09 19:15] VITALS: BP 112/54
[2023-10-09] MEDS: SENOKOT 8.6 MG PO (20:08)
[2023-10-09] MEDS: ROXICODONE 5 MG PO (21:24)
[2023-10-09 21:33] LABS: Glucose - Point of Care 179 mg/dl (70-99)
[2023-10-09] MEDS: MELATONIN 5 MG PO (22:35)
[2023-10-09 23:05] VITALS: BP 137/60
[2023-10-10] VITALS (7 sets, daily range): BP systolic 99–114; BP diastolic 50–62
--- NOTE | 2023-10-10 04:38 | PTCARENOTE ---
pt had a second pause on tele at 3:05 and 3:40. hr 60 bp100/56 manual RUE. LEG BREAKER notified, EKG completed.
--- NOTE | 2023-10-10 06:32 | W.PN.UPDATE ---
Update Note
Progress Note Update
Reported by the nursing staff, pauses up to 1.97 was not noted on Tele, bp 100/56, hr 60. Patient denied chest or sob. patient was seen by cardiology 09/30 for abnormal EKG and mild bradycardia that possible related to blocked PACs.
EKG and lab ordered, continue telemetry and cardiology will be updated as needed.
--- NOTE | 2023-10-10 06:51 | PTCARENOTE ---
pt had a second pause on tele at 3:05 and 3:40. hr 60 bp100/56 manual RUE. pt denies CP, SAMPLE SUPERVISOR notified, EKG completed and labs.. longest pause 1.97 s at 5:20am rayon winder bpm developer notified
[2023-10-10 07:12] LABS: % Basophils 0.9 % (0-2); % Eosinophils 7.9 % (0-6); % Lymphocytes 15.4 % (20.5-51.1); % Neutrophils 67.8 % (42.2-75.2); Absolute Basophils 0.1 10^3/uL (0-0.2); Absolute Eosinophils 0.8 10^3/uL (0-0.7); Absolute Immature Granulocytes 0.1 10^3/uL (0-0.05); Absolute Lymphocytes 1.6 10^3/uL (1.2-3.4); Absolute Monocytes 0.7 10^3/uL (0.1-0.6); Hematocrit 29.5 % (39.0-52.0); Hemoglobin 10.1 g/dL (13.0-18.0); Mean Corp Hgb Conc. 34.2 g/dL (33.0-37.0); Mean Corpuscular Hgb 31.2 pg (27.0-31.0); Mean Platelet Volume 9.1 fL (7.4-10.4); Nucleated Red Blood Cells % 0 % (-); Platelet Count 448 10^3/uL (130-400); Red Blood Cell Count 3.24 10^6/uL (4.70-6.10); Red Cell Dist. Width 14.5 % (11.5-14.5); White Blood Cell Count 10.3 10^3/uL (4.8-10.8)
[2023-10-10 07:31] LABS: Blood Urea Nitrogen 10 mg/dl (9-20); Calcium 8.3 mg/dl (8.4-10.2); Carbon Dioxide 27 mmol/L (22-30); Chloride 105 mmol/L (98-107); Estimated Creatinine Clearance 82 ml/min; Glucose 123 mg/dl (70-99); Magnesium 1.9 mg/dl (1.6-2.3); Potassium 3.8 mmol/L (3.5-5.1); Sodium 137 mmol/L (135-145); eGFR > 60.00
--- NOTE | 2023-10-10 08:05 | W.PN.CD ---
Today's Communication / Plan
-
- The pause is related to non-conducted PAC and not alarming
- No indication for pacemaker yet.
- Please call with questions.
Impression / Plan
-
Abnormal EKG/tele
- No sign of AF.
- Low amplitude P waves with PACs gave that impression
- Pauses are reviewed and are nonconducted PACs
- No significant pause noted.
Mild bradycardia
- Almost certainly from blocked PACs
Diabetic foot infection complicated
PAD
- No cardiac complications detected from surgery performed on 09/29/2023 => ' Left below the knee popliteal artery to dorsalis pedis artery bypass with ipsilateral nonreversed greater saphenous vein conduit.'
Coronary artery disease
-Stable without chest pain
-PANFILO to RCA in 2017 at [facility] with residual disease (30% PRCA, 30% pPDA)
-On DAPT, however will switch to Eliquis aspirin tomorrow
Mild aortic stenosis
Diabetic foot infection, dry gangrene status post partial amputation of left great toe, amputation of left fourth toe, on vancomycin/Zosyn
Hypertension, not on medical therapy at home, follow BP
Dyslipidemia, LDL above goal on atorvastatin 10
Type 2 diabetes mellitus, HgbA1c 6.6%, in the past it was up to 13%
PAD, PVD - PANFILO 08/25/2023
Chronic ambulatory dysfunction
Former smoker, continue cessation recommended
Subjective:
Feeling well. denies any symptoms withbradycardia.
-
-
Echo 02/24/2023: Nml LV/RV syst fxn, LVEF >75%, mild (mean 15, ANGEL 1.6), mild AR
Physical Exam
Vital Signs/Labs
Vital Signs
Temp Pulse Resp BP Pulse Ox
98.2 F 60 12 114/56 99
10/10/23 07:00 10/10/23 07:00 10/10/23 07:00 10/10/23 07:00 10/10/23 07:00
10/10/23 06:41
10/10/23 06:41
PT 16.1 Sec (11.4-14.6) H 09/30/23 05:27
INR 1.29 09/30/23 05:27
APTT 33.1 Sec (23.4-35.0) 09/30/23 05:27
Magnesium 1.9 mg/dl (1.6-2.3) 10/10/23 06:41
Physical Exam
Constitutional: No acute distress and Comfortable
EENT: Anicteric and Moist mucous membranes
Cardiovascular: Rhythm & rate is regular, Pedal edema is absent and JVD pressure is normal
Respiratory: Respiratory effort normal, Wheeze Absent and Crackles Absent
GI: Soft, Non tender and Normal bowel sounds
Neuro/Psych: Alert, Oriented and AO x 3
Data Reviewed
-
Date of Service: October 10, 2023
Medical Decision Making: Reviewed Test Results, Independent Historian Assessment and Test Interpretation
EKG: Tracing Personally Visualized and interpreted
Echo: Report Reviewed by me
Labs: Labs Reviewed by me
Old Records: Reviewed
[2023-10-10] MEDS: NOVOLOG FLEXPEN-MODERATE RESISTANCE SC ×2 (08:30→13:43)
[2023-10-10 08:48] LABS: Glucose - Point of Care 131 mg/dl (70-99)
[2023-10-10] MEDS: DAKIN'S SOLUTION 0.125% 1/4 STRENGTH 1 ML TOPICAL (09:27)
[2023-10-10] MEDS: FLOMAX 0.4 MG PO (09:28)
[2023-10-10] MEDS: OMNICEF 300 MG PO ×2 (09:28→20:43)
[2023-10-10] MEDS: FLAGYL 500 MG PO ×2 (09:29→20:43)
[2023-10-10] MEDS: HEPARIN SC (09:29)
[2023-10-10] MEDS: PLAVIX PO (09:29)
[2023-10-10] MEDS: LOW STRENGTH ASPIRIN 81 MG PO (09:30)
[2023-10-10] MEDS: SENOKOT PO ×2 (09:30→20:46)
--- NOTE | 2023-10-10 09:50 | W.PN.HOSP.TC ---
Today's Communication/Plan
-
see note
eventual rehab placement
Assessment / Plan
Assessment / Plan
pt is a 73 year old male
Diabetic foot infection complicated by PAD
-Dry gangrene status post partial amputation of left great toe, amputation left fourth toe,
-no osteo on foot x-ray
-Patient underwent left foot first toe partial ray amputation on 10/03
-Some bleeding at the site reported by RN, currently on antiplatelet therapy. Podiatry redressed and bleeding has stopped at this point
-Cleared by podiatry/vasc/ID for discharge.
-Zosyn switched to omnicef/flagyl on day 6 out of 7 today.
-Patient had significant venous bleeding in the morning today. Stopped after applying pressure bandage. Discussed with podiatry/vascular surgeon and will hold Plavix/heparin subcu for now. Continue aspirin only.
-Monitor hemoglobin with possible need of transfusion if drops to 7, currently 10 on the morning labs.
PAD status post end of left distal superficial femoral artery with drug-eluting stent on 08/24
--appreciated vascular
-CT angio as per vascular,
-s/p LLE arterial bypass 09/28, still oozing, appreciated vascular input
-cont asa/Plavix/statin
acute blood loss anemia (likely from oozing surgical site) plus chronic disease
-Transfuse as necessary to maintain hemoglobin above 7
-got 3 u PRBC this admit
wound (POA)--L heel with diabetic/PAD/stage 3 pressure injury
-L lateral leg with healed venous ulcer--appreciated wound care--no plans for surgery per podiatry
hypokalemia--replete as needed
hyponatremia--noted--some chronicity to it
Coronary artery disease status post LAD stent in 2015-Continue aspirin
Type 2 diabetes with neuropathy
-Insulin sliding scale
Prostate cancer status post prostate radiation in 2016
urinary retention
-start flomax, bladder scan protocol
constipation
-add bowel regimen
Full code
DVT prophylaxis�SCDs
Total time spent : 52 mins
Discussed case with vascular sx/podiatry
10/04 Discussed with patient for need of rehab placement as patient walking on the left foot and hindering healing. Patient adamant about leaving to home.
I have discussed with patient spouse as well and encourage her to talk to patient regarding this
Anticipated Discharge: 24 - 48 hours
Subjective/Interval History
-
Date of Service: October 10, 2023
Patient was being moved out of bed in the morning today when started to having bleeding
Profuse and worrisome was contacted by RN for emergent evaluation
By the time at bedside blood soaked pressure bandage was being health, no bleeding beneath that noted.
Patient not feeling dizzy , no other complaints
Objective Data
-
Labs:
Laboratory Results
10/10/23
06:41
WBC 10.3
Hgb 10.1 L
Hct 29.5 L
Plt Count 448 H
Sodium 137
Potassium 3.8
Chloride 105
Carbon Dioxide 27
BUN 10
Creatinine 0.7
Glucose 123 H
Calcium 8.3 L
Vital Signs:
Vital Signs
Temp Pulse Resp BP Pulse Ox
98.2 F 60 12 114/56 99
10/10/23 07:00 10/10/23 07:00 10/10/23 07:00 10/10/23 07:00 10/10/23 07:00
I&O
10/09/23 10/10/23 10/11/23
06:59 06:59 06:59
Intake Total 1100 / 1100 1210 / 1210
Output Total 1275 / 1275 1050 / 1050 225 / 225
Balance -175 / -175 160 / 160 -225 / -225
Review of Systems
-
Respiratory: Reports No Symptoms
Cardiac: Reports No Symptoms
Abdomen/GI: Reports No Symptoms
Physical Exam
-
General: No Apparent Distress
GI: Soft, Nontender and Nondistended
Musculoskeletal: Other (Left leg bleeding wound, pressure bandage in place soaked in blood)
Neuro: Awake, Alert and No Motor Deficits
Psych: Calm
[2023-10-10 13:43] LABS: Glucose - Point of Care 138 mg/dl (70-99)
--- NOTE | 2023-10-10 14:37 | PTCARENOTE ---
0915:as pt was being transferred to chair, sliding from bed to chair NWB to left foot, dressing on foot became saturated then began to increase in flow and stream onto floor. Dressing removed. Multiple ABD applied for pressure, contacted Dr. Woods
no Heparin or plavix. trend Hg 10.1. Pressure dressing applied for 2 hours. Redressed Dopplers all +.
Wound has appeared moist also most boggy, concerned it may macerate at incision sites. may need to be changed twice daily with excessive drainage and moisture on skin combined with adaptic.
[2023-10-10 15:27] LABS: Hematocrit 25.4 % (39.0-52.0); Hemoglobin 8.8 g/dL (13.0-18.0); Mean Corp Hgb Conc. 34.6 g/dL (33.0-37.0); Mean Corpuscular Hgb 30.3 pg (27.0-31.0); Mean Corpuscular Volume 87.6 fL (80.0-94.0); Mean Platelet Volume 8.9 fL (7.4-10.4); Platelet Count 418 10^3/uL (130-400); Red Cell Dist. Width 14.5 % (11.5-14.5); White Blood Cell Count 10.3 10^3/uL (4.8-10.8)
[2023-10-10] MEDS: LIPITOR 20 MG PO (17:33)
[2023-10-10] MEDS: NOVOLOG FLEXPEN-MODERATE RESISTANCE 1 UNITS SC (17:36)
[2023-10-10 17:37] LABS: Glucose - Point of Care 165 mg/dl (70-99)
[2023-10-10] MEDS: ROXICODONE 5 MG PO (21:24)
[2023-10-10] MEDS: MELATONIN 5 MG PO (21:24)
[2023-10-10 21:25] LABS: Glucose - Point of Care 142 mg/dl (70-99)
[2023-10-11 03:05] VITALS: BP 106/58
[2023-10-11 07:11] LABS: Glucose - Point of Care 151 mg/dl (70-99)
[2023-10-11 07:41] VITALS: BP 130/70
[2023-10-11] MEDS: NOVOLOG FLEXPEN-MODERATE RESISTANCE 1 UNITS SC (08:13)
[2023-10-11] MEDS: LOW STRENGTH ASPIRIN 81 MG PO (08:14)
[2023-10-11] MEDS: FLOMAX 0.4 MG PO (08:14)
[2023-10-11] MEDS: SENOKOT PO ×2 (08:14→08:19)
[2023-10-11] MEDS: OMNICEF 300 MG PO (08:14)
[2023-10-11] MEDS: FLAGYL 500 MG PO (08:15)
[2023-10-11 08:31] LABS: Hematocrit 23.4 % (39.0-52.0); Hemoglobin 8.4 g/dL (13.0-18.0); Mean Corp Hgb Conc. 35.9 g/dL (33.0-37.0); Mean Corpuscular Hgb 30.5 pg (27.0-31.0); Mean Corpuscular Volume 85.1 fL (80.0-94.0); Mean Platelet Volume 9.1 fL (7.4-10.4); Platelet Count 421 10^3/uL (130-400); Red Blood Cell Count 2.75 10^6/uL (4.70-6.10); Red Cell Dist. Width 14.4 % (11.5-14.5); White Blood Cell Count 9.6 10^3/uL (4.8-10.8)
[2023-10-11 09:14] LABS: Blood Urea Nitrogen 9 mg/dl (9-20); Calcium 8.3 mg/dl (8.4-10.2); Carbon Dioxide 24 mmol/L (22-30); Chloride 105 mmol/L (98-107); Estimated Creatinine Clearance 82 ml/min; Glucose 119 mg/dl (70-99); Potassium 3.9 mmol/L (3.5-5.1); Sodium 136 mmol/L (135-145); eGFR > 60.00
[2023-10-11] MEDS: DAKIN'S SOLUTION 0.125% 1/4 STRENGTH 1 ML TOPICAL (10:00)
--- NOTE | 2023-10-11 10:57 | CM ---
Received message from [facility]. Auth was provided # [id number] 10/09-10/12. Fax for [phone] and for further time/days.
Placed a call to [facility] and spoke with Radha in admissions who took auth information and confirmed that she can take patient back today. #For Report [phone] fax [phone].
Spoke with attending who confirmed that patient is medically stable for discharge.
Will complete medical necessity and transfer sheet for [facility] ammunition and explosives handler.
Plan: Case management will continue to follow and assist with discharge planning. Transfer to [facility] today.
[2023-10-11 11:13] VITALS: BP 114/68
--- NOTE | 2023-10-11 11:25 | W.PN.HOSP.TC ---
Today's Communication/Plan
-
d/c to SNF
Assessment / Plan
Assessment / Plan
pt is a 73 year old male
OK for d/c
Diabetic foot infection complicated by PAD
-Dry gangrene status post partial amputation of left great toe, amputation left fourth toe,
-no osteo on foot x-ray
-Patient underwent left foot first toe partial ray amputation on 10/03
-Some bleeding at the site reported by RN, currently on antiplatelet therapy. Podiatry redressed and bleeding has stopped at this point
-Cleared by podiatry/vasc/ID for discharge.
-Zosyn switched to omnicef/flagyl on day 6 out of 7 today.
-Patient had significant venous bleeding Discussed with podiatry/vascular surgeon and will hold Plavix/heparin subcu for now. Continue aspirin only.
-Monitor hemoglobin with possible need of transfusion if drops to 7, currently 10 on the morning labs.
PAD status post end of left distal superficial femoral artery with drug-eluting stent on 08/24
--appreciated vascular
-CT angio as per vascular,
-s/p LLE arterial bypass 09/28, still oozing, appreciated vascular input
-cont asa/Plavix/statin
acute blood loss anemia (likely from oozing surgical site) plus chronic disease
-Transfuse as necessary to maintain hemoglobin above 7
-got 3 u PRBC this admit
wound (POA)--L heel with diabetic/PAD/stage 3 pressure injury
-L lateral leg with healed venous ulcer--appreciated wound care--no plans for surgery per podiatry
hypokalemia--replete as needed
hyponatremia--noted--some chronicity to it
Coronary artery disease status post LAD stent in 2015-Continue aspirin
Type 2 diabetes with neuropathy
-Insulin sliding scale
Prostate cancer status post prostate radiation in 2016
urinary retention
-start flomax, bladder scan protocol
constipation
-add bowel regimen
Full code
DVT prophylaxis�SCDs
Anticipated Discharge: Today
Subjective/Interval History
-
Date of Service: October 11, 2023
pt without c/o--OK for SNF
Objective Data
-
Labs:
Laboratory Results
10/11/23
08:13
WBC 9.6
Hgb 8.4 L
Hct 23.4 L
Plt Count 421 H
Sodium 136
Potassium 3.9
Chloride 105
Carbon Dioxide 24
BUN 9
Creatinine 0.7
Glucose 119 H
Calcium 8.3 L
Vital Signs:
max temp for 24 hours
10/11/23
03:05
Temp 98.5 F
Vital Signs
Temp Pulse Resp BP Pulse Ox
98 F 74 18 114/68 100
10/11/23 11:13 10/11/23 11:13 10/11/23 11:13 10/11/23 11:13 10/11/23 11:13
I&O
10/10/23 10/11/23 10/12/23
06:59 06:59 06:59
Intake Total 1210 / 1210 180 / 180 480 / 480
Output Total 1050 / 1050 425 / 425 325 / 325
Balance 160 / 160 -245 / -245 155 / 155
Review of Systems
-
All other systems: Reviewed and negative
Physical Exam
-
General: Well Developed, Well Nourished and No Apparent Distress
HEENT: Normocephalic and Atraumatic
Respiratory: Clear to Auscultation; Negative Wheezes or Rhonchi
Cardiac: Regular Rhythm and S1/S2; Negative Murmur
GI: Soft, Nontender, Nondistended and Normal Bowel Sounds
Musculoskeletal: No Clubbing and No Cyanosis; Negative No Edema (left leg post op, still with negrito in--left foot post op--bandages in place)
[2023-10-11 11:40] LABS: Glucose - Point of Care 136 mg/dl (70-99)
[2023-10-11 11:45] VITALS: BP 114/68
[2023-10-11] MEDS: NOVOLOG FLEXPEN-MODERATE RESISTANCE SC (11:48)
--- NOTE | 2023-10-11 12:12 | WOUNDNOTE ---
L PLANTAR FOOT WITH FLASH
--- NOTE | 2023-10-11 12:13 | WOUNDNOTE ---
L GREAT TOE AMP SITE
--- NOTE | 2023-10-11 12:15 | WOUNDNOTE ---
L 4TH TOE AMP SITE
--- NOTE | 2023-10-11 12:16 | WOUNDNOTE ---
R HEEL WITH FLASH
--- NOTE | 2023-10-11 12:17 | WOUNDNOTE ---
WON RN NOTE: Followed up today, dressing changed on L foot. Heel is smaller and pink base, with ring of dry skin surrounding. S/P L 1st Ray amp and L leg bypass. Amp surgical site open proximally, clean base, soft eschar distal edge, all other
eschar remains dry. R heel with suspected small shallow blister evolving. Has been using air cushion to offload heels, recommended to patient using soft offloading heel boots and he is willing to try. Confirmed heel boots with Dr. Baer who is
aware of the above. Nurse Praveena updated on changes and called SPD for boots, nurse to apply when arrives. Patient instructed on strict offloading of both heels, he states he understands. Has surgical shoe at bedside when oob to chair. Patient able
to turn self in bed, on air overlay with adequate inflation. Sacrum remains intact. Updated care plan and will follow as needed.
--- NOTE | 2023-10-11 14:03 | W.DCSUMMARY ---
Discharge Summary
Discharge Data
Date of Admission: 09/27/23
Date of Discharge: 10/11/23
-
Pending Results: No
Hospital Course
Primary care physician : Kam Fletcher
Principal Discharge diagnosis : Diabetic foot infection complicated by peripheral arterial disease, peripheral arterial disease status post distal superficial femoral artery drug-eluting stent requiring left lower extremity arterial bypass, acute
blood loss anemia, nonhealing left heel diabetic stage III pressure ulcer present on admission
Chronic Discharge diagnosis : Coronary artery disease, type 2 diabetes with neuropathy, prostate cancer status post radiation in 2017, urinary retention, constipation
Hospital Course : Patient is a 73-year-old male with a history of dry gangrene of the left fourth toe and nonhealing wounds of the left lower extremity complicated by peripheral arterial disease status post stent to the left distal superficial
femoral artery with a drug-eluting stent on August 25, 2023. Patient presented at the request of his trap operator Dr. Almonte for an infected wound. He had an amputation of the left great toe and fourth toe on September 16, 2023 and the patient presented
to his follow-up visit 3 days prior to admission. Redness to the surgical site was noted. He was started on Augmentin and followed up again with no improvement. He was told to come to the emergency room for infected wounds. He admitted to fever
but denied chills. Patient was admitted.
Problem #1: Diabetic foot infection complicated by peripheral arterial disease. Patient was seen in consultation by both podiatry and infectious disease. Initially podiatry said there was nothing further to do from a surgical standpoint. However,
ID felt that the patient had purulent discharge underneath the eschar's that were noted. Podiatry was reconsulted and the patient went back to the operating room. He had partial first ray amputation with debridement to healthy skin. X-rays did
not show any evidence of osteomyelitis. Cultures from admission on 09/27/2023 showed polymicrobial organisms which included Klebsiella oxytoca, Providencia rettgeri, and methicillin sensitive Staphylococcus aureus. Patient was initially placed on
broad-spectrum antibiotics with Zosyn and transitioned to cefdinir and metronidazole to complete a 7-day course through October 11, 2023. Patient had his morning doses today so would only need the evening doses of these medications today. Patient's
white blood cell count improved from a high of 15.2 down to 9.6 on the day of discharge.
Problem #2: Peripheral arterial disease status post distal superficial femoral artery drug-eluting stent placement followed by left lower extremity arterial bypass. Patient was seen in consultation by vascular surgery. Since his foot was not
healing, despite the drug-eluting stent placement last month, patient underwent left lower extremity bypass. Patient was placed on aspirin, Plavix, and statin that he should continue.
Problem #3: Acute blood loss anemia. Patient had venous bleeding and oozing from the lower part of the bypass site. Plavix and heparin were placed on hold and the plan was to continue aspirin only. Patient did require blood transfusion and got a
total of 3 units of packed red blood cells this admission. Hemoglobin has remained stable in the mid 8 range.
Problem #4: Nonhealing left heel diabetic stage III pressure ulcer present on admission. There is no evidence of osteomyelitis in the left heel. Podiatry was consulted as mentioned.
Problem #5: All other medical issues. These include Coronary artery disease, type 2 diabetes with neuropathy, prostate cancer status post radiation in 2017, urinary retention, constipation. These medical issues were stable during his
hospitalization. Medications were continued as able.
Patient is stable to go to rehab at this time. Originally he was against going to a rehab but has since changed his mind. If there are any questions regarding this dictation or his hospital stay, placed on hesitate to call. Our office number is
[phone].
Time for discharge 38 minutes.
Procedure findings :
PODIATRY 10/04/23 Procedure: Partial first ray amputation, left foot under LMA
EBL: 30cc
Post-op condition: Stable, Vascular status intact to the LLE.
VASCULAR SURGERY PROCEDURE DATE: 09/29/2023
Preoperative diagnosis:
1. Chronic limb threatening ischemia left lower extremity.
2. Severe diffuse atherosclerosis bilateral lower extremity peripheral arteries.
Postoperative diagnosis: Same
Procedure: Left below the knee popliteal artery to dorsalis pedis artery bypass with ipsilateral nonreversed greater saphenous vein conduit.
Surgeon: Al
Employee Benefits Manager: KELLY Paz, required for all aspects of procedure including assistance with traction/countertraction, following a suture line, assistance with closure.
Complications: None
Anesthesia: General
Discharge Plan
-
Patient Disposition: Jail/SNF
Discharge Diagnosis/Procedures: Diabetic foot infection complicated by peripheral arterial disease status post left distal superficial femoral artery with drug-eluting stent followed by bypass surgery, acute blood loss anemia plus anemia of chronic
disease, left heel diabetic foot wound present on admission stage III pressure injury, hypokalemia, hyponatremia, coronary artery disease, type 2 diabetes mellitus with neuropathy, prostate cancer s/p radiation in 2017, urinary retention,
constipation
Condition: Good
Diet: Diabetic, Carb Controlled
Activity: Other activity
Additional Activity: NON WEIGHT BEARING LEFT FOOT
Driving Restrictions: No driving
Activity Restrictions/Additional Instructions:
Wound Care Instructions
L foot/heel: Clean with saline,Adaptic, dry gauze, kerlix to the LEFT first ray amputation site and posterior heel wound, once, every other day. Care taken to avoid compression to the dorsal foot and medial ankle bypass graft locations.
Offloading prevalon heel boots when in bed
R heel: skin prep and foam, change q other day and prn soilage.
Surgical shoe to L foot when oob-Patient is to remain NWB left foot, with use of a wheelchair for ambulation.
Follow up with trap operator and vascular Dr.
PER PODIATRY Dr. Baer--[place]-heel off boot/shoe can be delivered directly to the rehab/SNF
Referrals:
Jamar Baer DPM [Specified Professional Personl] - in one week
Kam Flecther, DO [Family Provider] - in less than 1 week
Macie Zavala CRNP [Specified Professional Personl] - 10/15/23 11:15 am
Prescriptions:
New
metronidazole 500 mg Tablet
500 mg PO BID Qty: 1 0RF
Rx Instructions:
cont through 10/10
cefdinir 300 mg Capsule
300 mg PO Q12 Qty: 1 0RF
Rx Instructions:
cont through 10/10
atorvastatin 20 mg Tablet
20 mg PO QPM Qty: 30 0RF
tamsulosin 0.4 mg Capsule
0.4 mg PO DAILY Qty: 0 0RF
acetaminophen 325 mg Tablet
650 mg PO Q6HPRN PRN (Reason: mild pain/ fever>100.5F) Qty: 0 0RF
melatonin 5 mg Tablet
5 mg PO HS Qty: 0 0RF
sennosides [Senna Laxative] 8.6 mg Tablet
8.6 mg PO BID Qty: 0 0RF
Dakin's Solution 0.125 % Solution
1 applic topical DAILY Qty: 473 0RF
oxycodone 5 mg Tablet
5 mg PO Q4HPRN PRN (Reason: moderate pain) Qty: 7 0RF
Continued
aspirin 81 mg tablet,chewable
81 mg PO DAILY
Held
clopidogrel 75 mg tablet
75 mg PO DAILY
Hold Instructions: discuss when to restart with vascular surgery
Discontinued
atorvastatin 10 mg tablet
10 mg PO QPM
amoxicillin-pot clavulanate 875-125 mg tablet
1 tab PO BID
Discharge Orders:
Discharge Patient (As Directed); Ordered 10/11/23
Ordered By: Ai Graham
Discharge Date and Time
Print Language: CROATIAN
[2023-10-15 08:41] LABS: Glucose - Point of Care 111 mg/dl (70-99)
== END 2023-10-11 14:29 | DRG 474 ==
LOC: 2 SOUTH 21:09
PROVIDERS: Hospitalist; Nurse Practitioner; Nurse Practitioner Family; Nurse Practitioner Gerontology; Physician Assistant; ADMITTING PHYSICIAN Hospitalist; ATTENDING PHYSICIAN Internal Medicine; CONSULT PHYSICIAN Internal Medicine Cardiovascular Disease; CONSULT PHYSICIAN Podiatrist Foot & Ankle Surgery; CONSULT PHYSICIAN Student in an Organized Health Care Education/Training Program; EMERGENCY PHYSICIAN Emergency Medicine; FAMILY PHYSICIAN Family Medicine; OTHER PHYSICIAN Internal Medicine; OTHER PHYSICIAN Surgery Vascular Surgery
PROC: 041 Lower Arteries, Bypass (ICD-10-PCS; 2023-09-29)
PROC: 30233N1 Transfusion of Nonautologous Red Blood Cells into Peripheral Vein, Percutaneous Approach (ICD-10-PCS; 2023-10-04)
PROC: 0Y6N0Z9 Detachment at Left Foot, Partial 1st Ray, Open Approach (ICD-10-PCS; 2023-10-04)
DX: T87.44 Infection of amputation stump, left lower extremity (principal); A41.9 Sepsis, unspecified organism; L89.893 Pressure ulcer of other site, stage 3; D62 Acute posthemorrhagic anemia; L03.116 Cellulitis of left lower limb; E11.52 Type 2 diabetes mellitus with diabetic peripheral angiopathy with gangrene; E87.1 Hypo-osmolality and hyponatremia; E11.628 Type 2 diabetes mellitus with other skin complications; E11.40 Type 2 diabetes mellitus with diabetic neuropathy, unspecified; C61 Malignant neoplasm of prostate; I25.10 Atherosclerotic heart disease of native coronary artery without angina pectoris; Z92.3 Personal history of irradiation; E11.65 Type 2 diabetes mellitus with hyperglycemia; E11.621 Type 2 diabetes mellitus with foot ulcer; E11.69 Type 2 diabetes mellitus with other specified complication; K59.00 Constipation, unspecified; I70.229 Atherosclerosis of native arteries of extremities with rest pain, unspecified extremity; I70.202 Unspecified atherosclerosis of native arteries of extremities, left leg; T87.54 Necrosis of amputation stump, left lower extremity; E87.6 Hypokalemia; I48.0 Paroxysmal atrial fibrillation; T87.89 Other complications of amputation stump; Y83.5 Amputation of limb(s) as the cause of abnormal reaction of the patient, or of later complication, without mention of misadventure at the time of the procedure; Z79.02 Long term (current) use of antithrombotics/antiplatelets; Z79.82 Long term (current) use of aspirin; Z91.199 Patient's noncompliance with other medical treatment and regimen due to unspecified reason
CPT/HCPCS: 88304; 88311; 35571; 73620; 73630; 75635; 80048; 80053; 82962; 83036; 83605; 83735; 85014; 85018; 85025; 85027; 85610; 85730; 86850; 86900; 86901; 86920; 87040; 87070; 87077; 87147; 87186; 87205; 93005; 93970; 96365; 96366; 96367; 97163; 97166; 97530; 97535; 99285; P9016; Q9967

== ENCOUNTER 2023-10-14 17:46 | Inpatient (IN) | payer MEDICARE, SELFPAY ==
[2023-10-14] VITALS (11 sets, daily range): BP systolic 115–125; BP diastolic 51–87; BMI 27.8
--- NOTE | 2023-10-14 13:39 | ED.GENMED ---
History of Present Illness
<Alba Stubbs PA-C - Last Filed: 10/14/23 18:49>
General
Chief Complaint: Wound Check/Suture Removal
Source: patient
Exam Limitations: none
Time Seen by Provider: 10/14/23 13:37
Nursing documentation reviewed up to this point in time: agreed with
History of Present Illness
History of Present Illness:
73-year-old male with a past medical history of diabetes status post 4 weeks toe imitation presenting emergency department today with uncontrolled bleeding from the surgical site. Patient had an infected diabetic foot wound and subsequently had to
have a partial first ray amputation in his left foot, and he is status post 7 days below knee popliteal did resolve pedis bypass left lower extremity by Dr. Melendez. Patient had office appointment today with his corporation lawyer Dr. Almonte today where
sutures were removed. His surgical site has been not healing well. There has been discussion with his corporation lawyer of further amputation. In the office today he had light debridement of necrotic tissue and his bleeding persist. Patient does take
aspirin, Plavix, and he says he also takes Eliquis. Patient notes mild lightheadedness. Patient Nuys any chest pain or shortness of breath. Patient denies any recent falls. Patient states that he does not have much sensation remaining in that
foot.
Past History
<Alba Stubbs PA-C - Last Filed: 10/14/23 18:49>
Past History
ED Past Medical History: Arrthythmia, Cancer (Prostate), COPD, HTN, Hypercholesterolemia and NIDDM
ED Past Surgical History: Orthopedic
Social History
Tobacco: Smoker
Alcohol: Occasional
Drug: None
Personal:
Living: with family
Review of Systems
<Alba Stubbs PA-C - Last Filed: 10/14/23 18:49>
Review of Systems
All Other Systems: ROS reviewed and negative except as documented in HPI and ROS
Phy Exam
<Alba Stubbs PA-C - Last Filed: 10/14/23 18:49>
Physical Exam
Physical Exam:
General: Patient is well appearing and in no acute distress; non-toxic
Skin: There is a large open actively bleeding site on the left foot. There is a gaping ulcerated wound. 2 arterioles seen actively bleeding.
Head: Normocephalic, atraumatic.
Eyes: Sclera non-icteric. EOMs intact. PERRLA.
Cardiac: Regular rate and rhythm, no murmurs
Pulm: Normal respiratory effort
Neuro: CN II-XII intact, no focal neurologic deficits.
Psychiatric: Appropriate mood and affect.
Course
<ROYCE Jeffries Last Filed: 10/14/23 18:49>
Orders/Labs/Results
Orders:
Orders
10/14/23 14:20
0.9% Sodium Chloride 1000 ml [Nss] 1,000 ml IV BOLUS
10/14/23 14:21
Electrocardiogram (*1) Urgent
Reason for Study: Fatigue / Weakness
EKG- Treatment ONCE
10/14/23 14:22
Type+Screen Urgent
Complete Blood Count/With Diff Urgent
Comprehensive Metabolic Panel Urgent
PTT Urgent
Prothrombin Time Urgent
10/14/23 Dinner
2000 calorie (17 carb) Diabetic
At Your Request: Limited Participation
10/14/23 15:35
Bupivacaine Pf 0.5% [Sensorcaine 0.5% Single Dose] 30 ml .ROUTE .STK-MED ONE
Lidocaine Mpf 1% [Xylocaine-Mpf 1% Vial] 30 ml .ROUTE .STK-MED ONE
10/14/23 16:03
Fentanyl Citrate/Pf [Sublimaze] 100 mcg .ROUTE .STK-MED ONE
Lidocaine HCl/Pf [Xylocaine-Mpf 1% Vial] 50 mg .ROUTE .STK-MED ONE
Ondansetron Injectable [Zofran] 4 mg .ROUTE .STK-MED ONE
Propofol [Diprivan] 20 ml .ROUTE .STK-MED
10/14/23 17:26
Admit/Transfer Patient As Directed
Co-Sign Provider:
Level of Care: Inpatient admission
Assign to:: Medical/Surgical
Physician / Group: jose
Diagnosis: bleeding from amputation site
Reason for Hospitalization: bleeding from amputation site
Expected length of stay greater than two midnights?: Yes
ELOS- Estimated Length of Stay in days: 2
I certify the patient meets the requirements for IP care: Yes
PRN Pain Medication Management As Directed
May give lesser potent ordered pain med per pt: Yes
preference::
Protocol:: Medication orders for pain may be administered in a
manner that supports deferring to patient preference
when the pt is:
- Requesting an ordered lesser potent pain medication.
Least to most potent pain medications are defined
as: acetaminophen < NSAID < tramadol < opioids
(morphine, oxycodone, hydromorphone).
- Requesting a lesser dose of the same medication IF
ORDERED.
- Requesting a less intrusive route of administration
if both routes are prescribed by the provider (PO <
IV).
10/14/23 17:27
Code Status As Directed
Resuscitation Status: Full Code
10/14/23 18:37
Acetaminophen [Tylenol] 650 mg PO Q4HPRN PRN
Bisacodyl [Dulcolax] 10 mg RECTAL DAILYPRN PRN
Magnesium Hydroxide [Milk of Magnesia] 30 ml PO [id number] PRN
Oxycodone [Roxicodone] 5 mg PO Q4HPRN PRN
Phosphate Enema [Fleet Phosphate Enema-Adult] 118 ml RECTAL DAILYPRN PRN
10/14/23 18:37
PODIATRY CONSULT Routine
Consulting Provider: Jamar Baer
Was physician already notified: Yes
Activity As Directed
Activity Level: As Tolerated
Pneumatic Compression Sleeves As Directed
Type: Knee high
Vital Signs As Directed
Frequency: Per unit guidelines
DX Deep Vein Thrombosis Video Routine
10/14/23 20:00
Sennosides [Senokot] 8.6 mg PO BID
10/14/23 22:00
Atorvastatin [Lipitor] 20 mg PO HS
Melatonin 5 mg PO HS
10/15/23 06:00
Complete Blood Count/With Diff IN AM
Comprehensive Metabolic Panel IN AM
10/15/23 08:00
Aspirin Chewable [Low Strength Aspirin] 81 mg PO DAILY
Tamsulosin [Flomax] 0.4 mg PO DAILY
Abnormal Lab Results
10/14/23
14:22
RBC 2.81 L 10^6/uL
(4.70-6.10)
Hgb 8.5 L g/dL
(13.0-18.0)
Hct 25.1 L %
(39.0-52.0)
Plt Count 424 H 10^3/uL
(130-400)
Abs Immat Gran (auto) 0.1 H 10^3/uL
(0-0.05)
Absolute Monos (auto) 0.7 H 10^3/uL
(0.1-0.6)
Immature Gran % 0.6 H %
(0-0.5)
Lymphocytes % 20.2 L %
(20.5-51.1)
PT 15.2 H Sec
(11.4-14.6)
Glucose 131 H mg/dl
(70-99)
Total Protein 5.4 L g/dl
(6.3-8.2)
Albumin 2.6 L g/dl
(3.5-5.0)
10/14/23 14:22
10/14/23 14:22
Vital Signs
Initial and Last Documented VS:
Initial Vital Signs
Temp Pulse Resp BP Pulse Ox
98.4 F 91 16 115/74 99
10/14/23 12:54 10/14/23 12:54 10/14/23 12:54 10/14/23 12:54 10/14/23 12:54
Last Documented Vital Signs
Temp Pulse Resp BP Pulse Ox
98.4 F 74 16 119/84 98
10/14/23 14:29 10/14/23 17:54 10/14/23 17:54 10/14/23 17:54 10/14/23 17:54
<Ashok Henson DO - Last Filed: 10/14/23 15:58>
Orders/Labs/Results
Orders:
Orders
10/14/23 14:20
0.9% Sodium Chloride 1000 ml [Nss] 1,000 ml IV BOLUS
10/14/23 14:21
Electrocardiogram (*1) Urgent
Reason for Study: Fatigue / Weakness
EKG- Treatment ONCE
10/14/23 14:22
Type+Screen Urgent
Complete Blood Count/With Diff Urgent
Comprehensive Metabolic Panel Urgent
PTT Urgent
Prothrombin Time Urgent
10/14/23 Dinner
2000 calorie (17 carb) Diabetic
At Your Request: Limited Participation
10/14/23 15:35
Bupivacaine Pf 0.5% [Sensorcaine 0.5% Single Dose] 30 ml .ROUTE .STK-MED ONE
Lidocaine Mpf 1% [Xylocaine-Mpf 1% Vial] 30 ml .ROUTE .STK-MED ONE
10/14/23 16:03
Fentanyl Citrate/Pf [Sublimaze] 100 mcg .ROUTE .STK-MED ONE
Lidocaine HCl/Pf [Xylocaine-Mpf 1% Vial] 50 mg .ROUTE .STK-MED ONE
Ondansetron Injectable [Zofran] 4 mg .ROUTE .STK-MED ONE
Propofol [Diprivan] 20 ml .ROUTE .STK-MED
10/14/23 17:26
Admit/Transfer Patient As Directed
Co-Sign Provider:
Level of Care: Inpatient admission
Assign to:: Medical/Surgical
Physician / Group: jose
Diagnosis: bleeding from amputation site
Reason for Hospitalization: bleeding from amputation site
Expected length of stay greater than two midnights?: Yes
ELOS- Estimated Length of Stay in days: 2
I certify the patient meets the requirements for IP care: Yes
PRN Pain Medication Management As Directed
May give lesser potent ordered pain med per pt: Yes
preference::
Protocol:: Medication orders for pain may be administered in a
manner that supports deferring to patient preference
when the pt is:
- Requesting an ordered lesser potent pain medication.
Least to most potent pain medications are defined
as: acetaminophen < NSAID < tramadol < opioids
(morphine, oxycodone, hydromorphone).
- Requesting a lesser dose of the same medication IF
ORDERED.
- Requesting a less intrusive route of administration
if both routes are prescribed by the provider (PO <
IV).
10/14/23 17:27
Code Status As Directed
Resuscitation Status: Full Code
10/14/23 18:37
Acetaminophen [Tylenol] 650 mg PO Q4HPRN PRN
Bisacodyl [Dulcolax] 10 mg RECTAL DAILYPRN PRN
Magnesium Hydroxide [Milk of Magnesia] 30 ml PO [id number] PRN
Oxycodone [Roxicodone] 5 mg PO Q4HPRN PRN
Phosphate Enema [Fleet Phosphate Enema-Adult] 118 ml RECTAL DAILYPRN PRN
10/14/23 18:37
PODIATRY CONSULT Routine
Consulting Provider: Jamar Baer
Was physician already notified: Yes
Activity As Directed
Activity Level: As Tolerated
Pneumatic Compression Sleeves As Directed
Type: Knee high
Vital Signs As Directed
Frequency: Per unit guidelines
DX Deep Vein Thrombosis Video Routine
10/14/23 20:00
Sennosides [Senokot] 8.6 mg PO BID
10/14/23 22:00
Atorvastatin [Lipitor] 20 mg PO HS
Melatonin 5 mg PO HS
10/15/23 06:00
Complete Blood Count/With Diff IN AM
Comprehensive Metabolic Panel IN AM
10/15/23 08:00
Aspirin Chewable [Low Strength Aspirin] 81 mg PO DAILY
Tamsulosin [Flomax] 0.4 mg PO DAILY
Abnormal Lab Results
10/14/23
14:22
RBC 2.81 L 10^6/uL
(4.70-6.10)
Hgb 8.5 L g/dL
(13.0-18.0)
Hct 25.1 L %
(39.0-52.0)
Plt Count 424 H 10^3/uL
(130-400)
Abs Immat Gran (auto) 0.1 H 10^3/uL
(0-0.05)
Absolute Monos (auto) 0.7 H 10^3/uL
(0.1-0.6)
Immature Gran % 0.6 H %
(0-0.5)
Lymphocytes % 20.2 L %
(20.5-51.1)
PT 15.2 H Sec
(11.4-14.6)
Glucose 131 H mg/dl
(70-99)
Total Protein 5.4 L g/dl
(6.3-8.2)
Albumin 2.6 L g/dl
(3.5-5.0)
10/14/23 14:22
10/14/23 14:22
Vital Signs
Initial and Last Documented VS:
Initial Vital Signs
Temp Pulse Resp BP Pulse Ox
98.4 F 91 16 115/74 99
10/14/23 12:54 10/14/23 12:54 10/14/23 12:54 10/14/23 12:54 10/14/23 12:54
Last Documented Vital Signs
Temp Pulse Resp BP Pulse Ox
98.4 F 74 16 119/84 98
10/14/23 14:29 10/14/23 17:54 10/14/23 17:54 10/14/23 17:54 10/14/23 17:54
Osmellt;Alba Stubbs PA-C - Last Filed: 10/14/23 18:49>
MDM/Problems Addressed
Differential Diagnosis Includes:
ddx include acute hemorrhage, bleeding disorder, post surgical complication, peripheral arterial disease
MDM/Problems Addressed:
Acute arterial hemorrhage:
73-year-old male with a past medical history of diabetes status post 4 weeks toe imitation presenting emergency department today with uncontrolled bleeding from the surgical site. Patient had a follow-up appoint with his corporation lawyer today and had
debridement and suture removal and they noted that he started to have acute bleeding. Bleeding cannot be controlled in the office to be sent to the emergency department. Here in emergency department, when unwrapping the wound, he started acutely
bleeding briskly. He was brought into a recess room and patient was started on fluids. He does have brief transient episode of hypotension but his vitals are now stable. Bleeding was controlled with deep dermal dissolvable sutures, wound was
packed with Surgicel, blood pressure cuff tourniquet applied, and silk sutures applied over top to help tamponade bleeding. Hemostasis achieved. Vascular on-call and podiatry on-call consulted. Vascular states that because he had a prior graft in
that area and this is not coming from surgical site they performed, they recommend did consult taking podiatry who evaluated patient here in the ER and decided that hemostasis has been achieved and do not want take patient to the OR at this time.
Will observe overnight to ensure bleeding does not return. Patient referred for admission by hospitalist.
Chronic conditions affecting care:
Peripheral arterial disease, diabetes, hyperlipidemia, coronary artery disease, anemia
<Alba Stubbs PA-C - Last Filed: 10/14/23 18:49>
*Critical Care Note
Total Time (30-74mins, 75-104mins- exclusive of procedures): Not Applicable
ED Attending Note
<Alba Stubbs PA-C - Last Filed: 10/14/23 18:49>
-
Portions of this chart may have been created with voice recognition software.� Occasional wrong word or��sound alike� substitutions may have occurred due to the inherent limitations of voice recognition software.
<Ashok Henson DO - Last Filed: 10/14/23 15:58>
ED Attending Note
Patient seen and examined by attending physician: Yes
I performed the substantive portion of visit, reviewed & personally made and approve the management plan that is documented in note by myself or CARLOS.: Yes
ED Attending Note:
Patient is a 73-year-old male with peripheral vascular disease who had bypass to the left lower extremity and today was having the wound treated at the corporation lawyer with debridement and taking out sutures. Patient began to bleeding and they were
unable to stop the bleeding and sent the patient to the ER. Patient is on aspirin and Plavix but not on any Coumadin or NOACs. Patient's foot was wrapped with elastic bandages. Bandages were removed and patient had 2 areas of arterial bleeding.
Assuming these were digital arteries. The tissue was macerated and unable to do a box stitch. An as bleeding continued packed the wound with Gelfoam and then put silk sutures in to hold pressure. Patient's blood pressure did drop and he became
hypotensive but wants to wound was stabilized and started on fluids patient did better. Patient was seen by vascular and referred back to podiatry who will take the patient to the OR.
Discharge Plan
Departure
Patient Disposition: Admit
Date of Disposition: 10/14/23
Time of Disposition: 15:11
Admit to: Telemetry
Presentation/result/management discussed w/ accepting MD/DO: Hospitalist
Patient with high blood pressure during this ER visit?: No
Condition: Fair
Discharge Problem:
Post surgical complication, Diabetic foot ulcer, Acute hemorrhage
Interventions
Interventions:
*Risk Screen - Suicide Last Done: 10/14/23 12:54
*General Assessment Last Done: 10/14/23 12:54
*Neglect/Abuse Screening Last Done: 10/14/23 12:54
ED- Fall Risk Assessment Last Done: 10/14/23 12:54
*Nursing Disposition Last Done: 10/14/23 18:32
ED-Skin Assessment Last Done: 10/14/23 12:54
Discharge Date and Time
Discharge Date/Time: 10/14/23 18:32
[2023-10-14] MEDS: NSS 1000 IV (14:27)
[2023-10-14 14:30] LABS: % Basophils 0.8 % (0-2); % Immature Granulocytes 0.6 % (0-0.5); % Lymphocytes 20.2 % (20.5-51.1); % Monocytes 6.7 % (1.7-9.3); % Neutrophils 65.7 % (42.2-75.2); Absolute Basophils 0.1 10^3/uL (0-0.2); Absolute Eosinophils 0.6 10^3/uL (0-0.7); Absolute Immature Granulocytes 0.1 10^3/uL (0-0.05); Absolute Monocytes 0.7 10^3/uL (0.1-0.6); Absolute Neutrophils 6.3 10^3/uL (1.4-6.5); Hematocrit 25.1 % (39.0-52.0); Hemoglobin 8.5 g/dL (13.0-18.0); Mean Corp Hgb Conc. 33.9 g/dL (33.0-37.0); Mean Corpuscular Hgb 30.2 pg (27.0-31.0); Mean Corpuscular Volume 89.3 fL (80.0-94.0); Mean Platelet Volume 8.9 fL (7.4-10.4); Nucleated Red Blood Cells % 0 % (-); Platelet Count 424 10^3/uL (130-400); Red Blood Cell Count 2.81 10^6/uL (4.70-6.10); Red Cell Dist. Width 14.5 % (11.5-14.5); White Blood Cell Count 9.7 10^3/uL (4.8-10.8)
[2023-10-14 14:41] LABS: INR 1.19; PT 15.2 Sec (11.4-14.6)
[2023-10-14 14:42] LABS: APTT 28.6 Sec (23.4-35.0)
[2023-10-14 14:43] LABS: ALT (SGPT) 20 U/L (0-50); AST (SGOT) 37 U/L (17-59); Albumin 2.6 g/dl (3.5-5.0); Alkaline Phosphatase 73 U/L (38-126); Blood Urea Nitrogen 13 mg/dl (9-20); Calcium 8.7 mg/dl (8.4-10.2); Carbon Dioxide 26 mmol/L (22-30); Chloride 105 mmol/L (98-107); Estimated Creatinine Clearance 72 ml/min; Glucose 131 mg/dl (70-99); Potassium 4.6 mmol/L (3.5-5.1); Sodium 136 mmol/L (135-145); Total Bilirubin 0.4 mg/dl (0.2-1.3); Total Protein 5.4 g/dl (6.3-8.2); eGFR > 60.00
--- NOTE | 2023-10-14 16:27 | EDRN ---
floor sanding machine operator received report from OR nurse Luis Alberto that pt is to e sent back to ER, OR staff states that foot is not bleeding.
--- NOTE | 2023-10-14 16:41 | W.PN.UPDATE ---
Update Note
Progress Note Update
Patient was seen by our RECREATIONAL ASSISTANT while i was scrubbed in OR. She relayed to me bypass graft patent and no bleeding from bypass graft or distal arterial exposure site. I now came down to ER to see patient after completing case in OR and patient is not
here. Unclear if discharged or taken to OR by podiatry.
--- NOTE | 2023-10-14 17:31 | HPS.HSE ---
Family Physician
-
Family Physician: Kam Fletcher
Chief Complaint
-
bleeding from surgical site
History of Present Illness
73-year-old male past medical history of dry gangrene of left fourth toe, nonhealing wounds of left lower extremity, PAD status post stent of left distal superficial femoral artery with drug-eluting stent on 08/24, chronic left lateral leg stage II
decubitus/unstageable black necrotic left heel ulceration, type 2 diabetes, diabetic neuropathy, alcohol use, coronary artery disease status post LAD in 2016, prostate cancer status post prostate radiation in 2017, ex-smoker, diverticulosis,
presenting for bleeding from surgical site.
Patient was recently admitted from 09/13 to 09/19 for gangrene of the left fourth toe/necrosis of left great toe status post amputation left fourth toe and partial application of the left great toe, debridement to left third toe wound. He was again
admitted from 09/26 to 10/10 recurrent diabetic foot infection. Patient had partial first toe amputation with debridement and without evidence of osteomyelitis. He also underwent lower extremity bypass by vascular surgery. He also had venous
bleeding on the lower part of the bypass site. He received 3 units of blood transfusion during the admission.
He presents today with uncontrolled bleeding from the surgical site. 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 The surgical site had not been healing well. In the office today he had debridement of necrotic
tissue with persistent bleeding afterwards.
He denies smoking or alcohol use.
Medical History
Past Medical History
Past Medical History: Reports Other (dry gangrene of left fourth toe, nonhealing wounds of left lower extremity, PAD status post stent of left distal superficial femoral artery with drug-eluting stent on 08/24, chronic left lateral leg stage II
decubitus/unstageable black necrotic left heel ulceration, type 2 diabetes, diabetic neuropat)
Past Surgical History: Reports Other (amputations, SFA stent, LLE bypass )
Social History
Tobacco: Non-smoker
Alcohol: None
Drug: None
Family History
Family History: Not pertinent
Allergies / Home Medications
Allergies reflects when Allergies were last updated in [facility].
Home Medications with original date entered in [facility]
Allergy/Medication List:
Allergies
Allergy/AdvReac Type Severity Reaction Status Date / Time
No Known Allergies Allergy Verified 10/14/23 12:53
Home Medications
aspirin 81 mg chewable tablet 81 mg PO DAILY Blood Clot Prevention/Tx 09/14/23
melatonin 5 mg tablet 5 mg PO HS #0 tabs 10/11/23
oxycodone 5 mg tablet 5 mg PO Q4HPRN PRN moderate pain #7 tabs 10/11/23
sennosides 8.6 mg tablet (Senna Laxative) 8.6 mg PO BID #0 tabs 10/11/23
tamsulosin 0.4 mg capsule 0.4 mg PO DAILY #0 caps 10/11/23
acetaminophen 325 mg tablet 650 mg PO Q4HPRN PRN mild pain/ fever>100.5F 10/14/23
atorvastatin 20 mg tablet 20 mg PO HS 10/14/23
bisacodyl 10 mg rectal suppository (Dulcolax (bisacodyl)) 10 mg MS DAILYPRN PRN if no bm morning of day 10/14/23
magnesium hydroxide 400 mg/5 mL oral suspension (Milk of Magnesia) 2,400 mg PO [id number] PRN if no bm on 3rd day 10/14/23
sodium phosphates 19 gram-7 gram/118 mL enema (Fleet Enema) 118 ml MS DAILYPRN PRN if no bm night of 10/14/23
Review of Systems
-
History Source: Patient
A 12 point ROS was completed and negative except as noted: Yes
Constitutional: Reports No Symptoms
EENT: Reports No Symptoms
Respiratory: Reports No Symptoms
Cardiac: Reports No Symptoms
Abdomen/GI: Reports No Symptoms
: Reports No Symptoms
Musculoskeletal: Reports No Symptoms
Skin: Reports No Symptoms
Neurological: Reports No Symptoms
Endocrine: Reports No Symptoms
Hematologic/Lymphatic: Reports No Symptoms
Psych: Reports No Symptoms
Physical Exam
Vital Signs
Vital Signs
Temp Pulse Resp BP Pulse Ox
98.4 F 78 16 124/78 99
10/14/23 14:29 10/14/23 16:50 10/14/23 16:50 10/14/23 16:50 10/14/23 16:50
Physical Exam
General: Well Developed, Well Nourished and No Apparent Distress
HEENT: NormoCephalic, Moist mucous membranes and Atraumatic
Respiratory: Clear
Cardiac: S1/S2 and Regular Rhythm; No Murmur or Rub
GI: Soft, Non Tender, Non Distended and Normal Bowel Sounds; No Organomegaly
Rectal: Deferred by Provider
Musculoskeletal: No Clubbing, No Cyanosis and No Edema
Skin: No Rash
Neuro: Nonfocal/grossly intact
Laboratory Results
-
10/14/23 14:22
10/14/23 14:22
Laboratory Results
PT 15.2 Sec (11.4-14.6) H 10/14/23 14:22
INR 1.19 10/14/23 14:22
APTT 28.6 Sec (23.4-35.0) 10/14/23 14:22
Total Bilirubin 0.4 mg/dl (0.2-1.3) 10/14/23 14:22
AST 37 U/L (17-59) 10/14/23 14:22
ALT 20 U/L (0-50) 10/14/23 14:22
Alkaline Phosphatase 73 U/L (38-126) 10/14/23 14:22
Data Reviewed
-
Lab Data: Labs Reviewed by me
Old Records: Reviewed
Impression/Plan
-
IMPRESSION:
PLAN:
# Bleeding from surgical site of left foot first toe partial ray amputation site
# Chronic blood loss anemia from bleeding from surgical site
# History of diabetic foot infection with dry gangrene status post first toe partial ray amputation on 10/03
-Hemoglobin stable at 8.5
-Bleeding now controlled, and podiatry wants to observe overnight instead of OR tonight
-Continue oxycodone
#PAD status post end of left distal superficial femoral artery with drug-eluting stent on 08/24 and later left lower extremity arterial bypass on 09/28
-Vascular following
-Continue aspirin, statin
Left heel diabetic/PAD/stage III pressure injury
CAD status post LAD stent in 2015
Type 2 diabetes
Prostate cancer status post prostate radiation 2016
History of urinary retention
-Continue tamsulosin
Constipation
-Continue senna
Full code
DVT prophylaxis-SCDs
Diabetic diet
--- NOTE | 2023-10-14 18:40 | PTCARENOTE ---
Pt received from the PACU via stretcher. Transport was w/o incident. Pt is Awake and alert, denies pain at this time, VSS, Pt is afebrile. Pt instructed on plan of care, Pt verbalized understanding of instructions, Call newton is within reach.
--- NOTE | 2023-10-14 18:45 | PTCARENOTE ---
Pt arrived to [facility] from the ED at 1840 on a stretcher and was pulled over onto the bed. Pt has an ulcer on the Left heel and amputated toe on the Left foot. Full head to toe assessment completed. Pt AAxOx3. Pt oriented to room and call newton. Bed
locked and in lowest position. Will continue to monitor.
[2023-10-14 21:34] LABS: Glucose - Point of Care 170 mg/dl (70-99)
[2023-10-14] MEDS: LIPITOR 20 MG PO (22:19)
[2023-10-14] MEDS: MELATONIN 5 MG PO (22:19)
[2023-10-15] MEDS: DESENEX/MITRAZOL/ZEASORB 1 APPLIC TOPICAL (05:40)
[2023-10-15 07:05] VITALS: BP 108/66
[2023-10-15 07:05] LABS: % Basophils 0.8 % (0-2); % Eosinophils 4.5 % (0-6); % Immature Granulocytes 0.4 % (0-0.5); % Lymphocytes 17.3 % (20.5-51.1); % Monocytes 8.5 % (1.7-9.3); % Neutrophils 68.5 % (42.2-75.2); Absolute Basophils 0.1 10^3/uL (0-0.2); Absolute Eosinophils 0.4 10^3/uL (0-0.7); Absolute Lymphocytes 1.6 10^3/uL (1.2-3.4); Absolute Monocytes 0.8 10^3/uL (0.1-0.6); Absolute Neutrophils 6.2 10^3/uL (1.4-6.5); Hematocrit 19.3 % (39.0-52.0); Hemoglobin 6.6 g/dL (13.0-18.0); Mean Corp Hgb Conc. 34.2 g/dL (33.0-37.0); Mean Corpuscular Hgb 30.6 pg (27.0-31.0); Mean Corpuscular Volume 89.4 fL (80.0-94.0); Mean Platelet Volume 9.4 fL (7.4-10.4); Nucleated Red Blood Cells % 0 % (-); Platelet Count 395 10^3/uL (130-400); Red Blood Cell Count 2.16 10^6/uL (4.70-6.10); Red Cell Dist. Width 14.6 % (11.5-14.5); White Blood Cell Count 9.1 10^3/uL (4.8-10.8)
[2023-10-15 07:07] LABS: ALT (SGPT) 18 U/L (0-50); AST (SGOT) 27 U/L (17-59); Albumin 2.4 g/dl (3.5-5.0); Alkaline Phosphatase 59 U/L (38-126); Blood Urea Nitrogen 16 mg/dl (9-20); Calcium 8.1 mg/dl (8.4-10.2); Carbon Dioxide 28 mmol/L (22-30); Chloride 104 mmol/L (98-107); Estimated Creatinine Clearance 72 ml/min; Glucose 121 mg/dl (70-99); Potassium 4.2 mmol/L (3.5-5.1); Sodium 137 mmol/L (135-145); Total Bilirubin 0.4 mg/dl (0.2-1.3); Total Protein 5.1 g/dl (6.3-8.2); eGFR > 60.00
[2023-10-15 08:04] LABS: Glucose - Point of Care 163 mg/dl (70-99)
--- NOTE | 2023-10-15 08:15 | VNURNOTE ---
Patient was current by VN, chart on hold- per last hospital admission, pt was DC'ed to [facility]. [facility] remains available pending DC plans.
[2023-10-15] MEDS: LOW STRENGTH ASPIRIN 81 MG PO (09:06)
[2023-10-15] MEDS: FLOMAX 0.4 MG PO (09:06)
[2023-10-15] MEDS: NOVOLOG FLEXPEN-LOW RESISTANCE 1 UNITS SC ×2 (09:08→12:18)
[2023-10-15 10:29] VITALS: BP 101/63
[2023-10-15 10:45] VITALS: BP 101/59; BP 102/63
--- NOTE | 2023-10-15 11:42 | CM ---
Patient seen at bedside with Sandra. IA completed
Patient was at [facility] & was transported to podiatry appt. suture removal. and had bleeding from the amputation site and sent to ED.
Hgb 6.6 today & is receiving PRBC.
Patient lives in a 2 story home with , daughter & son.
No steps to enter his home and the bed/bath on 1st floor.
Has had [facility] in past. He states he does not wish to return to SNF & would rather have [facility].
Spoke to Edel at [facility], bed not on hold. Would need insurance auth for SNF.
Referral put in care port for [facility] and [facility] in the event he declines SNF.
PCP: Kam Fletcher
Pharmacy: [address]
PLAN: Discharge when medically stable to SNF or [facility].
--- NOTE | 2023-10-15 12:10 | W.PN.HOSP.TC ---
Today's Communication/Plan
-
Transfuse 1 unit PRBC
Repeat CBC this evening
follow-up podiatry recommendations
Assessment / Plan
Assessment / Plan
#Bleeding from surgical site of left foot -- first toe partial ray amputation site
#Acute on chronic blood loss anemia from bleeding from surgical site
#History of diabetic foot infection with dry gangrene s/p first toe partial ray amputation on 10/03
-States he has had bleeding from the site for weeks, says it was more severe yesterday
-Upon arrival his hemoglobin was stable at 8.5, podiatry initially wanted to observe
-Repeat hemoglobin this morning was 6.8; ordered 1 unit PRBC for now
-Remains hemodynamically stable, no active bleeding at bedside this morning
-Podiatry following
Plan
-Repeat CBC this afternoon after blood, repeat every 12 hr
-Continue with supportive transfusions for hemoglobin goal >7
-Remains on aspirin, consider holding starting tomorrow's dose
-Podiatry recs appreciated
#PAD s/p left distal SFA PANFILO (08/24) and later left lower extremity arterial bypass (09/28)
-Home regimen includes aspirin and moderate intensity statin
-Will consider holding aspirin in the context of his ongoing bleeding though is high risk
-No signs of critical limb ischemia at this time
#CAD s/p LAD stent (2015)
-Home regimen includes aspirin and moderate intensity statin; no beta-teto or ANASTASIIA/ARB
-No chest pain, ischemic ECG changes or troponinemia here
-Remains on home regimen, may consider holding aspirin as above
#T2DM
-Microvascular complications include neuropathy; does have significant ASCVD as well
-Last A1c we have on record was 6.6%, Home meds do not show any antihyperglycemic regimen
-Is currently on insulin sliding scale with Accu-Cheks, glucose consistently <200
#Left heel diabetic/PAD/stage III pressure injury -- POA
-Wound care, monitor for infection
#H/O Prostate cancer s/p prostate radiation (2017)
#H/O urinary retention
-Continue tamsulosin home regimen
#H/O Constipation
-Continue senna bowel regimen
CODE STATUS: Full code
DVT prophylaxis: SCDs
Diet: Diabetic diet
Anticipated Discharge: > 48 hours
Subjective/Interval History
-
Date of Service: October 15, 2023
Objective Data
-
Labs:
Laboratory Results
10/15/23
06:08
WBC 9.1
Hgb 6.6 L* D
Hct 19.3 L*
Plt Count 395
Sodium 137
Potassium 4.2
Chloride 104
Carbon Dioxide 28
BUN 16
Creatinine 0.8
Glucose 121 H
Calcium 8.1 L
Total Bilirubin 0.4
AST 27
ALT 18
Alkaline Phosphatase 59
Vital Signs:
Vital Signs
Temp Pulse Resp BP Pulse Ox
98.2 F 79 18 102/63 93
10/15/23 10:45 10/15/23 10:45 10/15/23 10:45 10/15/23 10:45 10/15/23 07:05
I&O
10/14/23 10/15/23 10/16/23
06:59 06:59 06:59
Intake Total 480 / 480 0 / 0
Output Total 150 / 150
Balance 330 / 330 0 / 0
[2023-10-15 12:15] LABS: Glucose - Point of Care 175 mg/dl (70-99)
[2023-10-15 13:05] VITALS: BMI 27.8
[2023-10-15 13:15] VITALS: BP 101/59
--- NOTE | 2023-10-15 13:15 | PTCARENOTE ---
1 unit PRBC infused without incident; repeat CBC ordered for 18:22.
[2023-10-15 15:20] VITALS: BP 105/52
[2023-10-15 17:08] LABS: Glucose - Point of Care 125 mg/dl (70-99)
[2023-10-15] MEDS: NOVOLOG FLEXPEN-LOW RESISTANCE SC (17:16)
[2023-10-15 18:56] LABS: Hematocrit 23.2 % (39.0-52.0); Mean Corp Hgb Conc. 34.5 g/dL (33.0-37.0); Mean Corpuscular Hgb 30.8 pg (27.0-31.0); Mean Corpuscular Volume 89.2 fL (80.0-94.0); Mean Platelet Volume 9.3 fL (7.4-10.4); Platelet Count 328 10^3/uL (130-400); Red Cell Dist. Width 15.4 % (11.5-14.5); White Blood Cell Count 9.8 10^3/uL (4.8-10.8)
[2023-10-15] MEDS: LIPITOR 20 MG PO (21:22)
[2023-10-15] MEDS: ROXICODONE 5 MG PO (21:22)
[2023-10-15] MEDS: MELATONIN 5 MG PO (21:22)
[2023-10-15 21:38] LABS: Glucose - Point of Care 204 mg/dl (70-99)
[2023-10-15 23:10] VITALS: BP 94/47
--- NOTE | 2023-10-16 03:00 | PTCARENOTE ---
Received pt from RN, pt awake in bed, assisted with repositioning himself, dsg intact on left foot, wyatt newton within reach
[2023-10-16 07:10] VITALS: BP 111/57
[2023-10-16 07:11] LABS: Glucose - Point of Care 144 mg/dl (70-99)
[2023-10-16] MEDS: NOVOLOG FLEXPEN-LOW RESISTANCE SC (07:13)
[2023-10-16] MEDS: FLOMAX 0.4 MG PO (08:11)
[2023-10-16] MEDS: LOW STRENGTH ASPIRIN 81 MG PO (08:11)
[2023-10-16 09:32] LABS: Hemoglobin 7.6 g/dL (13.0-18.0); Mean Corp Hgb Conc. 34.5 g/dL (33.0-37.0); Mean Corpuscular Hgb 30.3 pg (27.0-31.0); Mean Corpuscular Volume 87.6 fL (80.0-94.0); Mean Platelet Volume 9.5 fL (7.4-10.4); Platelet Count 340 10^3/uL (130-400); Red Blood Cell Count 2.51 10^6/uL (4.70-6.10); Red Cell Dist. Width 15.6 % (11.5-14.5); White Blood Cell Count 8.2 10^3/uL (4.8-10.8)
--- NOTE | 2023-10-16 09:48 | W.PN.HOSP.TC ---
Today's Communication/Plan
-
await podiatry
follow HGB
transfuse as needed
Assessment / Plan
Assessment / Plan
pt is a 73 year old male
acute on chronic blood loss anemia--likely from Bleeding from surgical site of left foot -- first toe partial ray amputation site --transfuse as needed
History of diabetic foot infection with dry gangrene s/p first toe partial ray amputation on 10/03--finished ABX last admission--await podiatry input
PAD s/p left distal SFA PANFILO (08/24) and later left lower extremity arterial bypass (09/28)--Home regimen includes aspirin and moderate intensity statin--Will consider holding aspirin in the context of his ongoing bleeding though is high risk--No signs
of critical limb ischemia at this time
CAD s/p LAD stent (2015)--Home regimen includes aspirin and moderate intensity statin; no beta-teto or ANASTASIIA/ARB--No chest pain, ischemic ECG changes--Remains on home regimen, may consider holding aspirin as above
Type 2 DM--Microvascular complications include neuropathy; does have significant ASCVD as well--Last A1c we have on record was 6.6%, Home meds do not show any antihyperglycemic regimen--Is currently on insulin sliding scale with Accu-Cheks, glucose
consistently <200
Left heel diabetic/PAD/stage III pressure injury -- POA--Wound care, monitor for infection
H/O Prostate cancer s/p prostate radiation (2016)
H/O urinary retention--Continue tamsulosin home regimen
H/O Constipation--Continue senna bowel regimen
CODE STATUS: Full code
DVT prophylaxis: SCDs
Anticipated Discharge: > 48 hours
Subjective/Interval History
-
Date of Service: October 16, 2023
pt without c/o
Objective Data
-
Labs:
Laboratory Results
10/16/23 10/16/23
08:09 18:22
WBC 8.2 Pending
Hgb 7.6 L Pending
Hct 22.0 L Pending
Plt Count 340 Pending
Sodium Pending
Potassium Pending
Chloride Pending
Carbon Dioxide Pending
BUN Pending
Creatinine Pending
Glucose Pending
Calcium Pending
Vital Signs:
max temp for 24 hours
10/15/23
13:15
Temp 98.3 F
Vital Signs
Temp Pulse Resp BP Pulse Ox
98.2 F 72 16 111/57 96
10/16/23 07:10 10/16/23 07:10 10/16/23 07:10 10/16/23 07:10 10/16/23 07:10
I&O
10/15/23 10/16/23 10/17/23
06:59 06:59 06:59
Intake Total 480 / 480 730 / 730
Output Total 150 / 150 900 / 900
Balance 330 / 330 -170 / -170
Review of Systems
-
All other systems: Reviewed and negative
Physical Exam
-
General: Well Developed, Well Nourished and No Apparent Distress
HEENT: Normocephalic and Atraumatic
Respiratory: Clear to Auscultation; Negative Wheezes or Rhonchi
Cardiac: Regular Rhythm and S1/S2; Negative Murmur
GI: Soft, Nontender, Nondistended and Normal Bowel Sounds
Musculoskeletal: No Clubbing, No Cyanosis and Other (left leg with recent post op and left foot wrapped in gauze)
Skin: Warm
Neuro: Awake
[2023-10-16 09:54] LABS: Blood Urea Nitrogen 14 mg/dl (9-20); Calcium 8.1 mg/dl (8.4-10.2); Carbon Dioxide 25 mmol/L (22-30); Chloride 103 mmol/L (98-107); Estimated Creatinine Clearance 82 ml/min; Glucose 128 mg/dl (70-99); Potassium 4.1 mmol/L (3.5-5.1); Sodium 135 mmol/L (135-145); eGFR > 60.00
[2023-10-16 11:17] LABS: Glucose - Point of Care 189 mg/dl (70-99)
[2023-10-16] MEDS: NOVOLOG FLEXPEN-LOW RESISTANCE 1 UNITS SC ×2 (11:28→17:13)
[2023-10-16 15:00] VITALS: BP 111/43
[2023-10-16 16:41] LABS: Glucose - Point of Care 176 mg/dl (70-99)
[2023-10-16] MEDS: ROXICODONE 5 MG PO (20:05)
[2023-10-16 21:18] LABS: Glucose - Point of Care 237 mg/dl (70-99)
[2023-10-16] MEDS: LIPITOR 20 MG PO (21:23)
[2023-10-16] MEDS: MELATONIN 5 MG PO (21:23)
[2023-10-16 23:32] VITALS: BP 104/54
--- NOTE | 2023-10-16 23:38 | PTCARENOTE ---
Offered pt the heel boot to elevate and protect his L heel wound. Pt. refused, educated on risks and purpose of heel boot.
[2023-10-17 00:54] LABS: Hematocrit 20.7 % (39.0-52.0); Hemoglobin 7.2 g/dL (13.0-18.0); Mean Corp Hgb Conc. 34.8 g/dL (33.0-37.0); Mean Corpuscular Hgb 30.5 pg (27.0-31.0); Mean Corpuscular Volume 87.7 fL (80.0-94.0); Mean Platelet Volume 9.4 fL (7.4-10.4); Platelet Count 345 10^3/uL (130-400); Red Blood Cell Count 2.36 10^6/uL (4.70-6.10); Red Cell Dist. Width 15.6 % (11.5-14.5); White Blood Cell Count 8.2 10^3/uL (4.8-10.8)
[2023-10-17 07:00] VITALS: BP 112/52
--- NOTE | 2023-10-17 07:54 | W.PN.HOSP.TC ---
Today's Communication/Plan
-
await podiatry and vascular input
HGB 7.2--holding
ordered mammogram and US for new breast lump
Assessment / Plan
Assessment / Plan
pt is a 73 year old male
acute on chronic blood loss anemia--likely from Bleeding from surgical site of left foot -- first toe partial ray amputation site --did receive 1 unit pRBC and trending HGB--await AM labs (was 7.2 yesterday)--transfuse as needed if < 7
History of diabetic foot infection with dry gangrene s/p first toe partial ray amputation on 10/03--finished ABX last admission--await podiatry input, consult placed 10/13
PAD s/p left distal SFA PANFILO (08/24) and later left lower extremity arterial bypass (09/28)--Home regimen includes aspirin and moderate intensity statin--Will consider holding aspirin in the context of his ongoing bleeding though is high risk--No signs
of critical limb ischemia at this time
new left breast lump--will order mammogram and US
CAD s/p LAD stent (2015)--Home regimen includes aspirin and moderate intensity statin; no beta-teto or ANASTASIIA/ARB--No chest pain, ischemic ECG changes--Remains on home regimen, may consider holding aspirin as above
Type 2 DM--Microvascular complications include neuropathy; does have significant ASCVD as well--Last A1c we have on record was 6.6%, Home meds do not show any antihyperglycemic regimen--Is currently on insulin sliding scale with Accu-Cheks, glucose
consistently <200
Left heel diabetic/PAD/stage III pressure injury -- POA--Wound care, monitor for infection
H/O Prostate cancer s/p prostate radiation (2016)
H/O urinary retention--Continue tamsulosin home regimen
H/O Constipation--Continue senna bowel regimen
CODE STATUS: Full code
DVT prophylaxis: SCDs
Anticipated Discharge: > 48 hours
Subjective/Interval History
-
Date of Service: October 17, 2023
pt c/o painful left breast lump
Objective Data
-
Labs:
Laboratory Results
10/17/23 10/17/23 10/17/23
00:19 06:59 06:59
WBC 8.2 Pending Pending
Hgb 7.2 L Pending
Hct 20.7 L*
Plt Count 345
Sodium
Potassium
Chloride
Carbon Dioxide
BUN
Creatinine
Glucose
Calcium
10/17/23 10/17/23 10/17/23
06:59 06:59 06:59
WBC
Hgb Pending
Hct Pending Pending
Plt Count Pending Pending
Sodium Pending
Potassium Pending
Chloride Pending
Carbon Dioxide Pending
BUN Pending
Creatinine Pending
Glucose Pending
Calcium Pending
10/17/23
18:22
WBC Pending
Hgb Pending
Hct Pending
Plt Count Pending
Sodium
Potassium
Chloride
Carbon Dioxide
BUN
Creatinine
Glucose
Calcium
Vital Signs:
max temp for 24 hours
10/16/23
07:10
Temp 98.2 F
Vital Signs
Temp Pulse Resp BP Pulse Ox
98.5 F 57 22 104/54 99
10/16/23 23:32 10/16/23 23:32 10/16/23 23:32 10/16/23 23:32 10/16/23 23:32
I&O
10/16/23 10/17/23 10/18/23
06:59 06:59 06:59
Intake Total 730 / 730 1200 / 1200
Output Total 900 / 900 1230 / 1230
Balance -170 / -170 -30 / -30
Review of Systems
-
All other systems: Reviewed and negative
Breast: Reports Mass/Lump (left tender)
Physical Exam
-
General: Appears Chronically Ill
HEENT: Normocephalic and Atraumatic
Respiratory: Clear to Auscultation; Negative Wheezes or Rhonchi
Cardiac: Regular Rhythm, S1/S2 and Murmur
Breast: Mass/Lump (golf ball sized lump left breast near nipple--tender to touch)
GI: Soft, Nontender, Nondistended and Normal Bowel Sounds
Musculoskeletal: No Clubbing, No Cyanosis and Other (left leg with negrito in place--left foot with pink blood stains on gauze)
Skin: Warm and Dry
Neuro: Awake and Alert
[2023-10-17 08:05] LABS: Hematocrit 21.1 % (39.0-52.0); Hemoglobin 7.2 g/dL (13.0-18.0); Mean Corp Hgb Conc. 34.1 g/dL (33.0-37.0); Mean Corpuscular Hgb 29.9 pg (27.0-31.0); Mean Corpuscular Volume 87.6 fL (80.0-94.0); Mean Platelet Volume 9.6 fL (7.4-10.4); Platelet Count 362 10^3/uL (130-400); Red Blood Cell Count 2.41 10^6/uL (4.70-6.10); Red Cell Dist. Width 15.5 % (11.5-14.5); White Blood Cell Count 8.4 10^3/uL (4.8-10.8)
[2023-10-17 08:40] LABS: Blood Urea Nitrogen 11 mg/dl (9-20); Calcium 8.3 mg/dl (8.4-10.2); Carbon Dioxide 27 mmol/L (22-30); Chloride 103 mmol/L (98-107); Estimated Creatinine Clearance 82 ml/min; Glucose 122 mg/dl (70-99); Potassium 3.8 mmol/L (3.5-5.1); Sodium 137 mmol/L (135-145); eGFR > 60.00
[2023-10-17 08:40] LABS: Glucose - Point of Care 154 mg/dl (70-99)
[2023-10-17] MEDS: NOVOLOG FLEXPEN-LOW RESISTANCE 1 UNITS SC (08:46)
[2023-10-17] MEDS: FLOMAX 0.4 MG PO (08:48)
[2023-10-17] MEDS: LOW STRENGTH ASPIRIN 81 MG PO (08:48)
--- NOTE | 2023-10-17 09:04 | PTCARENOTE ---
Patient refused bowel regimen medications this AM. Educated provided to patient. Patient verbalized understanding. Dr. Graham made aware. No new orders at this time. Care ongoing at this time.
--- NOTE | 2023-10-17 09:56 | W.CS.POD ---
Addendum entered and electronically signed by Alo Soler DPM 10/17/23 11:11:
TT ed Dr. Gutierrez Holman of vascular surgery, will be seeing him .
D/W Hosp service , about possible proximal amputation since all attempts of limb salvage attempts have failed
Original Note:
Consult Summary - Podiatry
-
73 yo male with recent h/o diabetes and PAD with recent LT partial 1st ray amputation in 09/2023 due to non healing of LT hallux amputation was sent in by his flavorer Dr. Baer due to uncontrolled bleeding in the office after local debridement
of some necrotic tissue form surgical site on 10/14/2023. Upon admission to ER, the bleeding from LT foot was controlled with local measures with surgical and boulder sutures to the surgical dehisced / bleeding site. Patient was stabilized and on
call podiatry had been asked if any further intervention needed. Patient was in no acute distress, no chest pain or SOB. He had multiple blood transfusions, Hb stabilizing , today Hb at 7.2.
He does have h/o LT 4th toe amputation and LT hallux amputation which was not healed so had more proximal 1st ray amputation
Patient us s/p LT L/E vascular bypass by Dr. Melendez nd was suppose to be followed up with him this wk
Reviewed PMH, meds and allergies
LT foot exam : Palpable Dp , LT foot pink, no duskiness
LT foot surgical dehisced site is with no active bleeding noted, no local erythema noted. no necrosis, probing to deep to bone LT 1st MEt base, minimal purulent drainage noted, surgical site edges with complete dehiscence.
A/p: LT foot well controlled acute hemorrhage .
LT foot wound dehiscence.
Diabetic small vessel disease
S/p LT partial 1st ray amputation 09/2023
S/p Lt L/E vascular bypass 09/2023
H/O Lt 4th toe amputation.
Plan ; Discussed with Dr. Sifuentes ( primary flavorer for patient ) says that he has severe small vessel disease and all attempts to save his limb are failed and he needs vascular surgery to be evaluated for possible proximal amputation .
Will d/w Hosp service and vascular surgery .
Daily dressing changes with dry gauze and kerlix
Will keep close eye on Lt foot for any further bleeding or infection
No surgical plans by podiatry .
[2023-10-17 11:55] LABS: Glucose - Point of Care 204 mg/dl (70-99)
[2023-10-17] MEDS: NOVOLOG FLEXPEN-LOW RESISTANCE 2 UNITS SC (11:56)
[2023-10-17 15:00] VITALS: BP 100/49
[2023-10-17 17:39] LABS: Glucose - Point of Care 120 mg/dl (70-99)
[2023-10-17] MEDS: NOVOLOG FLEXPEN-LOW RESISTANCE SC (17:41)
[2023-10-17] MEDS: LIPITOR 20 MG PO (21:16)
[2023-10-17] MEDS: MELATONIN 5 MG PO (21:16)
[2023-10-17] MEDS: ROXICODONE 5 MG PO (21:19)
[2023-10-17 21:29] LABS: Glucose - Point of Care 225 mg/dl (70-99)
[2023-10-17 23:41] VITALS: BP 111/54
[2023-10-18 06:35] LABS: Hematocrit 23.4 % (39.0-52.0); Hemoglobin 8.1 g/dL (13.0-18.0); Mean Corp Hgb Conc. 34.6 g/dL (33.0-37.0); Mean Corpuscular Hgb 31.4 pg (27.0-31.0); Mean Corpuscular Volume 90.7 fL (80.0-94.0); Mean Platelet Volume 9.5 fL (7.4-10.4); Platelet Count 349 10^3/uL (130-400); Red Blood Cell Count 2.58 10^6/uL (4.70-6.10); Red Cell Dist. Width 15.3 % (11.5-14.5); White Blood Cell Count 7.5 10^3/uL (4.8-10.8)
--- NOTE | 2023-10-18 06:51 | W.PN.HOSP.TC ---
Today's Communication/Plan
-
cont wound care as per podiatry
PT/OT transfers to wheelchair
vascular eval
Assessment / Plan
Assessment / Plan
Physical Exam
General: Appears Chronically Ill
HEENT: Normocephalic and Atraumatic
Respiratory: Clear to Auscultation; Negative Wheezes or Rhonchi
Cardiac: Regular Rhythm, S1/S2 and Murmur
Breast: Mass/Lump (golf ball sized lump left breast near nipple some tenderness noted)
GI: Soft, Nontender, Nondistended and Normal Bowel Sounds
Musculoskeletal: No Clubbing, No Cyanosis and Other (left leg with negrito in place--left foot with pink blood stains on gauze)
Skin: Warm and Dry
Neuro: Awake and Alert
73M hx dry gangrene left 4th toe PAD stent Lt superficial femoral CAD stent prostate ca diabetes neuropathy here for evaluation bleeding surgical site left foot concern for wound dehiscence.
acute on chronic blood loss anemia--likely from Bleeding from surgical site of left foot -- first toe partial ray amputation site --did receive 1 unit pRBC and trending HGB--await AM labs (was 7.2 yesterday)--transfuse as needed if < 7
History of diabetic foot infection with dry gangrene s/p first toe partial ray amputation on 10/03--finished ABX last admission-- podiatry and vascular evals appreciated
PAD s/p left distal SFA PANFILO (08/24) and later left lower extremity arterial bypass (09/28)
cont asa statin
new left breast lump-- mammogram and US pending
-reports having this issue before, reportedly diagnosed as fatty tissue (lipoma?) in past.
CAD s/p LAD stent (2015)--Home regimen includes aspirin and moderate intensity statin; no beta-teto or ANASTASIIA/ARB--No chest pain, ischemic ECG changes--Remains on home regimen
Type 2 DM--Microvascular complications include neuropathy; does have significant ASCVD as well--Last A1c we have on record was 6.6%, Home meds do not show any antihyperglycemic regimen--Is currently on insulin sliding scale with Accu-Cheks, glucose
consistently <200
Left heel diabetic/PAD/stage III pressure injury -- POA--Wound care, monitor for infection
H/O Prostate cancer s/p prostate radiation (2017)
H/O urinary retention--Continue tamsulosin home regimen
H/O Constipation--Continue senna bowel regimen
CODE STATUS: Full code
DVT prophylaxis: SCDs
I spent a total of 50 minutes with the patient or on the floor. More than 50% of this time involved counseling and coordination of care.
Anticipated Discharge: 24 - 48 hours
Subjective/Interval History
-
Date of Service: October 18, 2023
No acute distress, appears comfortable at this time. Left foot dressing clean dry intact.
Objective Data
-
Labs:
Laboratory Results
10/18/23
05:39
WBC 7.5
Hgb 8.1 L
Hct 23.4 L
Plt Count 349
Sodium Pending
Potassium Pending
Chloride Pending
Carbon Dioxide Pending
BUN Pending
Creatinine Pending
Glucose Pending
Calcium Pending
Vital Signs:
Vital Signs
Temp Pulse Resp BP Pulse Ox
97.7 F 70 16 111/54 96
10/17/23 23:41 10/17/23 23:41 10/17/23 23:41 10/17/23 23:41 10/17/23 23:41
I&O
10/16/23 10/17/23 10/18/23
06:59 06:59 06:59
Intake Total 730 / 730 1200 / 1200 1200 / 1200
Output Total 900 / 900 1230 / 1230 1999 / 1999
Balance -170 / -170 -30 / -30 -800 / -800
[2023-10-18 07:00] VITALS: BP 115/57
[2023-10-18 07:02] LABS: Blood Urea Nitrogen 12 mg/dl (9-20); Calcium 8.5 mg/dl (8.4-10.2); Carbon Dioxide 27 mmol/L (22-30); Chloride 105 mmol/L (98-107); Estimated Creatinine Clearance 72 ml/min; Glucose 116 mg/dl (70-99); Magnesium 1.9 mg/dl (1.6-2.3); Potassium 3.8 mmol/L (3.5-5.1); Sodium 137 mmol/L (135-145); eGFR > 60.00
--- NOTE | 2023-10-18 07:30 | CON.VAS ---
Consultation
Consultation Request
Date/Time Consultation Requested: 10/17/23
Date/Time Consultation Performed: 10/18/23
Requesting Provider: Gladys
Performing Provider: River
Reason for Consultation: Vascular Surgery
Medical History
-
Chief Complaint: Left foot wound
History of Present Illness:
Recent LLE pop/DP bypass ~2 weeks ago followed by partial 1st ray amp
Readmitted with wound dehiscence on left foot
Currently wtih no complaints
He has a palpable graft pulse and DP pulse in the left foot
Wound on foot is open with murky drainage
Patient is non toxic appearing
Allergies / Home Medications
Allergy/AdvReac Type Severity Reaction Status Date / Time
No Known Allergies Allergy Verified 10/14/23 12:53
�Medication �Instructions �Recorded �Confirmed �Type
aspirin 81 mg chewable tablet 81 mg PO DAILY Blood Clot 09/14/23 10/14/23 History
Prevention/Tx
melatonin 5 mg tablet 5 mg PO HS #0 tabs 10/11/23 10/14/23 Rx
oxycodone 5 mg tablet 5 mg PO Q4HPRN PRN moderate pain 10/11/23 10/14/23 Rx
#7 tabs
sennosides 8.6 mg tablet (Senna 8.6 mg PO BID #0 tabs 10/11/23 10/14/23 Rx
Laxative)
tamsulosin 0.4 mg capsule 0.4 mg PO DAILY #0 caps 10/11/23 10/14/23 Rx
acetaminophen 325 mg tablet 650 mg PO Q4HPRN PRN mild pain/ 10/14/23 10/14/23 History
fever>100.5F
atorvastatin 20 mg tablet 20 mg PO HS High Cholesterol 10/14/23 10/14/23 History
bisacodyl 10 mg rectal suppository 10 mg [place] DAILYPRN PRN if no bm 10/14/23 10/14/23 History
(Dulcolax (bisacodyl)) morning of 4th day
magnesium hydroxide 400 mg/5 mL 2,400 mg PO [id number] PRN if no bm 10/14/23 10/14/23 History
oral suspension (Milk of Magnesia) on 3rd day
sodium phosphates 19 gram-7 118 ml [place] DAILYPRN PRN if no bm 10/14/23 10/14/23 History
gram/118 mL enema (Fleet Enema) night of 4th day
Physical Exam
Vital Signs
Temp Pulse Resp BP Pulse Ox
97.7 F 70 16 111/54 96
10/17/23 23:41 10/17/23 23:41 10/17/23 23:41 10/17/23 23:41 10/17/23 23:41
Lab Results
10/18/23 05:39
10/18/23 05:39
Physical Exam
General: Comfortable
HEENT: Normocephalic
Respiratory: Non Labored Respirations
Skin: Warm
Neuro: AO x 3
Psych: Calm
Assessment / Plan
-
S/P LLE bypass on 09/28 (Al) followed by partial 1st ray amp on 10/03 (Buffy). Wound on left foot has dehisced. Bypass is patent.
Attempt at salvage would include washout and VAC of the left foot.
Ultimately may need more proximal amputation (BKA)
Will discuss with podiatry and Al.
Continue local wound care for now
IV ABX
[2023-10-18 07:40] LABS: Glucose - Point of Care 143 mg/dl (70-99)
[2023-10-18] MEDS: NOVOLOG FLEXPEN-LOW RESISTANCE SC (07:51)
[2023-10-18] MEDS: LOW STRENGTH ASPIRIN 81 MG PO (07:53)
[2023-10-18] MEDS: FLOMAX 0.4 MG PO (07:53)
[2023-10-18] MEDS: NOVOLOG FLEXPEN-LOW RESISTANCE 2 UNITS SC (11:55)
[2023-10-18 11:57] LABS: Glucose - Point of Care 208 mg/dl (70-99)
[2023-10-18 15:11] VITALS: BP 106/55
[2023-10-18 16:50] LABS: Glucose - Point of Care 181 mg/dl (70-99)
--- NOTE | 2023-10-18 16:50 | PTCARENOTE ---
RN into change patients dressing on L foot per order. Patient stated 'leave it alone it is fine'. Patient education provided and patient refused teaching and stated 'I don't care'. Dr. Singh made aware. Care ongoing at this time.
[2023-10-18] MEDS: NOVOLOG FLEXPEN-LOW RESISTANCE 1 UNITS SC (16:54)
[2023-10-18 21:15] LABS: Glucose - Point of Care 251 mg/dl (70-99)
[2023-10-18] MEDS: LIPITOR 20 MG PO (22:40)
[2023-10-18] MEDS: MELATONIN 5 MG PO (22:40)
[2023-10-18 23:08] VITALS: BP 102/60
[2023-10-19] MEDS: DESENEX/MITRAZOL/ZEASORB 1 APPLIC TOPICAL (05:58)
[2023-10-19 07:00] VITALS: BP 107/50
[2023-10-19 07:09] LABS: Hematocrit 23.6 % (39.0-52.0); Hemoglobin 7.9 g/dL (13.0-18.0); Mean Corp Hgb Conc. 33.5 g/dL (33.0-37.0); Mean Corpuscular Hgb 30.3 pg (27.0-31.0); Mean Corpuscular Volume 90.4 fL (80.0-94.0); Mean Platelet Volume 9.5 fL (7.4-10.4); Platelet Count 365 10^3/uL (130-400); Red Blood Cell Count 2.61 10^6/uL (4.70-6.10); Red Cell Dist. Width 15.8 % (11.5-14.5); White Blood Cell Count 8.2 10^3/uL (4.8-10.8)
--- NOTE | 2023-10-19 07:24 | W.PN.HOSP.TC ---
Today's Communication/Plan
-
check mammogram breast US
glycemic control
Wound care as per vascular and podiatry
Assessment / Plan
Assessment / Plan
Physical Exam
General: Appears Chronically Ill
HEENT: Normocephalic and Atraumatic
Respiratory: Clear to Auscultation; Negative Wheezes or Rhonchi
Cardiac: Regular Rhythm, S1/S2 and Murmur
Breast: Mass/Lump (golf ball sized lump left breast near nipple some tenderness noted)
GI: Soft, Nontender, Nondistended and Normal Bowel Sounds
Musculoskeletal: No Clubbing, No Cyanosis and Other (left leg with negrito in place--left foot with pink blood stains on gauze)
Skin: Warm and Dry
Neuro: Awake and Alert
73M hx dry gangrene left 4th toe PAD stent Lt superficial femoral CAD stent prostate ca diabetes neuropathy here for evaluation bleeding surgical site left foot concern for wound dehiscence.
acute on chronic blood loss anemia--likely from Bleeding from surgical site of left foot -- first toe partial ray amputation site --did receive 1 unit pRBC and trending HGB--await AM labs (was 7.2 yesterday)--transfuse as needed if < 7
History of diabetic foot infection with dry gangrene s/p first toe partial ray amputation on 10/03--finished ABX last admission-- podiatry and vascular evals appreciated
PAD s/p left distal SFA PANFILO (08/24) and later left lower extremity arterial bypass (09/28)
cont asa statin
new left breast lump-- mammogram and US pending
-reports having this issue before, reportedly diagnosed as fatty tissue (lipoma?) in past.
CAD s/p LAD stent (2015)--Home regimen includes aspirin and moderate intensity statin; no beta-teto or ANASTASIIA/ARB--No chest pain, ischemic ECG changes--Remains on home regimen
Type 2 DM--Microvascular complications include neuropathy; does have significant ASCVD as well--Last A1c we have on record was 6.6%, Home meds do not show any antihyperglycemic regimen--Is currently on insulin sliding scale with Accu-Cheks, glucose
consistently <200
Left heel diabetic/PAD/stage III pressure injury -- POA--Wound care, monitor for infection
H/O Prostate cancer s/p prostate radiation (2017)
H/O urinary retention--Continue tamsulosin home regimen
H/O Constipation--Continue senna bowel regimen
CODE STATUS: Full code
DVT prophylaxis: SCDs
I spent a total of 50 minutes with the patient or on the floor. More than 50% of this time involved counseling and coordination of care.
Anticipated Discharge: 24 - 48 hours
Subjective/Interval History
-
Date of Service: October 19, 2023
No acute distress. Appears withdrawn depressed. Patient acknowledges depression denies thoughts of harming self or others.
Objective Data
-
Labs:
Laboratory Results
10/19/23
05:25
WBC 8.2
Hgb 7.9 L
Hct 23.6 L
Plt Count 365
Sodium Pending
Potassium Pending
Chloride Pending
Carbon Dioxide Pending
BUN Pending
Creatinine Pending
Glucose Pending
Calcium Pending
Vital Signs:
Vital Signs
Temp Pulse Resp BP Pulse Ox
97.6 F 86 20 102/60 96
10/18/23 23:08 10/18/23 23:08 10/18/23 23:08 10/18/23 23:08 10/18/23 23:08
I&O
10/18/23 10/19/23 10/20/23
06:59 06:59 06:59
Intake Total 1200 / 1200 1080 / 1080
Output Total 1999 / 1999 1250 / 1250
Balance -800 / -800 -170 / -170
[2023-10-19 07:29] LABS: Blood Urea Nitrogen 15 mg/dl (9-20); Calcium 8.5 mg/dl (8.4-10.2); Carbon Dioxide 29 mmol/L (22-30); Chloride 104 mmol/L (98-107); Estimated Creatinine Clearance 82 ml/min; Glucose 120 mg/dl (70-99); Magnesium 1.8 mg/dl (1.6-2.3); Phosphorus 3.6 mg/dl (2.5-4.5); Potassium 4.1 mmol/L (3.5-5.1); Sodium 138 mmol/L (135-145); eGFR > 60.00
[2023-10-19 07:36] LABS: Glucose - Point of Care 138 mg/dl (70-99)
[2023-10-19] MEDS: NOVOLOG FLEXPEN-LOW RESISTANCE SC ×2 (07:38→12:22)
[2023-10-19] MEDS: FLOMAX 0.4 MG PO (08:32)
[2023-10-19] MEDS: LOW STRENGTH ASPIRIN 81 MG PO (08:32)
[2023-10-19 09:35] VITALS: BP 106/60; PULSE 62; O2SAT 98
[2023-10-19 09:50] VITALS: BP 106/60; PULSE 65; O2SAT 98
--- NOTE | 2023-10-19 12:11 | CM ---
Case management following for discharge planning
Chart reviewed. Met with pt at bedside
Discussed discharge plan - PT recs SNF - Pt declining SNF. Prefers home with VN
Known to [facility] - will refer for home needs
CM will continue to follow for discharge needs
Plan - home with VN
[2023-10-19 12:16] LABS: Glucose - Point of Care 127 mg/dl (70-99)
--- NOTE | 2023-10-19 12:43 | PTCARENOTE ---
RN into change patients dressing on L foot per order. Patient stated 'do not touch it'. Patient education provided and patient refused teaching and stated 'I don't care, you told me this yesterday'. Dr. Singh made aware. Care ongoing at this time.
--- NOTE | 2023-10-19 13:37 | WOUNDNOTE ---
L GREAT TOE AMP SITE
--- NOTE | 2023-10-19 13:38 | WOUNDNOTE ---
L 4TH TOE AMP SITE
--- NOTE | 2023-10-19 13:38 | WOUNDNOTE ---
L LATERAL LOWER LEG
--- NOTE | 2023-10-19 13:39 | WOUNDNOTE ---
L HEEL WITH FLASH
--- NOTE | 2023-10-19 13:40 | WOUNDNOTE ---
R HEEL WITH FLASH
--- NOTE | 2023-10-19 13:45 | WOUNDNOTE ---
JOLENE RN note: Patient admitted with L foot acute hemorrhage.
See H&P for complete history.
PMH: DM, PAD, CAD, wounds L toes, heel, L calf, L distal SFA stent by Dr. Melendez 08/25/23, ex smoker, cardiac stent. L great toe and 4th toe amputation, post op infection and debridement of great toe, follows Dr. Baer.
Wound Location and type/assessment: Patient known to service, admitted with L great toe amp site boggy and dehiscence of sutures. L heel with healing diabetic/Pad/ stage 3 PI. L lateral leg with healing venous ulcer, pink base. R heel with
suspected stage 2 PI, flat dry blister and crusty red skin. Patient currently in recliner chair with heels off end of chair. Nurse Barroso states he has repeatedly refused using offloading heel boots. Confirmed with nurse that sacrum is intact. Knees
with healing scabs from abrasions. L leg and groin with intact negrito. Dr. Holman at bedside when changing L foot dressing, for OR debridement and wound vac tomorrow per vascular team. Podiatry note reviewed, dry dressing already on order.
Appetite: good.
Pressure redistribution devices in place: [employer] Agreed to wear [employer] lite offloading heel boots and applied while in recliner chair. Made aware not to use when walking, has offloading shoe at home.
Plan: Adhesive foam applied to R heel. Dry gauze dressing applied to top of L foot. L heel applied silicone foam and leo. Will follow along peripherally and assist as needed. Care plan to be updated, nurse Barroso aware of the above.
Note to case management requested for discharge: Recommend SNF.
Patient to follow up with vascular and podiatry.
[2023-10-19 15:00] VITALS: BP 109/46
[2023-10-19 16:37] LABS: Glucose - Point of Care 175 mg/dl (70-99)
[2023-10-19] MEDS: NOVOLOG FLEXPEN-LOW RESISTANCE 1 UNITS SC (16:46)
[2023-10-19] MEDS: LIPITOR 20 MG PO (21:10)
[2023-10-19] MEDS: MELATONIN 5 MG PO (21:10)
[2023-10-19 21:27] LABS: Glucose - Point of Care 158 mg/dl (70-99)
[2023-10-19 22:41] VITALS: BP 127/69
[2023-10-20] VITALS (16 sets, daily range): BP systolic 90–132; BP diastolic 46–81
[2023-10-20 06:32] LABS: Hematocrit 24.1 % (39.0-52.0); Hemoglobin 8.2 g/dL (13.0-18.0); Mean Corpuscular Hgb 30.6 pg (27.0-31.0); Mean Corpuscular Volume 89.9 fL (80.0-94.0); Mean Platelet Volume 9.2 fL (7.4-10.4); Platelet Count 360 10^3/uL (130-400); Red Blood Cell Count 2.68 10^6/uL (4.70-6.10); Red Cell Dist. Width 15.9 % (11.5-14.5); White Blood Cell Count 8.2 10^3/uL (4.8-10.8)
[2023-10-20 07:11] LABS: Blood Urea Nitrogen 15 mg/dl (9-20); Calcium 8.5 mg/dl (8.4-10.2); Carbon Dioxide 27 mmol/L (22-30); Chloride 108 mmol/L (98-107); Estimated Creatinine Clearance 72 ml/min; Glucose 115 mg/dl (70-99); Magnesium 1.8 mg/dl (1.6-2.3); Phosphorus 3.4 mg/dl (2.5-4.5); Potassium 4.2 mmol/L (3.5-5.1); Sodium 138 mmol/L (135-145); eGFR > 60.00
[2023-10-20] MEDS: NOVOLOG FLEXPEN-LOW RESISTANCE SC (07:12)
[2023-10-20 07:13] LABS: Glucose - Point of Care 135 mg/dl (70-99)
--- NOTE | 2023-10-20 07:19 | W.PN.HOSP.TC ---
Today's Communication/Plan
-
NPO for wound debridement w/ Vascular
Psych eval requested concerns regarding depression
Assessment / Plan
Assessment / Plan
Physical Exam
General: Appears Chronically Ill
HEENT: Normocephalic and Atraumatic
Respiratory: Clear to Auscultation; Negative Wheezes or Rhonchi
Cardiac: Regular Rhythm, S1/S2 and Murmur
Breast: Mass/Lump (golf ball sized lump left breast near nipple some tenderness noted)
GI: Soft, Nontender, Nondistended and Normal Bowel Sounds
Musculoskeletal: No Clubbing, No Cyanosis and Other (left leg with negrito in place--left foot with pink blood stains on gauze)
Skin: Warm and Dry
Neuro: Awake and Alert
73M hx dry gangrene left 4th toe PAD stent Lt superficial femoral CAD stent prostate ca diabetes neuropathy here for evaluation bleeding surgical site left foot concern for wound dehiscence.
acute on chronic blood loss anemia--likely from Bleeding from surgical site of left foot -- first toe partial ray amputation site --did receive 1 unit pRBC and trending HGB--await AM labs (was 7.2 yesterday)--transfuse as needed if < 7
History of diabetic foot infection with dry gangrene s/p first toe partial ray amputation on 10/03--finished ABX last admission-- podiatry and vascular evals appreciated
PAD s/p left distal SFA PANFILO (08/24) and later left lower extremity arterial bypass (09/28)
cont asa statin
new left breast lump-- mammogram and US pending
-reports having this issue before, reportedly diagnosed as fatty tissue (lipoma?) in past.
CAD s/p LAD stent (2015)--Home regimen includes aspirin and moderate intensity statin; no beta-teto or ANASTASIIA/ARB--No chest pain, ischemic ECG changes--Remains on home regimen
Type 2 DM--Microvascular complications include neuropathy; does have significant ASCVD as well--Last A1c we have on record was 6.6%, Home meds do not show any antihyperglycemic regimen--Is currently on insulin sliding scale with Accu-Cheks, glucose
consistently <200
Left heel diabetic/PAD/stage III pressure injury -- POA--Wound care, monitor for infection
H/O Prostate cancer s/p prostate radiation (2017)
H/O urinary retention--Continue tamsulosin home regimen
H/O Constipation--Continue senna bowel regimen
Depression Chronic Illness
Psych eval requested
CODE STATUS: Full code
DVT prophylaxis: SCDs
I spent a total of 50 minutes with the patient or on the floor. More than 50% of this time involved counseling and coordination of care.
Anticipated Discharge: 24 - 48 hours
Subjective/Interval History
-
Date of Service: October 20, 2023
No acute distress. Sitting up comfortably in chair.
Objective Data
-
Labs:
Laboratory Results
10/20/23
05:38
WBC 8.2
Hgb 8.2 L
Hct 24.1 L
Plt Count 360
Sodium 138
Potassium 4.2
Chloride 108 H
Carbon Dioxide 27
BUN 15
Creatinine 0.8
Glucose 115 H
Calcium 8.5
Vital Signs:
Vital Signs
Temp Pulse Resp BP Pulse Ox
99.8 F 69 18 127/69 100
10/19/23 22:41 10/19/23 22:41 10/19/23 22:41 10/19/23 22:41 10/19/23 22:41
I&O
10/19/23 10/20/23 10/21/23
06:59 06:59 06:59
Intake Total 1080 / 1080 1200 / 1200 240 / 240
Output Total 1250 / 1250 575 / 575 500 / 500
Balance -170 / -170 625 / 625 -260 / -260
--- NOTE | 2023-10-20 07:50 | W.PN.VS ---
Addendum entered and electronically signed by Finn Melendez MD 10/20/23 07:58:
Seen and examined with SWATCH PASTER. Agree with findings as noted below. Left lower extremity with excellent graft pulse. Left foot dressing clean dry and intact. Wound care images reviewed. Plan/likely foot debridement today.
Original Note:
Today's Communication / Plan
-
See below.
Assessment/Plan
-
Assessment: 73 year old male presented to ED with bleeding (now with hemostasis) at surgical bed of podiatry amputation.
Plan:
OR today for washout and debridement of amputation site at left foot
NPO
Subjective Data
-
Date of Service: October 20, 2023
Patient seen and examined at bedside, offers no complaints.
Objective Data
-
Vital Signs
Temp Pulse Resp BP Pulse Ox
98.8 F 66 18 124/68 96
10/20/23 07:05 10/20/23 07:05 10/20/23 07:05 10/20/23 07:05 10/20/23 07:05
Intake and Output
10/19/23 10/20/23 10/21/23
06:59 06:59 06:59
Intake Total 1080 / 1080 1200 / 1200 240 / 240
Output Total 1250 / 1250 575 / 575 500 / 500
Balance -170 / -170 625 / 625 -260 / -260
Intake:
Oral fluids 1080 / 1080 1200 / 1200 240 / 240
Output:
Urine, Voided 1250 / 1250 575 / 575 500 / 500
Other:
How many times incontinent 1
MODERATE amount urine
Lab Results
10/20/23 05:38
10/20/23 05:38
Calcium 8.5 mg/dl (8.4-10.2) 10/20/23 05:38
Phosphorus 3.4 mg/dl (2.5-4.5) 10/20/23 05:38
Magnesium 1.8 mg/dl (1.6-2.3) 10/20/23 05:38
Total Bilirubin 0.4 mg/dl (0.2-1.3) 10/15/23 06:08
AST 27 U/L (17-59) 10/15/23 06:08
ALT 18 U/L (0-50) 10/15/23 06:08
Alkaline Phosphatase 59 U/L (38-126) 10/15/23 06:08
Total Protein 5.1 g/dl (6.3-8.2) L 10/15/23 06:08
Albumin 2.4 g/dl (3.5-5.0) L 10/15/23 06:08
Physical Exam
-
AAOx3, no apparent distress
No tachycardia
No dyspnea on room air
ABD rotund, nondistended, nontender
Left surgical thigh and upper calf negrito well-approximated. Foot and ankle dressing CDI. bypass graft pulse palpable
Bilateral feet warm
[2023-10-20] MEDS: LOW STRENGTH ASPIRIN 81 MG PO (09:33)
[2023-10-20] MEDS: PERIDEX 0.12% ORAL RINSE 15 ML PO (09:33)
[2023-10-20] MEDS: FLOMAX 0.4 MG PO (09:33)
[2023-10-20] MEDS: BACTROBAN 2% OINTMENT NASAL (11:37)
--- NOTE | 2023-10-20 11:49 | W.PN.UPDATE ---
Update Note
Progress Note Update
reviewed chart. spoke to nursing. attempted to see patient. he was in OR. nursing will tiger text me when he returns. if he is alert and able to engage i will see him then otherwise i will see him tomorrow re ? depression
[2023-10-20] MEDS: BACTROBAN 2% OINTMENT 1 APPLIC NASAL (11:50)
[2023-10-20 11:54] LABS: Glucose - Point of Care 128 mg/dl (70-99)
--- NOTE | 2023-10-20 12:08 | W.SUR.PREOP ---
Addendum entered and electronically signed by Finn Melendez MD 10/20/23 12:30:
Risk/benefits/alternatives of left foot debridement, possible open partial TMA all discussed. Discussed leaving the wound open. Discussed concerns still for healing and risk of more proximal amputation if nonhealing recurs. He understands all and
wishes to proceed.
Original Note:
Pre-Operative Surgical Note
-
I have examined this patient prior to the performance of the scheduled procedure.
The patient's condition is unchanged from the time of the current History and
Physical and the patient is able to undergo the scheduled procedure.
--- NOTE | 2023-10-20 12:47 | CM ---
Case management following for discharge planning
Chart reviewed
For OR today for washout and debridement of amputation site at left foot
CM will follow for d/c needs
Plan - anticipate home with HH vs SNF
--- NOTE | 2023-10-20 13:45 | W.SUR.POST ---
Surgical Immediate Post Op
Note
Pre Op Diagnosis: Nonhealing left foot wound at fourth and fifth amputation surgical site
Post Op Diagnosis: Nonhealing left foot wound at fourth and fifth amputation surgical site
Procedure Performed: Washout and debridement of the left foot wound
Primary Surgeon: Finn Melendez MD
glass ribbon machine operator assistant: WENDI Frances
Anesthesia: GETA
Estimated Blood Loss: 50 mL
Fluids: See anesthesia flowsheet
Drains/Shunts: N/A
Specimens/Cultures: N/A
Doppler/Duplex/Angio (Y/N): N
Complications: None
Operative Findings: Successful hemostasis of left foot surgical bed amputation site
[2023-10-20 14:02] LABS: Glucose - Point of Care 137 mg/dl (70-99)
--- NOTE | 2023-10-20 14:02 | OR.RPT ---
Addendum entered and electronically signed by Finn Melendez MD 10/21/23 15:14:
Addendum:
Excisional debridement with 15 blade and scissors of some skin, subcutaneous tissue, and some fascial/tendinous tissue. Very difficult to quantify the amount of tissue debrided given that the wound was already open and I do not know exactly the
area/volume of tissue that was debrided.
Original Note:
Operative Report
Operative Report
PROCEDURE DATE: 10/20/2023
Preoperative diagnosis: Nonhealing left foot wound status post partial TMA by podiatry. Concern for infection.
Postoperative diagnosis: Same
Procedure: Exploration left foot with washout localized debridement. Pulse lavage irrigation. Control of deep tissue bleeding site.
Surgeon: Al
Rn Hyperbaric: KELLY Paz, required for all aspects of procedure including assistance with traction/countertraction.
Complications: None
Anesthesia: General
Indications for procedure:
Patient with history of left lower extremity revascularization first endovascular SFA stents and then subsequent below the knee popliteal artery to dorsalis pedis artery bypass. Subsequently underwent first to toe amputations by podiatry.
Subsequently brought back to the emergency room with bleeding from the site. Sutures were placed by the emergency room staff and the bleeding subsequently stopped. The wound was not healing well and we were asked by podiatry for possible need for
proximal amputation or at least washout at the site. Therefore taken to the operating room. Risk/benefit/alternatives also discussed. Patient understood all wish to proceed.
Description of procedure:
Patient was identified brought to the operating room placed on the table in supine position. After the adequate administration of anesthesia he was prepped and draped in the standard surgical fashion. A standard preoperative timeout was undertaken
and everybody was in agreement the plan. The prior sutures were removed that were holding the skin together. The deeper tissue was not healing appropriately and not adherent (posterior and anterior flaps). However there is no gross purulent
tissue. There was some serous murky type fluid that was washed out. There was old hematoma that I manually removed. Once I remove this I noted bright red brisk bleeding. This appeared to be at the base of the bone transection site of one of the
metatarsals. There appeared to be some arterial branch bleeding. I placed a few 5-0 Prolene [id number] type sutures as well as 3-0 silk [id number] suture. As such was able to control the bleeding. There was diffuse ooze from the
surrounding tissues. There is excellent perfusion through the flap. There was an easily palpable pulse in the bypass graft as well as the DP beyond it. Therefore perfusion was not a concern here. Therefore at this point I locally debrided some
of the subcutaneous tissue and tendinous tissue. There was no wet necrotic tissue. Once I debrided some of this tissue down I could still see the bone deep of one of the metatarsals but otherwise no bone exposed. I then pulse lavage irrigated
with 1 L pulse lavage irrigation. The tissue is now quite clean. I then meticulously achieved hemostasis. I then as best I could closed a layer over the deeper tissue/bone using interrupted 2-0 Vicryl suture. Next the more superficial tissues
were packed with wet-to-dry dressing. Quan bandage was applied. The patient tolerated procedure well.
--- NOTE | 2023-10-20 14:05 | PHA.VAN.IN ---
Assessment
- Assessment
Renal Function: Appears similar to baseline
Concomitant Antimicrobials: piperacillin/tazobactam
AUC Dosing Plan
- Dosing Variables
Dosing Weight (kg): 78
Dosing CrCl (ml/min): 72
Vd coefficient (L/kg): 0.7
- Empiric Dosing
Initial / Loading Dose: 1500mg - administration pending
Maintenance Regimen: Vanc 750mg Q12H starting 10/20 599
Estimated AUC (mcg*h/mL): 442
Estimated Peak (mcg*h/mL): 25.6
Estimated Trough (mcg/ml): 12.6
Estimated Half Life (H): 10.8
- Monitoring
No levels ordered at this time: consider levels in next few days
Pharmacokinetics Vancomycin I
- -
Patient Age: 73
Patient Sex: Male
Vancomycin Day #: 1
Indication: Prophylaxis (Surg,Hiv,...)
Requesting Provider: Iliana Paz
Pertinent Antimicrobial Allergies:
NKDA
Height / Weight:
Height 5 ft 6 in
Actual Weight 78.1 kg
Pertinent Past Medical History: PAD, DM 2
- Vital Signs / Lab Results
Temp Pulse Resp BP Pulse Ox
97.5 F 52 16 128/81 98
10/20/23 11:07 10/20/23 11:07 10/20/23 11:07 10/20/23 11:07 10/20/23 11:07
Lab Results - Hematology
10/18/23 10/19/23 10/20/23
05:39 05:25 05:38
WBC 7.5 8.2 8.2
Lab Results - Chemistry
10/18/23 10/19/23 10/20/23
05:39 05:25 05:38
BUN 12 15 15
Creatinine 0.8 0.7 0.8
Estimated Creat Clear 72 82 72
--- NOTE | 2023-10-20 15:17 | PTCARENOTE ---
Pt arrived back to 2 south from PACU s/p L foot debridement. NV w/ +doppler pulse. Pt L foot with 4x4 and abd pads underneath of renée wrap. Previous LLE incision with negrito now removed and replaced with steri strips. Pt states no pain at this time.
Bed locked in lowest position, call newton within reach. Care ongoing.
[2023-10-20] MEDS: VANCOCIN 300 MG IV (15:23)
[2023-10-20] MEDS: VANCOCIN 300 ML IV (15:23)
[2023-10-20 15:54] LABS: Glucose - Point of Care 155 mg/dl (70-99)
--- NOTE | 2023-10-20 16:27 | PN.CDI ---
CDI
- -
CDI:
Physician Documentation Request
Admit Date: 10/14/23 17:46
Dear Doctor Al,
Please review the following and provide your response in the progress notes.
Clinical Indicators:
- 10/19 Operative Report indicates debridement without specificity.
- 'I locally debrided some of the subcutaneous tissue and tendinous tissue'
Could you provide, in the progress notes further clarification regarding the debridement.
Please specify the type of debridement performed:
1. Excisional Debridement - defined as removal by excision of devitalized tissue, necrosis or slough
2. Non-excisional debridement - defined as removal of devitalized tissue, necrosis or slough by such methods as irrigation, brushing, scrubbing or washing.
If the debridement was excisional, please also include:
1. Type of instrument used (#11 blade, #15 blade etc.)
2. What was excised (necrotic tissue, gangrenous tissue, slough etc.)
For excisional or non-excisional, please also include:
1. Depth of debridement (skin, subcutaneous tissue, fascia, muscle, bone etc)
2. Size and appearance of the wound (L, W, D, color of wound, drainage)
Use of terms such as suspected, likely, concern for, or probable (associated with a specific diagnosis that is being evaluated, monitored, or treated as if it exists) are acceptable and can be coded in the inpatient setting, when documented at the
time of discharge.
Thank you,
Jessica Tellez RN
CDI Specialist
Please use your independent medical judgment in providing your response.
--- NOTE | 2023-10-20 16:29 | PN.CDI ---
CDI
- -
CDI:
Physician Documentation Request
Admit Date: 10/14/23 17:46
Dear Doctor Samantha,
Please review the following and provide your response in the progress notes.
Clinical Indicators:
- 10/18 Wound note indicates Right heel stage 2 pressure injury
Physician documentation of the type and location of wounds is required for compliant documentation. Based on the above clinical findings and your assessment, please provide the following in your progress note:
1. Location of the ulcer/wound, including laterality.
2. Type (etiology) of ulcer/wound:
- Diabetic ulcer
- Arterial (ischemic) ulcer
- Traumatic wound
- Venous stasis ulcer
- Pressure (decubitus) ulcer
- Non-healing surgical wound
- Other
- Unable to determine
Use of terms such as suspected, likely, concern for, or probable (associated with a specific diagnosis that is being evaluated, monitored, or treated as if it exists) are acceptable and can be coded in the inpatient setting, when documented at the
time of discharge.
Thank you,
Jessica Tellez RN
CDI Specialist
Please use your independent medical judgment in providing your response.
*Source: National Pressure Ulcer Advisory Panel (NPUAP)
[2023-10-20] MEDS: ZOSYN 50 IV ×2 (17:00→23:06)
[2023-10-20] MEDS: NOVOLOG FLEXPEN-LOW RESISTANCE 1 UNITS SC (17:02)
[2023-10-20] MEDS: LIPITOR 20 MG PO (21:30)
[2023-10-20] MEDS: MELATONIN 5 MG PO (21:30)
[2023-10-20] MEDS: ROXICODONE 5 MG PO (21:33)
[2023-10-20 21:37] LABS: Glucose - Point of Care 287 mg/dl (70-99)
[2023-10-21 03:08] VITALS: BP 109/69
[2023-10-21] MEDS: ZOSYN 50 IV (05:01)
[2023-10-21] MEDS: FLUSH (NSS) 1 FLUSH IV (05:02)
[2023-10-21] MEDS: VANCOCIN 150 IV (05:43)
[2023-10-21 07:10] VITALS: BP 123/62
[2023-10-21 07:35] LABS: Glucose - Point of Care 223 mg/dl (70-99)
--- NOTE | 2023-10-21 07:42 | W.PN.VS ---
Addendum entered and electronically signed by Finn Melendez MD 10/21/23 07:48:
Seen and examined with KELLY Garcia. Agree with findings as noted below. Correction to below assessment/plan should read 'left' foot debridement. No issues overnight. Left foot dressing removed. Wound site stable, clean. No purulent drainage. No
bleeding. Good graft function with easily palpable 2+ graft pulse and DP pulse on foot. Plan/ As discussed and noted below. Wound VAC and then PT/OT/plan for placement. Continue offload heels/protect heels with offloading boots in bed.
Original Note:
Today's Communication / Plan
-
Seen and assessed with Dr. Melendez
Assessment/Plan
-
Assessment: 73 year old male presented to ED with bleeding (now with hemostasis) at surgical bed of podiatry amputation.
POD #1 right foot debridement
Plan:
Wound VAC today
Case management for home care/home wound VAC
Wound care consult for home VAC set up
P.o. Augmentin at discharge
Okay for DC from vascular standpoint once above is set up
Subjective Data
-
Date of Service: October 21, 2023
Patient seen at bedside this a.m. with Dr. Melendez. Patient offers no complaints at this time. No events overnight
Objective Data
-
Vital Signs
Temp Pulse Resp BP Pulse Ox
97.4 F 65 18 109/69 95
10/21/23 03:08 10/21/23 03:08 10/21/23 03:08 10/21/23 03:08 10/21/23 03:08
Intake and Output
10/20/23 10/21/23 10/22/23
06:59 06:59 06:59
Intake Total 1200 / 1200 1360 / 1360
Output Total 575 / 575 1100 / 1100
Balance 625 / 625 260 / 260
Intake:
Oral fluids 1200 / 1200 960 / 960
IV fluids (Total) 50 / 50
ns 50 / 50
IV piggybacks 350 / 350
Output:
Urine, Voided 575 / 575 1100 / 1100
Calcium 8.5 mg/dl (8.4-10.2) 10/20/23 05:38
Phosphorus 3.4 mg/dl (2.5-4.5) 10/20/23 05:38
Magnesium 1.8 mg/dl (1.6-2.3) 10/20/23 05:38
Total Bilirubin 0.4 mg/dl (0.2-1.3) 10/15/23 06:08
AST 27 U/L (17-59) 10/15/23 06:08
ALT 18 U/L (0-50) 10/15/23 06:08
Alkaline Phosphatase 59 U/L (38-126) 10/15/23 06:08
Total Protein 5.1 g/dl (6.3-8.2) L 10/15/23 06:08
Albumin 2.4 g/dl (3.5-5.0) L 10/15/23 06:08
Physical Exam
-
AAOx3, no apparent distress
No tachycardia
No dyspnea on room air
ABD soft, nondistended, nontender
Left surgical thigh and upper calf negrito well-approximated. bypass graft pulse palpable
Bilateral feet warm
Foot redressed at bedside-wound bed clean-will return to apply VAC
--- NOTE | 2023-10-21 07:51 | W.PN.HOSP.TC ---
Today's Communication/Plan
-
discharge
Assessment / Plan
Assessment / Plan
Physical Exam
General: Appears Chronically Ill
HEENT: Normocephalic and Atraumatic
Respiratory: Clear to Auscultation; Negative Wheezes or Rhonchi
Cardiac: Regular Rhythm, S1/S2 and Murmur
Breast: Mass/Lump (golf ball sized lump left breast near nipple some tenderness noted)
GI: Soft, Nontender, Nondistended and Normal Bowel Sounds
Musculoskeletal: No Clubbing, No Cyanosis and Other (left leg with negrito in place--left foot with pink blood stains on gauze)
Skin: Warm and Dry
Neuro: Awake and Alert
73M hx dry gangrene left 4th toe PAD stent Lt superficial femoral CAD stent prostate ca diabetes neuropathy here for evaluation bleeding surgical site left foot concern for wound dehiscence.
acute on chronic blood loss anemia--likely from Bleeding from surgical site of left foot -- first toe partial ray amputation site -- received 1PRBC over the course of stay, H&H since stable
Left heel diabetic/PAD/stage III pressure injury -- POA--Wound care, monitor for infection
History of diabetic foot infection with dry gangrene s/p first toe partial ray amputation on 10/03--finished ABX last admission-- podiatry and vascular evals appreciated
Left foot debridement performed by Vascular, wound vac applied, treated with prophylactic IV abx vanc zosyn to transition to Augmentin on discharge, cleared for discharge with home services and home wound vac set up
Right heel stage 2 pressure injury
cont local wound care
PAD s/p left distal SFA PANFILO (08/24) and later left lower extremity arterial bypass (09/28)
cont asa statin
new left breast lump-- mammogram and US appreciated gynecomastia benign
CAD s/p LAD stent (2015)--Home regimen includes aspirin and moderate intensity statin; no beta-teto or ANASTASIIA/ARB--No chest pain, ischemic ECG changes--Remains on home regimen
Type 2 DM--Microvascular complications include neuropathy; does have significant ASCVD as well--Last A1c we have on record was 6.6%, Home meds do not show any antihyperglycemic regimen--Is currently on insulin sliding scale with Accu-Cheks, glucose
consistently <200
H/O Prostate cancer s/p prostate radiation (2017)
H/O urinary retention--Continue tamsulosin home regimen
H/O Constipation--Continue senna bowel regimen
suspect Depression Chronic Illness
Denies HI/SI
mood appears improved at this time, overall reports feeling well, eager to go home
follow up with primary recommended
PT/OT appreciated SNF vs Home Services (patient refusing SNF prefers home services)
CODE STATUS: Full code
DVT prophylaxis: SCDs
Medically stable for discharge home with home services and outpatient follow up recommendations
Discussed with patient and patient's Sandra
Total Time Preparing Discharge ___40____ minutes including examination of the patient, summary of the hospital stay, instructions for continuing care to all relevant caregivers; and preparation of discharge records, prescriptions, and referral
forms if necessary.
Anticipated Discharge: Today
Subjective/Interval History
-
Date of Service: October 21, 2023
No acute distress. Appears comfortable at this time. Denies new acute issues. Eager to go home.
Objective Data
-
Labs:
Laboratory Results
10/21/23
06:00
WBC Pending
Hgb Pending
Hct Pending
Plt Count Pending
Sodium Pending
Potassium Pending
Chloride Pending
Carbon Dioxide Pending
BUN Pending
Creatinine Pending
Glucose Pending
Calcium Pending
Vital Signs:
Vital Signs
Temp Pulse Resp BP Pulse Ox
97.4 F 65 18 109/69 95
10/21/23 03:08 10/21/23 03:08 10/21/23 03:08 10/21/23 03:08 10/21/23 03:08
I&O
10/20/23 10/21/23 10/22/23
06:59 06:59 06:59
Intake Total 1200 / 1200 1360 / 1360
Output Total 575 / 575 1100 / 1100
Balance 625 / 625 260 / 260
[2023-10-21] MEDS: NOVOLOG FLEXPEN-LOW RESISTANCE 2 UNITS SC (08:41)
[2023-10-21] MEDS: LOW STRENGTH ASPIRIN 81 MG PO (08:42)
[2023-10-21] MEDS: FLOMAX 0.4 MG PO (08:42)
--- NOTE | 2023-10-21 08:43 | WOUNDNOTE ---
[facility] RN note: Ready FDC vac equipment request faxed to [employer]. Confirmed with Gillian Garcia NP she is applying vac this am and the next VN vac change due by Wednesday or Wednesday or Wednesday at the latest. Updated CM Emelia Thacker who
will forward to [facility].
[2023-10-21 08:48] LABS: Hematocrit 25.5 % (39.0-52.0); Hemoglobin 8.4 g/dL (13.0-18.0); Mean Corp Hgb Conc. 32.9 g/dL (33.0-37.0); Mean Corpuscular Hgb 30.5 pg (27.0-31.0); Mean Corpuscular Volume 92.7 fL (80.0-94.0); Mean Platelet Volume 9.3 fL (7.4-10.4); Platelet Count 353 10^3/uL (130-400); Red Blood Cell Count 2.75 10^6/uL (4.70-6.10); Red Cell Dist. Width 15.5 % (11.5-14.5); White Blood Cell Count 8.9 10^3/uL (4.8-10.8)
--- NOTE | 2023-10-21 08:58 | VNURNOTE ---
Received info from ELENA Kapoor, regarding wound vac orders. Resumption referral updated in [facility]. Will watch for DC planning: possible SNF versus [facility]. [facility] liaison remains available.
[2023-10-21 09:16] LABS: Blood Urea Nitrogen 19 mg/dl (9-20); Calcium 8.9 mg/dl (8.4-10.2); Carbon Dioxide 24 mmol/L (22-30); Chloride 102 mmol/L (98-107); Estimated Creatinine Clearance 72 ml/min; Glucose 191 mg/dl (70-99); Phosphorus 3.1 mg/dl (2.5-4.5); Potassium 3.9 mmol/L (3.5-5.1); Sodium 136 mmol/L (135-145); eGFR > 60.00
--- NOTE | 2023-10-21 10:22 | CM ---
Addendum entered by Emelia Thacker 10/21/23 15:59:
Pt for discharge today. Home vac placed by wound care nurse. VN Liaison made aware
Pt reports his will transport home
Discussed IMM
Plan - home with [facility]
Original Note:
Case management following for discharge planning
Chart reviewed. Mwt with pt at bedside
Pt with wound vac - plan to d/c with [facility]. Liaison made aware of wound vac and instructions from Wound care
CM will continue to be available for d/c needs
Plan - anticipate home with [facility] when medically ready
--- NOTE | 2023-10-21 10:46 | W.PN.UPDATE ---
Update Note
Progress Note Update
Wound VAC applied to left foot at bedside, patient tolerated well.
[2023-10-21 11:05] VITALS: BP 133/63
[2023-10-21 11:10] LABS: Glucose - Point of Care 249 mg/dl (70-99)
--- NOTE | 2023-10-21 11:11 | PHA.VAN.FU ---
Vancomycin Assessment / Plan
- Assessment
Renal Function: Stable
WBC's are: WNL
In the past 24 hrs, patient has been: Afebrile
Concomitant Antimicrobials: piperacillin/tazobactam
- Dosing Plan
Continue: Vanc 750mg Q12H
- Monitoring Plan
No level(s) ordered at this time: consider levels in next few days
- Follow Up
Pharmacy will continue to follow.
Vancomycin Follow UP
- -
Patient Age: 73
Patient Sex: Male
Vancomycin Day #: 2
Indication: Prophylaxis (Surg,Hiv,...)
Requesting Provider: Iliana Paz
Pertinent Antimicrobial Allergies:
NKDA
Height / Weight:
Height 5 ft 6 in
Actual Weight 78.1 kg
Pertinent Past Medical History: PAD, DM 2
- Vital Signs / Lab Results
Temp Pulse Resp BP Pulse Ox
97.7 F 64 18 123/62 99
10/21/23 07:10 10/21/23 07:10 10/21/23 07:10 10/21/23 07:10 10/21/23 07:10
Lab Results - Hematology
10/19/23 10/20/23 10/21/23
05:25 05:38 08:19
WBC 8.2 8.2 8.9
Lab Results - Chemistry
10/19/23 10/20/23 10/21/23
05:25 05:38 08:19
BUN 15 15 19
Creatinine 0.7 0.8 0.8
Estimated Creat Clear 82 72 72
--- NOTE | 2023-10-21 11:40 | WOUNDNOTE ---
[facility] RN note: Barbara from [employer] stated home ready vac has been approved. Clarified weight bear status with Gillian Garcia, Vascular MUTUAL FUNDS AGENT who confirmed L heel weigh bear only with flat surgical shoe. Pair of Men's Medium flat surgical shoes
given. PT/OT worked with patient. Foam dressings changed on heels. R heel dry sim scab/callus. L heel small shallow pink ulcer with dry hyperkeratotic skin around wound. Patient has [employer]ue lite boots and air chair cushion. Sacral skin intact.
--- NOTE | 2023-10-21 11:41 | WOUNDNOTE ---
[facility] RN note: Barbara from [employer] stated home ready vac has been approved. Clarified weight bear status with Gillian Garcia, Vascular DIRECTOR TRADE who confirmed L heel weigh bear only with flat surgical shoe. Pair of Men's Medium flat surgical shoes
given. PT/OT worked with patient. Foam dressings changed on heels. Wounds improved compared to last photo. Patient has TruVue lite boots and air chair cushion. Sacral skin intact.
[2023-10-21] MEDS: ZOSYN IV (12:00)
[2023-10-21 12:05] VITALS: BP 133/63; PULSE 72
--- NOTE | 2023-10-21 12:50 | WOUNDNOTE ---
[facility] RN note: Switched from hospital rental vac pump to patient's home vac pump. Ready care vac equipment given. Patient signed proof of delivery form for home vac equipment. Instructed patient how to turn on/off home vac pump, how to change
canister, how to connect and disconnect vac tubing. Instructed patient how to plug in vac pump and to call VN or [employer] tech support 07/09 for vac pump problems/concerns. Instructed patient if chrissy bleeding occurs from L foot, to clamp vac tubing
and turn off vac pump and call 911. Patient instructed heel pressure relief measures and L heel weight bear only. Patient has bilateral flat surgical shoes. He's sitting in recliner chair with air chair cushion. Patient aware to take air chair
cushion home. VN to follow. Patient to follow up with vascular surgeon. Updated RN Fatoumata who is aware to place rental vac ulta pump in soiled utility room when patient discharged today.
[2023-10-21] MEDS: NOVOLOG FLEXPEN-LOW RESISTANCE SC (12:55)
--- NOTE | 2023-10-21 14:29 | VNURNOTE ---
VN liaison spoke with patient's spouse Sandra. She is aware of DC with wound vac. Provided VN contact number. Spouse had to get off phone abruptly, was at work. Resumption referral accepted in [facility].
--- NOTE | 2023-10-21 15:43 | W.DCSUMMARY ---
Discharge Summary
Discharge Data
Date of Admission: 10/14/23
Date of Discharge: 10/21/23
-
Pending Results: No
Discharge Plan
-
Patient Disposition: Home with Home Care
Discharge Diagnosis/Procedures: Acute on Chronic Blood Loss Anemia likely from Bleeding surgical site left foot (history first toe partial ray amputation site)
Left heel diabetic wound/peripheral arterial disease/stage III pressure injury
Right heel stage 2 pressure injury
Benign Gynecomastia
Coronary Artery Disease
Diabetes
Neuropathy
Suspect Depression due to Chronic Illness
Condition: Fair
Diet: Diabetic, Carb Controlled
Activity: Other activity
Additional Activity: Weightbearing as tolerated left lower extremity heel only during transfers, maintain non weightbearing left lower extremity when not transferring. Wheelchair use recommended.
Driving Restrictions: No driving
Bathing Restrictions: None
Blood Work: Please repeat CBC and BMP with primary care provider in 1 week of discharge.
Other Services: VN, PT and OT
Activity Restrictions/Additional Instructions:
Wound Care Instructions
L heel weight bear only with flat surgical shoe.
R heel: skin prep and Adhesive foam change q 2-3 days
L foot: Wound vac therapy, clean with saline, use black foam, Change every 48 - 72 hours (i. e. Pxstcje-Ufhxxjawzj-Gsgxsoe) and prn if unable to obtain a seal. Low Intensity, Continuous at 125 mmHg.
Call VN or [employer] support ([phone]) for vac pump problems/concerns.
L heel: clean with saline, apply foam dressing, change q 2-3 days and as needed for loosened dressing.
offloading heel boots when in bed
Pressure redistributing chair cushion (i.e. Air chair cushion).
Follow up with primary care provider in 1 week of discharge and, in two weeks of discharge, vascular and audiovisual technician.
For surgical wound infection prophylaxis you've been prescribed Augmentin for 7 days.
A probiotic has also been prescribed to promote good gut health while on broad spectrum antibiotics. This is also available over the counter.
Please take medications as prescribed/recommended and follow up with primary care provider and/or other healthcare provider involved in your care for further adjustment to your medication regimen as necessary.
Referrals:
Jamar Baer DPM [Specified Professional Personl] - in two weeks
Kam Fletcher DO [Family Provider] - in one week
Finn Melendez MD [Active] - in two weeks
Prescriptions:
New
Saccharomyces boulardii 250 mg Capsule
250 mg PO DAILY 7 Days Qty: 7 0RF
amoxicillin-pot clavulanate 875-125 mg Tablet
1 tab PO Q12 7 Days Qty: 14 0RF
Continued
aspirin 81 mg tablet,chewable
81 mg PO DAILY
tamsulosin 0.4 mg Capsule
0.4 mg PO DAILY Qty: 0 0RF
melatonin 5 mg Tablet
5 mg PO HS Qty: 0 0RF
sennosides [Senna Laxative] 8.6 mg Tablet
8.6 mg PO BID Qty: 0 0RF
oxycodone 5 mg Tablet
5 mg PO Q4HPRN PRN (Reason: moderate pain) Qty: 7 0RF
magnesium hydroxide [Milk of Magnesia] 400 mg/5 mL Suspension
2,400 mg PO [id number] PRN (Reason: if no bm on 3rd day)
bisacodyl [Dulcolax (bisacodyl)] 10 mg Suppository
10 mg MA DAILYPRN PRN (Reason: if no bm morning of 4th day)
Fleet Enema 19-7 gram/118 mL Enema
118 ml MA DAILYPRN PRN (Reason: if no bm night of 4th day)
acetaminophen 325 mg tablet
650 mg PO Q4HPRN PRN (Reason: mild pain/ fever>100.5F)
atorvastatin 20 mg tablet
20 mg PO HS
Discharge Orders:
Discharge Patient (As Directed); Ordered 10/21/23
Ordered By: Cristy Singh
Discharge Date and Time
Print Language: GREEK
[2023-10-21 15:46] VITALS: BP 117/57
[2023-10-21] MEDS: FLORASTOR 250 MG PO (16:10)
--- NOTE | 2023-10-21 16:30 | WOUNDNOTE ---
[facility] RN note: Bindu Cruz faxed home vac proof of delivery form to [employer] (serial #[id number]).
Notified [employer] via [employer] of stop bill date/nut picker of hospital rental vac [employer] vac pump (work order #[id number]).
== END 2023-10-21 17:15 | disposition home health service (06) | DRG 901 ==
LOC: 2 SOUTH 17:46
PROVIDERS: Internal Medicine; Surgery Vascular Surgery; ADMITTING PHYSICIAN Hospitalist; ATTENDING PHYSICIAN Internal Medicine; CONSULT PHYSICIAN Surgery Vascular Surgery; EMERGENCY PHYSICIAN Emergency Medicine; FAMILY PHYSICIAN Family Medicine; OTHER PHYSICIAN Podiatrist Foot & Ankle Surgery
PROC: 0JBR0ZZ Excision of Left Foot Subcutaneous Tissue and Fascia, Open Approach (ICD-10-PCS; 2023-10-20)
DX: L76.22 Postprocedural hemorrhage of skin and subcutaneous tissue following other procedure (principal); L89.623 Pressure ulcer of left heel, stage 3; D62 Acute posthemorrhagic anemia; T81.31XA Disruption of external operation (surgical) wound, not elsewhere classified, initial encounter
CPT/HCPCS: 35226; 76642; 77062; 77066; 80048; 80053; 82962; 83735; 84100; 85025; 85027; 85610; 85730; 86850; 86900; 86901; 86920; 93005; 96360; 97163; 97166; 97530; 97535; 99285; P9016

== ENCOUNTER 2023-11-01 18:10 | Inpatient (IN) | payer MEDICARE, SELFPAY ==
[2023-11-01] VITALS (8 sets, daily range): BP systolic 100–140; BP diastolic 58–76; BMI 27.3
--- NOTE | 2023-11-01 14:57 | EDRN ---
Asked patient to get into a hospital gown. Patient stated 'no, I am cold I want to stay just like this.' This RN offered blankets. Patient refused to change. Patient denies pain. When asked patient why he was here he stated that 'he can not move.'
When asking patient the last time he ate he said 'days ago.' When asking if he could get to the bathroom he stated 'I just told you that I could not move.' Patient states he lives with his and daughter.
--- NOTE | 2023-11-01 15:22 | ED.GENMED ---
History of Present Illness
General
Chief Complaint: Weakness
Source: patient and spouse
Exam Limitations: none
Time Seen by Provider: 11/01/23 15:03
History of Present Illness
History of Present Illness:
73-year-old male complains of progressive general weakness fatigue anorexia poor intake and diarrhea. Progressive over 1 week. Recent admission for PAD stent/vascular disease/toe amputation. Patient has been on antibiotics since then. Denies
abdominal pain chest pain shortness of breath or other complaints. However weakness has progressed to the point of inability to ambulate. Diarrhea 4-5 times per day. No blood or mucus
Past History
Past History
ED Past Medical History: Arrthythmia, Cancer (Prostate), COPD, HTN, Hypercholesterolemia and NIDDM
ED Past Surgical History: Orthopedic and Other (Vascular surgery)
Social History
Tobacco: Smoker
Alcohol: Occasional
Drug: None
Personal:
Living: with family
Review of Systems
Review of Systems
All Other Systems: Not applicable
Constitutional: Reports fatigue; Denies fever or chills
Phy Exam
Physical Exam
Physical Exam:
GENERAL: Alert and oriented. Disheveled appearing. Malodorous. Elderly and frail. Older than stated age
NECK: Supple
ENT: Pharynx without erythema
CARDIAC: Regular rate and rhythm without any obvious murmurs.
LUNGS: Clear breath sounds,normal
ABDOMEN: Soft, without focal tenderness or distention
NEUROLOGICAL: Alert and oriented , grossly non-focal
SKIN: Warm and dry, diarrhea stool on his lower abdominal wall and left leg. Postsurgical incisions to the left lower leg healing well. Amputation site the left foot healing well.
MUSCULOSKELETAL: Chronic edema both lower extremities. No ischemic leg clinically.
PSYCH: Normal and appropriate interaction.
Course
Orders/Labs/Results
Orders:
Orders
11/01/23 Dinner
2000 calorie (17 carb) Diabetic
At Your Request: Limited Participation
11/01/23 15:21
Cardiac Monitoring- Treatment ONCE
IV Insert/Care/Rem.- Treatment PRN
0.9% Sodium Chloride 500 ml [Nss] 500 ml IV BOLUS
11/01/23 15:22
Electrocardiogram (*1) Stat
Reason for Study: Abdominal Pain
EKG- Treatment ONCE
11/01/23 16:39
Complete Blood Count/With Diff Urgent
Comprehensive Metabolic Panel Urgent
11/01/23 17:43
Admit/Transfer Patient As Directed
Co-Sign Provider:
Level of Care: Inpatient admission
Assign to:: Medical/Surgical
Physician / Group: Kaushal Woods
Diagnosis: Acute diarrhea, hyponatremia
Reason for Hospitalization: Acute diarrhea, hyponatremia
Expected length of stay greater than two midnights?: Yes
ELOS- Estimated Length of Stay in days: 2
I certify the patient meets the requirements for IP care: Yes
PRN Pain Medication Management As Directed
May give lesser potent ordered pain med per pt: Yes
preference::
Protocol:: Medication orders for pain may be administered in a
manner that supports deferring to patient preference
when the pt is:
- Requesting an ordered lesser potent pain medication.
Least to most potent pain medications are defined
as: acetaminophen < NSAID < tramadol < opioids
(morphine, oxycodone, hydromorphone).
- Requesting a lesser dose of the same medication IF
ORDERED.
- Requesting a less intrusive route of administration
if both routes are prescribed by the provider (PO <
IV).
11/01/23 17:44
Code Status As Directed
Resuscitation Status: Full Code
11/01/23 17:47
Urine Osmolality Random [Osmolality, Random Urine] Urgent
Urine Sodium Urgent
11/01/23 20:04
Acetaminophen [Tylenol] 650 mg PO Q4HPRN PRN
Dextrose 50%-Water [Dextrose 50% Syringe] 12.5 grams IV [id number] PRN
Enoxaparin Sodium [Lovenox] 40 mg SC QPM
Glucagon [GlucaGen] 1 mg IM PRN PRN
Lactated Ringers [Lr] 1,000 ml IV 75 mls/hr
Ondansetron Injectable [Zofran] 4 mg IV Q6HPRN PRN
Oxycodone [Roxicodone] 5 mg PO DAILYPRN PRN
11/01/23 20:04
WOUND/OSTOMY CONSULT Routine
Reason for Consult: Left foot wound
Activity As Directed
Activity Level: With Assistance
Bedside Glucose Monitoring As Directed
Frequency: AC&HS
Additional Instructions:: Change to q6h if pt on TPN, tube feeding or not eating
Vital Signs As Directed
Frequency: Per unit guidelines
DX Deep Vein Thrombosis Video Routine
11/01/23 21:24
STOOL [C difficile Antigen & Toxins] Urgent
MAIKOL Source: Feces/Stool
Specimen Description:
Date Specimen was Collected: 11/01/23
Time Specimen was Collected: 20:53
Stool Culture Urgent
MAIKOL Source: Feces/Stool
Specimen Description:
Date Specimen was Collected: 11/01/23
Time Specimen was Collected: 20:53
11/01/23 22:00
Atorvastatin [Lipitor] 20 mg PO HS
Melatonin 5 mg PO HS
11/02/23 06:00
Basic Metabolic Panel IN AM
Complete Blood Count/No Diff IN AM
11/02/23 07:30
Insulin Aspart Corrective Low [Novolog Flexpen-Low Resistance] See Protocol SC AC
11/02/23 08:00
Aspirin Chewable [Low Strength Aspirin] 81 mg PO DAILY
Saccharomyces Boulardii [Florastor] 250 mg PO DAILY
Tamsulosin [Flomax] 0.4 mg PO DAILY
11/03/23 06:00
Basic Metabolic Panel IN AM
Complete Blood Count/No Diff IN AM
11/04/23 06:00
Basic Metabolic Panel IN AM
Complete Blood Count/No Diff IN AM
Abnormal Lab Results
11/01/23
16:39
WBC 19.9 H 10^3/uL
(4.8-10.8)
RBC 3.93 L 10^6/uL
(4.70-6.10)
Hgb 11.4 L g/dL
(13.0-18.0)
Hct 33.3 L %
(39.0-52.0)
RDW 15.4 H %
(11.5-14.5)
Abs Immat Gran (auto) 0.5 H 10^3/uL
(0-0.05)
Absolute Neuts (auto) 16.9 H 10^3/uL
(1.4-6.5)
Absolute Lymphs (auto) 1.1 L 10^3/uL
(1.2-3.4)
Absolute Monos (auto) 1.3 H 10^3/uL
(0.1-0.6)
Immature Gran % 2.7 H %
(0-0.5)
Neutrophils % 84.9 H %
(42.2-75.2)
Lymphocytes % 5.6 L %
(20.5-51.1)
Sodium 129 L mmol/L
(135-145)
Chloride 97 L mmol/L
(98-107)
BUN 24 H mg/dl
(9-20)
Glucose 160 H mg/dl
(70-99)
Calcium 7.5 L mg/dl
(8.4-10.2)
Total Protein 5.1 L g/dl
(6.3-8.2)
Albumin 2.4 L g/dl
(3.5-5.0)
11/01/23 16:39
11/01/23 16:39
Vital Signs
Initial and Last Documented VS:
Initial Vital Signs
Temp Pulse Resp BP Pulse Ox
97.2 F 91 18 109/63 97
11/01/23 14:46 11/01/23 14:46 11/01/23 14:46 11/01/23 14:46 11/01/23 14:46
Last Documented Vital Signs
Temp Pulse Resp BP Pulse Ox
99.4 F 71 18 123/67 100
11/01/23 20:52 11/01/23 20:52 11/01/23 20:52 11/01/23 20:52 11/01/23 20:52
MDM/Problems Addressed
Differential Diagnosis Includes:
Nonfocal general weakness. Nothing to support CVA. Likely electrolyte hydration weakness diarrhea. Possible C. difficile colitis. Workup in progress. Clearly requires medical admission
*Pulse Oximetry
Patient hypoxic: no
*EKG
Interpreted by ED Provider?: Yes
Interpretation: abnormal
Comparison EKG: changes noted
Heart Rate: 70
Rate: normal
Rhythm: a-fib
[place]: normal axis
Interval: normal interval
QRS Pattern: low voltage
Ischemia: non-specific ST changes
*Critical Care Note
Total Time (30-74mins, 75-104mins- exclusive of procedures): Not Applicable
Data Reviewed
Review of Other/Old Records Reveals: Labs, Records, Testing and Discharge Summary
Patient Management
Social determinants of health affecting care: Other (ADL. Unable to ambulate)
Update Note
Update Note:
Patient with severe general weakness. Currently unable to ambulate at home. Diarrhea. Recent antibiotics. Relatively suspicious for C. difficile colitis warrants inpatient management.
ED Attending Note
-
Portions of this chart may have been created with voice recognition software.� Occasional wrong word or��sound alike� substitutions may have occurred due to the inherent limitations of voice recognition software.
Discharge Plan
Departure
Patient Disposition: Admit
Date of Disposition: 11/01/23
Time of Disposition: 17:10
Presentation/result/management discussed w/ accepting MD/DO: Hospitalist
Discharge Problem:
Severe weakness/ADL issues, Dehydration/suspected C. difficile colit
Interventions
Interventions:
*Risk Screen - Suicide Last Done: 11/01/23 22:08
*General Assessment Last Done: 11/01/23 20:05
*Neglect/Abuse Screening Last Done: 11/01/23 14:46
ED- Fall Risk Assessment Last Done: 11/01/23 20:05
*ED COVID-19 Vaccine History Last Done: 11/01/23 20:05
*Nursing Disposition Last Done: 11/01/23 20:05
ED- Cardiac Assessment Last Done: 11/01/23 17:12
ED- Neurological Assessment Last Done: 11/01/23 17:12
ED- Pulmonary Assessment Last Done: 11/01/23 17:12
Discharge Date and Time
Discharge Date/Time: 11/01/23 20:06
[2023-11-01 16:49] LABS: Hematocrit 33.3 % (39.0-52.0); Hemoglobin 11.4 g/dL (13.0-18.0); Mean Corp Hgb Conc. 34.2 g/dL (33.0-37.0); Mean Corpuscular Volume 84.7 fL (80.0-94.0); Mean Platelet Volume 9.6 fL (7.4-10.4); Platelet Count 316 10^3/uL (130-400); Red Blood Cell Count 3.93 10^6/uL (4.70-6.10); Red Cell Dist. Width 15.4 % (11.5-14.5); White Blood Cell Count 19.9 10^3/uL (4.8-10.8)
[2023-11-01] MEDS: NSS 500 IV (16:52)
[2023-11-01 17:05] LABS: ALT (SGPT) 24 U/L (0-50); AST (SGOT) 56 U/L (17-59); Albumin 2.4 g/dl (3.5-5.0); Alkaline Phosphatase 123 U/L (38-126); Blood Urea Nitrogen 24 mg/dl (9-20); Calcium 7.5 mg/dl (8.4-10.2); Carbon Dioxide 22 mmol/L (22-30); Chloride 97 mmol/L (98-107); Glucose 160 mg/dl (70-99); Potassium 3.8 mmol/L (3.5-5.1); Sodium 129 mmol/L (135-145); Total Bilirubin 0.6 mg/dl (0.2-1.3); Total Protein 5.1 g/dl (6.3-8.2); eGFR > 60.00
[2023-11-01 17:23] LABS: % Basophils 0.1 % (0-2); % Eosinophils 0.4 % (0-6); % Immature Granulocytes 2.7 % (0-0.5); % Lymphocytes 5.6 % (20.5-51.1); % Monocytes 6.3 % (1.7-9.3); % Neutrophils 84.9 % (42.2-75.2); Absolute Eosinophils 0.1 10^3/uL (0-0.7); Absolute Immature Granulocytes 0.5 10^3/uL (0-0.05); Absolute Lymphocytes 1.1 10^3/uL (1.2-3.4); Absolute Monocytes 1.3 10^3/uL (0.1-0.6); Absolute Neutrophils 16.9 10^3/uL (1.4-6.5); Nucleated Red Blood Cells % 0 % (-)
--- NOTE | 2023-11-01 17:47 | HPS.HSE ---
Family Physician
-
Family Physician: Kam Fletcher
Chief Complaint
-
Generalized weakness, diarrhea
History of Present Illness
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
stents, history of prostate cancer status post prostatic radiation, history of urinary retention, depression came to ER for having new onset of diarrhea and generalized weakness. Patient was discharged from hospital on 10/21/2023 after having left
foot wound debridement. Patient was provided 1 week of oral Augmentin course. Approximately 2-3 days before patient started to having new onset diarrhea although stated of having only 1 bowel movement every day?. Denies of having any associated
abdominal pain nausea vomiting or fever. Patient noted to having poor appetite. Patient also feeling weak and denies of having any mechanical fall. Patient is poor historian and not forthcoming with further details. No other family members at
bedside to provide information
Patient denies of having any cardiopulmonary complaints this visit.
Medical History
Past Medical History
Past Medical History: Reports Other
Additional Past Medical History:
peripheral arterial disease status post left lower extremity SFA stent/bypass, left foot fourth and fifth toe amputation and nonhealing wound, gynecomastia, coronary disease with history of stents, history of prostate cancer status post prostatic
radiation, history of urinary retention, depression
Past Surgical History: Reports Other
Social History
Tobacco: Non-smoker
Alcohol: Occasional
Drug: None
Family History
Family History: Not pertinent
Allergies / Home Medications
Allergies reflects when Allergies were last updated in [facility].
Home Medications with original date entered in [facility]
Allergy/Medication List:
Allergies
Allergy/AdvReac Type Severity Reaction Status Date / Time
No Known Allergies Allergy Verified 11/01/23 14:48
Home Medications
aspirin 81 mg chewable tablet 81 mg PO DAILY Blood Clot Prevention/Tx 09/14/23
melatonin 5 mg tablet 5 mg PO HS #0 tabs 10/11/23
atorvastatin 20 mg tablet 20 mg PO HS High Cholesterol 10/14/23
Saccharomyces boulardii 250 mg capsule 250 mg PO DAILY 7 days #7 caps 10/21/23
tamsulosin 0.4 mg capsule 0.4 mg PO DAILY 30 days #30 caps 10/21/23
oxycodone 5 mg tablet 5 mg PO DAILYPRN PRN moderate to severe pain 11/01/23
Review of Systems
-
A 12 point ROS was completed and negative except as noted: Yes
Physical Exam
Vital Signs
Vital Signs
Temp Pulse Resp BP Pulse Ox
97.2 F 74 22 108/72 100
11/01/23 14:46 11/01/23 17:01 11/01/23 17:01 11/01/23 17:01 11/01/23 17:01
Physical Exam
General: Well Developed, Well Nourished and No Apparent Distress
HEENT: NormoCephalic, Moist mucous membranes and Atraumatic
Respiratory: Clear
Cardiac: S1/S2 and Regular Rhythm; No Murmur or Rub
GI: Soft, Non Tender, Non Distended and Normal Bowel Sounds; No Organomegaly
Rectal: Deferred by Provider
Musculoskeletal: No Clubbing, No Cyanosis, No Edema and Other (Left foot 4/5 toe ampuation, dressing in place )
Skin: No Rash
Neuro: Nonfocal/grossly intact
Laboratory Results
-
11/01/23 16:39
11/01/23 16:39
Laboratory Results
Total Bilirubin 0.6 mg/dl (0.2-1.3) 11/01/23 16:39
AST 56 U/L (17-59) 11/01/23 16:39
ALT 24 U/L (0-50) 11/01/23 16:39
Alkaline Phosphatase 123 U/L (38-126) 11/01/23 16:39
Data Reviewed
-
Diagnostic Radiology: Image Personally Visualized and interpreted, Discussed with Patient and Discussed with Family
Lab Data: Labs Reviewed by me, Discussed with Patient and Discussed with Family
Impression/Plan
-
1. Acute diarrhea
-New onset in last few days
-Patient was getting antibiotics earlier in the month and was provided 7 days of oral Augmentin therapy for left foot diabetic wound infection
-Stool studies ordered for C. difficile/stool culture
-Abdominal examination benign and no nausea vomiting/fever report
-Patient have leukocytosis. Afebrile.
-Maintain on diabetic diet and IV fluid
-Hold on starting any antibiotics/C. difficile treatment until further results available
-Will consider abdominal imaging if any further complication arises
2. Acute hyponatremia
-Check urine sodium/osmolality
-Would suspect hypovolemic versus decreased oral intake related
-Maintain on LR at 75 mL/h
-Follow-up sodium in the morning
3. NIDDM
-Hbg 6.5
-Maintain on ISS and diabetic diet
4. PAD
h/o left distal SFA stenting on 08/24
h/o of LLE Pop-DP arterial bypass 09/28
s/p L 1st toe ray amputation on 10/03
-dressing in place, wound care for further help
-will evaluate again tomorrow AM for any concern of infection
5. Heel pressure injury - POA
-wound care
6. Generalized weakness
-Periodic evaluation in the morning
Gynecomastia
History of prostate cancer status post prostate radiation
History of urinary retention
Depression
DVT PPX -lovenox
Full code
Total time spent : 78 mins
I personally saw and examined the patient.
I have reviewed all diagnostic interpretations and treatment plans as written.
Time includes patient management by me, time spent at the patients bedside, time to review lab and imaging results, discussing patient care, documentation in the medical record, and time spent with the family or caregiver and discussing care plan
with RN/Consultants.
[2023-11-01] MEDS: LR 1000 IV (20:54)
[2023-11-01] MEDS: MELATONIN 5 MG PO (21:19)
[2023-11-01] MEDS: LIPITOR 20 MG PO (21:19)
[2023-11-01] MEDS: LOVENOX 40 MG SC (21:19)
[2023-11-01 23:01] LABS: Glucose - Point of Care 242 mg/dl (70-99)
[2023-11-02 00:29] LABS: Osmolality Urine 637 mOsm/kg (300-900)
[2023-11-02 00:43] LABS: Urine Sodium 6 mmol/L (30-90)
[2023-11-02 06:56] LABS: Blood Urea Nitrogen 19 mg/dl (9-20); Carbon Dioxide 23 mmol/L (22-30); Chloride 98 mmol/L (98-107); Estimated Creatinine Clearance 96 ml/min; Glucose 136 mg/dl (70-99); Hematocrit 26.9 % (39.0-52.0); Hemoglobin 9.7 g/dL (13.0-18.0); Mean Corp Hgb Conc. 36.1 g/dL (33.0-37.0); Mean Corpuscular Volume 85.9 fL (80.0-94.0); Mean Platelet Volume 9.8 fL (7.4-10.4); Platelet Count 270 10^3/uL (130-400); Potassium 3.1 mmol/L (3.5-5.1); Red Blood Cell Count 3.13 10^6/uL (4.70-6.10); Sodium 128 mmol/L (135-145); White Blood Cell Count 15.5 10^3/uL (4.8-10.8); eGFR > 60.00
[2023-11-02 07:00] VITALS: BP 101/61
[2023-11-02 07:06] LABS: Glucose - Point of Care 175 mg/dl (70-99)
[2023-11-02] MEDS: NOVOLOG FLEXPEN-LOW RESISTANCE 1 UNITS SC (08:21)
[2023-11-02] MEDS: NSS 1000 IV ×2 (08:25→18:32)
[2023-11-02] MEDS: LOW STRENGTH ASPIRIN 81 MG PO (08:25)
[2023-11-02] MEDS: FLOMAX 0.4 MG PO (08:25)
[2023-11-02] MEDS: FLORASTOR 250 MG PO (08:25)
[2023-11-02] MEDS: DESENEX/MITRAZOL/ZEASORB 1 APPLIC TOPICAL ×2 (08:25→21:00)
--- NOTE | 2023-11-02 08:38 | VNURNOTE ---
Chart reviewed. Patient is current with [facility] nursing. He has had multiple recent hospitalizations. Will continue to follow hospital course and DC plans.
--- NOTE | 2023-11-02 09:46 | PTCARENOTE ---
Addendum entered by Lidia Noe RN 11/02/23 19:29:
rectal trumpet placed at 1600. pt verbalizing moderate pain. myra 5mg given. see MAR for proper documentation.
Addendum entered by Lidia Noe RN 11/02/23 15:19:
pt let this nurse attempt to place fms. pt agitated stating it is too big, this nurse will attempt rectal trumpet with small head. pt having no urination for this nurse this shift. pt bladder scanned per protocol, retaining 403ml. pt straight cathed
for a total of 425ml of yellow/orange urine. pt agitated and angry his skin is sore, nurse again educated on importance of calling when needing to have a bowel movement. attempt to place rectal trumpet once supplies arrives.
Addendum entered by Lidia Noe RN 11/02/23 13:28:
pt heavily inc of loose stools- knows he is soiled and not calling for help to be cleaned. when addressed and educated of risk of skin breakdown pt stated 'i wanted to eat my lunch first and im only going to go again anyway'. pt cleaned and calazine
and desenex applied to areas. made aware and current discussion between this nurse and MD about FMS.
Original Note:
pt inc of loose orange stools- pt positive result for c.diff toxin.MD made aware. IVF changed to NSS @100ml/hr. BS this morning 175 pt received 1unit.
[2023-11-02 11:40] LABS: Glucose - Point of Care 204 mg/dl (70-99)
--- NOTE | 2023-11-02 11:49 | CM ---
Addendum entered by Antoinette Puentes 11/02/23 12:07:
PCP: Kam Fletcher
Pharmacy: [facility]
Denies any food/utilities/housing/transportation insecurities
Original Note:
Patient seen at bedside.
Dx: Diarrhea, hyponatremia
+c-diff, NA 128
PMH: Peripheral arterial disease status post left lower extremity SFA stent/bypass, left foot fourth and fifth toe amputation and nonhealing wound, gynecomastia, coronary disease with history of stents, history of prostate cancer status post
prostatic radiation, history of urinary retention, depression
Lives in 2 story home with his , Lives on the 1st floor, states no steps to enter.
Patient is current with [facility] in past and has had SNF in past (Formerly [facility], states does not want to return there)
Await PT/OT evals
SNF vs. HH
PLAN: Discharge when medically stable, await PT/OT evals.
--- NOTE | 2023-11-02 12:43 | W.PN.HOSP.TC ---
Today's Communication/Plan
-
start on oral vancomycin
maintain on NS
f/u Na level
Assessment / Plan
Assessment / Plan
1. Cdiff colitis
Acute diarrhea
-New onset in last few days
-Patient was getting antibiotics earlier in the month and was provided 7 days of oral Augmentin therapy for left foot diabetic wound infection
-Stool studies ordered for C. difficile/stool culture
-Abdominal examination benign and no nausea vomiting/fever report
-Patient have leukocytosis. Afebrile.
-Maintain on diabetic diet and IV fluid
-Stool C. difficile positive with toxin production. Starting on oral vancomycin 125 mg every 6h
2. Acute hyponatremia
-Urine Na 6 and Uosm ~ 630
-Would suspect hypovolemic versus decreased oral intake related
-change to NS for now
-Recheck BMP in afternoon
3. NIDDM
-Hbg 6.5
-Maintain on ISS and diabetic diet
4. PAD
h/o left distal SFA stenting on 08/24
h/o of LLE Pop-DP arterial bypass 09/28
s/p L 1st toe ray amputation on 10/03
-dressing in place, wound care for further help
-will evaluate again tomorrow AM for any concern of infection
5. Heel pressure injury - POA
-wound care
6. Generalized weakness
-Periodic evaluation in the morning
Gynecomastia
History of prostate cancer status post prostate radiation
History of urinary retention
Depression
DVT PPX -lovenox
Full code
Total time spent : 53 mins
Anticipated Discharge: Within 24 hours
Subjective/Interval History
-
Date of Service: November 02, 2023
reported diarrhea overnight
No abdominal pain/nausea/vomiting
Afebrile overnight
Objective Data
-
Labs:
Laboratory Results
11/02/23 11/02/23
05:14 15:00
WBC 15.5 H
Hgb 9.7 L
Hct 26.9 L
Plt Count 270
Sodium 128 L Pending
Potassium 3.1 L Pending
Chloride 98 Pending
Carbon Dioxide 23 Pending
BUN 19 Pending
Creatinine 0.6 L Pending
Glucose 136 H Pending
Calcium 7.0 L Pending
Vital Signs:
Vital Signs
Temp Pulse Resp BP Pulse Ox
98.0 F 89 16 101/61 97
11/02/23 07:00 11/02/23 07:00 11/02/23 07:00 11/02/23 07:00 11/02/23 08:10
I&O
11/01/23 11/02/23 11/03/23
06:59 06:59 06:59
Intake Total 1785 / 1785
Output Total 780 / 780
Balance 1005 / 1005
Review of Systems
-
Respiratory: Reports No Symptoms
Cardiac: Reports No Symptoms
Abdomen/GI: Reports Diarrhea; Denies Abdominal Pain or Nausea
Physical Exam
-
General: Appears Chronically Ill
Respiratory: Clear to Auscultation; Negative Wheezes
Cardiac: Regular Rhythm, S1/S2 and Murmur
GI: Soft, Nontender and Nondistended
Musculoskeletal: Other (left leg with negrito in place--left foot with pink blood stains on gauze)
Neuro: Awake, Alert and Oriented
[2023-11-02] MEDS: FIRVANQ 125 MG PO ×3 (12:48→23:53)
[2023-11-02] MEDS: NOVOLOG FLEXPEN-LOW RESISTANCE 2 UNITS SC (12:48)
[2023-11-02 15:00] VITALS: BP 98/61
--- NOTE | 2023-11-02 15:07 | WOUNDNOTE ---
L PLANTAR 2ND TOE
--- NOTE | 2023-11-02 15:07 | WOUNDNOTE ---
L 4TH TOE AMP SITE
--- NOTE | 2023-11-02 15:08 | WOUNDNOTE ---
L LATERAL LOWER LEG
--- NOTE | 2023-11-02 15:15 | WOUNDNOTE ---
WON RN note: Patient admitted with severe weakness, dehydration and suspected C diff.
See H&P for complete history. Lives at home with Sandra.
PMH: DM, PAD, CAD, wounds L toes, heel, L calf, L distal SFA stent by Dr. Melendez 08/25/23, ex smoker, cardiac stent. L great toe and 4th toe amputation, post op infection and debridement of great toe, follows Dr. Baer. I&D of L foot.
Wound Location and type/assessment: Patient known to service, last seen 10/21/23 s/p L great toe amp site I&D with wound vac placed by Dr. Holman. Patient confirmed he followed up with Dr. Holman but not Dr. Baer since discharge. When asked patient
why wound vac not being used anymore he states, 'It wasn't working anymore.' Today wound appears much cleaner touch up worker, small pink/moderate sim slough and 0.5cm depth. No odor after cleaning and periwound intact. L 2nd toe tip with same dry eschar, old 4th
toe amp site healed. L heel with healing diabetic/Pad/ stage 3 PI, now with small scab and purple discolored skin surrounding. L lateral leg with healing venous ulcer, pink base. R heel with healing stage 2 PI, flat dry crusty intact skin. Lifted
edge of scab and has intact skin underneath. B/L knees with healing abrasions, moderate slough at base. Patient turned self to sides with minimal assist. Had loose stool, shane rectal area with excoriated skin, buttock with shallow pink ulcer from
incontinent associated skin damage.
Appetite: Patient states his appetite is improving, set up patient to eat lunch.
Pressure redistribution devices in place: Air overlay in use with adequate inflation. Agreed to wear quilted heel boots only. Pillow placed under calves. Instructed patient on pressure ulcer prevention measures. Patient with poor compliance. Nursing
reports patient lays in soiled brief without calling staff and lays on back. Nurse Lidia to apply internal fecal food general manager. Asked nurse to switch bed to air mattress if difficult to maintain turning schedule.
Plan: Adhesive foams applied to both heels. Adaptic and Dry gauze dressing applied to top of L foot/toes and L lateral leg. Adaptic and silicone foams applied to knees. Calazime barrier cream applied to buttocks and rectum post skin care and brief
change. Confirmed orders with Dr. Woods for Santyl to L great toe amp site and both knees daily. Care plan to be updated, nurse Lidia made aware of the above.
Note to case management requested for discharge: Recommend SNF.
Patient to follow up with vascular and podiatry.
[2023-11-02] MEDS: ROXICODONE 5 MG PO (16:22)
[2023-11-02] MEDS: LOVENOX 40 MG SC (17:50)
[2023-11-02] MEDS: NOVOLOG FLEXPEN-LOW RESISTANCE SC (17:53)
[2023-11-02 17:55] LABS: Glucose - Point of Care 148 mg/dl (70-99)
[2023-11-02 18:21] LABS: Blood Urea Nitrogen 15 mg/dl (9-20); Calcium 7.2 mg/dl (8.4-10.2); Carbon Dioxide 23 mmol/L (22-30); Chloride 99 mmol/L (98-107); Estimated Creatinine Clearance 96 ml/min; Glucose 143 mg/dl (70-99); Potassium 3.1 mmol/L (3.5-5.1); Sodium 130 mmol/L (135-145); eGFR > 60.00
[2023-11-02 21:26] LABS: Glucose - Point of Care 220 mg/dl (70-99)
[2023-11-02] MEDS: MELATONIN 5 MG PO (22:12)
[2023-11-02] MEDS: LIPITOR 20 MG PO (22:14)
[2023-11-02 23:00] VITALS: BP 105/76
[2023-11-03] VITALS (7 sets, daily range): BP systolic 104–116; BP diastolic 60–78; PULSE 86; BMI 27.3
--- NOTE | 2023-11-03 03:01 | DOWNTIME ---
There was a [employer] Downtime on 10/06/2023 from 0100 to 10/06/2023 at 0252. Downtime documentation of patient's care, including medication administrations, has been reconciled in the electronic record per guidelines. Refer to the
patient's paper chart under the miscellaneous tab to see printed paper medication records and downtime forms.
[2023-11-03] MEDS: FIRVANQ 125 MG PO ×4 (05:16→23:30)
[2023-11-03] MEDS: NSS 1000 IV (05:27)
[2023-11-03] MEDS: SANTYL OINTMENT 1 APPLIC TOPICAL (05:38)
[2023-11-03 07:12] LABS: Glucose - Point of Care 143 mg/dl (70-99)
[2023-11-03 07:53] LABS: Hematocrit 28.2 % (39.0-52.0); Mean Corp Hgb Conc. 35.5 g/dL (33.0-37.0); Mean Corpuscular Hgb 30.7 pg (27.0-31.0); Mean Corpuscular Volume 86.5 fL (80.0-94.0); Mean Platelet Volume 10.2 fL (7.4-10.4); Platelet Count 243 10^3/uL (130-400); Red Blood Cell Count 3.26 10^6/uL (4.70-6.10); Red Cell Dist. Width 15.2 % (11.5-14.5)
[2023-11-03 08:25] LABS: Blood Urea Nitrogen 12 mg/dl (9-20); Calcium 7.1 mg/dl (8.4-10.2); Carbon Dioxide 23 mmol/L (22-30); Chloride 99 mmol/L (98-107); Estimated Creatinine Clearance 96 ml/min; Glucose 135 mg/dl (70-99); Potassium 3.3 mmol/L (3.5-5.1); Sodium 129 mmol/L (135-145); eGFR > 60.00
[2023-11-03] MEDS: NOVOLOG FLEXPEN-LOW RESISTANCE SC (09:12)
[2023-11-03] MEDS: LOW STRENGTH ASPIRIN 81 MG PO (09:13)
[2023-11-03] MEDS: FLOMAX 0.4 MG PO (09:13)
[2023-11-03] MEDS: FLORASTOR 250 MG PO (09:13)
[2023-11-03] MEDS: DESENEX/MITRAZOL/ZEASORB 1 APPLIC TOPICAL ×2 (09:15→21:33)
--- NOTE | 2023-11-03 09:53 | PN.CDI ---
CDI
- -
CDI:
Physician Documentation Request
Admit Date: 11/01/23 18:10
Dear Doctor Chuck,
Patient admitted for Cdiff colitis.
Laboratory Tests
11/02/23 11/02/23 11/03/23
05:14 17:44 07:24
Potassium 3.1 L 3.1 L 3.3 L
Based on the above, could you clarify in the progress notes, the appropriate diagnosis, if significant, that supports the above abnormalities and additional evaluation, monitoring and/or treatment rendered:
Hypokalemia
Abnormal lab value insignificant
Other
Use of terms such as suspected, likely, concern for, or probable (associated with a specific diagnosis that is being evaluated, monitored, or treated as if it exists) are acceptable and can be coded in the inpatient setting, when documented at the
time of discharge.
Thank you,
Jacquelin Carpio RN, BSN
CDI Specialist
Available via [facility] text
Please use your independent medical judgment in providing your response.
[2023-11-03] MEDS: ROXICODONE 7.5 MG PO (09:55)
--- NOTE | 2023-11-03 09:59 | PTCARENOTE ---
Addendum entered by Gayle Frances RN 11/03/23 10:46:
Rectal tube reinserted by this RN and Sheryl COULTER.
Original Note:
This RN turned patient in bed to find rectal tube out of patient's rectum. Patient stated he did not want rectal tube reinserted. This RN educated patient on prevention of skin breakdown from frequent diarrhea, patient stated he would be in
agreement to have rectal tube reinserted if provided pain medication prior. This RN communicated with MD, one time order of 7.5 mg PO oxycodone ordered per MD and administered by this RN - see MAR.
[2023-11-03 12:13] LABS: Glucose - Point of Care 196 mg/dl (70-99)
--- NOTE | 2023-11-03 13:51 | W.PN.HOSP.TC ---
Today's Communication/Plan
-
continue oral vancomycin
PT/OT evaluation
Monitor stool output
Possible d/c in 24-48 hrs
Assessment / Plan
Assessment / Plan
1. C-diff colitis
Acute diarrhea
-New onset in last few days
-Patient was getting antibiotics earlier in the month and was provided 7 days of oral Augmentin therapy for left foot diabetic wound infection
-WBC trending down, remains afebrile.
-Maintain on diabetic diet and IV fluid
-Stool C. difficile positive with toxin production. Starting on oral vancomycin 125 mg every 6h x 10 days course
2. Acute hyponatremia
-Urine Na 6 and Uosm ~ 630
-Would suspect hypovolemic versus decreased oral intake related
-Good oral intake, stop further NS for now.
3. NIDDM
-Hbg 6.5
-Maintain on ISS and diabetic diet
4. PAD
h/o left distal SFA stenting on 08/24
h/o of LLE Pop-DP arterial bypass 09/28
s/p L 1st toe ray amputation on 10/03
-dressing in place, wound care for further help
-no concern of new infection at surgical site
-continue wound care
5. L Heel stage III pressure inj - POA
R Heel stage II Pressure inj - POA
-wound care following
-wound pictures reviewed,
6. Generalized weakness
-PT evaluation requested
-Patient have visiting nurse service, have declined rehab in the past
Gynecomastia
History of prostate cancer status post prostate radiation
History of urinary retention
Depression
DVT PPX -lovenox
Full code
Anticipated Discharge: 24 - 48 hours
Subjective/Interval History
-
Date of Service: November 03, 2023
have rectal trumpet in place
no new issues
Objective Data
-
Labs:
Laboratory Results
11/03/23
07:24
WBC 13.0 H
Hgb 10.0 L
Hct 28.2 L
Plt Count 243
Sodium 129 L
Potassium 3.3 L
Chloride 99
Carbon Dioxide 23
BUN 12
Creatinine 0.5 L
Glucose 135 H
Calcium 7.1 L
Vital Signs:
Vital Signs
Temp Pulse Resp BP Pulse Ox
97.2 F 82 14 106/78 98
11/03/23 11:00 11/03/23 11:00 11/03/23 11:00 11/03/23 11:00 11/03/23 11:00
I&O
11/02/23 11/03/23 11/04/23
06:59 06:59 06:59
Intake Total 1785 / 1785 4560 / 4560
Output Total 780 / 780 2100 / 2100
Balance 1005 / 1005 2460 / 2460
Review of Systems
-
Respiratory: Reports No Symptoms
Cardiac: Reports No Symptoms
Abdomen/GI: Reports No Symptoms
Physical Exam
-
General: Appears Chronically Ill
Respiratory: Clear to Auscultation; Negative Wheezes
Cardiac: Regular Rhythm, S1/S2 and Murmur
GI: Soft, Nontender and Nondistended
Musculoskeletal: Other (left leg with negrito in place--left foot with pink blood stains on gauze)
Neuro: Awake, Alert and Oriented
[2023-11-03] MEDS: NOVOLOG FLEXPEN-LOW RESISTANCE 1 UNITS SC ×2 (14:12→17:18)
[2023-11-03] MEDS: KCL 40 MEQ PO (16:02)
--- NOTE | 2023-11-03 16:06 | CM ---
Patient seen at bedside.
Discussed PT recommending SNF
Options given. States he does not want to go back to [facility] to [facility]
Referrals placed in care port.
WILL NEED TO GET INS AUTHORIZATION
PLAN: Discharge when medically stable, agreeable to SNF
[2023-11-03 16:13] LABS: Glucose - Point of Care 184 mg/dl (70-99)
--- NOTE | 2023-11-03 16:57 | PTCARENOTE ---
Patient's bladder scan at 1630 318 ml. Patient prompted to urinate with urinal, white pus like discharge noted from tip of penis while patient attempting to urinate. MD made aware, order for UA placed. Patient straight cathed for urine sample, 330
ml shawn colored urine drained from bladder, urine sample sent to lab.
[2023-11-03] MEDS: LOVENOX 40 MG SC (17:13)
[2023-11-03 17:15] LABS: Urine Albumin Trace (Neg - Trace); Urine Bilirubin Negative (Negative); Urine Character Clear (Clear); Urine Color Yellow; Urine Glucose 2+ (Negative); Urine Ketone Trace (Negative); Urine Leukocyte 1+ (Negative); Urine Nitrite Positive (Negative); Urine Occult Blood Trace (Negative); Urine Urobilinogen Negative (Neg - 1+)
[2023-11-03 17:40] LABS: Urine Bacteria Many (Negative); Urine Red Blood Cell 0-2 /HPF (0-2); Urine Squamous Cell 16-20 /LPF (Few)
[2023-11-03 21:31] LABS: Glucose - Point of Care 188 mg/dl (70-99)
[2023-11-03] MEDS: LIPITOR 20 MG PO (21:34)
[2023-11-03] MEDS: MELATONIN 5 MG PO (21:34)
[2023-11-04] MEDS: FIRVANQ 125 MG PO ×3 (06:07→17:27)
[2023-11-04 07:41] LABS: Blood Urea Nitrogen 9 mg/dl (9-20); Carbon Dioxide 21 mmol/L (22-30); Chloride 101 mmol/L (98-107); Estimated Creatinine Clearance 96 ml/min; Glucose 113 mg/dl (70-99); Potassium 3.6 mmol/L (3.5-5.1); Sodium 130 mmol/L (135-145); eGFR > 60.00
[2023-11-04 07:48] LABS: Glucose - Point of Care 140 mg/dl (70-99)
[2023-11-04] MEDS: NOVOLOG FLEXPEN-LOW RESISTANCE SC (07:49)
[2023-11-04 08:00] VITALS: BP 107/63
[2023-11-04 08:07] VITALS: BP 107/63
[2023-11-04 08:16] LABS: Hematocrit 26.6 % (39.0-52.0); Hemoglobin 9.1 g/dL (13.0-18.0); Mean Corp Hgb Conc. 34.2 g/dL (33.0-37.0); Mean Corpuscular Hgb 29.1 pg (27.0-31.0); Mean Platelet Volume 9.5 fL (7.4-10.4); Platelet Count 320 10^3/uL (130-400); Red Blood Cell Count 3.13 10^6/uL (4.70-6.10); Red Cell Dist. Width 15.5 % (11.5-14.5); White Blood Cell Count 9.7 10^3/uL (4.8-10.8)
[2023-11-04] MEDS: FLOMAX 0.4 MG PO (09:46)
[2023-11-04] MEDS: LOW STRENGTH ASPIRIN 81 MG PO (09:47)
[2023-11-04] MEDS: DESENEX/MITRAZOL/ZEASORB 1 APPLIC TOPICAL ×2 (09:47→21:17)
[2023-11-04] MEDS: SANTYL OINTMENT 1 APPLIC TOPICAL (09:51)
[2023-11-04] MEDS: FLORASTOR 250 MG PO (09:53)
[2023-11-04 11:00] VITALS: BP 106/66
[2023-11-04 11:21] LABS: Glucose - Point of Care 168 mg/dl (70-99)
[2023-11-04 11:33] VITALS: BP 106/66
--- NOTE | 2023-11-04 13:26 | W.PN.HOSP.TC ---
Today's Communication/Plan
-
d/c planning for SNF rehab
monitor renal function/na level
Assessment / Plan
Assessment / Plan
1. C-diff colitis
Acute diarrhea
-New onset in last few days
-Patient was getting antibiotics earlier in the month and was provided 7 days of oral Augmentin therapy for left foot diabetic wound infection
-WBC trending down, remains afebrile.
-Maintain on diabetic diet and IV fluid
-Stool C. difficile positive with toxin production. Starting on oral vancomycin 125 mg every 6h x 10 days course
2. Acute hyponatremia
-Urine Na 6 and Uosm ~ 630
-Would suspect hypovolemic versus decreased oral intake related
-Good oral intake, stop further NS for now.
3. NIDDM
-Hbg 6.5
-Maintain on ISS and diabetic diet
4. PAD
h/o left distal SFA stenting on 08/24
h/o of LLE Pop-DP arterial bypass 09/28
s/p L 1st toe ray amputation on 10/03
-dressing in place, wound care for further help
-no concern of new infection at surgical site
-continue wound care
5. L Heel stage III pressure inj - POA
R Heel stage II Pressure inj - POA
-wound care following
-wound pictures reviewed,
6. Generalized weakness
-PT evaluation requested
-Patient have visiting nurse service, have declined rehab in the past
Gynecomastia
History of prostate cancer status post prostate radiation
History of urinary retention
Depression
DVT PPX -lovenox
Full code
Anticipated Discharge: 24 - 48 hours
Subjective/Interval History
-
Date of Service: November 04, 2023
Resting comfortably in bed
Complains of ongoing diarrhea
No abdominal pain/nausea/vomiting
Afebrile
Objective Data
-
Labs:
Laboratory Results
11/04/23
05:52
WBC 9.7
Hgb 9.1 L
Hct 26.6 L
Plt Count 320 D
Sodium 130 L
Potassium 3.6
Chloride 101
Carbon Dioxide 21 L
BUN 9
Creatinine 0.5 L
Glucose 113 H
Calcium 7.0 L
Vital Signs:
Vital Signs
Temp Pulse Resp BP Pulse Ox
94 F L 83 12 106/66 98
11/04/23 11:00 11/04/23 11:00 11/04/23 11:00 11/04/23 11:00 11/04/23 11:00
I&O
11/03/23 11/04/23 11/05/23
06:59 06:59 06:59
Intake Total 4560 / 4560 1740 / 1740
Output Total 2100 / 2100 1433 / 1433
Balance 2460 / 2460 307 / 307
Review of Systems
-
Respiratory: Reports No Symptoms
Cardiac: Reports No Symptoms
Abdomen/GI: Reports Diarrhea; Denies Nausea or Vomiting
Physical Exam
-
General: Appears Chronically Ill
Respiratory: Clear to Auscultation; Negative Wheezes
Cardiac: Regular Rhythm, S1/S2 and Murmur
GI: Soft, Nontender and Nondistended
Musculoskeletal: Other (left leg with negrito in place--left foot with pink blood stains on gauze)
Neuro: Awake, Alert and Oriented
[2023-11-04] MEDS: NOVOLOG FLEXPEN-LOW RESISTANCE 1 UNITS SC (13:40)
--- NOTE | 2023-11-04 14:00 | PTCARENOTE ---
MD made aware of positive urine culture in progress, no new orders at this time.
[2023-11-04 15:00] VITALS: BP 104/64
[2023-11-04 16:17] LABS: Glucose - Point of Care 226 mg/dl (70-99)
[2023-11-04] MEDS: LOVENOX 40 MG SC (17:27)
[2023-11-04] MEDS: NOVOLOG FLEXPEN-LOW RESISTANCE 2 UNITS SC (17:30)
[2023-11-04] MEDS: LIPITOR 20 MG PO (21:17)
[2023-11-04] MEDS: MELATONIN 5 MG PO (21:17)
[2023-11-04 21:21] LABS: Glucose - Point of Care 185 mg/dl (70-99)
[2023-11-04] MEDS: ROXICODONE 5 MG PO (21:39)
[2023-11-04 23:05] VITALS: BP 117/66
[2023-11-05] MEDS: FIRVANQ 125 MG PO ×5 (00:57→23:45)
[2023-11-05 07:00] VITALS: BP 98/60
[2023-11-05 07:13] LABS: Glucose - Point of Care 147 mg/dl (70-99)
--- NOTE | 2023-11-05 09:00 | CM ---
Per prior CM, no beds at [facility], [facility], or [facility]. Patient requested further referrals to [facility]. [facility] accepted patient and [facility] has some questions. CM will review with patient options and start auth pending
physician assessment.
Plan; SNF
[2023-11-05] MEDS: FLORASTOR 250 MG PO (09:56)
[2023-11-05] MEDS: LOW STRENGTH ASPIRIN 81 MG PO (09:56)
[2023-11-05] MEDS: NOVOLOG FLEXPEN-LOW RESISTANCE SC (09:56)
[2023-11-05] MEDS: FLOMAX 0.4 MG PO (09:56)
[2023-11-05] MEDS: SANTYL OINTMENT 1 APPLIC TOPICAL (09:57)
[2023-11-05] MEDS: DESENEX/MITRAZOL/ZEASORB 1 APPLIC TOPICAL ×2 (09:58→21:00)
[2023-11-05 11:20] LABS: Glucose - Point of Care 186 mg/dl (70-99)
[2023-11-05] MEDS: NOVOLOG FLEXPEN-LOW RESISTANCE 1 UNITS SC (12:25)
[2023-11-05 13:02] VITALS: BP 104/61
--- NOTE | 2023-11-05 13:02 | W.PN.HOSP.TC ---
Addendum entered and electronically signed by Kaushal Woods MD 11/05/23 16:04:
Hypokalemia
-replace PRN
Asymptomatic bacteriuria
-Patient gram-negative bacilli growing from urinary sample
-No dysuria/signs of secondary sepsis
-Avoid unnecessary antibiotic with ongoing C. difficile colitis.
Acute urinary retention
-Holman catheter required to be placed for urinary retention
-Will do voiding trial possibly tomorrow
Original Note:
Today's Communication/Plan
-
continue oral vancomycin
discharge planning for snf rehab
Assessment / Plan
Assessment / Plan
1. C-diff colitis
Acute diarrhea
-New onset in last few days
-Patient was getting antibiotics earlier in the month and was provided 7 days of oral Augmentin therapy for left foot diabetic wound infection
-WBC trending down, remains afebrile.
-Maintain on diabetic diet and IV fluid
-Stool C. difficile positive with toxin production. Starting on oral vancomycin 125 mg every 6h x 10 days course
2. Acute hyponatremia
-Urine Na 6 and Uosm ~ 630
-Would suspect hypovolemic versus decreased oral intake related
-Good oral intake, stop further NS for now.
3. NIDDM
-Hbg 6.5
-Maintain on ISS and diabetic diet
4. PAD
h/o left distal SFA stenting on 08/24
h/o of LLE Pop-DP arterial bypass 09/28
s/p L 1st toe ray amputation on 10/03
-dressing in place, wound care for further help
-no concern of new infection at surgical site
-continue wound care
5. L Heel stage III pressure inj - POA
R Heel stage II Pressure inj - POA
-wound care following
-wound pictures reviewed,
6. Generalized weakness
-PT evaluation requested
-Patient have visiting nurse service, have declined rehab in the past
Gynecomastia
History of prostate cancer status post prostate radiation
History of urinary retention
Depression
DVT PPX -lovenox
Full code
Anticipated Discharge: Today
Subjective/Interval History
-
Date of Service: November 05, 2023
Continues to have some mucoid stool
denies of having abdominal pain nausea vomiting
Objective Data
-
Vital Signs:
Vital Signs
Temp Pulse Resp BP Pulse Ox
98.1 F 78 18 98/60 99
11/05/23 07:00 11/05/23 07:00 11/05/23 07:00 11/05/23 07:00 11/05/23 07:00
I&O
11/04/23 11/05/23 11/06/23
06:59 06:59 06:59
Intake Total 1740 / 1740 1440 / 1440
Output Total 1433 / 1433 925 / 925
Balance 307 / 307 515 / 515
Review of Systems
-
Respiratory: Reports No Symptoms
Cardiac: Reports No Symptoms
Abdomen/GI: Reports No Symptoms
Physical Exam
-
General: Appears Chronically Ill
Respiratory: Clear to Auscultation; Negative Wheezes
Cardiac: Regular Rhythm, S1/S2 and Murmur
GI: Soft, Nontender and Nondistended
Musculoskeletal: Other (left leg with negrito in place--left foot with pink blood stains on gauze)
Neuro: Awake, Alert and Oriented
[2023-11-05 13:04] VITALS: BP 104/61; PULSE 87
--- NOTE | 2023-11-05 13:41 | CM ---
Addendum entered by Farida Bruno 11/05/23 14:58:
transportation forms completed and placed with chart. IMM forms on couch for to review.
Addendum entered by Farida Bruno 11/05/23 14:13:
pending auth # [id number]
Original Note:
Patient spoke with CM and requested either [facility] or [facility]. Both have accepted patient. Patient requested [facility] as first choice. Per admissions Liaison, [facility] has a bed and can accept patient.
CM called to start auth process with [facility] . CM faxed clinical information to . When auth is received please call report to [phone]/fax [phone]. Patient will need ambulance for transportation. CM
will complete transportation forms patient will need to complete IMM when visits after work. CM will continue to follow for discharge planning needs.
Plan; SNF; when auth approved.
[2023-11-05] MEDS: TYLENOL 650 MG PO (14:54)
[2023-11-05 15:00] VITALS: BP 107/64
[2023-11-05 17:19] LABS: Glucose - Point of Care 201 mg/dl (70-99)
[2023-11-05] MEDS: NOVOLOG FLEXPEN-LOW RESISTANCE 2 UNITS SC (18:10)
[2023-11-05] MEDS: LOVENOX 40 MG SC (18:11)
[2023-11-05] MEDS: LIPITOR 20 MG PO (21:22)
[2023-11-05] MEDS: MELATONIN 5 MG PO (21:22)
[2023-11-05 21:40] LABS: Glucose - Point of Care 126 mg/dl (70-99)
[2023-11-05] MEDS: ROXICODONE 5 MG PO (21:42)
[2023-11-05 23:43] VITALS: BP 98/59
[2023-11-06] MEDS: FIRVANQ 125 MG PO ×4 (05:10→23:53)
[2023-11-06 07:00] VITALS: BP 102/59
[2023-11-06 07:50] LABS: Hematocrit 27.2 % (39.0-52.0); Hemoglobin 9.1 g/dL (13.0-18.0); Mean Corp Hgb Conc. 33.5 g/dL (33.0-37.0); Mean Corpuscular Hgb 29.2 pg (27.0-31.0); Mean Corpuscular Volume 87.2 fL (80.0-94.0); Mean Platelet Volume 9.3 fL (7.4-10.4); Platelet Count 383 10^3/uL (130-400); Red Blood Cell Count 3.12 10^6/uL (4.70-6.10); Red Cell Dist. Width 15.6 % (11.5-14.5); White Blood Cell Count 7.5 10^3/uL (4.8-10.8)
[2023-11-06] MEDS: LOW STRENGTH ASPIRIN 81 MG PO (08:15)
[2023-11-06] MEDS: FLORASTOR 250 MG PO (08:15)
[2023-11-06] MEDS: FLOMAX 0.4 MG PO (08:15)
[2023-11-06] MEDS: DESENEX/MITRAZOL/ZEASORB 1 APPLIC TOPICAL ×2 (08:21→21:00)
[2023-11-06] MEDS: SANTYL OINTMENT 1 APPLIC TOPICAL (08:21)
[2023-11-06 08:23] LABS: Blood Urea Nitrogen 10 mg/dl (9-20); Calcium 7.5 mg/dl (8.4-10.2); Carbon Dioxide 29 mmol/L (22-30); Chloride 99 mmol/L (98-107); Estimated Creatinine Clearance 96 ml/min; Glucose 115 mg/dl (70-99); Potassium 3.5 mmol/L (3.5-5.1); Sodium 131 mmol/L (135-145); eGFR > 60.00
[2023-11-06 08:25] LABS: Glucose - Point of Care 220 mg/dl (70-99)
[2023-11-06] MEDS: NOVOLOG FLEXPEN-LOW RESISTANCE 2 UNITS SC (08:26)
[2023-11-06 11:37] LABS: Glucose - Point of Care 183 mg/dl (70-99)
[2023-11-06] MEDS: NOVOLOG FLEXPEN-LOW RESISTANCE 1 UNITS SC (12:24)
--- NOTE | 2023-11-06 12:43 | W.PN.HOSP.TC ---
Today's Communication/Plan
-
d/c juarez
voiding trial
continue oral vanc
d/c snf rehab once bed available
Assessment / Plan
Assessment / Plan
1. C-diff colitis
Acute diarrhea
-New onset in last few days
-Patient was getting antibiotics earlier in the month and was provided 7 days of oral Augmentin therapy for left foot diabetic wound infection
-WBC trending down, remains afebrile.
-IVF has been stopped.
-Stool C. difficile positive with toxin production. Starting on oral vancomycin 125 mg every 6h x 10 days course
2. Acute hyponatremia - Improving
-Urine Na 6 and Uosm ~ 630
-Would suspect hypovolemic versus decreased oral intake related
-Good oral intake, stop further NS for now.
3. NIDDM
-Hbg 6.5
-Maintain on ISS and diabetic diet
4. PAD
h/o left distal SFA stenting on 08/24
h/o of LLE Pop-DP arterial bypass 09/28
s/p L 1st toe ray amputation on 10/03
-dressing in place, wound care for further help
-no concern of new infection at surgical site
-continue wound care
5. L Heel stage III pressure inj - POA
R Heel stage II Pressure inj - POA
-wound care following
-wound pictures reviewed,
6. Generalized weakness
-agreeable for rehab, pending auth
7. Hypokalemia
-replace PRN
8. Asymptomatic bacteriuria
-Patient gram-negative bacilli growing from urinary sample
-No dysuria/signs of secondary sepsis
-Avoid unnecessary antibiotic with ongoing C. difficile colitis.
9. Acute urinary retention
-Juarez catheter required to be placed for urinary retention
-d/c juarez and attempt voiding trial today
Gynecomastia
History of prostate cancer status post prostate radiation
History of urinary retention
Depression
DVT PPX -lovenox
Full code
Anticipated Discharge: 24 - 48 hours
Subjective/Interval History
-
Date of Service: November 06, 2023
some upper abd discomfort
Still have some mucoid diarrhea
Afebrile
Objective Data
-
Labs:
Laboratory Results
11/06/23
07:16
WBC 7.5
Hgb 9.1 L
Hct 27.2 L
Plt Count 383
Sodium 131 L
Potassium 3.5
Chloride 99
Carbon Dioxide 29
BUN 10
Creatinine 0.6 L
Glucose 115 H
Calcium 7.5 L
Vital Signs:
Vital Signs
Temp Pulse Resp BP Pulse Ox
97.7 F 79 16 102/59 95
11/06/23 07:00 11/06/23 07:00 11/06/23 07:00 11/06/23 07:00 11/06/23 07:00
I&O
11/05/23 11/06/23 11/07/23
06:59 06:59 06:59
Intake Total 1440 / 1440 1200 / 1200
Output Total 925 / 925 925 / 925
Balance 515 / 515 275 / 275
Review of Systems
-
Respiratory: Reports No Symptoms
Cardiac: Reports No Symptoms
Abdomen/GI: Denies Nausea or Vomiting
Physical Exam
-
General: Appears Chronically Ill
Respiratory: Clear to Auscultation; Negative Wheezes
Cardiac: Regular Rhythm, S1/S2 and Murmur
GI: Soft, Nondistended and Tender (Upper abdominal pain)
Musculoskeletal: Other (left leg with negrito in place--left foot with pink blood stains on gauze)
Neuro: Awake, Alert and Oriented
[2023-11-06 15:00] VITALS: BP 103/61
[2023-11-06 17:05] LABS: Glucose - Point of Care 133 mg/dl (70-99)
[2023-11-06] MEDS: LOVENOX 40 MG SC (17:44)
[2023-11-06] MEDS: NOVOLOG FLEXPEN-LOW RESISTANCE SC (17:44)
[2023-11-06] MEDS: MELATONIN 5 MG PO (21:49)
[2023-11-06] MEDS: LIPITOR 20 MG PO (21:51)
[2023-11-06] MEDS: ROXICODONE 5 MG PO (22:20)
[2023-11-06 22:41] LABS: Glucose - Point of Care 152 mg/dl (70-99)
[2023-11-06 23:18] VITALS: BP 112/57
--- NOTE | 2023-11-07 03:52 | PTCARENOTE ---
Patient's juarez catheter removed 11/05. Patient failed void trial. Patient unable to urinate. Bladder scan for 434ml and straight cath 400ml.
[2023-11-07] MEDS: FIRVANQ 125 MG PO ×4 (05:29→23:00)
[2023-11-07] MEDS: SANTYL OINTMENT 1 APPLIC TOPICAL (05:34)
[2023-11-07 06:51] LABS: Glucose - Point of Care 122 mg/dl (70-99)
[2023-11-07 07:00] VITALS: BP 102/68
[2023-11-07 07:20] LABS: Hematocrit 26.1 % (39.0-52.0); Hemoglobin 8.9 g/dL (13.0-18.0); Mean Corp Hgb Conc. 34.1 g/dL (33.0-37.0); Mean Corpuscular Hgb 29.3 pg (27.0-31.0); Mean Corpuscular Volume 85.9 fL (80.0-94.0); Mean Platelet Volume 9.2 fL (7.4-10.4); Platelet Count 390 10^3/uL (130-400); Red Blood Cell Count 3.04 10^6/uL (4.70-6.10); Red Cell Dist. Width 15.5 % (11.5-14.5); White Blood Cell Count 7.9 10^3/uL (4.8-10.8)
[2023-11-07 08:44] LABS: Blood Urea Nitrogen 12 mg/dl (9-20); Calcium 7.4 mg/dl (8.4-10.2); Carbon Dioxide 29 mmol/L (22-30); Chloride 99 mmol/L (98-107); Estimated Creatinine Clearance 96 ml/min; Glucose 110 mg/dl (70-99); Potassium 3.4 mmol/L (3.5-5.1); Sodium 132 mmol/L (135-145); eGFR > 60.00
[2023-11-07] MEDS: NOVOLOG FLEXPEN-LOW RESISTANCE SC (08:48)
[2023-11-07] MEDS: FLOMAX 0.4 MG PO (08:49)
[2023-11-07] MEDS: FLORASTOR 250 MG PO (08:50)
[2023-11-07] MEDS: LOW STRENGTH ASPIRIN 81 MG PO (08:50)
[2023-11-07] MEDS: DESENEX/MITRAZOL/ZEASORB 1 APPLIC TOPICAL ×2 (08:52→21:08)
[2023-11-07 11:42] LABS: Glucose - Point of Care 199 mg/dl (70-99)
[2023-11-07] MEDS: NOVOLOG FLEXPEN-LOW RESISTANCE 1 UNITS SC ×2 (11:57→17:02)
--- NOTE | 2023-11-07 13:37 | W.PN.HOSP.TC ---
Today's Communication/Plan
-
d/c planning for rehab
Assessment / Plan
Assessment / Plan
1. C-diff colitis
Acute diarrhea
-New onset in last few days
-Patient was getting antibiotics earlier in the month and was provided 7 days of oral Augmentin therapy for left foot diabetic wound infection
-WBC trending down, remains afebrile.
-IVF has been stopped.
-Stool C. difficile positive with toxin production. Starting on oral vancomycin 125 mg every 6h x 10 days course
2. Acute hyponatremia - Improving
-Urine Na 6 and Uosm ~ 630
-Would suspect hypovolemic versus decreased oral intake related
-Good oral intake, stop further NS for now.
3. NIDDM
-Hbg 6.5
-Maintain on ISS and diabetic diet
4. PAD
h/o left distal SFA stenting on 08/24
h/o of LLE Pop-DP arterial bypass 09/28
s/p L 1st toe ray amputation on 10/03
-dressing in place, wound care for further help
-no concern of new infection at surgical site
-continue wound care
5. L Heel stage III pressure inj - POA
R Heel stage II Pressure inj - POA
-wound care following
-wound pictures reviewed,
6. Generalized weakness
-agreeable for rehab, pending auth
7. Hypokalemia
-replace PRN
8. Asymptomatic bacteriuria
-Patient gram-negative bacilli growing from urinary sample
-No dysuria/signs of secondary sepsis
-Avoid unnecessary antibiotic with ongoing C. difficile colitis.
9. Acute urinary retention
-Holman catheter required to be placed for urinary retention
-Holman taken out Wednesday. Continue monitoring for urinary retention
Gynecomastia
History of prostate cancer status post prostate radiation
History of urinary retention
Depression
DVT PPX -lovenox
Full code
Anticipated Discharge: Within 24 hours
Subjective/Interval History
-
Date of Service: November 07, 2023
still have some diarrhea
have some abd discomfort
Objective Data
-
Labs:
Laboratory Results
11/07/23
06:30
WBC 7.9
Hgb 8.9 L
Hct 26.1 L
Plt Count 390
Sodium 132 L
Potassium 3.4 L
Chloride 99
Carbon Dioxide 29
BUN 12
Creatinine 0.6 L
Glucose 110 H
Calcium 7.4 L
Vital Signs:
Vital Signs
Temp Pulse Resp BP Pulse Ox
97.9 F 74 16 102/68 96
11/07/23 07:00 11/07/23 07:00 11/07/23 07:00 11/07/23 07:00 11/07/23 07:00
I&O
11/06/23 11/07/23 11/08/23
06:59 06:59 06:59
Intake Total 1200 / 1200 300 / 300
Output Total 925 / 925 600 / 600
Balance 275 / 275 -300 / -300
Review of Systems
-
Respiratory: Reports No Symptoms
Cardiac: Reports No Symptoms
Abdomen/GI: Reports No Symptoms
Physical Exam
-
General: Appears Chronically Ill
Respiratory: Clear to Auscultation; Negative Wheezes
Cardiac: Regular Rhythm, S1/S2 and Murmur
GI: Soft, Nondistended and Tender (Upper abdominal pain)
Musculoskeletal: Other (left leg with negrito in place--left foot with pink blood stains on gauze)
Neuro: Awake, Alert and Oriented
[2023-11-07 15:00] VITALS: BP 96/51
[2023-11-07 16:56] LABS: Glucose - Point of Care 177 mg/dl (70-99)
[2023-11-07] MEDS: LOVENOX 40 MG SC (17:02)
[2023-11-07] MEDS: LIPITOR 20 MG PO (21:06)
[2023-11-07] MEDS: MELATONIN 5 MG PO (21:06)
[2023-11-07 22:06] LABS: Glucose - Point of Care 160 mg/dl (70-99)
[2023-11-07] MEDS: ROXICODONE 5 MG PO (22:59)
[2023-11-07 23:34] VITALS: BP 124/64
[2023-11-08] MEDS: FIRVANQ 125 MG PO ×2 (05:16→11:58)
[2023-11-08] MEDS: TYLENOL 650 MG PO ×2 (05:41→12:00)
--- NOTE | 2023-11-08 06:31 | PTCARENOTE ---
Patient with 2 large bowel movements, complete bed bath given, linens changed. Left buttock dressing changed. Rectum excoriated Turned onto left side. Call [facility] within reach
[2023-11-08 07:00] VITALS: BP 96/50
[2023-11-08 07:56] LABS: Glucose - Point of Care 114 mg/dl (70-99)
[2023-11-08 08:11] LABS: Hematocrit 26.8 % (39.0-52.0); Mean Corp Hgb Conc. 33.6 g/dL (33.0-37.0); Mean Corpuscular Volume 89.3 fL (80.0-94.0); Mean Platelet Volume 9.2 fL (7.4-10.4); Platelet Count 403 10^3/uL (130-400); Red Cell Dist. Width 15.4 % (11.5-14.5)
--- NOTE | 2023-11-08 08:45 | CM ---
Addendum entered by nAtoinette Puentes 11/08/23 11:19:
IMM explained & signed. In chart.
12:30 transport by ambulance - notified [facility] liaison.
Addendum entered by Antoinette Puentes 11/08/23 10:04:
[facility]
Report #: [phone]
Fax #: [phone]
Original Note:
Karyna left a message on voicemail - Insurance authorization approved.
Notified [facility] liaison from [facility]. & gave her the information
Auth #[id number]
4 visits 11/06 NRD 11/09
Updates to phone #: [phone]
Called patient's Sandra & notified her.
tt to Dr. Woods
PLAN: [facility]
[2023-11-08] MEDS: NOVOLOG FLEXPEN-LOW RESISTANCE SC ×2 (08:46→12:04)
[2023-11-08] MEDS: LOW STRENGTH ASPIRIN 81 MG PO (09:14)
[2023-11-08] MEDS: SANTYL OINTMENT 1 APPLIC TOPICAL (09:14)
[2023-11-08] MEDS: FLORASTOR 250 MG PO (09:14)
[2023-11-08] MEDS: FLOMAX 0.4 MG PO (09:14)
[2023-11-08] MEDS: DESENEX/MITRAZOL/ZEASORB 1 APPLIC TOPICAL (09:14)
[2023-11-08 09:43] LABS: Blood Urea Nitrogen 12 mg/dl (9-20); Calcium 7.7 mg/dl (8.4-10.2); Carbon Dioxide 25 mmol/L (22-30); Chloride 101 mmol/L (98-107); Estimated Creatinine Clearance 96 ml/min; Glucose 113 mg/dl (70-99); Potassium 3.5 mmol/L (3.5-5.1); Sodium 133 mmol/L (135-145); eGFR > 60.00
--- NOTE | 2023-11-08 11:23 | W.PN.HOSP.TC ---
Today's Communication/Plan
-
dc to SNF
Assessment / Plan
Assessment / Plan
Assessment:
acute C-diff colitis with Acute diarrhea
- likely related to recent Abx for L foot diabetic wound
- continue Vanco PO QID x 10 days total (1st occurrence)
Acute hyponatremia, hypovolemic from diarrhea
- resolved with better oral intake
NIDDM
- Hbg 6.5
- Maintain on ISS and diabetic diet
PAD
h/o left distal SFA stenting on 08/24
h/o of LLE Pop-DP arterial bypass 09/28
s/p L 1st toe ray amputation on 10/03
- dressing in place, wound care for further help
- no concern of new infection at surgical site
- continue wound care
L Heel stage III pressure inj - POA
R Heel stage II Pressure inj - POA
- wound care following
- wound pictures reviewed,
Generalized weakness
- for SNF table
Hypokalemia
- replace PRN
Asymptomatic bacteriuria
- observe off Abx
Acute urinary retention
- Holman catheter required to be placed for urinary retention, failed Void trial and re-placed prior to DC
Gynecomastia
History of prostate cancer status post prostate radiation
History of urinary retention
Depression
DVT ppx: Lovenox
Code: Full
More than 30 minutes spent in discharge including
Final examination of the patient
Summarizing hospital stay
Instructions for continuing care to all relevant caregivers
Preparation of discharge records, prescriptions, and referral forms
Total time spent (in minutes): 42
Anticipated Discharge: Today
Subjective/Interval History
-
Date of Service: November 08, 2023
diarrhea improving
RN reports ongoing urinary retention requiring SC
Objective Data
-
Labs:
Laboratory Results
11/08/23
07:39
WBC 8.0
Hgb 9.0 L
Hct 26.8 L
Plt Count 403 H
Sodium 133 L
Potassium 3.5
Chloride 101
Carbon Dioxide 25
BUN 12
Creatinine 0.6 L
Glucose 113 H
Calcium 7.7 L
Vital Signs:
Vital Signs
Temp Pulse Resp BP Pulse Ox
97.8 F 66 16 96/50 97
11/08/23 07:00 11/08/23 07:00 11/08/23 07:00 11/08/23 07:00 11/08/23 07:00
I&O
11/07/23 11/08/23 11/09/23
06:59 06:59 06:59
Intake Total 300 / 300 840 / 840
Output Total 600 / 600 800 / 800
Balance -300 / -300 40 / 40
Physical Exam
-
General: No Apparent Distress
HEENT: Normocephalic
Respiratory: Negative Wheezes
Cardiac: Regular Rhythm and S1/S2
GI: Soft
Neuro: AO x 3
Hematologic / Lymphatic: No Lymphadenopathy
Psych: Calm
Data Reviewed
-
Total Time Spent with Patient (in minutes): 42
Labs: Labs Reviewed by me
--- NOTE | 2023-11-08 11:34 | W.DS.TRANS ---
DC Summary - [employer]
-
Discharge Instructions:
Sleep Apnea Risk Low
Discharge Diagnosis/Procedures C. Diff colitis, acute hyponatremia
Diet Diabetic, Carb Controlled
Activity As tolerated
Other Services PT,OT
Instructions:
Stand-Alone Forms:
Changes to Home Medications: No
Discharge Medications:
DC Medications w/original date entered in DDN
aspirin 81 mg chewable tablet 81 mg PO DAILY Blood Clot Prevention/Tx 09/14/23
melatonin 5 mg tablet 5 mg PO HS #0 tabs 10/11/23
atorvastatin 20 mg tablet 20 mg PO HS High Cholesterol 10/14/23
Saccharomyces boulardii 250 mg capsule 250 mg PO DAILY 7 days #7 caps 10/21/23
tamsulosin 0.4 mg capsule 0.4 mg PO DAILY 30 days #30 caps 10/21/23
acetaminophen 325 mg tablet 650 mg (2 x 325 mg) PO Q4HPRN PRN mild pain/MONTEZ/temp> 100.4F #100 tabs 11/08/23
collagenase clostridium histo. 250 unit/gram topical ointment (Santyl) 1 applic topical DAILY #90 grams 11/08/23
miconazole nitrate 2 % topical powder (Miconazorb AF) 1 applic topical BID #85 grams 11/08/23
oxycodone 5 mg tablet 5 mg PO DAILYPRN PRN moderate to severe pain #5 tabs 11/08/23
vancomycin 125 mg capsule 125 mg PO Q6H #20 caps 11/08/23
Home Medication Changes
Pending Results: No
Total time spent discharging patient (in min): 42
[2023-11-08 12:06] LABS: Glucose - Point of Care 174 mg/dl (70-99)
[2023-11-08 12:22] VITALS: BP 121/67
== END 2023-11-08 12:38 | DRG 371 ==
LOC: 2 NORTH 18:10
PROVIDERS: ADMITTING PHYSICIAN Hospitalist; ATTENDING PHYSICIAN Internal Medicine; EMERGENCY PHYSICIAN Emergency Medicine; FAMILY PHYSICIAN Family Medicine
DX: A04.72 Enterocolitis due to Clostridium difficile, not specified as recurrent (principal); L89.623 Pressure ulcer of left heel, stage 3; E87.1 Hypo-osmolality and hyponatremia; F17.200 Nicotine dependence, unspecified, uncomplicated; E11.51 Type 2 diabetes mellitus with diabetic peripheral angiopathy without gangrene; E87.6 Hypokalemia; F32.A Depression, unspecified; L89.612 Pressure ulcer of right heel, stage 2; N62 Hypertrophy of breast
CPT/HCPCS: 80048; 80053; 81003; 81015; 82962; 83935; 84300; 85025; 85027; 87045; 87046; 87070; 87077; 87086; 87186; 87324; 87427; 87449; 93005; 96360; 96361; 97163; 97167; 97530; 97535; 99285

== ENCOUNTER → 2023-11-26 11:00 | Outpatient (REF) | payer MEDICARE, SELFPAY | LOC: RAD 11:00 | PROVIDERS: ATTENDING PHYSICIAN Surgery Vascular Surgery; FAMILY PHYSICIAN Family Medicine | DX: I73.9 Peripheral vascular disease, unspecified (principal) | CPT/HCPCS: 93922; 93925 ==